=== PATIENT | female | born 1960 | race Caucasian/White ===

== ENCOUNTER 2016-12-07 07:59 | Emergency (ER) | payer BC ==
[~2016-12-07] VITALS: Ht 167.6 cm; Wt 57.1 kg
[~2016-12-07 07:59] MED LIST: ARMOUR THYROID90 MG PO; CINNAMON500 MG PO; CRANBERRY200 MG PO; GABAPENTIN300 MG PO; HAIR, SKIN & N1 EACH PO; IBUPROFEN800 MG PO; MAGNESIUM250 M1 PO; MIRALAX17 GM PO; OMEGA 3 1,0001 EACH PO; PERCOCET 5-3251 EACH PO; PRILOSEC20 MG PO; PROGESTERONE200 MG PO; VITAMIN E100 UNI1 PO; ZANTAC150 MG PO
[2016-12-07] MEDS ORDERED: GINGER500 MG PO (08:13)
[2016-12-07] MEDS ORDERED: BIOTIN10000 MCG PO (08:14)
[2016-12-07] MEDS ORDERED: MINIVELLE1 EACH TD (08:14)
[2016-12-07] MEDS ORDERED: VITAMIN D-32000 UNI1 PO (08:14)
[2016-12-07] MEDS ORDERED: TURMERIC 500 M1 EACH PO (08:14)
[2016-12-07] MEDS ORDERED: VITAMIN B COMP1 EAC1 PO (08:14)
[2016-12-07] MEDS ORDERED: MYRBETRIQ50 MG PO (08:15)
[2016-12-07] MEDS ORDERED: PROPRANOLOL HCL20 MG PO (08:15)
[2016-12-07] MEDS ORDERED: METHYLPREDNISOLO4 M1 PO (08:28)
[2016-12-07] MEDS ORDERED: ZITHROMAX250 MG PO (08:28)
== END 2016-12-07 08:38 | disposition home or self-care (01) ==
LOC: ED 07:59
DX: H05.223 Edema of bilateral orbit (principal); T78.49XA Other allergy, initial encounter; E03.9 Hypothyroidism, unspecified; Z87.891 Personal history of nicotine dependence; Z90.710 Acquired absence of both cervix and uterus; Z88.0 Allergy status to penicillin; Z88.5 Allergy status to narcotic agent; Z79.899 Other long term (current) drug therapy
CPT/HCPCS: 99283

== ENCOUNTER 2019-03-03 10:18 | Emergency (ER) | payer BC ==
[~2019-03-03] VITALS: Ht 167.6 cm; Wt 54.4 kg
--- OUTSIDE RECORDS SUMMARY | ~2019-03-03 | XMS | Encounter Summary ---
Demographics + + + | Address | [address] | | | [place] [address] | + + + | Home Phone | | + + + | Preferred Language | Unknown | + + + | Marital Status | | + + + | Scientology Affiliation | 1001 | + + + | Race | Unknown | + + + | Ethnic Group | Unknown | + + + Author + + + | Author | [facility] | | | and [place] | + + + | Organization | Loc[facility] | | | and [place] | + + + | Address | Unknown | + + + | Phone | Unavailable | + + + Support + + + + + | Name | Relationship | Address | Phone | + + + + + | Fidel Holm | ECON | [address] | | | | | [place] | | | | | [address] | | + + + + + | Angelika Holm | ECON | Unknown | | + + + + + Care Team Providers + +------+ + | Care Milk Bottling Machine Operator Name | Role | Phone | + +------+ + | Alec Tao MD | PCP | | + +------+ + Reason for Visit +--------+ + | Reason | Comments | +--------+ + | Other | | +--------+ + Encounter Details +--------+ + + + + | Date | Type | Department | Care Team | Description | +--------+ + + + + | 04/10/ | Telephone | [facility] | Donald Reich MD | Other | | 2015 | | NEUROSURGERY [address] | [address] | | | | | [facility] [address] | [place] [address] | | | | | [place] | [phone] | | | | | [address] | | | | | | [phone] | | | +--------+ + + + + Social History + + + +--------+ + | Tobacco Use | Types | Packs/Day | Years | Date | | | | | Used | | + + + +--------+ + | Former Smoker | Cigarettes | 2 | 20 | Quit: 04/05/1999 | + + + +--------+ + + +---+---+---+ | Smokeless Tobacco: | | | | | Never Used | | | | + +---+---+---+ + + +---------+ + | Alcohol Use | Drinks/Week | oz/Week | Comments | + + +---------+ + | Yes | 0 Standard drinks | 11.0 | | | | or equivalent 11 | | | | | Glasses of wine | | | + + +---------+ + + + + | Sex Assigned at | Date Recorded | | | | + + + | Not on file | | + + + + + + + | Job Start Date | Occupation | Industry | + + + + | Not on file | Not on file | Not on file | + + + + + + + + | Travel History | Travel Start | Travel End | + + + + + + | No recent travel history available. | + + documented as of this encounter Plan of Treatment Not on filedocumented as of this encounter Visit Diagnoses Not on filedocumented in this encounter"
--- OUTSIDE RECORDS SUMMARY | ~2019-03-03 | XMS | Encounter Summary ---
Demographics + + + | Address | [address] | | | [place] [address] | + + + | Home Phone | | + + + | Preferred Language | Unknown | + + + | Marital Status | | + + + | Spiritism Affiliation | NON | + + + | Race | White | + + + | Ethnic Group | Not or | + + + Author + + + | Author | [facility] | + + + | Organization | [facility] | + + + | Address | Unknown | + + + | Phone | Unavailable | + + + Support + + +---------+ + | Name | Relationship | Address | Phone | + + +---------+ + | Fidel Holm | ECON | Unknown | | + + +---------+ + Care Team Providers + +------+ + | Care Mill Set Up Name | Role | Phone | + +------+ + | Jacqueline Nuñez | PCP | | + +------+ + Reason for Visit +--------+ + | Reason | Comments | +--------+ + | Preop | | +--------+ + Encounter Details +--------+---------+ + + + | Date | Type | Department | Care Team | Description | +--------+---------+ + + + | 08/04/ | Office | Otolaryngology | Qasim Casanova MD | Congenital | | 2019 | Visit | Facial Plastics & | [address] | velopharyngeal | | | | Reconstructive | [place], | insufficiency | | | | Services at [facility] | [place] [address] | (Primary Dx) | | | | [address] | [phone] | | | | | Mailcode: CH5E | | | | | | [facility] | | | | | | and [place], | | | | | | [facility] | | | | | | Floor [place], [place] | | | | | | [address] | | | | | | [phone] | | | +--------+---------+ + + + Social History + + + +--------+ + | Tobacco Use | Types | Packs/Day | Years | Date | | | | | Used | | + + + +--------+ + | Former Smoker | Cigarettes | 2 | 20 | Quit: 04/05/1997 | + + + +--------+ + + +---+---+---+ | Smokeless Tobacco: | | | | | Never Used | | | | + +---+---+---+ + + +---------+ + | Alcohol Use | Drinks/Week | oz/Week | Comments | + + +---------+ + | Yes | 7 Standard drinks | 7.0 | | | | or equivalent | | | + + +---------+ + [...] + + documented as of this encounter Progress Notes Qasim Casanova MD - 08/04/2018 4:00 PM PDTClinic: Facial Plastic and Reconstructive Surgery [facility] Cathy Holm is a 58 y.o. female who comes in today for a preoperative visit. 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 We took care of the paperwork and answered all questions. Exam: heart - NSR; lungs - clear bilat Surgical consent was obtained. Routine prescriptions given. I have reviewed the patient's H&P and she is otherwise healthy for surgery. Patient is all set for upcoming surgery. Signed: Ken Torres (scribe for Dr. Casanova) I have reviewed and verified the above scribed note of my visit with this patient as record ed by Ken Torres. Qasim Casanova MD FACS Professor Facial Plastic and Reconstructive Surgery Dept. 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
--- OUTSIDE RECORDS SUMMARY | ~2019-03-03 | XMS | Encounter Summary ---
Demographics + + + | Address | [address] | | | [place] [address] | + + + | Home Phone | | + + + | Preferred Language | Unknown | + + + | Marital Status | | + + + | Quaker Affiliation | 1001 | + + + | Race | Unknown | + + + | Ethnic Group | Unknown | + + + Author + + + | Author | [facility] | | | and [place] | + + + | Organization | [facility] | | | and [place] | [...] [place] | | | | | [address] | | + + + + + | Angelika Holm | ECON | Unknown | | + + + + + Care Team Providers + +------+ + | Care Customer Acquisition Specialist Name | Role | Phone | + +------+ + | Alec Tao MD | PCP | | + +------+ + Reason for Visit +--------+ + | Reason | Comments | +--------+ + | Other | presurgical check | +--------+ + Encounter Details +--------+ + + + + | Date | Type | Department | Care Team | Description | +--------+ + + + + | 05/08/ | Telephone | [facility] | Donald Reich MD | Other (presurgical | | 2016 | | NEUROSURGERY [address] | [address] | check) | | | | [address] [facility] [address] | [place] [address] | | | | | [place] | [phone] | | | | | [address] | | | | | | [phone] | | | +--------+ + + + [...]
--- OUTSIDE RECORDS SUMMARY | ~2019-03-03 | XMS | Encounter Summary ---
Demographics + + + | Address | [address] | | | [place] [address] | + + + | Home Phone | | + + + | Preferred Language | Unknown | + + + | Marital Status | | + + + | Buddhist Affiliation | 1001 | + + + | Race | Unknown | + + + | Ethnic Group | Unknown | + + + Author + + + | Author | [facility] | | | and [place] | + + + | Organization | [facility] | | | and [place] [...] [place] | | | | | [address] | | + + + + + | Angelika Holm | ECON | Unknown | | + + + + + Care Team Providers + +------+ + | Care Inner Layer Scrubber Tender Name | Role | Phone | + +------+ + | Alec Tao MD | PCP | | + +------+ + Encounter Details +--------+ + + + + | Date | Type | Department | Care Team | Description | +--------+ + + + + | 08/25/ | Hospital | [facility] | EstephaniaKris unger, | Neck pain | | 2019 | Encounter | MED CTR XRAY [address] | PA[address]C [address] | | | | | [place] | [address] [place] | | | | | [place] [address] | [place] [address] | | | | | [phone] | [phone] | | | | | | | | +--------+ + + + [...] + + +---------+ + | Yes | 11 Glasses of wine | 11.0 | | | | 0 Standard drinks | | | | | or equivalent | [...] + + documented as of this encounter Medications at Time of Discharge + + + +---------+ + + | Medication | Sig | Dispensed | Refills | Start | End Date | | | | | | Date | | + + + +---------+ + + | ARMOUR THYROID 60 | TK 1 T PO QD | | 2 | 04/30/19 | | | MG tablet | | | | 17 | | + + + +---------+ + + | Biotin 5000 MCG | Take 5,000 mcg by | | 0 | | | | CAPS | mouth Daily. | | | | | + + + +---------+ + + | cholecalciferol | Take 2,000 Units by | | 0 | | | | (VITAMIN D-3) 2000 | mouth Daily. | | | | | | units TABS | | | | | | + + + +---------+ + + | CINNAMON PO | Take 2,000 mg by | | 0 | | | | | mouth Daily. | | | | | + + + +---------+ + + | clobetasol | APPLY TO SCALP TWICE | | 1 | 05/04/19 | | | (TEMOVATE) 0.05 % | DAILY NEEDED | | | 17 | | | external solution | | | | | | + + + +---------+ + + | Coenzyme Q10 (CO | Take by mouth | | 0 | | | | Q-10) 400 MG CAPS | Daily. | | | | | + + + +---------+ + + | Cranberry 300 MG | Take 300 mg by mouth | | 0 | | | | TABS | Daily. | | | | | + + + +---------+ + + | estradiol | APPLY 1 PATCH TO | | 0 | 07/01/19 | | | (VIVELLE-DOT) 0.075 | SKIN TWICE A WEEK | | | 19 | | | MG/24HR | | | | | | + + + +---------+ + + | Terri, Zingiber | Take 1,000 mg by | | 0 | | | | officinalis, (TERRI | mouth Daily. | | | | | | PO) | | | | | | + + + +---------+ + + | Ibuprofen (ADVIL | Take by mouth. | | 0 | | | | PO) | | | | | | + + + +---------+ + + | ketoconazole | | | 5 | 07/02/19 | | | (NIZORAL) 2% shampoo | | | | 17 | | + + + +---------+ + + | KRILL OIL OMEGA-3 | Take 350 mg by mouth | | 0 | | | | PO | Daily. | | | | | + + + +---------+ + + | MYRBETRIQ 50 MG ER | TK 1 T PO QD | | 2 | 06/19/19 | | | tablet | | | | 17 | | + + + +---------+ + + | [place] 3-6-9 Fatty | Take 2 tablets by | | 0 | | | | Acids (TRIPLE OMEGA | mouth Daily. | | | | | | COMPLEX PO) | | | | | | + + + +---------+ + + | omeprazole | Take 10 mg by mouth | | 0 | | | | (PRILOSEC) 10 mg | 2 times daily. | | | | | | capsule | | | | | | + + + +---------+ + + | progesterone | Take 200 mg by mouth | | 0 | | | | (PROMETRIUM) 200 mg | Daily. | | | | | | capsule | | | | | | + + + +---------+ + + | propranolol | Take 20 mg by mouth | | 0 | | | | (INDERAL) 20 MG | 2 times daily. | | | | | | tablet | Patient states " cut | | | | | | | med in half and | | | | | | | takes twice a day" | | | | | + + + +---------+ + + | TURMERIC PO | Take 700 capsules by | | 0 | | | | | mouth Daily. | | | | | + + + +---------+ + + | UNABLE TO FIND | Apply 1 Application | | 0 | | | | | topically 2 times | | | | | | | daily. Med Name: | | | | | | | Bi-Est | | | | | + + + +---------+ + + documented as of this encounter Plan of Treatment Not on filedocumented as of this encounter Procedures + +--------+ + + + | Procedure Name | Priori | Date/Time | Associated Diagnosis | Comments | | | ty | | | | + +--------+ + + + | XR CERVICAL SPINE 4 | Routin | 08/25/2018 | Neck pain | Results for this | | OR 5 VWS | e | 12:25 PM | | procedure are in the | | | | PDT | | results section. | + +--------+ + + + documented in this encounter Results XR Cervical Spine 4 or 5 Vws (08/25/2018 12:25 PM PDT) + + | Specimen | + + | | + + + + + | Narrative | Performed At | + + + | XR CERVICAL SPINE 4 OR 5 VWS 08/25/2018 12:24 PM HISTORY: Neck | [facility] | | pain. COMPARISON: Multiple priors. FINDINGS: Visualized skull | | | base and facial structures demonstrate no acute findings. | | | Prevertebral soft tissues are normal. Loss of the usual lordosis | | | is present. There is stable hardware for anterior fusion from C4 | | | through C7 with interbody graft material at these levels. The | | | hardware are intact. Osseous fusion is observed from C4 through C6. | | | Incomplete fusion is noted between C6 and C7. Mild anterolisthesis is | | | noted of C7 over T1. Bone mineralization is normal. The dens is | | | normal. Vertebral body height are preserved with no evidence for | | | compression fractures. Disc height are maintained. Facet joints are | | | intact. 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 | | | Minimal atherosclerosis is seen of the right neck. Visualized upper | | | chest demonstrates no acute findings. IMPRESSION - Stable | | | anterior fusion from C4 through C7. Osseous fusion is observed from C4 | | | through C6. Incomplete fusion is noted between C6 and C7. | | | Dictated and Signed by: Maurice Rizzo MD Electronically signed: | | | 08/25/2018 1:42 PM | | + + + + + | Procedure Note | + + | Farhan, Rad Results In - 08/25/2018 1:45 PM PDT XR CERVICAL SPINE 4 OR 5 VWS 08/25/2018 | | 12:24 PMHISTORY: Neck pain.COMPARISON: Multiple priors.FINDINGS:Visualized skull base | | and facial structures demonstrate no acute findings.Prevertebral soft tissues are | | normal.Loss of the usual lordosis is present. There is stable hardware for | | anteriorfusion from C4 through C7 with interbody graft material at these levels. | | Thehardware are intact. Osseous fusion is observed from C4 through C6. Incompletefusion | | is noted between C6 and C7. Mild anterolisthesis is noted of C7 over T1.Bone | | mineralization is normal. The dens is normal. Vertebral body height arepreserved with no | | evidence for compression fractures. Disc height aremaintained. Facet joints are intact. | | There is ossification of the ligamentumnuchae at level C5. Minimal atherosclerosis is | | seen of the right neck.Visualized upper chest demonstrates no acute findings. IMPRESSION | | -Stable anterior fusion from C4 through C7. Osseous fusion is observed from [id number] | | C6. Incomplete fusion is noted between C6 and C7.Dictated and Signed by: Maurice Rizzo MD | | Electronically signed: 08/25/2018 1:42 PM | |Bone mineralization is normal. The dens is normal. Vertebral body height are | |preserved with no evidence for compression fractures. Disc height are | |maintained. Facet joints are intact. There is ossification of the ligamentum | |nuchae at level C5. Minimal atherosclerosis is seen of the right neck. | |Visualized upper chest demonstrates no acute findings. | | | |IMPRESSION - | |Stable anterior fusion from C4 through C7. Osseous fusion is observed from C4 | |through C6. Incomplete fusion is noted between C6 and C7. | | | |Dictated and Signed by: Maurice Rizzo MD | | Electronically signed: 08/25/2018 1:42 PM | + + + +---------+ + + | Performing | Address | City/State/Zipcode | Phone Number | | Organization | | | | + +---------+ + + | [facility] | | | | + +---------+ + + documented in this encounter Visit Diagnoses + + | Diagnosis | + + | Neck pain Cervicalgia | + + documented in this encounter
--- OUTSIDE RECORDS SUMMARY | ~2019-03-03 | XMS | Encounter Summary ---
Demographics + + + | Address | [address] | | | [place] [address] | + + + | Home Phone | | + + + | Preferred Language | Unknown | + + + | Marital Status | | + + + | Cheondoism Affiliation | 1001 | + + + | Race | Unknown | + + + | Ethnic Group | Unknown | + + + Author + + + | Author | [facility] | | | and [place] | + + + | Organization | [facility] | | | and [place] [...] [place] | | | | | [address] | | + + + + + | Angelika Holm | ECON | Unknown | | + + + + + Care Team Providers + +------+ + | Care Printer Maintainer Name | Role | Phone | + +------+ + | Alec Tao MD | PCP | | + +------+ + Reason for Visit + + + | Reason | Comments | + + + | Medication Refill | | + + + Encounter Details +--------+--------+ + + + | Date | Type | Department | Care Team | Description | +--------+--------+ + + + | 03/31/ | Refill | [facility] | Andrea Arndt | Medication Refill | | 2014 | | PHYSIATRY [address] | | | | | [place], | [place], [place] | | | | | [place] [address] | [address] | | | | | [phone] | | | +--------+--------+ + + + Social History + + [...]
--- OUTSIDE RECORDS SUMMARY | ~2019-03-03 | XMS | Clinical Summary ---
Demographics + + + | Address | [address] | | | [place] [address] | + + + | Home Phone | | + + + | Preferred Language | Unknown | + + + | Marital Status | | + + + | Advent Affiliation | 1001 | + + + | Race | Unknown | + + + | Ethnic Group | Unknown | + + + Author + + + | Author | [facility] | | | and [place] | + + + | Organization | [facility] | | | and [place] | [...] [place] | | | | | [address] | | + + + + + | Angelika Holm | ECON | Unknown | | + + + + + Care Team Providers + +------+ + | Care Geologist Petroleum Name | Role | Phone | + +------+ + | Alec Tao MD | PCP | | + +------+ + Allergies + + + + + + | Active Allergy | Reactions | Severity | Noted | Comments | | | | | Date | | + + + + + + | Ampicillin | Rash | Low | | | + + + + + + | Morphine | Nausea And Vomiting | Medium | 04/17/19 | | | | | | 15 | | + + + + + + | Penicillins | Rash | Low | | | + + + + + + Medications + + + +---------+------+------+-------+ | Medication | Sig | Dispensed | Refills | Star | End | Statu | | | | | | t | Date | s | | | | | | Date | | | + + + +---------+------+------+-------+ | progesterone | Take 200 mg by mouth | | 0 | | | Activ | | (PROMETRIUM) 200 mg | Daily. | | | | | e | | capsule | | | | | | | + + + +---------+------+------+-------+ | [place] 3-6-9 Fatty | Take 2 tablets by | | 0 | | | Activ | | Acids (TRIPLE OMEGA | mouth Daily. | | | | | e | | COMPLEX PO) | | | | | | | + + + +---------+------+------+-------+ | CINNAMON PO | Take 2,000 mg by | | 0 | | | Activ | | | mouth Daily. | | | | | e | + + + +---------+------+------+-------+ | Cranberry 300 MG | Take 300 mg by mouth | | 0 | | | Activ | | TABS | Daily. | | | | | e | + + + +---------+------+------+-------+ | Biotin 5000 MCG | Take 5,000 mcg by | | 0 | | | Activ | | CAPS | mouth Daily. | | | | | e | + + + +---------+------+------+-------+ | UNABLE TO FIND | Apply 1 Application | | 0 | | | Activ | | | topically 2 times | | | | | e | | | daily. Med Name: | | | | | | | | Bi-Est | | | | | | + + + +---------+------+------+-------+ | omeprazole | Take 10 mg by mouth | | 0 | | | Activ | | (PRILOSEC) 10 mg | 2 times daily. | | | | | e | | capsule | | | | | | | + + + +---------+------+------+-------+ | propranolol | Take 20 mg by mouth | | 0 | | | Activ | | (INDERAL) 20 MG | 2 times daily. | | | | | e | | tablet | Patient states " cut | | | | | | | | med in half and | | | | | | | | takes twice a day" | | | | | | + + + +---------+------+------+-------+ | cholecalciferol | Take 2,000 Units by | | 0 | | | Activ | | (VITAMIN D-3) 2000 | mouth Daily. | | | | | e | | units TABS | | | | | | | + + + +---------+------+------+-------+ | ARMOUR THYROID 60 | TK 1 T PO QD | | 2 | 01/2 | | Activ | | MG tablet | | | | 6/20 | | e | | | | | | 17 | | | + + + +---------+------+------+-------+ | MYRBETRIQ 50 MG ER | TK 1 T PO QD | | 2 | 03/1 | | Activ | | tablet | | | | 6/20 | | e | | | | | | 17 | | | + + + +---------+------+------+-------+ | ketoconazole | | | 5 | 03/2 | | Activ | | (NIZORAL) 2% shampoo | | | | 9/20 | | e | | | | | | 17 | | | + + + +---------+------+------+-------+ | clobetasol | APPLY TO SCALP TWICE | | 1 | 01/3 | | Activ | | (TEMOVATE) 0.05 % | DAILY NEEDED | | | 0/20 | | e | | external solution | | | | 17 | | | + + + +---------+------+------+-------+ | TURMERIC PO | Take 700 capsules by | | 0 | | | Activ | | | mouth Daily. | | | | | e | + + + +---------+------+------+-------+ | KRILL OIL OMEGA-3 | Take 350 mg by mouth | | 0 | | | Activ | | PO | Daily. | | | | | e | + + + +---------+------+------+-------+ | Terri, Zingiber | Take 1,000 mg by | | 0 | | | Activ | | officinalis, (TERRI | mouth Daily. | | | | | e | | PO) | | | | | | | + + + +---------+------+------+-------+ | Coenzyme Q10 (CO | Take by mouth | | 0 | | | Activ | | Q-10) 400 MG CAPS | Daily. | | | | | e | + + + +---------+------+------+-------+ | Ibuprofen (ADVIL | Take by mouth. | | 0 | | | Activ | | PO) | | | | | | e | + + + +---------+------+------+-------+ | estradiol | APPLY 1 PATCH TO | | 0 | 03/2 | | Activ | | (VIVELLE-DOT) 0.075 | SKIN TWICE A WEEK | | | 8/20 | | e | | MG/24HR | | | | 19 | | | + + + +---------+------+------+-------+ Active Problems + + + | Problem | Noted Date | + + + | Chronic constipation | 08/25/2018 | + + + | Incontinence without sensory awareness | 08/25/2018 | + + + | Atrophic vaginitis | 08/25/2018 | + + + | Velopharyngeal insufficiency, acquired | 08/11/2018 | + + + | Female stress incontinence | 08/02/2018 | + + + | Congenital velopharyngeal insufficiency | 12/09/2017 | + + + | Injury of nose | 12/09/2017 | + + + | Nasal septal perforation | 12/09/2017 | + + + | Nasal obstruction | 12/09/2017 | + + + | Nasal septal deviation | 12/09/2017 | + + + | Nasal valve collapse | 12/09/2017 | + + + | Chronic bilateral thoracic back pain | 03/23/2017 | + + + | Alcohol consumption less than one to two days per week | 05/09/2015 | + + + | H/O Hysterectomy | 05/09/2015 | + + + | Ulnar nerve entrapment at elbow, unspecified laterality | 01/15/2015 | + + + | Bilateral low back pain with sciatica | 01/15/2015 | + + + | Cervical radiculopathy | 06/20/2014 | + + + | S/P decompression of ulnar nerve at elbow | 05/01/2014 | + + + + + | Overview: Right | + + + +---+ | Acid reflux | | + +---+ | Hypothyroidism | | + +---+ | Cubital tunnel syndrome | | + +---+ Resolved Problems + + + + | Problem | Noted | Resolved | | | Date | Date | + + + + | Cervical spondylosis with myelopathy | 03/12/20 | | | | 15 | 6 | + + + + | Cervical spinal cord compression | 03/12/20 | | | | 15 | 6 | + + + + | Neck and shoulder pain | | | | | | 6 | + + + + | Degeneration of cervical intervertebral disc | | | | | | 6 | + + + + | Spinal stenosis in cervical region | | | | | | 6 | + + + + | Cervical spondylosis without myelopathy | | | | | | 6 | + + + + Family History + + +------+ + | Medical History | Relation | Name | Comments | + + +------+ + | Gout | Father | | | + + +------+ + | Heart disease | Father | | | + + +------+ + | Other (see comment) | Father | | Blood clots | + + +------+ + | Stroke | Father | | | + + +------+ + | Dementia | Mother | | | + + +------+ + | Hypertension | Mother | | | + + +------+ + | Mental illness | Mother | | | + + +------+ + | Seizures | Mother | | | + + +------+ + | Diabetes | Paternal | | | | | Grandmoth | | | | | er | | | + + +------+ + + +------+ + + | Relation | Name | Status | Comments | + +------+ + + | Father | | | Stroke | | | | (Age | | | | | 82) | | + +------+ + + | Mother | | | Pneumonia | | | | (Age | | | | | 72) | | + +------+ + + | Paternal Grandmother | | | | + +------+ + + Social History + + + [...] recent travel history available. | + + Last Filed Vital Signs + + + + + | Vital Sign | Reading | Time Taken | Comments | + + + + + | Blood Pressure | 124/70 | 08/25/2018 1:32 PM | | | | | PDT | | + + + + + | Pulse | 88 | 08/25/2018 1:32 PM | | | | | PDT | | + + + + + | Temperature | 37.2 C (99 F) | 05/11/2015 8:00 AM | | | | | PST | | + + + + + | Respiratory Rate | 16 | 08/25/2018 1:32 PM | | | | | PDT | | + + + + + | Oxygen Saturation | 100% | 05/11/2015 8:00 AM | | | | | PST | | + + + + + | Inhaled Oxygen | - | - | | | Concentration | | | | + + + + + | Weight | 55.3 kg (121 lb 14.6 | 08/25/2018 1:32 PM | | | | oz) | PDT | | + + + + + | Height | 167.6 cm (5' 6") | 08/25/2018 1:32 PM | | | | | PDT | | + + + + + | Body Mass Index | 19.68 | 08/25/2018 1:32 PM | | | | | PDT | | + + + + + Plan of Treatment + + + + + | Health Maintenance | Due Date | Last Done | Comments | + + + + + | Hepatitis C | | | | | Screening | 8 | | | + + + + + | Vaccine: | | | | | Dtap/Tdap/Td (1 - | 7 | | | | Tdap) | | | | + + + + + | Colorectal Cancer | | | | | Screening | 8 | | | | (Colonoscopy) | | | | + + + + + | Vaccine: Zoster (1 | | | | | of 2) | 8 | | | + + + + + | Breast Cancer | | | | | Screening | 3 | | | + + + + + | Vaccine: Influenza | | | | | (#1) | 9 | | | + + + + + Implants + +------+--------+ +--------+--------+--------+ | Implanted | Type | Area | Manufacture | Device | Shelf | Model | | | | | r | | Expira | / | | | | | | Identi | tion | Serial | | | | | | fier | Date | / Lot | + +------+--------+ +--------+--------+--------+ | Allograft Lordotic [id number] - | | Anteri | [employer] | | 09/20/ | [id number] | | [id number]: Qty: 1 on | | or: | DANEK - DIV | | 2017 | | | 05/10/2015 by Donald Reich, | | Spine | [employer] | | | /[id number] | | MD at [facility] | | [place] | - [facility] | | | [address] | | [facility] | | al | | | | /[id number] | | | | | | | | 6134 | + +------+--------+ +--------+--------+--------+ | Allograft Lordotic [id number] - | | Anteri | [employer] | | 09/20/ | [id number] | | [id number]: Qty: 1 on | | or: | DANEK - DIV | | 2017 | | | 05/10/2015 by Donald Reich, | | Spine | [employer] | | | /[id number] | | at [facility] | | Cervic | - [facility] | | | [address] | | [facility] | | al | | | | /[id number] | | | | | | | | 6134 | + +------+--------+ +--------+--------+--------+ | Allograft Lordotic [id number] - | | Anteri | [employer] | | 08/21/ | [id number] | | [id number]: Qty: 1 on | | or: | DANEK - DIV | | 2018 | | | 05/10/2015 by Donald Reich, | | Spine | [employer] | | | /[id number] | | at [facility] | | Cervic | - [facility] | | | [address] | | [facility] | | al | | | | /[id number] | | | | | | | | 6314 | + +------+--------+ +--------+--------+--------+ | Nhan Whitingn Pls 1cc Aseptic | | Anteri | OSTEOTECH - | | 10/08/ | [id number] | | - [id number]: Qty: | | or: | OSTT | | 2017 | | | 1 on 05/10/2015 by Damir, | | Spine | | | | /[id number] | | Donald Sebastian MD at [facility] | | Cervic | | | | [phone] | | [facility] | | al | | | | / | + +------+--------+ +--------+--------+--------+ | Screw D-Thrd Slf-Drl 3.5x15mm | | Anteri | [employer] | | | [id number] | | - [id number]: Qty: 6 | | or: | DANEK - DIV | | | 5 / / | | on 05/10/2015 by Donald Reich | | Spine | [employer] | | | | | MD Romulo at [facility] | | [place] | - [facility] | | | | | [facility] | | al | | | | | + +------+--------+ +--------+--------+--------+ | Screw D-Thrd Slf-Drl 4.0x15mm | | Anteri | [employer] | | | [id number] | | - [id number]: Qty: 2 | | or: | DANEK - DIV | | | 5 / | | on 05/10/2015 by Donald Reich | | Spine | [employer] | | | | | MD Romulo at [facility] | | Cervic | - [facility] | | | | | [facility] | | al | | | | | + +------+--------+ +--------+--------+--------+ | Imp Spn Plt Samy Johnston 55mm 3lvl | | Anteri | [employer] | | | [id number] | | - [id number]: Qty: 1 | | or: | DANEK - DIV | | | 5 / / | | on 05/10/2015 by Donald Reich | | Spine | [employer] | | | | | MD Romulo at [facility] | | Cervic | - [facility] | | | | | [facility] | | al | | | | | + +------+--------+ +--------+--------+--------+ Results Not on filefrom Last 3 Months Insurance + +--------+ +--------+-------+---------+------+ | Payer | Benefi | Subscriber | Effect | Phone | Address | Type | | | t Plan | ID | dale | | | | | | / | | Dates | | | | | | Group | | | | | | + +--------+ +--------+-------+---------+------+ | BCBS | BCBS | [id number] | 04/05/19 | | | PPO | | | OOS | 8 | 17-Pre | | | | | | PPO | | sent | | | | + +--------+ +--------+-------+---------+------+ | [employer]LE[employer] | ALLEGI | [id number] | | | | PPO | | | ANCE | 2 | 018-Pr | | | | | | GWH | | esent | | | | | | CIGNA | | | | | | + +--------+ +--------+-------+---------+------+ + +--------+ +--------+ + + | Guarantor Name | Accoun | Relation to | Date | Phone | Billing Address | | | t Type | Patient | of | | | | | | | | | | + +--------+ +--------+ + + | Cathy Holm | Person | Self [birth year] | [address] | | | al/Fam | | 1959 | [phone] | [place] [address] | | | [address] | | | 2 (Home) | | | | | | | [phone] | | | | | | | 0 (Work) | | + +--------+ +--------+ + + Advance Directives + + + + + | Type | Date Recorded | Patient | Explanation | | | | Dietary Supervisor | | + + + + + | Power of | | | | | Director Of Education | | | | + + + + + | Advance | 05/01/2014 1:25 | | | | Directive | PM | | | + + + + + + + + + + | Code Status | Date | Date | Comments | | | Activated | Inactivated | | + + + + + | Full Code | 05/10/2015 | 05/11/2015 | | | | 4:02 PM | 2:05 PM | | + + + + +
--- OUTSIDE RECORDS SUMMARY | ~2019-03-03 | XMS | Encounter Summary ---
Demographics + + + | Address | [address] | | | [place] [address] | + + + | Home Phone | | + + + | Preferred Language | Unknown | + + + | Marital Status | | + + + | Spiritism Affiliation | 1001 | + + + | Race | Unknown | + + + | Ethnic Group | Unknown | + + + Author + + + | Author | [facility] | | | and [place] | + + + | Organization | [facility] | | | and [place] [...] [place] | | | | | [address] | | + + + + + | Angelika Holm | ECON | Unknown | | + + + + + Care Team Providers + +------+ + | Care Sail Finisher Machine Name | Role | Phone | + +------+ + | Alec Tao MD | PCP | | + +------+ + Reason for Referral Evaluate & Treat (Routine) +--------+ + + + + + | Status | Reason | Specialty | Diagnoses / | Referred By | Referred To | | | | | Procedures | Contact | Contact | +--------+ + + + + + | Closed | Specialty | Physical | Diagnoses | Bernard, | Yris, | | | Services | Medicine and | | Abdulaziz | Andrea Scott MD | | | Required | Rehabilitatio | Degeneration | [place] | [address] | | | | n | of cervical | [address] | | | | | [address] | [place] | | | | | intervertebr | [place] | [address] Phone: | | | | | al disc | [id number] | [phone] | | | | | Spinal | Phone: | Fax: | | | | | stenosis in | [phone] | [phone] | | | | | cervical | Fax: | | | | | | region | [phone] | | | | | | Cervical | | | | | | | spondylosis | | | | | | | without | | | | | | | myelopathy | | | | | | | Neck and | | | | | | | shoulder | | | | | | | pain S/P | | | | | | | decompressio | | | | | | | n of ulnar | | | | | | | nerve at | | | | | | | elbow | | | +--------+ + + + + + Evaluate & Treat (Routine) +--------+ + + + + + | Status | Reason | Specialty | Diagnoses / | Referred By | Referred To | | | | | Procedures | Contact | Contact | +--------+ + + + + + | Closed | Specialty | Physical | Diagnoses | West, | | | | Services | Therapy | | Abdulaziz | | | | Required | | Degeneration | [place] | | | | | | of cervical | [address] | | | | | | | [facility] | | | | | | intervertebr | [place] | | | | | | al disc | [address] | | | | | | Spinal | Phone: | | | | | | stenosis in | [phone] | | | | | | cervical | Fax: | | | | | | region | [phone] | | | | | | Cervical | | | | | | | spondylosis | | | | | | | without | | | | | | | myelopathy | | | | | | | Neck and | | | | | | | shoulder | | | | | | | pain S/P | | | | | | | decompressio | | | | | | | n of ulnar | | | | | | | nerve at | | | | | | | elbow | | | +--------+ + + + + + Reason for Visit + + + | Reason | Comments | + + + | New Patient | Neck, shoulder, back pain | + + + Evaluate & Treat (Routine) +--------+--------+ + + + + | Status | Reason | Specialty | Diagnoses / | Referred By | Referred To | | | | | Procedures | Contact | Contact | +--------+--------+ + + + + | Closed | | Neurosurgery | Diagnoses | [place], | [place], | | | | | | Holden Storey MD | Abdulaziz | | | | | Degeneration | [address] | [place] | | | | | of cervical | ([address] | [address] | | | | | | [address]) | AV [place], | | | | | intervertebr | [place], | [place] [address] | | | | | al disc | [place] [address] | Phone: | | | | | Cervical | Phone: | [phone] | | | | | spondylosis | [phone] | Fax: | | | | | without | Fax: | [phone] | | | | | myelopathy | [phone] | | | | | | Procedures | | | | | | | [place] OFFICE | | | | | | | CONSULTATION | | | | | | | NEW/ESTAB | | | | | | | PATIENT 60 | | | | | | | MIN | | | +--------+--------+ + + + + Encounter Details +--------+---------+ + + + | Date | Type | Department | Care Team | Description | +--------+---------+ + + + | 05/01/ | Office | [facility] | Abdulaziz Wagner | Degeneration of | | 2015 | Visit | NEUROSURGERY [address] | [address] | cervical | | | | [address] | intervertebral disc | | | | [place] | [place] [address] | (Primary Dx); Spinal | | | | [address] | [phone] | stenosis in | | | | [phone] | | cervical region; | | | | | | Cervical spondylosis | | | | | | without myelopathy; | | | | | | Neck and shoulder | | | | | | pain; S/P | | | | | | decompression of | | | | | | ulnar nerve at elbow | +--------+---------+ + + + Social History + +-------+ +--------+ + | Tobacco Use | Types | Packs/Day | Years | Date | | | | | Used | | + +-------+ +--------+ + | Former Smoker | | | | Quit: 04/05/1999 | + +-------+ +--------+ + + + +---------+ + | Alcohol Use | Drinks/Week | oz/Week | Comments | + + +---------+ + | Yes | | | Frequently (more | | | | | than twice a week) | + + +---------+ + + + [...] + + documented as of this encounter Last Filed Vital Signs + + + + + | Vital Sign | Reading | Time Taken | Comments | + + + + + | Blood Pressure | 134/84 | 05/01/2014 2:52 PM | | | | | PST | | + + + + + | Pulse | 86 | 05/01/2014 2:52 PM | | | | | PST | | + + + + + | Temperature | - | - | | + + + + + | Respiratory Rate | 12 | 05/01/2014 2:52 PM | | | | | PST | | + + + + + | Oxygen Saturation | - | - | | + + + + + | Inhaled Oxygen | - | - | | | Concentration | | | | + + + + + | Weight | 59.4 kg (131 lb) | 05/01/2014 2:52 PM | | | | | PST | | + + + + + | Height | 167.6 cm (5' 6") | 05/01/2014 2:52 PM | | | | | PST | | + + + + + | Body Mass Index | 21.14 | 05/01/2014 2:52 PM | | | | | PST | | + + + + + documented in this encounter Patient Instructions Patient Instructions Abdulaziz Wagner PA - 05/01/2014 3:41 PM PSTToday we decided to ask you to see physiatry for further evaluation of your neck and shoulder discomfort. We wi ll also start with physical therapy. We will see you back in approximately 6 months to [facility] on her progress. Please continue to follow up with your primary care provider. If her sy mptoms progress please let our office knowElectronically signed by JOSHUA Guevara 05/01/2014 3:41 PM PST documented in this encounter Progress Notes Maryuri Oates - 05/01/2014 2:45 PM PSTFormatting of this note might be different from christie beard. JOSHUA Castle [address], [address] [place], [place] [id number] FAX: NEUROSURGERY HISTORY AND PHYSICAL EXAMINATION CHIEF COMPLAINT: Chief Complaint Patient presents with New Patient Neck, shoulder, back pain HISTORY OF PRESENT ILLNESS: The patient is a 54 y.o. female with the complaint of neck and right shoulder pain. The patient had been having problems for several months. She had kris luation through an orthopedic surgeon and had rotator cuff repair on her right shoulder. Un fortunately her symptoms continued on. Nerve conduction studies showed ulnar nerve entrapme nt at the elbow moderate to severe on the right and mild on the left. She had decompression approximately 1 month ago on her left ulnar nerve. Unfortunately the patient continued to have shoulder discomfort. She then had an MRI of her cervical spine ordered. The patient c omplains of some neck discomfort as well as daily headaches. She continues to have pain rad iating down into her shoulder on the right side. She occasionally has an aching in her uppe r arm on the right side. She does not have any symptoms radiating into her hand or forearm at this time. She has not noted any weakness of her hands or arms. She does not have any b alance disturbance or loss of bowel or bladder control. She describes her pain has burning and dull, it is there daily. Her symptoms improve with nothing. Her symptoms worsen with driving She has tried chiropractic therapy. PAST MEDICAL HISTORY: Past Medical History Diagnosis Date Torn rotator cuff Migraine Thyroid disease Neck and shoulder pain Acid reflux Bladder problem Incontinence Hypothyroidism Numbness and tingling in right hand PAST SURGICAL HISTORY: Past Surgical History Procedure Date Shoulder surgery 08/17/2013 Holden Morrisphard Elbow surgery 03/15/2014 Holden Morrisphard Incontinence surgery 2004 Bladder sling release 08/26/2013 Jacqui Urbina Cystocele repair 1998 Partial hysterectomy 1999 Efren and bso 2004 Rectocele repair 1998 CURRENT MEDICATIONS: Current Outpatient Prescriptions Medication Sig Dispense Refill Biotin 5000 MCG CAPS Take 5,000 mcg by mouth Daily. Cholecalciferol (VITAMIN D-3) 5000 units CAPS Take 5,000 Units by mouth Daily. CINNAMON PO Take 2,000 mg by mouth Daily. Cranberry 300 MG TABS Take 300 mg by mouth Daily. estrogens, conjugated, (PREMARIN) vaginal cream Place vaginally Daily. Multiple Vitamins-Minerals (QC MULTI-HERMANN 50 & OVER PO) Take 1 tablet by mouth Daily. Nickerson 3-6-9 Fatty Acids (TRIPLE OMEGA COMPLEX PO) Take 2 tablets by mouth Daily. omeprazole (PRILOSEC) 10 mg capsule Take 10 mg by mouth 2 times daily. oxyCODONE-acetaminophen (PERCOCET) 5-325 mg per tablet Take 2 tablets by mouth every 6 hours as needed. progesterone (PROMETRIUM) 200 mg capsule Take 200 mg by mouth Daily. thyroid (ARMOUR THYROID) 90 MG tablet Take 90 mg by mouth Daily. traMADol (ULTRAM) 50 mg tablet Take 100 mg by mouth every 6 hours as needed. UNABLE TO FIND Med Name: Bi-Est ALLERGIES: Allergies Allergen Reactions Morphine Nausea And Vomiting Ampicillin Rash Penicillins Rash SOCIAL HISTORY: The patient reports that she quit smoking about 15 years ago. She does not have any smokel ess tobacco history on file. She reports that she drinks alcohol. She reports that she does not use illicit drugs. FAMILY HISTORY: Family History Problem Relation Age of Onset Other (See Comment) Father Blood clots Gout Father Heart disease Father Mental illness Mother Seizures Mother Stroke Father Hypertension Mother Dementia Mother Diabetes Paternal Grandmother REVIEW OF SYSTEMS GENERALLY: No fever, + night sweats, no anemia, no fatigue, + recent profound weight barraza ges. EYES: No eye problems, + use of corrective lenses, no eye injury, no double vision, no bli ndness. EARS, NOSE, AND THROAT: No changes in taste or smell, + hearing difficulty, no ringing in the ears, no ear drainage, no dizziness, no voice changes, no difficulty swallowing, no sign ificant snoring, no sleep apnea, + sinus problems, + major dental work. NEUROLOGICALLY: Please see the review of systems discussed above in the history of present illness. In addition, the patient has awake with numbness/pain, muscle aching, neck injury , back injury, pain in neck, pain in back, headaches, migraines. PSYCHIATRIC: No depression, + sleep disorders, no anxiety, no bipolar disorder, no psychot ic episodes. CARDIOVASCULAR: No heart attacks, + heart murmur, no heart fluttering, no chest pain, no a nkle swelling. LUNG DISEASE: No shortness of breath, no cough, no tuberculosis, no bloody cough, no asth ma, no emphysema/COPD. GASTROINTESTINAL: No bowel disease, no nausea or vomiting, no rectal bleeding, + constipat ion, no stool incontinence, no liver disease, no gallbladder disease, no abdominal pain, no ulcers. KIDNEY DISEASE: No urinary frequency, no painful or difficult urination, + incontinence. ENDOCRINE: No diabetes, no thyroid disease, no osteopenia or osteoporosis, no breast drain age. SKIN: + breast lumps, no skin changes, no rashes, no itches. HEMATOLOGIC/LYMPHATIC: No enlarged lymph nodes, no easy or unusual bleeding, no personal h istory of cancer. RHEUMATOLOGIC: No joint arthritis, no rheumatoid arthritis. PHYSICAL EXAMINATION: Blood pressure 134/84, pulse 86, resp. rate 12, height 1.676 m (5' 6"), weight 59.421 kg (1 31 lb). Body mass index is 21.15 kg/(m^2). GENERAL: Cathy Holm is in no acute distress with unlabored respirations. The patien t does not appear uncomfortable throughout the exam today. HEENT: HEAD/FACE: EYES: EARS: NASOPHARNYX: OROPHARNYX: Normocephalic and atraumatic. There are no areas of recent trauma. Normal sclerae without icterus. No drainage or tenderness. Clear without drainage. Clear without erythema. NECK (ANTERIOR): Supple and without palpable masses. CHEST: Clear to ausculation without crackles or wheeze. HEART: Regular rate and rhythm without murmurs. ABDOMEN: Soft, non-tender, non-distended, and without palpable masses. The patient is not obese. SPINE: The cervical spine exam shows there is no tenderness over the [id number]. Range of motion is mildly limited. Rotation and extension does not cause symptoms to radiate into t he extremities on both sides. Flexion and extension of the neck does not cause severe disc omfort. No tenderness in the midline of the thoracic or lumbar spine. There is no major palpable d eformity of the spine. EXTREMITIES: No cyanosis, clubbing, or edema. Distal pulses are palpable. NEUROLOGICAL EXAM: MENTAL STATUS: The patient is awake, alert, and oriented. She follows simple and complex commands. Her speech is fluent, she comprehends speech well, and she repeats well. She has no apparent deficits with short or tank terminal gauger memory. CRANIAL NERVES: Fundoscopic Exam: The optic disc is sharp. Normal vascular pattern is visualized II: Acuity is intact. Ojeda are full to confrontation. III, IV, : The pupils are reactive. Extraocular movements are intact. No ptosis is note d. V: Facial sensation is intact and symmetric. VII: Facial movements are symmetric. VIII: Hearing is intact bilaterally. IX, X: The uvula and palate move appropriately. XI: Shrug is equal bilaterally. XII: Tongue protrusion is midline. MOTOR EXAM: (5 IS NORMAL) * Indicates pain limited MUSCLE/ MOVEMENT: RIGHT LEFT Deltoids 5 5 Biceps 5 5 Triceps 5 5 Wrist Flexion 5 5 Wrist Extension 5 5 Median Intrinsics 5 5 Ulnar Intrinsics 5 5 Slitting Machine Feeder Strength 5 5 Hip Flexion 5 5 Hip Extension 5 5 Knee Flexion 5 5 Knee Extension 5 5 Dorsiflexion 5 5 Extensor Hallicus Longus 5 5 Plantarflexion 5 5 SENSORY EXAM: Sensory exam shows no diminished sensation to light touch or pain throughout the upper and lower extremities. REFLEXES: (2 OR 2+ IS NORMAL) REFLEX: RIGHT LEFT BICEPS 3+ 3+ BRACHIORADIALIS 3+ 3+ TRICEPS 3+ 3+ PATELLAR 3+ 3+ ACHILLES 3+ 3+ MAYS'S ABSENT ABSENT PLANTAR DOWNGOING DOWNGOING GAIT: Gait is steady. PERIPHERAL NERVE/MISC: Tinel is negative at the wrists and elbows bilaterally. Phalen is negative. RADIOGRAPHIC REVIEW: The patient's imaging was reviewed in detail with the patient today during the visit. The patient's MRI shows loss of normal cervical lordosis. The patient has neural foraminal narr owing worse on the right side at C5-6 and to a lesser degree at C6-7. This is generally tho ught to be moderate. The patient does have some mild cervical stenosis with no cord signal changes apparent. Patient had x-rays of her cervical spine which show no sign of instabilit y ASSESSMENT: NEUROSURGICAL DIAGNOSES: Encounter Diagnoses Name Primary? Degeneration of cervical intervertebral disc Yes Spinal stenosis in cervical region Cervical spondylosis without myelopathy Neck and shoulder pain S/P decompression of ulnar nerve at elbow GENERAL DIAGNOSES: Past Medical History Diagnosis Date Torn rotator cuff Migraine Thyroid disease Neck and shoulder pain Acid reflux Bladder problem Incontinence Hypothyroidism Numbness and tingling in right hand PLAN: Cathy Holm presented today, and it was a pleasure seeing this patient and assessing her problems. The patient hneck and shoulder discomfort. The patient may have some mild ra dicular pain from her cervical region however I suspect most of her discomfort is muscle ske letal in nature. I had a lengthy discussion with the patient about her options for care in cluding surgical and non-surgical options. at this time we decided to pursue more conserva tive options to include aggressive physical therapy as well as referral to physiatry for fur ther evaluation. We would like to see her back in the office in approximately 6 months to caridad cristobal on her progress. If she has worsening neurologic symptoms and we would be happy to see her back earlier and reevaluate her symptoms at that time ELECTRONICALLY SIGNED BY: JOSHUA Castle, 05/01/2014 15:44 documented in th is encounter Plan of Treatment + + +--------+ + + | Name | Type | Priori | Associated Diagnoses | Order Schedule | | | | ty | | | + + +--------+ + + | OUTPATIENT PT | Outpatient | Routin | Degeneration of | Ordered: 05/01/2014 | | EXTERNAL | Referral | e | cervical | | | | | | intervertebral disc | | | | | | Spinal stenosis in | | | | | | cervical region | | | | | | Cervical spondylosis | | | | | | without myelopathy | | | | | | Neck and shoulder | | | | | | pain S/P | | | | | | decompression of | | | | | | ulnar nerve at elbow | | + + +--------+ + + | [facility] | Outpatient | Routin | Degeneration of | Ordered: 05/01/2014 | | | Referral | e | cervical | | | | | | intervertebral disc | | | | | | Spinal stenosis in | | | | | | cervical region | | | | | | Cervical spondylosis | | | | | | without myelopathy | | | | | | Neck and shoulder | | | | | | pain S/P | | | | | | decompression of | | | | | | ulnar nerve at elbow | | + + +--------+ + + documented as of this encounter Visit Diagnoses + + | Diagnosis | + + | Degeneration of cervical intervertebral disc - Primary | + + | Spinal stenosis in cervical region | + + | Cervical spondylosis without myelopathy | + + | Neck and shoulder pain | + + | S/P decompression of ulnar nerve at elbow Other postprocedural status | + + documented in this encounter
--- OUTSIDE RECORDS SUMMARY | ~2019-03-03 | XMS | Encounter Summary ---
Demographics + + + | Address | [address] | | | [place] [address] | + + + | Home Phone | | + + + | Preferred Language | Unknown | + + + | Marital Status | | + + + | Gnosticism Affiliation | [id number] | + + + | Race | Unknown | + + + | Ethnic Group | Unknown | + + + Author + + + | Author | [facility] | | | and [place] | + + + | Organization | [facility] | | | and [...] [place] | | | | | [address] | | + + + + + | Angelika Holm | ECON | Unknown | | + + + + + Care Team Providers + +------+ + | Care Heel Stainer Name | Role | Phone | + +------+ + | Alec Tao MD | PCP | | + +------+ + Reason for Visit + + + | Reason | Comments | + + + | Neck Pain | right sided neck pain radiating to right shoulder/arm | + + + Evaluate & Treat [...] of cervical | [address] | | | | | | [address] | [place] | | | | | intervertebr | [place] | [id number] Phone: | | | | | al disc | [phone] | [phone] | | | | | Spinal | Phone: | Fax: | | | | | stenosis in | [phone] | [phone] | | | | | cervical | Fax: | | | | | | region | [phone] | | | | | | Cervical [...] | +--------+ + + + + + Encounter Details +--------+---------+ + + + | Date | Type | Department | Care Team | Description | +--------+---------+ + + + | 06/20/ | Office | [facility] | Andrea Arndt | Cervical | | 2014 | Visit | PHYSIATRY [address] | [address] | radiculopathy | | | | [place], | [address] [place] [address] | (Primary Dx); | | | | [place] [address] | [id number] | Cervical spondylosis | | | | [phone] | | without myelopathy; | | | | | [place], | Degeneration of | | | | | [address] | cervical | | | | | [address], | intervertebral disc; | | | | | [place] [address] | Cubital tunnel | | | | | [phone] | syndrome, right; S/P | | | | | | decompression of | | | | | | ulnar nerve at | | | | | | elbow; Spinal | | | | | | stenosis in cervical | | | | | | region | +--------+---------+ + + + Social History [...] + + + | Blood Pressure | 140/92 | 06/20/2014 8:41 AM | | | | | PDT | | + + + + + | Pulse | 88 | 06/20/2014 8:41 AM | | | | | PDT | | + + + + + | Temperature | - | - | | + + + + + | Respiratory Rate | - | - | | + + + + + | Oxygen Saturation | - | - | | + + + + + | Inhaled Oxygen | - | - | | | Concentration | | | | + + + + + | Weight | 57.6 kg (127 lb) | 06/20/2014 8:41 AM | | | | | PDT | | + + + + + | Height | 167.6 cm (5' 6") | 06/20/2014 8:41 AM | | | | | PDT | | + + + + + | Body Mass Index | 20.5 | 06/20/2014 8:41 AM | | | | | PDT | | + + + + + documented in this encounter Patient Instructions Patient Instructions Marybel Dick, Master of Arts - 06/20/2014 9:20 AM PDT Follow-up at the hospital thirty minutes before your scheduled procedure to allow for time to check in. You may eat and drink as usual on the day of the procedure. If you are scheduled for an epidural injection do not take any blood thinning medications f or at least 5-7 days prior to your procedure unless you have been instructed by another phys ician not to discontinue blood thinning medications. If you are having a procedure other than an epidural injection (i.e. facet injection, media l branch block, SI joint injection or other joint injection) it is not absolutely necessary to discontinue blood thinning medications but doing so will decrease the risk of bruising or bleeding. If you have had a prior stroke, DVT or PE or if you are taking blood thinning medication be cause you have atrial fibrillation, a prosthetic cardiac valve replacement or heart stenting do not stop taking your blood thinning medications unless you have permission from your car diologist or primary care provider. All other medications should be taken as usual on the day of the procedure. Common blood thinning medications include: Aspirin (a baby aspirin is o.k.) Ibuprofen (Advil or Motrin) Naproxen (Aleve) Nabumetone (Relafen) Clopidogrel (Plavix) Dipyridamole/ASA (Aggrenox) Warfarin (Coumadin) Dabigatran (Pradaxa) Rivaroxaban (Xarelto) There are many others. If you have questions about your medications and whether or not you should stop any medications please contact our office. If you are having an epidural injection or if you take any medication for relaxation/sedati on on the day of the procedure you must provide a tow motor driver to take you home. For all procedur es it is recommended that someone else drive you home. documented in this encounter Progress Notes Andrea Arndt MD - 06/20/2014 8:58 AM PDT CHIEF COMPLAINT: Chief Complaint Patient presents with Neck Pain right sided neck pain radiating to right shoulder/arm HISTORY OF PRESENT ILLNESS: The patient is a 54 y.o. female being seen today at the request of Kevyn Wagner PA-C for complaints of neck pain that radiates down the right side that began quite a few years ago. August of last year she had right shoulder rotator cuff surgery but thi s did not improve all her pain. She was having right elbow burning sensation during her phys ical therapy and then had a NCS/EMG performed which indicated ulnar nerve entrapment. Then 2013 she had a right ulnar nerve release. She still continues to have right arm p ain. Her doctor then performed a cervical MRI and found she has cervical DDD with spinal freddie nosis. Since the symptoms began, she has noticed that symptoms have been chronic and worsening. Sh leny describes the pain as a burning feeling to the shoulder area and aching, with sharp quick pain down the right arm. She rates the pain as 4 on scale of 1-10. Her symptoms worsen with raising the right arm to 90 degrees, flexion of the neck and drivi ng. Her symptoms improve with use of Aleve and using a heating pad. The patient also describes arm symptoms that occur on her right side. The arm symptoms acco unt for greater than or equal to 75% of her symptoms. The arm symptoms are intermittent and the symptoms travels from the right neck down to the last two fingers of the right hand. The patient does describe numbness of the right last two fingers of the right hand, more se harry than the last two fingers of the left hand. She does report weakness of the arms. She d oes not have bowel and bladder dysfunction. She does not have saddle anesthesia. Treatments for these complaints have included chiropractic therapy, physical therapy for th e neck, right shoulder and elbow. This did include traction which reportedly made her arms go completely numb. Patient's medications, allergies, past medical, surgical, social and family histories were reviewed and updated as appropriate. PAST MEDICAL HISTORY: Past Medical History Diagnosis Date Torn rotator cuff Migraine Thyroid disease Neck and shoulder pain Acid reflux Bladder problem Incontinence Hypothyroidism Numbness and tingling in right hand Cervical radiculopathy 06/20/2014 PAST SURGICAL HISTORY: Past Surgical History Procedure Laterality Date Shoulder surgery 08/17/2013 Holden Lin Gina Ashwin Michel Elbow surgery 03/15/2014 Holden Morrisphard Incontinence surgery 2004 Bladder sling release 08/26/2013 Jacqui Urbina Cystocele repair 1998 Partial hysterectomy 1998 Efren and bso 2004 Rectocele repair 1998 [...] conjugated, (PREMARIN) vaginal cream Place vaginally Daily. ibuprofen (ADVIL, MOTRIN) 200 mg tablet Take 200 mg by mouth every 6 hours as needed fo r Pain. Multiple Vitamins-Minerals (QC MULTI-HERMANN 50 & OVER PO) Take 1 tablet by mouth Daily. [place] 3-6-9 Fatty Acids (TRIPLE OMEGA COMPLEX PO) [...] needed. UNABLE TO FIND Med Name: Bi-Est No current facility-administered medications for this visit. ALLERGIES: Allergies Allergen Reactions Morphine Nausea And [...] Dementia Mother Diabetes Paternal Grandmother REVIEW OF SYSTEMS: GENERALLY: No fever, chills, + night sweats, no weight gain, + weight loss, no anemia, no fatigue. EYES: No eye problems, no impaired sight, + eye glasses/contacts, no eye injury, no double vision, no transient blindness. EARS, NOSE, THROAT and MOUTH: No change in sense taste/smell, + hearing difficulty, no rin ging in ears, no drainage from ears, no ear injury, no dizziness, no voice change, no diffic ulty swallowing, no snoring, no sleep apnea/CPAP, + sinus trouble, + dental work. NEUROMUSCULAR: No numbness/pain of arms, no numbness/pain of legs, + awake with numbness/p ain, no weakness, no muscle aching, no coordination difficulty, no change in walk, no head i njury, + neck injury, + back injury, + pain in neck, + pain in back, no stroke, no fainting spells, no loss of consciousness, no tremor/shaking, no seizures, + headaches, no migraines, no memory loss, no speech difficulty, no confusion, no numbness of face. PSYCHIATRIC: No depression, + difficulty sleeping, no anxiety, no bipolar disorder. CARDIOVASCULAR/PULMONARY: No heart attack, + heart murmur, no fluttering heart, no shortne ss of breath, no cough, no Tuberculosis, no chest pain, no swelling ankles, no bloody coughi ng, no asthma, no COPD/emphysema. GASTROINTESTINAL: No bowel disease, no nausea/vomiting, no rectal bleeding/hemorroids, + c onstipation, no fecal/stool incontinence, no liver/gallbladder disease, no abdominal pain. GENITOURINARY: No frequent urination, no painful/difficult urination, + urinary incontinenc e, no bladder problems. ENDOCRINE: No diabetes, no thyroid disease, no osteoporosis/osteopenia, no drainage from br easts. INTEGUMENTARY/SKIN: + lump in breasts, no skin disease or skin changes, no rash/itch. HEMATOLOGIC: No enlarged lymph nodes, no easy or unusual bleeding, no cancer. RHEUMATOLOGIC: No joint pain/arthritis, no rheumatoid arthritis PHYSICAL EXAMINATION: Blood pressure 140/92, pulse 88, height 1.676 m (5' 6"), weight 57.607 kg (127 lb). Body ma ss index is 20.51 kg/(m^2). GENERAL: The patient is well developed and well nourished. She does not appear uncomfortab le. HEENT: HEAD/FACE: EYES: Normocephalic and atraumatic. There are no areas of recent trauma. Normal sclerae without icterus. SKIN Limited skin exam shows no significant rashes or lesions. There are not scars in the cervical region. CHEST: The patient is in no acute respiratory distress with unlabored respirations. HEART: There is not lower extremity edema. ABDOMEN: The patient is not obese. NEUROLOGIC: The patient is awake, alert, and oriented to time, place, person. She follows simple and complex commands. Her speech is fluent. She comprehends speech well. She has no apparent deficits with short or cupola patcher memory. She has appropriate fund of knowledge Cranial nerves 2-12 appear grossly intact. Sensory exam does show diminished sensation to light touch in the right upper extremity, m ostly in the 4th and 5th digits. REFLEX: RIGHT LEFT BICEPS 2+ 2+ BRACHIORADIALIS 2+ 2+ TRICEPS 2+ 2+ PATELLAR 2+ 2+ ACHILLES 2+ 2+ MAYS'S Negative Negative PLANTAR Downgoing Downgoing MUSCULOSKELETAL There is no major palpable deformity of the spine. Range of motion testing of the cervical spine showed decreased range of motion with lateral bending and rotation, especially to the right. Spurling sign was positive. Shoulder examination shows well preserved range of motion with external rotation, internal rotation and abduction. Impingement testing was positive on the right. There was no tenderne ss over the bicipital groove or over the AC joint. Speed's test was negative. Empty can test was negative. Strength testing, including strength testing of the infraspinatus, supraspina tus and subscapularis, in bilateral upper extremities showed 5/5 strength with the exception of elbow extension and pronation weakness on the right. RADIOGRAPHIC REVIEW: The patient's imaging was reviewed in detail with the patient today during the visit. The images show multilevel DDD. ASSESSMENT: Encounter Diagnoses Name Primary? 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 The patient has had significant conservative care including medications, PT and chiropra ctic care. Unfortunately she continues to have significant discomfort. I did feel that she w ould be a good candidate for interventional procedures and I offered a C7-T1 ILESI right of midline as the next step. 2. I did not make any changes in her medications today. I would consider a trial of rg pentin or other medication for neuropathic pain. 3. The patient will follow up with me at the time of the injection and thereafter as abdiaziz bautista ELECTRONICALLY EDITED AND SIGNED BY: Andrea Anrdt MD, 06/20/2014 Scribed by: Marybel Dick MA for Dr. Andrea Arndt on 06/20/2014 documented in this encounter Plan of Treatment Not on filedocumented as of this encounter Results [place] TIFFANIE Cerv Thor Interlaminar (07/04/2014 1:29 PM PDT) + + | Specimen | + + | | + + + + + | Narrative | Performed At | + + + | 07/04/2014 CERVICAL INTERLAMINAR EPIDURAL STEROID INJECTION | [facility] | | CLINICAL HISTORY: ICD-9 CODE 723.4 CERVICAL RADICULOPATHY Cathy | [facility] | | Cristiane Holm presents to the fluoroscopy suite for a | [facility] | | fluoroscopically-guided C7-T1 interlaminar epidural steroid injection, | - IMAGING | | right of midline, as part of conservative management for chronic | | | pain with cervical radiculopathy and degenerative disk disease. | | | After informed consent was obtained, the patient lay in the prone | | | position on the fluoroscopy table. The area was identified under | | | fluoroscopic guidance. The area was prepped and draped in sterile | | | fashion. A 25-gauge, 1.5-inch needle was inserted into this region | | | and approximately 3 mL of buffered 1% lidocaine was infused. Then a | | | 22-gauge epidural needle was advanced into the epidural space at the | | | C7-T1 level. Confirmation into the epidural space was obtained | | | with loss of resistance, as well as infusion of approximately 1 mL | | | of Isovue contrast which showed epidural flow. Then, a combination | | | of 2.5 mL of normal saline and 1.5 mL of 6 mg/mL Celestone was | | | infused. The patient tolerated the procedure well without | | | complications. Pre- and post-procedure blood pressures were stable. | | | The patient was given verbal as well as written followup | | | instructions. Prior to the start of the procedure, the following | | | were performed and verified, including correct patient identity, | | | correct site/side marked and visible, agreement on the procedure to | | | be done, correct patient positioning and an accurate procedure | | | consent form. Any safety precautions based on clinical history | | | and/or medication use have been addressed. I personally performed | | | the procedure above. Estimated blood loss: Minimal | | | Complications: None Findings: As expected Anesthesia: Local 1% | | | Lidocaine | | + + + + + + + + | Performing | Address | City/State/Zipcode | Phone Number | | Organization | | | | + + + + + | [facility] | [address] | [place], [place] | [phone] | | [facility] | | [id number] | | | - IMAGING | | | | + + + + + documented in this encounter Visit Diagnoses + + | Diagnosis | + + | Cervical radiculopathy - Primary Brachial neuritis or radiculitis nos | + + | Cervical spondylosis without myelopathy | + + | Degeneration of cervical intervertebral disc | + + | Cubital tunnel syndrome, right | + + | S/P decompression of ulnar nerve at elbow Other postprocedural status | + + | Spinal stenosis in cervical region | + + documented in this encounter
--- OUTSIDE RECORDS SUMMARY | ~2019-03-03 | XMS | Encounter Summary ---
Demographics + + + | Address | [address] | | | [place] [address] | + + + | Home Phone | | + + + | Preferred Language | Unknown | + + + | Marital Status | | + + + | Mormonism Affiliation | 1001 | + + + | Race | Unknown | + + + | Ethnic Group | Unknown | + + + Author + + + | Author | [facility] | | | and [place] | + + + | Organization | [facility] | | | and [place] | [...] [place] | | | | | [address] | | + + + + + | Angelika Holm | ECON | Unknown | | + + + + + Care Team Providers + +------+ + | Care Automation Operator Name | Role | Phone | + +------+ + | Alec Tao MD | PCP | | + +------+ + Reason for Referral Diagnostic/Screening (Routine) +--------+--------+ + + + + | Status | Reason | Specialty | Diagnoses / | Referred By | Referred To | | | | | Procedures | Contact | Contact | +--------+--------+ + + + + | Closed | | MRI | Diagnoses | Donald Reich | | | | | | Bilateral | MD [address] | | | | | | low back | [address] | | | | | | pain with | [place], | | | | | | sciatica, | [place] [address] | | | | | | sciatica | Phone: | | | | | | laterality | [phone] | | | | | | unspecified | Fax: | | | | | | Procedures | [phone] | | | | | | MRI Lumbar | | | | | | | Spine wo | | | | | | | Contrast | | | +--------+--------+ + + + + Diagnostic/Screening (Routine) +--------+--------+ + + + + | Status | Reason | Specialty | Diagnoses / | Referred By | Referred To | | | | | Procedures | Contact | Contact | +--------+--------+ + + + + | Closed | | MRI | Diagnoses | Donald Reich | | | | | | Cervical | A, MD [address] | | | | | | radiculopath | [address] | | | | | | y Cervical | [place], | | | | | | spondylosis | [place] [address] | | | | | | without | Phone: | | | | | | myelopathy | [phone] | | | | | | Degeneration | Fax: | | | | | | of cervical | [phone] | | | | | | | | | | | | | intervertebr | | | | | | | al disc | | | | | | | Spinal | | | | | | | stenosis in | | | | | | | cervical | | | | | | | region | | | | | | | Procedures | | | | | | | MRI Cervical | | | | | | | Spine wo | | | | | | | Contrast | | | +--------+--------+ + + + + Reason for Visit + + + | Reason | Comments | + + + | Follow-up | EMG/NCS | + + + Encounter Details +--------+---------+ + + + | Date | Type | Department | Care Team | Description | +--------+---------+ + + + | 01/15/ | Office | [facility] | Donald Reich MD | Cervical | | 2015 | Visit | NEUROSURGERY [address] | [address] | radiculopathy | | | | [address] | [place] [address] | (Primary Dx); | | | | [place] | [phone] | Cervical spondylosis | | | | [address] | | without myelopathy; | | | | [phone] | | Degeneration of | | | | | | cervical | | | | | | intervertebral disc; | | | | | | Spinal stenosis in | | | | | | cervical region; | | | | | | Ulnar nerve | | | | | | entrapment at elbow, | | | | | | unspecified | | | | | | laterality; | | | | | | Bilateral low back | | | | | | pain with sciatica, | | | | | | sciatica laterality | | | | | | unspecified | +--------+---------+ + + + Social History + +-------+ +--------+ + | Tobacco Use | Types | Packs/Day | Years | Date | | | | | Used | | + +-------+ +--------+ + | Former Smoker | | | | Quit: 04/05/1999 | + +-------+ +--------+ + + +---+---+---+ | Smokeless Tobacco: | | | | | Never Used | | | | + +---+---+---+ + + +---------+ + | Alcohol Use | Drinks/Week | oz/Week | Comments | + + +---------+ + | Yes | 0 Standard drinks | 0.0 | Frequently (more | | | or equivalent | | than twice a week) | [...] + + + | Blood Pressure | 131/76 | 01/15/2015 11:37 AM | | | | | PDT | | + + + + + | Pulse | 105 | 01/15/2015 11:37 AM | | | | | PDT | | + + + + + | Temperature | - | - | | + + + + + | Respiratory Rate | 17 | 01/15/2015 11:37 AM | | | | | PDT | | + + + + + | Oxygen Saturation | - | - | | + + + + + | Inhaled Oxygen | - | - | | | Concentration | | | | + + + + + | Weight | 58.1 kg (128 lb) | 01/15/2015 11:37 AM | | | | | PDT | | + + + + + | Height | 167.6 cm (5' 6") | 01/15/2015 11:37 AM | | | | | PDT | | + + + + + | Body Mass Index | 20.66 | 01/15/2015 11:37 AM | | | | | PDT | | + + + + + documented in this encounter Patient Instructions Patient Instructions Donald Reich MD - 01/15/2015 12:20 PM Reymundo discussed the option for an Anterior Cervical Discectomy and Fusion (ACDF). You can research this procedure more by going to: [email or web address] Click the Treatment Options link on the left column. Then, look for Anterior Cervical Discectomy and Fusion (ACDF). documented in this encounter Progress Notes Donald Reich MD - 01/15/2015 12:21 PM PDTFormatting of this note might be different from t he original. Donald Reich MD [address] [facility] [place], [place] [id number] FAX: NEUROSURGERY FOLLOW-UP CHIEF COMPLAINT: Chief Complaint Patient presents with Follow-up EMG/NCS HISTORY OF PRESENT ILLNESS: The patient is a 54 y.o. female that has been seeing Kevyn Wagner PA-C for neck and arm symptoms. She has tried now extensive conservative care and returns with unfortunately continued symptoms. She had C7-T1 interlaminar epidural steroid injecti ons she had some improvement of her neck discomfort for a short period of time. She does no t recall how long she had improvement. The patient however states that her arm and hand sym ptoms of tingling and numbness did not improve. She has tingling of her hands involving the first and second finger but also third fourth and fifth fingers. The patient did have ulna r nerve surgery in March 2014 on her right arm. That has not improved her hand tingling. She does notice her symptoms are worse at night and when driving. She also notices increa sed symptoms of hand tingling and numbness with repetitive activities of her hands. PAST MEDICAL HISTORY: Past Medical History Diagnosis Date Torn rotator cuff Migraine Thyroid disease Neck and shoulder pain Acid reflux Bladder problem Incontinence Hypothyroidism Numbness and tingling in right hand Cervical radiculopathy 06/20/2014 PAST SURGICAL HISTORY: Past Surgical History Procedure Laterality Date Shoulder surgery 08/17/2013 Hold[facility] Pearson Elbow surgery 03/15/2014 Hold[facility] Pearson Incontinence surgery 2004 Bladder sling release 08/26/2013 [...] conjugated, (PREMARIN) vaginal cream Place vaginally Daily. gabapentin (NEURONTIN) 300 mg capsule Take 1 capsule by mouth 3 times daily. 90 capsule 2 ibuprofen (ADVIL, MOTRIN) 200 mg tablet Take 200 mg by mouth every 6 hours as needed fo r Pain. Multiple Vitamins-Minerals (QC MULTI-HERMANN 50 & OVER PO) Take 1 tablet by mouth Daily. [place] 3-6-9 Fatty Acids (TRIPLE OMEGA COMPLEX PO) Take 2 tablets by mouth Daily. omeprazole (PRILOSEC) 10 mg capsule Take 10 mg by mouth 2 times daily. progesterone (PROMETRIUM) 200 mg capsule Take 200 mg by mouth Daily. thyroid (ARMOUR THYROID) 90 MG tablet Take 90 mg by mouth Daily. UNABLE TO FIND Med Name: Bi-Est No current facility-administered medications for this visit. ALLERGIES: Allergies Allergen Reactions Morphine Nausea And Vomiting Ampicillin Rash Penicillins Rash SOCIAL HISTORY: The patient reports that she quit smoking about 15 years ago. She has never used smokeless tobacco. She reports that she drinks alcohol. She reports that she does not use illicit martin gs. FAMILY HISTORY: Family History Problem Relation Age of Onset Other (See Comment) Father Blood clots Gout Father Heart disease Father Mental illness Mother Seizures Mother Stroke Father Hypertension Mother Dementia Mother Diabetes Paternal Grandmother INTERIM PHYSICAL EXAMINATION: Blood pressure 131/76, pulse 105, resp. rate 17, height 1.676 m (5' 6"), weight 58.06 kg (1 28 lb). Body mass index is 20.67 kg/(m^2). GENERAL: Cathy Holm is in no acute distress with unlabored respirations. HEENT: HEAD/FACE: Normocephalic and atraumatic. There are no areas of recent trauma. CHEST: Clear . HEART: Regular rate and rhythm. SPINE: TTP over the C5-7 segments. EXTREMITIES: No lower extremity edema. NEUROLOGICAL EXAMINATION: MENTAL STATUS: The patient is awake, alert, and oriented. She follows simple and complex commands. She speech is fluent, her comprehends speech well, and her repeats well. She has no apparent deficits with short or termite renewal inspector memory. MOTOR EXAM: (5 IS NORMAL) * Indicates pain limited MUSCLE/ MOVEMENT: RIGHT LEFT Deltoids 5 5 Biceps 5 5 Triceps 5 5 Wrist Flexion 5 5 Wrist Extension 5 5 Median Intrinsics 5 5 Ulnar Intrinsics 5 5 Options Trader Strength 4 5 Hip Flexion 5 5 Hip Extension 5 5 Knee Flexion 5 5 Knee Extension 5 5 Dorsiflexion 5 5 Extensor Hallicus Longus 5 5 Plantarflexion 5 5 SENSORY EXAM: Sensory exam shows diminished sensation to light touch over the left and right 4-5 digits. REFLEXES: (2 OR 2+ IS NORMAL) REFLEX: RIGHT LEFT BICEPS 2 2 BRACHIORADIALIS 2 2 TRICEPS 2 2 PATELLAR 2+ 2+ ACHILLES 2 2 MAYS'S ABSENT ABSENT PLANTAR DOWNGOING DOWNGOING GAIT: Gait is steady. PERIPHERAL NERVE/MISC: Tinel is negative at the elbows bilaterally. RADIOGRAPHIC REVIEW: The patient's imaging was reviewed in detail with the patient today during the visit. The p izabel's MRI shows loss of normal cervical lordosis. The patient has neural foraminal narrow ing worse on the right side at C5-6 and to a lesser degree at C6-7. This is generally though t to be moderate. She has cord compression and stenosis at C4-5. ASSESSMENT: Encounter Diagnoses Name Primary? Cervical radiculopathy Yes Cervical spondylosis without myelopathy Degeneration of cervical intervertebral disc Spinal stenosis in cervical region Ulnar nerve entrapment at elbow, unspecified laterality Bilateral low back pain with sciatica, sciatica laterality unspecified Past Medical History Diagnosis Date Torn rotator cuff Migraine Thyroid disease Neck and shoulder pain Acid reflux Bladder problem Incontinence Hypothyroidism Numbness and tingling in right hand Cervical radiculopathy 06/20/2014 PLAN: It was a pleasure visiting with this patient again today. She has progressed and has new f indings. I am recommending new imaging and then a short term follow-up to discuss her optio ns. I also want to get her report on her ulnar nerve surgery. I did discuss the potential for ACDF and possibly a ulnar nerve transposition but will defe r that decision until later. ELECTRONICALLY SIGNED BY: Donald Reich MD, 01/15/2015 12:25 documented in this encou nter Plan of Treatment + +---------+--------+ + + | Name | Type | Priori | Associated Diagnoses | Order Schedule | | | | ty | | | + +---------+--------+ + + | MRI Cervical Spine | Imaging | Routin | Cervical | Expected: 01/25/2015 | | wo Contrast | | e | radiculopathy | (Approximate), | | | | | Cervical spondylosis | Expires: 01/14/2016 | | | | | without myelopathy | | | | | | Degeneration of | | | | | | cervical | | | | | | intervertebral disc | | | | | | Spinal stenosis in | | | | | | cervical region | | + +---------+--------+ + + | MRI Lumbar Spine wo | Imaging | Routin | Bilateral low back | Expected: 01/25/2015 | | Contrast | | e | pain with sciatica, | (Approximate), | | | | | sciatica laterality | Expires: 01/14/2016 | | | | | unspecified | | + +---------+--------+ + + documented as of this encounter Visit Diagnoses + + | Diagnosis | + + | Cervical radiculopathy - Primary Brachial neuritis or radiculitis nos | + + | Cervical spondylosis without myelopathy | + + | Degeneration of cervical intervertebral disc | + + | Spinal stenosis in cervical region | + + | Ulnar nerve entrapment at elbow, unspecified laterality | + + | Bilateral low back pain with sciatica, sciatica laterality unspecified | + + documented in this encounter
--- OUTSIDE RECORDS SUMMARY | ~2019-03-03 | XMS | Encounter Summary ---
Demographics + + + | Address | [address] | | | [place] [address] | + + + | Home Phone | | + + + | Preferred Language | Unknown | + + + | Marital Status | | + + + | Sikh Affiliation | NON | + + + | Race | White | + + + | Ethnic Group | Not or | + + + Author + + + | Author | [facility] | + + + | Organization | [facility] | + + + | Address | Unknown | + + + | Phone | Unavailable | + + + Support + + +---------+ + | Name | Relationship | Address | Phone | + + +---------+ + | Fidel Holm | ECON | Unknown | | + + +---------+ + Care Team Providers + +------+ + | Care Hammer Smith Name | Role | Phone | + +------+ + | Jacqueline Nuñez | PCP | | + +------+ + Encounter Details +--------+ + + + + | Date | Type | Department | Care Team | Description | +--------+ + + + + | 08/04/ | Anesthesia | Preoperative | Val De Paz, | | | 2019 | Event | [facility] at | DNP [address] | | | | | [facility] | [address] [place], [place] | | | | | [address] | [address] | | | | | Mail Code: [facility] | [phone] | | | | | [facility] | | | | | | and Healing, | | | | | | [address] | | | | | | [place], [place] | | | | | | [address] | | | | | | [phone] | | | +--------+ + + + + Anesthesia Record + + + + + | Procedure Name | Responsible | Anesthesia Start | Anesthesia Stop Time | | | Anesthesiologist | Time | | + + + + + | [facility] preop | | | | + + + + + + + | No events on file. | + + +------+ | Meds | +------+ + + + No medications | on file. | + + + + + | No agents on file. | + + + + | No blood administrations on file. | + + + + | No LDAs on file. | + + documented in this encounter Social History + + + +--------+ + [...]
--- OUTSIDE RECORDS SUMMARY | ~2019-03-03 | XMS | Encounter Summary ---
Demographics + + + | Address | [address] | | | [place] [address] | + + + | Home Phone | | + + + | Preferred Language | Unknown | + + + | Marital Status | | + + + | Caodaism Affiliation | NON | + + + | Race | White | + + + | Ethnic Group | Not or | + + + Author + + + | Author | [facility] | + + + | Organization | [facility] | + + + | Address | Unknown | + + + | Phone | Unavailable | + + + Support + + +---------+ + | Name | Relationship | Address | Phone | + + +---------+ + | Fidel Holm | ECON | Unknown | | + + +---------+ + Care Team Providers + +------+ + | Care Facialist Name | Role | Phone | + +------+ + | Jacqueline Nuñez | PCP | | + +------+ + Reason for Visit + + + | Reason | Comments | + + + | Follow-up visit | | + + + Consultation (Routine) + +--------+ + + + + | Status | Reason | Specialty | Diagnoses / | Referred By | Referred To | | | | | Procedures | Contact | Contact | + +--------+ + + + + | Pending | | Facial | | Non-[facility] | Ent Facial | | Review | | Plastic | | Epic Dept | [facility] | | | | Surgery | | | [address] | | | | | | | [address] | | | | | | | Mailcode: | | | | | | | [facility] | | | | | | [facility] | | | | | | | and Healing, | | | | | | | [address], | | | | | | | 5th Floor | | | | | | | [place], [place] | | | | | | | [address] | | | | | | | Phone: | | | | | | | [phone] | | | | | | | Fax: | | | | | | | [phone] | + +--------+ + + + + Encounter Details +--------+---------+ + + + | Date | Type | Department | Care Team | Description | +--------+---------+ + + + | 02/17/ | Office | Otolaryngology | Qasim Casanova MD | Nasal obstruction | | 2018 | Visit | Facial Plastics & | [address] | (Primary Dx); | | | | Reconstructive | [facility] [place], | Congenital | | | | Services at [facility] | [place] [address] | velopharyngeal | | | | [address] | [phone] | insufficiency; Nasal | | | | Mailcode: [facility] | | septal perforation | | | | [facility] | | | | | | and Healing, | | | | | | [address], | | | | | | Floor [place], [place] | | | | | | [address] | | | | | | [phone] | | | +--------+---------+ + + + Social History + +-------+ +--------+------+ | Tobacco Use | Types | Packs/Day | Years | Date | | | | | Used | | + +-------+ +--------+------+ | Never Smoker | | | | | + +-------+ +--------+------+ + +---+---+---+ | Smokeless Tobacco: | | | | | Never Used | | | | + +---+---+---+ + + +---------+ + | Alcohol Use | Drinks/Week | oz/Week | Comments | + + +---------+ + | Yes | 1 Standard drinks | 1.0 | | | | or equivalent | [...] encounter Progress Notes Qasim Casanova MD - 02/17/2018 11:30 AM PSTClinic: Facial Plastic and Reconstructive Surgery Cl daryl Holm is a 58 y.o. female who returns for followup from CT scan completed today . She was last seen for consultation for history of cleft palate with VPI and bilateral nasa l obstruction and septal perforation on 12/09/2017. She has been using saline rinses without benefit and is starting Flonase. Nasal Obstruction Symptom Evaluation (NOSE Scale) Time frame: Preoperative 1. Nasal congestion or stuffiness: 3 2. Nasal blockage or obstruction: 3 3. Trouble breathing through my nose: 2 4. Trouble sleepin 5. Unable to get enough air through my nose during exercise or exertion: 3 TOTAL = 13 x 5 = 65 Exam unchanged from last visit. Imaging, CT Sinus on 02/17/2018: "IMPRESSION: 1. 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 No evidence of sinusitis. 2. Mild leftward septal deviation. 3. Small defect in the anterior nasal septum. I have personally reviewed the images and, if necessary, edited the report. I agree with e report as now presented. Final signature: Geronimo Balbuena MD 02/17/2018 11:05 AM Preliminary: Geronimo Balbuena MD Dictation initiated: Geronimo Balbuena MD 02/17/2018 10:48 AM" We discussed instructions for using Flonase and advised she avoid spraying towards her perf oration, which can cause dryness and enlargement. All questions were answered today. She will notify us in 4-6 weeks of using the Flonase on effect of spray trial. Signed: Ken Torres (scribe for Dr. Casanova) I have reviewed and verified the above scribed note of my visit with this patient as record ed by Ken Torres. Qasim Casanova MD FACS Professor Facial Plastic and Reconstructive Surgery Dept. 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
--- OUTSIDE RECORDS SUMMARY | ~2019-03-03 | XMS | Encounter Summary ---
Demographics + + + | Address | [address] | | | [place] [address] | + + + | Home Phone | | + + + | Preferred Language | Unknown | + + + | Marital Status | | + + + | Zoroastrianism Affiliation | 1001 | + + + | Race | Unknown | + + + | Ethnic Group | Unknown | + + + Author + + + | Author | [facility] | | | and [place] | + + + | Organization | [facility] | | | and [place] [...] [place] | | | | | [address] | | + + + + + | Angelika Holm | ECON | Unknown | | + + + + + Care Team Providers + +------+ + | Care Chief Information Security Officer Name | Role | Phone | + +------+ + | Alec Tao MD | PCP | | + +------+ + Reason for Visit Service/Procedure (Routine) +--------+--------+ + + + + | Status | Reason | Specialty | Diagnoses / | Referred By | Referred To | | | | | Procedures | Contact | Contact | +--------+--------+ + + + + | Closed | | Radiology | Diagnoses | | [facility] | | | | | Cervical | Yris, | [address] | | | | | radiculopath | Andrea Scott MD | [place], | | | | | y | [address] | [place] | | | | | Procedures | [place] | [address] | | | | | [place] | [place], [place] | Phone: | | | | | DX/THER SBST | [address] | [phone] | | | | | | Phone: | Fax: | | | | | EPIDURAL/SUB | [phone] | [phone] | | | | | LOLITA | Fax: | | | | | | CERV/THORACI | [phone] | | | | | | C PA | | | | | | | TRIAMCINOLON | | | | | | | E ACET INJ | | | | | | | NOS, 10 MG | | | | | | | PA FLUORO | | | | | | | NEEDLE/CATH | | | | | | | SPINE/PARASP | | | | | | | INAL DX/THER | | | | | | | C7-T1 | | | | | | | ILESI-APPT | | | | | | | 4/1 | | | +--------+--------+ + + + + Encounter Details +--------+ + + + + | Date | Type | Department | Care Team | Description | +--------+ + + + + | 07/04/ | Hospital | [facility] | Andrea Arndt | Cervical | | 2015 | Encounter | MED CTR XRAY [address] | radiculopathy | | | | [address] [place] | [place], [place] | | | | | [place] [address] | [address] | | | | | [phone] | | | | | | | Strip Cleaner, [facility] | | +--------+ + + + + Social History + +-------+ [...] this encounter Last Filed Vital Signs + +---------+ + + | Vital Sign | Reading | Time Taken | Comments | + +---------+ + + | Blood Pressure | 157/80 | 07/04/2014 1:00 PM | | | | | PDT | | + +---------+ + + | Pulse | 96 | 07/04/2014 1:00 PM | | | | | PDT | | + +---------+ + + | Temperature | - | - | | + +---------+ + + | Respiratory Rate | - | - | | + +---------+ + + | Oxygen Saturation | - | - | | + +---------+ + + | Inhaled Oxygen | - | - | | | Concentration | | | | + +---------+ + + | Weight | - | - | | + +---------+ + + | Height | - | - | | + +---------+ + + | Body Mass Index | - | - | | + +---------+ + + documented in this encounter Medications at Time of Discharge + + + +---------+--------+ + | Medication | Sig | Dispensed | Refills | Start | End Date | | | | | | Date | | + + + +---------+--------+ + | Biotin 5000 MCG | Take 5,000 mcg by | | 0 | | | | CAPS | mouth Daily. | | | | | + + + +---------+--------+ + | CINNAMON PO | Take 2,000 mg by | | 0 | | | | | mouth Daily. | | | | | + + + +---------+--------+ + | Cranberry 300 MG | Take 300 mg by mouth | | 0 | | | | TABS | Daily. | | | | | + + + +---------+--------+ + | [place] 3-6-9 Fatty | Take 2 tablets by | | 0 | | | | Acids (TRIPLE OMEGA | mouth Daily. | | | | | | COMPLEX PO) | | | | | | + + + +---------+--------+ + | omeprazole | Take 10 mg by mouth | | 0 | | | | (PRILOSEC) 10 mg | 2 times daily. | | | | | | capsule | | | | | | + + + +---------+--------+ + | progesterone | Take 200 mg by mouth | | 0 | | | | (PROMETRIUM) 200 mg | Daily. | | | | | | capsule | | | | | | + + + +---------+--------+ + | UNABLE TO FIND | Apply 1 Application | | 0 | | | | | topically 2 times | | | | | | | daily. Med Name: | | | | | | | Bi-Est | | | | | + + + +---------+--------+ + | Cholecalciferol | Take 5,000 Units by | | 0 | | | | (VITAMIN D-3) 5000 | mouth Daily. | | | | 7 | | units CAPS | | | | | | + + + +---------+--------+ + | estrogens, | Place vaginally | | 0 | | | | conjugated, | Daily. | | | | 5 | | (PREMARIN) vaginal | | | | | | | cream | | | | | | + + + +---------+--------+ + | ibuprofen (ADVIL, | Take 200 mg by mouth | | 0 | | | | MOTRIN) 200 mg | every 6 hours as | | | | 6 | | tablet | needed for Pain. | | | | | + + + +---------+--------+ + | Multiple | Take 1 tablet by | | 0 | | | | Vitamins-Minerals | mouth Daily. | | | | 7 | | ( MULTI-HERMANN 50 & | | | | | | | OVER PO) | | | | | | + + + +---------+--------+ + | | Take 2 tablets by | | 0 | | | | oxyCODONE-acetaminop | mouth every 6 hours | | | | 5 | | hen (PERCOCET) 5-325 | as needed. | | | | | | mg per tablet | | | | | | + + + +---------+--------+ + | thyroid (ARMOUR | Take 90 mg by mouth | | 0 | | | | THYROID) 90 MG | Daily. Takes | | | | 7 | | tablet | 90mg/alteranting | | | | | | | with 60mg to average | | | | | | | out to 75mg daily | | | | | + + + +---------+--------+ + | traMADol (ULTRAM) | Take 100 mg by mouth | | 0 | | | | 50 mg tablet | every 6 hours as | | | | 5 | | | needed. | | | | | + + + +---------+--------+ + documented as of this encounter Plan of Treatment Not on filedocumented as of this encounter Procedures + +--------+ + + + | Procedure Name | Priori | Date/Time | Associated Diagnosis | Comments | | | ty | | | | + +--------+ + + + | FL EPIDURAL STEROID | Routin | 07/04/2014 | Cervical | Results for this | | INJ CERVICAL | e | 1:29 PM | radiculopathy | procedure are in the | | THORACIC | | PDT | | results section. | | INTERLAMINAR | | | | | + +--------+ + + + documented in this encounter Results FL TIFFANIE Cerv Thor Interlaminar (07/04/2014 1:29 PM PDT) + + | Specimen | + + | | + + + + + | Narrative | Performed At | + + + | 07/04/2014 CERVICAL INTERLAMINAR EPIDURAL STEROID INJECTION | [facility] | | CLINICAL HISTORY: ICD-9 CODE 723.4 CERVICAL RADICULOPATHY Cathy | [facility] | | Cristiane Holm presents to the fluoroscopy suite for a | [facility] | | fluoroscopically-guided C7-T1 interlaminar epidural steroid [...] + + | Performing | Address | City[facility] | Phone Number | | Organization | | | | + + + + + | [facility] | [address] | [place] | [phone] | | [facility] | | [address] | | | - IMAGING | | | | + + + + + documented in this encounter Visit Diagnoses + + | Diagnosis | + + | Cervical radiculopathy Brachial neuritis or radiculitis nos | + + documented in this encounter Administered Medications + +--------+ +------+------+------+ | Medication Order | MAR | Action | Dose | Rate | Site | | | Action | Date | | | | + +--------+ +------+------+------+ | betamethasone (CELESTONE | Given | 07/05/19 | 6 mg | | | | SOLUSPAN) injection 6 mg 6 mg, | | 15 1:30 | | | | | Other, ONCE, 07/04/14 at 1345, | | PM PDT | | | | | For 1 dose, Shake well. Not for | | | | | | | IV use., | | | | | | + +--------+ +------+------+------+ +---+---+ | | | +---+---+ + +-------+ +-------+---+---+ | iohexol (OMNIPAQUE 300) 300 | Given | 07/05/19 | 4 mLs | | | | mg/mL injection 4 mL 4 mL, | | 15 1:27 | | | | | INTRATHECAL, ONCE, 07/04/14 at | | PM PDT | | | | | 1345, For 1 dose | | | | | | + +-------+ +-------+---+---+ +---+---+ | | | +---+---+ + +-------+ +------+---+ + | lidocaine 1% injection 1 mL 1 | Given | 07/05/19 | 1 mL | | Other | | mL, Intradermal, ONCE, 07/04/14 | | 15 1:24 | | | (Comment | | at 1345, For 1 dose | | PM PDT | | | ) | + +-------+ +------+---+ + +---+---+ | | | +---+---+ + +-------+ +------+---+---+ | sodium bicarbonate (NEUT) 4% | Given | 07/05/19 | 1 mL | | | | injection 1 mL 1 mL, | | 15 1:24 | | | | | Intravenous, ONCE, 07/04/14 at | | PM PDT | | | | | 1345, For 1 dose, Use for | | | | | | | addition to other parenteral | | | | | | | solutions., | | | | | | + +-------+ +------+---+---+ +---+---+ | | | +---+---+ documented in this encounter"
--- OUTSIDE RECORDS SUMMARY | ~2019-03-03 | XMS | Encounter Summary ---
Demographics + + + | Address | [address] | | | [place] [address] | + + + | Home Phone | | + + + | Preferred Language | Unknown | + + + | Marital Status | | + + + | Buddhism Affiliation | 1001 | + + + | Race | Unknown | + + + | Ethnic Group | Unknown | + + + Author + + + | Author | [facility] | | | and [place] | + + + | Organization | [facility] | | | and [place] [...] [place] | | | | | [address] | | + + + + + | Angelika Holm | ECON | Unknown | | + + + + + Care Team Providers + +------+ + | Care Landscape And Yardwork Laborer Name | Role | Phone | + +------+ + | Alec Tao MD | PCP | | + +------+ + Reason for Visit Auth/Cert +--------+--------+ + + + + | Status | Reason | Specialty | Diagnoses / | Referred By | Referred To | | | | | Procedures | Contact | Contact | +--------+--------+ + + + + | | | | Diagnoses | | Donald Reich | | | | | Cervical | | MD [place] [address] | | | | | arthritis | [address] | | | | | with | | [facility] | | | | | myelopathy | | [address] | | | | | Cervical | | Phone: | | | | | arthritis | | [phone] | | | | | with | | Fax: | | | | | myelopathy | | [phone] | | | | | [M47.12] | | | | | | | Procedures | | | | | | | LA | | | | | | | ARTHRODESIS | | | | | | | ANT | | | | | | | INTERBODY | | | | | | | INC | | | | | | | DISCECTOMY, | | | | | | | CERVICAL | | | | | | | BELOW C2 | | | +--------+--------+ + + + + Encounter Details +--------+---------+ + + + | Date | Type | Department | Care Team | Description | +--------+---------+ + + + | 05/10/ | Surgery | [facility] | Donald Reich MD | C4-5, C5-6, C6-7 | | 2016 | | MED CTR OR INTRA OP | [address] | Anterior Cervical | | | | [address] | [place] [address] | Discectomy Fusion | | | | [place] | [phone] | | | | | [address] | | | | | | [phone] | | | +--------+---------+ + + + [...] + + + | Blood Pressure | 113/54 | 05/11/2015 8:00 AM | | | | | PST | | + + + + + | Pulse | 74 | 05/11/2015 8:00 AM | | | | | PST | | + + + + + | Temperature | 37.2 C (99 F) | 05/11/2015 8:00 AM | | | | | PST | | + + + + + | Respiratory Rate | 16 | 05/11/2015 8:00 AM | | | | | PST | | + + + + + | Oxygen Saturation | 100% | 05/11/2015 8:00 AM | | | | | PST | | + + + + + | Inhaled Oxygen | - | - | | | Concentration | | | | + + + + + | Weight | 56.7 kg (125 lb) | 05/10/2015 9:00 AM | | | | | PST | | + + + + + | Height | 167.6 cm (5' 6") | 05/10/2015 9:00 AM | | | | | PST | | + + + + + | Body Mass Index | 20.18 | 05/10/2015 9:00 AM | | | | | PST | | + + + + + documented in this encounter Discharge Summaries Donald Reich MD - 05/11/2015 9:43 AM PSTFormatting of this note might be different from t gavin original. [facility] DISCHARGE SUMMARY Patient Name: Cathy Holm Patient : 1960 PCP: Alec Tao Date of Admission: 05/10/2015 Date of Discharge: 05/11/2015 Primary Discharge Dx: Cervical arthritis with myelopathy [M47.12] Cervical spinal stenosis Cervical foraminal stenosis Cervical radiculopathy Cervical degenerative disc disease Secondary Discharge Dx(s): Patient Active Problem List Diagnosis Neck and shoulder pain Acid reflux Hypothyroidism Degeneration of cervical intervertebral disc Spinal stenosis in cervical region Cervical spondylosis without myelopathy Cubital tunnel syndrome S/P decompression of ulnar nerve at elbow Cervical radiculopathy Ulnar nerve 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 Anterior cervical discectomy and fusion C4-5, C5-6, C6-7 2. Anterior cervical plating C4-7 using Zevo 3. Anterior structural allograft bone C4-5, C5-6, C6-7 4. Microsurgical technique with use of operating microscope Hospital Course: The patient had planned surgery on 05/10. She had no postoperative events except some dyspha bethanie which was expected. She mobilized well and was discharged home. Condition on Discharge: Stable Discharge Medications: Discharge Medications New Medications Details HYDROcodone-acetaminophen 10-325 mg per tablet Take 1-2 tablets by mouth every 4 hours as needed for Pain. aka: NORCO methylprednisoLONE 4 mg tablet FOLLOW INSTRUCTIONS, TAKE ORALLY TAT aka: MEDROL DOSEPAK tiZANidine 4 mg tablet Take 1 tablet by mouth every 6 hours as needed for up to 10 days. aka: ZANAFLEX Unchanged Medications Details ARMOUR THYROID 90 MG tablet Generic drug: thyroid Take 90 mg by mouth Daily. Takes 90mg/alteranting with 60mg to average out to 75mg daily Biotin 5000 MCG Caps Take 5,000 mcg by mouth Daily. Cholecalciferol 5000 units Caps Take 5,000 Units by mouth Daily. aka: VITAMIN D-3 CINNAMON PO Take 2,000 mg by mouth Daily. Cranberry 300 MG Tabs Take 300 mg by mouth Daily. gabapentin 300 mg capsule TAKE ONE CAPSULE BY MOUTH THREE TIMES DAILY aka: NEURONTIN omeprazole 10 mg capsule Take 10 mg by mouth 2 times daily. aka: priLOSEC progesterone 200 mg capsule Take 200 mg by mouth Daily. aka: PROMETRIUM QC MULTI-HERMANN 50 & OVER PO Take 1 tablet by mouth Daily. TRIPLE OMEGA COMPLEX PO Take 2 tablets by mouth Daily. UNABLE TO FIND Apply 1 Application topically 2 times daily. Med Name: Bi-Est Discontinued Medications ibuprofen 200 mg tablet aka: ADVIL, MOTRIN ; Current Discharge Medication List START taking these medications Medication Dose Last Dose Taken; HYDROcodone-acetaminophen (NORCO) 10-325 mg per tablet 1-2 tablets Take 1-2 tablets by mouth every 4 hours as needed for Pain. Quantity: 120 tablet Refills: 0 Start date: 05/11/2015 methylprednisoLONE (MEDROL DOSEPAK) 4 mg tablet FOLLOW INSTRUCTIONS, TAKE ORALLY TAT Quantity: 21 tablet Refills: 0 Start date: 05/11/2015 tiZANidine (ZANAFLEX) 4 mg tablet 4 mg Take 1 tablet by mouth every 6 hours as needed for up to 10 days. Quantity: 90 tablet Refills: 3 Start date: 05/11/2015 End date: 05/21/2015 CONTINUE these medications which have NOT CHANGED Medication Dose Last Dose Taken; Biotin 5000 MCG CAPS 5,000 mcg Take 5,000 mcg by mouth Daily. Cholecalciferol (VITAMIN D-3) 5000 units CAPS 5,000 Units Take 5,000 Units by mouth Daily. CINNAMON PO 2,000 mg Take 2,000 mg by mouth Daily. Cranberry 300 MG TABS 300 mg Take 300 mg by mouth Daily. gabapentin (NEURONTIN) 300 mg capsule TAKE ONE CAPSULE BY MOUTH THREE TIMES DAILY Quantity: 270 capsule Refills: 11 Comments: Patient requests 90 days supply Multiple Vitamins-Minerals (QC MULTI-HERMANN 50 & OVER PO) 1 tablet Take 1 tablet by mouth Daily. [place] 3-6-9 Fatty Acids (TRIPLE OMEGA COMPLEX PO) 2 tablets Take 2 tablets by mouth Daily. omeprazole (PRILOSEC) 10 mg capsule 10 mg Take 10 mg by mouth 2 times daily. progesterone (PROMETRIUM) 200 mg capsule 200 mg Take 200 mg by mouth Daily. thyroid (ARMOUR THYROID) 90 MG tablet 90 mg Take 90 mg by mouth Daily. Takes 90mg/alteranting with 60mg to average out to 75mg daily UNABLE TO FIND 1 Application Apply 1 Application topically 2 times daily. Med Name: Bi-Est Follow-Up: 3-4 weeks. documented in this encou nter Discharge Instructions AttachmentsThe following attachments cannot be sent through Care Everywhere.CERVICAL FUSION , DISCHARGE INSTRUCTIONS FOR (LUXEMBOURGISH)documented in this encounter Medications at Time of [...] + + + +---------+ + + | [place] 3-6-9 Fatty | Take 2 tablets by [...] + + + +---------+ + + | Cholecalciferol | Take 5,000 Units by | | 0 | | | | (VITAMIN D-3) 5000 | mouth Daily. | | | | 7 | | units CAPS | | | | | | + + + +---------+ + + | gabapentin | TAKE ONE CAPSULE BY | 270 | 11 | 04/01/20 | | | (NEURONTIN) 300 mg | MOUTH THREE TIMES | capsule | | 15 | 7 | | capsule | DAILY | | | | | + + + +---------+ + + | | Take 1-2 tablets by | 120 | 0 | 05/11/19 | | | HYDROcodone-acetamin | mouth every 4 hours | tablet | | 16 | 7 | | ophen (NORCO) 10-325 | as needed for Pain. | | | | | | mg per tablet | | | | | | + + + +---------+ + + | methylprednisoLONE | FOLLOW INSTRUCTIONS, | 21 | 0 | 05/11/19 | | | (MEDROL DOSEPAK) 4 | TAKE ORALLY TAT | tablet | | 16 | 6 | | mg tablet | | | | | | + + + +---------+ + + | Multiple | Take 1 tablet by | | 0 | | | | Vitamins-Minerals | mouth Daily. | | | | 7 | | (QC MULTI-HERMANN 50 & | | | | | | | OVER PO) | | | | | | + + + +---------+ + + | thyroid (ARMOUR | Take 90 [...] + + + +---------+ + + | tiZANidine | Take 1 tablet by | 90 | 3 | 05/11/19 | 02/16/201 | | (ZANAFLEX) 4 mg | mouth every 6 hours | tablet | | 16 | 6 | | tablet | as needed for up to | | | | | | | 10 days. | | | | | + + + +---------+ + + documented as of this encounter Progress Notes Ciara Bunch RN - 05/11/2015 11:48 AM PSTDischarge instruction explained to pt. P t verbalizes understanding. No question Or concerns raised. Pt wheeled out of the room in a stable condition. documented in this encounter Plan of Treatment Not on filedocumented as of this encounter Procedures + +--------+ + + + | Procedure Name | Priori | Date/Time | Associated Diagnosis | Comments | | | ty | | | | + +--------+ + + + | XR CERVICAL SPINE 2 | STAT | 05/10/2015 | | Results for this | | OR 3 VIEWS | | 3:45 PM | | procedure are in the | | | | PST | | results section. | + +--------+ + + + | FUSION CERVICAL | | 05/10/2015 | Cervical arthritis | | | ANTERIOR W/ PLATING | | 12:08 PM | with myelopathy | | | | | PST | | | + +--------+ + + + +---+--------+ | | Case | | | Notes | | | | | | C-ARM, | | | | | | DRILL, | | | | | | MICROS | | | COPE, | | | ZEVO, | | | GRAFTO | | | N, | | | CORNER | | | STONE, | | | OSI | | | FLAT | | | TOPEST | | | IMATED | | | TIME: | | | 2 | | | HOURS | +---+--------+ | | | | | Specia | | | l | | | Needs | | | Dionisio | | | | | | (Medtr | | | onic) | | | - ZEVO | +---+--------+ documented in this encounter Results XR Cervical Spine 2 or 3 Views (05/10/2015 3:45 PM PST) + + | Specimen | + + | | + + + + + | Narrative | Performed At | + + + | XR CERVICAL SPINE 2 OR 3 VIEWS 05/10/2015 3:45 PM HISTORY: post op | [facility] | | cervical surgery. COMPARISON: None. FINDINGS: Visualized | | | skull base and facial structures demonstrate no acute findings. | | | Prevertebral soft tissues are normal. There is loss of the usual | | | lordosis. There has been interval placement of hardware for anterior | | | fusion from C4 through C7 with interbody graft material at these | | | levels. The hardware are intact. Bone mineralization is normal. The | | | dens is normal. Vertebral body height are preserved with no evidence | | | for compression fractures. Disc height are maintained. Facet joints | | | are intact. There is ossification of the ligamentum nuchae at level | | | C5. An anterior right drainage catheter is seen. Visualized upper | | | chest demonstrates no acute findings. IMPRESSION - Interval | | | anterior fusion from C4 through C7. Dictated and Signed by: Maurice | | | MD Matthias Electronically signed: 05/10/2015 4:23 PM | | + + + + + | Procedure Note | + + | Farhan, Rad Results In - 05/10/2015 4:26 PM PST XR CERVICAL SPINE 2 OR 3 VIEWS 05/10/2015 | | 3:45 PMHISTORY: post op cervical surgery.COMPARISON: None.FINDINGS:Visualized skull | | base and facial structures demonstrate no acute findings.Prevertebral soft tissues are | | normal.There is loss of the usual lordosis. There has been interval placement ofhardware | | for anterior fusion from C4 through C7 with interbody graft material atthese levels. | | The hardware are intact. Bone mineralization is normal. The densis normal. Vertebral | | body height are preserved with no evidence for compressionfractures. Disc height are | | maintained. Facet joints are intact. There isossification of the ligamentum nuchae at | | level C5. An anterior right drainagecatheter is seen. Visualized upper chest | | demonstrates no acute findings. IMPRESSION -Interval anterior fusion from C4 through | | C7.Dictated and Signed by: Maurice Rizzo MD Electronically signed: 05/10/2015 4:23 PM | |hardware for anterior fusion from C4 through C7 with interbody graft material at | |these levels. The hardware are intact. Bone mineralization is normal. The dens | |is normal. Vertebral body height are preserved with no evidence for compression | |fractures. Disc height are maintained. Facet joints are intact. There is | |ossification of the ligamentum nuchae at level C5. An anterior right drainage | |catheter is seen. Visualized upper chest demonstrates no acute findings. | | | |IMPRESSION - | |Interval anterior fusion from C4 through C7. | | | |Dictated and Signed by: Maurice Rizzo MD | | Electronically signed: 05/10/2015 4:23 PM | + + + +---------+ + + | Performing | Address | City/State/Zipcode | Phone Number | | Organization | | | | + +---------+ + + | [facility] | | | | + +---------+ + + documented in this encounter Visit Diagnoses + + | Diagnosis | + + | Cervical arthritis with myelopathy | + + documented in this encounter Administered Medications + +--------+ +---------+------+ + | Medication Order | MAR | Action | Dose | Rate | Site | | | Action | Date | | | | + +--------+ +---------+------+ + | bacitracin in NS solution PRN, | Given | 05/10/19 | 50,000 | | Surgical | | Starting 05/10/15 at 1425, | | 16 2:25 | Units | | Site | | Intra-op | | PM PST | | | | + +--------+ +---------+------+ + +---+---+ | | | +---+---+ documented in this encounter
--- OUTSIDE RECORDS SUMMARY | ~2019-03-03 | XMS | Encounter Summary ---
Demographics + + + | Address | [address] | | | [place] [address] | + + + | Home Phone | | + + + | Preferred Language | Unknown | + + + | Marital Status | | + + + | Denominational Affiliation | 1001 | + + + | Race | Unknown | + + + | Ethnic Group | Unknown | + + + Author + + + | Author | [facility] | | | and [place] | + + + | Organization | [facility] | | | and [place] [...] [place] | | | | | [address] | | + + + + + | Angelika Holm | ECON | Unknown | | + + + + + Care Team Providers + +------+ + | Care Health Consultant Name | Role | Phone | + [...] Description | +--------+--------+ + + + | 10/08/ | Refill | [facility] [place] | Andrea Arndt | Medication Refill | | 2014 | | PHYSIATRY [address] | | | | | [place], | [place], [place] | | | | | [place] [address] | [address] | | | | | [phone] | | | +--------+--------+ + + + Social History + +-------+ [...]
--- OUTSIDE RECORDS SUMMARY | ~2019-03-03 | XMS | Encounter Summary ---
Demographics + + + | Address | [address] | | | [place] [address] | + + + | Home Phone | | + + + | Preferred Language | Unknown | + + + | Marital Status | | + + + | Restoration Affiliation | NON | + + + | Race | White | + + + | Ethnic Group | Not or | + + + Author + + + | Author | [facility] | + + + | Organization | [facility] | + + + | Address | Unknown | + + + | Phone | Unavailable | + + + Support + + +---------+ + | Name | Relationship | Address | Phone | + + +---------+ + | Fidel Hlom | ECON | Unknown | | + + +---------+ + Care Team Providers + +------+ + | Care Railroad Watchman Name | Role | Phone | + +------+ + | Jacqueline Nuñez | PCP | | + +------+ + Reason for Visit AUTH/CERT +--------+--------+ + + + + | Status | Reason | Specialty | Diagnoses / | Referred By | Referred To | | | | | Procedures | Contact | Contact | +--------+--------+ + + + + | | | | | | | +--------+--------+ + + + + Encounter Details +--------+ + + + + | Date | Type | Department | Care Team | Description | +--------+ + + + + | 08/05/ | Hospital [facility] | Qasim Casanova MD | | | 2019 | Encounter | ST[address] | [address] | | | | | [address] Mailcode: [facility] | [facility] [place], | | | | | [facility] | [place] [address] | | | | | Health and Healing, | [phone] | | | | | [facility] [address] | | | | | | [place], [place] | | | | | | [address] | | | | | | [phone] | | | +--------+ + + + [...] + + + | Blood Pressure | 174/85 | 08/05/2018 11:15 AM | | | | | PDT | | + + + + + | Pulse | 96 | 08/05/2018 11:00 AM | | | | | PDT | | + + + + + | Temperature | 36.9 C (98.4 F) | 08/05/2018 10:45 AM | | | | | PDT | | + + + + + | Respiratory Rate | 16 | 08/05/2018 11:00 AM | | | | | PDT | | + + + + + | Oxygen Saturation | 96% | 08/05/2018 11:15 AM | | | | | PDT | | + + + + + | Inhaled Oxygen | - | - | | | Concentration | | | | + + + + + | Weight | 56.7 kg (125 lb) | 08/05/2018 7:00 AM | | | | | PDT | | + + + + + | Height | 167.6 cm (5' 6") | 08/05/2018 7:00 AM | | | | | PDT | | + + + + + | Body Mass Index | 20.18 | 08/05/2018 7:00 AM | | | | | PDT | | + + + + + documented in this encounter Discharge Instructions Discharge - Day Procedure Instructions Ken Astorga MD - 08/05/2018 1:07 AM PDTP rincipal Diagnosis: VPI Principal Procedure: palatoplasty Reason for Admission, Significant Findings, Treatment and Complication: Presented for the above procedure, tolerated it well. After procedure did well and was discharged without comp lications. Condition on Discharge: Stable Disposition: Home Follow up care: Future Appointments Provider Department Directions 08/11/2018 4:00 PM Qasim Casanova Otolaryngology Facial Plastics & Reconstructive Services at [facility] Activity Restrictions: No heavy lifting (above 15 lbs) or strenuous activity for 2 weeks a fter procedure Diet:soft diet for 2 weeks or as directed Wound care: rinse mouth out with salt water after eating for 2 weeks During business hours please call the Facial Plastics Clinic, at [phone] with any ques tions or concerns. Otherwise, you may call the Otolaryngology resident at [phone] for c oncerns, such as difficulty breathing or unusual shortness of breath, excessive bleeding, dr ramon at the operative site, fevers, chills, increased pain that is not relieved by pain me dications, persistent nausea or vomiting. Signed by: Ken Astorga MD ([id number]) Otolaryngology - Head and Neck Surgery [facility] Pager: [phone] Additional Instructions Fredy Escobar RN - 08/05/2018 Nu rsing Discharge Instructions General discharge instructions for same-day procedure patients: Remember that you are under the influence of medication. Do not stay alone. A responsible person should be with you. Do not drive, drink alcohol or make important personal or business decision for 24 hours . Resume normal activity and return to work when advised by your Doctor. Pain Management: Your last oral pain medication was given at: 5mg Arden at 11:00am. Please follow your Doctor's instructions on the medication bottle. Do not take pain medication on an empty stomach, as this may cause nausea and vomiting. Do not drive or drink alcohol while on narcotic pain medication. Diet: If you do not experience nausea or vomiting resume your regular diet. Eat lightly and av oid large, high fat or highly spiced meals for 24-48 hours. Constipation can be a side effect of narcotic pain medication. Take stool softeners, in crease dietary fiber and drink plenty of water to prevent this. Wound/Dressing/Drain Care: Change your dressing according to your Doctor's instructions. You may place a bandaid o n incisional site if needed. Change bandaid daily. Call your Doctor if there is excessive bleeding, redness, swelling or drainage at the o perative site. IV Site Care Instructions: Monitor IV site for pain, redness, swelling and/or drainage. If present, call your Doct or immediately. Minor redness and/;or tenderness may be treated with warm, moist compresses for 24-48 ho urs, If the area is still red and/or tender after this, notify your Doctor. Call 911 if you experience difficulty breathing or unusual shortness of breath. Additional Home Care Instructions: After arriving home you may receive a patient satisfaction survey from "[employer]ae[employer]". We w genevald appreciate your feedback on the survey to help us provide excellent service to you and your families. Prevention of DVT (deep vein thrombosis) 1. Get up and move 2. Do ankle exercises Signs and symptoms of DVT 1. Redness, Swelling, warmth and tenderness in calf. 2. Sharp pain in calf when you point your toes towards you body. documented in this encounter Medications at Time of Discharge + + + +---------+--------+ + | Medication | Sig | Dispensed | Refills | Start | End Date | | | | | | Date | | + + + +---------+--------+ + | estradiol 0.0375 | Apply 1 patch to | | 0 | | | | mg/24 hr transdermal | skin. | | | | | | patch semiweekly | | | | | | + + + +---------+--------+ + | methocarbamol 500 | Take 250 mg by mouth | | 0 | | | | mg oral tablet | once daily in | | | | | | | evening as needed. | | | | | + + + +---------+--------+ + | polyethylene | Mix 1 packet and | | 0 | | | | glycol 17 gram oral | take orally once | | | | | | powder in packet | daily at bedtime. | | | | | + + + +---------+--------+ + | progesterone 200 | Take 200 mg by mouth | | 0 | | | | mg oral capsule | once daily in the | | | | | | | evening. | | | | | + + + +---------+--------+ + | Ranitidine HCl 150 | Take 150 mg by mouth | | 0 | | | | mg oral capsule | two times daily. | | | | | + + + +---------+--------+ + | thyroid (ARMOUR | Take 60 mg by mouth | | 0 | | | | THYROID) 60 mg oral | once daily. | | | | | | tablet tablet | | | | | | + + + +---------+--------+ + documented as of this encounter Plan of Treatment Not on filedocumented as of this encounter Procedures + +--------+ + + + | Procedure Name | Priori | Date/Time | Associated Diagnosis | Comments | | | ty | | | | + +--------+ + + + | PROCEDURE NOTE | Routin | 08/05/2018 | | Results for this | | | e | 11:37 AM | | procedure are in the | | | | PDT | | results section. | + +--------+ + + + | INTRAPROCEDURE | Routin | 08/05/2018 | | Results for this | | IMAGING | e | 10:34 AM | | procedure are in the | | | | PDT | | results section. | + +--------+ + + + | OPERATION RECORD | | 08/05/2018 | | Results for this | | | | 10:14 AM | | procedure are in the | | | | PDT | | results section. | + +--------+ + + + | PHARYNGEAL FLAP | Electi | 08/05/2018 | J39.2 (ICD-10-CM) | | | | ve | 8:30 AM | - Other diseases of | | | | Surgic | PDT | pharynx | | | | al | | | | + +--------+ + + + | INTRAPROCEDURE | Routin | 08/05/2018 | | Results for this | | IMAGING | e | 6:49 AM | | procedure are in the | | | | PDT | | results section. | + +--------+ + + + | CARDIOLOGY | | 08/05/2018 | | Results for this | | | | 12:00 AM | | procedure are in the | | | | PDT | | results section. | + +--------+ + + + documented in this encounter Results PROCEDURE NOTE (08/05/2018 11:37 AM PDT)INTRAPROCEDURE IMAGING (08/05/2018 10:34 AM PDT) + + | Specimen | + + | | + + + + + | Narrative | Performed At | + + + | See admission or procedure notes for details of any intraprocedure | [facility] | | images obtained. | RADIOLOGY | + + + + +---------+ + + | Performing | Address | City/State/Zipcode | Phone Number | | Organization | | | | + +---------+ + + | [facility] | | | | + +---------+ + + OPERATION RECORD (08/05/2018 10:14 AM PDT) + + | Procedure Note | + + | Qasim Casanova MD - 08/05/2018 10:14 AM PDT Date of Service: 08/05/2018 Attending | | Surgeon: Qasim Casanova MD Dimensional Integration Engineer(s): None. 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 After satisfactory induction of general anesthesia with | | oroendotracheal intubation, the patient was positioned and the Soto mouth gag was | | placed with a medium blade. The blade was released every 30 minutes on the hour and on | | the 0.5 hour to minimize tongue compression. The midline of the posterior soft palate | | and the posterior pharyngeal wall was infiltrated with 11 mL total of a solution of 0.5% | | lidocaine, 0.25% Marcaine with 1:100,000 epinephrine. The soft palate was divided in | | the midline with electrocautery and bleeding controlled with electrocautery. The soft | | palatal flaps were reflected laterally and posterior mucosal flap elevated pedicle | | posteriorly bilaterally. These were elevated with electrocautery as well. The | | pharyngeal flap was elevated off the posterior pharyngeal wall in a superiorly based | | fashion, measuring approximately 1.5 cm in width and 3 cm in length. The elevation was | | carried out in the submucosal plane with electrocautery, and bleeding controlled by | | electrocautery. The elevated flap was secured to the posterior soft palate with 4-0 | | simple interrupted sutures circumferentially. The posterior pharyngeal mucosa was | | reapposed and sutured into the base of the pharyngeal flap superiorly, and the entire | | posterior mucosal flaps and the anterior mucosal flaps of the soft palate were repaired | | with 4-0 Vicryl simple interrupted sutures. The pharyngeal flap donor site was next | | repaired with 4-0 Vicryl simple interrupted sutures with closer approximation, but not | | [id number]-pyzb closure due to tension. At the completion of all maneuvers, the procedure | | was terminated. The patient was awakened, and extubated, and taken to recovery room in | | satisfactory condition, having tolerated procedure well without complications.Qasim Casanova | | RENETTA/ALONSOD: 08/05/2018 09:58:07DT: 08/05/2018 10:14:38Job #: [id number] | |and the entire posterior mucosal flaps and the anterior mucosal flaps of the soft palate we re repaired with 4-0 Vicryl simple interrupted sutures. | | | |The pharyngeal flap donor site was next repaired with 4-0 Vicryl simple interrupted sutures with closer approximation, but not [id number] closure due to tension. | | | |At the completion of all maneuvers, the procedure was terminated. The patient was awakened , and extubated, and taken to recovery room in satisfactory condition, having tolerated proc edure well without complications. | | | | | | | |Qasim Casanova MD | |NIXON/SOFI | | | | | | /[id number] | + + INTRAPROCEDURE IMAGING (08/05/2018 6:49 AM PDT) + + | Specimen | + + | | + + + + + | Narrative | Performed At | + + + | See admission or procedure notes for details of any intraprocedure | [facility] | | images obtained. 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 | + + documented in this encounter Administered Medications + +--------+ +--------+------+------+ | Medication Order | MAR | Action | Dose | Rate | Site | | | Action | Date | | | | + +--------+ +--------+------+------+ | fentaNYL (SUBLIMAZE) injection | Given | 08/06/19 | 25 mcg | | | | 25-50 mcg 25-50 mcg, | | 19 10:44 | | | | | intravenous, POSTPROCEDURE PRN, 8 | | AM PDT | | | | | doses, Starting Wed08/05/18 at | | | | | | | 0902, Until Wed08/05/18 at 1744, | | | | | | | severe pain while in Phase I | | | | | | | Recovery | | | | | | + +--------+ +--------+------+------+ +-------+ +--------+---+---+ | Given | 08/06/19 | 25 mcg | | | | | 19 10:30 | | | | | | AM PDT | | | | +-------+ +--------+---+---+ +---+---+ | | | +---+---+ + +-------+ + +---+---+ | HYDROcodone-acetaminophen | Given | 08/06/19 | 1 tablet | | | | (NORCO) 5-325 mg tablet 1 tablet | | 19 10:45 | | | | | 1 tablet, oral, ONCE, 1 dose, | | AM PDT | | | | | Wed08/05/18 at 1045 | | | | | | + +-------+ + +---+---+ +---+---+ | | | +---+---+ + + + +---+---+---+ | lactated ringers IV 10 mL/hr, | given by | 08/06/19 | | | | | intravenous, PROCEDURE | | 19 9:53 | | | | | CONTINUOUS, Starting Wed08/05/18 | anesthes | AM PDT | | | | | at 0700, Until Wed08/05/18 at 1744 | iology | | | | | + + + +---+---+---+ +---------+ +---+---+---+ | New Bag | 08/06/19 | | | | | | 19 8:00 | | | | | | AM PDT | | | | +---------+ +---+---+---+ + +---+ | | | + +---+ | lactated ringers IV 10 mL/hr, | | | intravenous, PROCEDURE | | | CONTINUOUS, Starting Wed08/05/18 | | | at 1045, Until Wed08/05/18 at 1744 | | + +---+ | | | + +---+ | lactated ringers IV 500 mL, | | | intravenous, POSTPROCEDURE PRN, 1 | | | dose, Starting Wed08/05/18 at | | | 0902, Until Wed08/05/18 at 1744, | | | nausea/vomiting due to | | | dehydration | | + +---+ | | | + +---+ | lidocaine (XYLOCAINE) 10 mg/mL | | | (1 %) injection subcutaneous, | | | PREPROCEDURE PRN, Starting Fri | | | 08/05/18 at 0649, Until Wed08/05/18 | | | at 1744, IV start | | + +---+ | | | + +---+ | lidocaine (XYLOCAINE) 10 mg/mL | | | (1 %) injection subcutaneous, | | | PREPROCEDURE PRN, Starting Fri | | | 08/05/18 at 1034, Until Wed08/05/18 | | | at 1744, IV start | | + +---+ | | | + +---+ | meperidine (DEMEROL) injection | | | 25 mg 25 mg, intravenous, | | | POSTPROCEDURE PRN, 1 dose, | | | Starting Wed08/05/18 at 0902, | | | Until Wed08/05/18 at 1744, | | | shivering | | + +---+ | | | + +---+ | naloxone (NARCAN) injection | | | intravenous, POSTPROCEDURE PRN, | | | Starting Wed08/05/18 at 0902, | | | Until Wed08/05/18 at 1744, | | | hypopnea | | + +---+ | | | + +---+ | ondansetron (ZOFRAN) injection | | | 4 mg 4 mg, intravenous, | | | POSTPROCEDURE PRN, 1 dose, | | | Starting Wed08/05/18 at 0902, | | | Until Wed08/05/18 at 1744, | | | nausea/vomiting, 1st line | | + +---+ | | | + +---+ | promethazine (PHENERGAN) | | | injection 6.25-12.5 mg 6.25-12.5 | | | mg, intravenous, POSTPROCEDURE | | | PRN, 1 dose, Starting Wed08/05/18 | | | at 0902, Until Wed08/05/18 at | | | 1744, nausea/vomiting, 2nd line | | + +---+ | | | + +---+ + + + +---------+---+ + | scopolamine (TRANSDERM-SCOP) 1 | Applied | 08/06/19 | 1 patch | | Left | | mg over 3 days 1 patch 1 patch, | Patch | 19 7:44 | | | Post | | transdermal, EVERY 72 HOURS, 1 | | AM PDT | | | Auricula | | dose, First dose on Wed08/05/18 at | | | | | r | | 0745 | | | | | | + + + +---------+---+ + +---+---+ | | | +---+---+ documented in this encounter
--- OUTSIDE RECORDS SUMMARY | ~2019-03-03 | XMS | Encounter Summary ---
Demographics + + + | Address | [address] | | | [place] [address] | + + + | Home Phone | | + + + | Preferred Language | Unknown | + + + | Marital Status | | + + + | Temple Affiliation | 1001 | + + + | Race | Unknown | + + + | Ethnic Group | Unknown | + + + Author + + + | Author | [facility] | | | and [place] | + + + | Organization | [facility] | | | and [place] [...] [place] | | | | | [address] | | + + + + + | Angelika Holm | ECON | Unknown | | + + + + + Care Team Providers + +------+ + | Care Director Of Student Aid Name | Role | Phone | + [...] + + | Closed | Specialty | Neurosurgery | Diagnoses | [facility], | [facility] | | | Services | | Cervical | Kris E, | NEUROSURGERY | | | Required | | radiculopath | PA-C [address] | [facility] [address] | | | | | y Neck pain | [address] | [address] | | | | | History of | [address] | | | | | fusion of | [place], | [place], [place] | | | | | cervical | [place] [address] | [address] | | | | | spine | Phone: | Phone: | | | | | Procedures | [phone] | [phone] | | | | | 11/30>APPT | Fax: | Fax: | | | | | INFO | [phone] | [phone] | | | | | REQUESTED | | | | | | | FROM | | | | | | | SPECIALIST | | | +--------+ + + + + + Evaluate & Treat (Routine) + + + + + + + | Status | Reason | Specialty | Diagnoses / | Referred By | Referred To | | | | | Procedures | Contact | Contact | + + + + + + + | Authorized | Specialty | Physical | Diagnoses | [facility], | [facility] | | | Services | Therapy | Cervical | Kris Perry, | HOSPITAL | | | Required | | radiculopath | PA-C [address] | PHYSICAL | | | | | y Neck pain | [address] | [facility] [address] | | | | | History of | [address] | [place] | | | | | fusion of | [place], | [place], [place] | | | | | cervical | [place] [address] | [address] | | | | | spine | Phone: | Phone: | | | | | | [phone] | [phone] | | | | | | Fax: | Fax: | | | | | | [phone] | [phone] | + + + + + + + Encounter Details +--------+ + + + + | Date | Type | Department | Care Team | Description | +--------+ + + + + | 09/15/ | Orders Only | [facility] [place] | Kris Mahan, | Cervical | | 2019 | | NEUROSURGERY [address] | PA-C [address] | radiculopathy | | | | [address] | [address] [place] | (Primary Dx); Neck | | | | [place], [place] | [place] [address] | pain; History of | | | | [address] | [phone] | fusion of cervical | | | | [phone] | | spine | +--------+ + + + + Social [...] as of this encounter Plan of Treatment + + +--------+ + + | Name | Type | Priori | Associated Diagnoses | Order Schedule | | | | ty | | | + + +--------+ + + | OUTPATIENT PT | Outpatient | Routin | Cervical | Ordered: 09/15/2018 | | EXTERNAL | Referral | e | radiculopathy Neck | | | | | | pain History of | | | | | | fusion of cervical | | | | | | spine | | + + +--------+ + + | Neurosurgery, | Outpatient | Routin | Cervical | Ordered: 09/15/2018 | | External - AMB | Referral | e | radiculopathy Neck | | | Referral | | | pain History of | | | | | | fusion of cervical | | | | | | spine | | + + +--------+ + + documented as of this encounter Visit Diagnoses + + | Diagnosis | + + | Cervical radiculopathy - Primary Brachial neuritis or radiculitis nos | + + | Neck pain Cervicalgia | + + | History of fusion of cervical spine Arthrodesis status | + + documented in this encounter"
--- OUTSIDE RECORDS SUMMARY | ~2019-03-03 | XMS | Encounter Summary ---
Demographics + + + | Address | [address] | | | [place] [address] | + + + | Home Phone | | + + + | Preferred Language | Unknown | + + + | Marital Status | | + + + | Islam Affiliation | 1001 | + + + | Race | Unknown | + + + | Ethnic Group | Unknown | + + + Author + + + | Author | [facility] | | | and [place] | + + + | Organization | [facility] | | | and [...] [place] | | | | | [address] | | + + + + + | Angelika Holm | ECON | Unknown | | + + + + + Care Team Providers + +------+ + | Care Timber Management Assistant Name | Role | Phone | + +------+ + | Alec Tao MD | PCP | | + +------+ + Reason for Visit +---------+ + | Reason | Comments | +---------+ + | Post Op | | +---------+ + Encounter Details +--------+ + + + + | Date | Type | Department | Care Team | Description | +--------+ + + + + | 05/21/ | Telephone | [facility] [place] | Donald Reich MD | Post Op | | 2016 | | NEUROSURGERY [address] | [address] | | | | | [address] | [place] [address] | | | | | [place] | [phone] | | | | | [address] | | | | | | [phone] | | | +--------+ + + + [...]
--- OUTSIDE RECORDS SUMMARY | ~2019-03-03 | XMS | Encounter Summary ---
Demographics + + + | Address | [address] | | | [place] [address] | + + + | Home Phone | | + + + | Preferred Language | Unknown | + + + | Marital Status | | + + + | Mandaen Affiliation | 1001 | + + + | Race | Unknown | + + + | Ethnic Group | Unknown | + + + Author + + + | Author | [facility] | | | and [place] | + + + | Organization | [facility] | | | and [place] [...] [place] | | | | | [address] | | + + + + + | Angelika Holm | ECON | Unknown | | + + + + + Care Team Providers + +------+ + | Care Electrical Appliance Mechanic Name | Role | Phone | + +------+ + | Alec Tao MD | PCP | | + +------+ + Reason for Visit + + + | Reason | Comments | + + + | Appointment Question | | + + + Encounter Details +--------+ + + + + | Date | Type | Department | Care Team | Description | +--------+ + + + + | 11/18/ | Telephone | [facility] | Donald Reich MD | Appointment Question | | 2017 | | NEUROSUR[address]ERY [address] | [address] | | | | | [address] | [place] [address] | | | | | [place] | [phone] | | | | | [address] | | | | | | [phone] | | | +--------+ + + + [...]
--- OUTSIDE RECORDS SUMMARY | ~2019-03-03 | XMS | Encounter Summary ---
Demographics + + + | Address | [address] | | | [place] [address] | + + + | Home Phone | | + + + | Preferred Language | Unknown | + + + | Marital Status | | + + + | Taoist Affiliation | NON | + + + | Race | White | + + + | Ethnic Group | Not or | + + + Author + + + | Author | [facility] | + + + | Organization | [facility] | + + + | Address | Unknown | + + + | Phone | Unavailable | + + + Support + + +---------+ + | Name | Relationship | Address | Phone | + + +---------+ + | Fidel Holm | ECON | Unknown | | + + +---------+ + Care Team Providers + +------+ + | Care Wildlife Ecologist Name | Role | Phone | + +------+ + | Jacqueline Nuñez | PCP | | + +------+ + Encounter Details +--------+---------+ + + + | Date | Type | Department | Care Team | Description | +--------+---------+ + + + | 08/04/ | Office | Preoperative | aVl De Paz, | Preop examination | | 2019 | Visit | Medicine Clinic at | DNP [address] | (Primary Dx) | | | | [facility] | Ave [place], [place] | | | | | [address] | [address] | | | | | Mail Code: [facility] | [phone] | | | | | [facility] | | | | | | and Healing, | | | | | | Building [address] | | | | | | [facility] [place] | | | | | | [address] | | | | | | [phone] | | | +--------+---------+ + + + Anesthesia Record + + [...] + + + | Blood Pressure | 146/77 | 08/04/2018 2:45 PM | | | | | PDT | | + + + + + | Pulse | 85 | 08/04/2018 2:45 PM | | | | | PDT | | + + + + + | Temperature | 36.8 C (98.2 F) | 08/04/2018 2:45 PM | | | | | PDT | | + + + + + | Respiratory Rate | 18 | 08/04/2018 2:45 PM | | | | | PDT | | + + + + + | Oxygen Saturation | 100% | 08/04/2018 2:45 PM | | | | | PDT | | + + + + + | Inhaled Oxygen | - | - | | | Concentration | | | | + + + + + | Weight | 56.7 kg (125 lb) | 08/04/2018 2:45 PM | | | | | PDT | | + + + + + | Height | 167.6 cm (5' 6") | 08/04/2018 2:45 PM | neck 38cm | | | | PDT | | + + + + + | Body Mass Index | 20.18 | 08/04/2018 2:45 PM | | | | | PDT | | + + + + + documented in this encounter Patient Instructions Patient Instructions Val De Paz DNP - 08/04/2018 2:50 PM PDT PREOPERATIVE INSTRUCTIONS Empty stomach before surgery On the day BEFORE your surgery, drink plenty of fluids and stay well hydrated NOTHING to eat or drink after midnight the night before surgery. This includes water, coffee, candy, mints, gum. Medications Instructions On the evening before your surgery, take ALL your usual evening medications On the morning of surgery TAKE the following medications with a sip of water: Ranitidine [place] thyroid On the morning of surgery DO NOT TAKE the following medications: Vitamins, minerals, and herbal supplements Other medications not specifically mentioned are at your discretion as to taking or not taking on the morning of surgery. Unless otherwise directed by your surgeon, do not take any Aspirin , fish oil supplement s, vitamin E or non-steroidal anti-inflammatory (NSAIDs i.e. Advil, Aleve, Ibuprofen) or her bal supplements 7 days prior to your surgery. These drugs may interfere with normal blood cl otting and may cause excessive bleeding and bruising during or after the surgery. If you need a pain medication for general purposes, use Tylenol as directed. OK to take it even on the morning of surgery, if needed. If you are in doubt about any medications that you are taking, please contact our office . Skin preparation to help avoid surgical site infections HIBICLENS GUIDE TO GENERAL SKIN CLEANSING AT HOME BEFORE SURGERY Before you bathe or shower: ? Read the instructions given to you by your healthcare practitioner, and begin your genera l skin cleansing protocol as directed. ? Carefully read all directions on the product label. ? Hibiclens is not to be used on the head or face, keep out of the eyes, ears and mouth. ? Hibiclens is not to be used in the genital area. ? Hibiclens should not be used if you are allergic to chlorhexidine gluconate or any other ingredients in this preparation. *See Hibiclens label for full product information and precautions. When you bathe or shower the night before your surgery: ? If you plan to wash your hair, do so with your regular shampoo. Then rinse hair and body thoroughly to remove any shampoo residue. ? Wash your face with your regular soap or water only. ? Thoroughly rinse your body with warm water from neck down. ? Use Hibiclens as you would any other liquid soap. Please do not put the Hibiclens on a wa sh cloth, apply directly to the skin and wash gently. Apply the minimum amount of Hibiclens necessary to cover the skin. Leave the Hibiclens on your skin for 1 minute, then rinse off. ? Rinse thoroughly with warm water. ? Do not use your regular soap after applying and rinsing Hibiclens. When using Hibiclens for a second day in a row (morning of surgery, as soon as you wake up) : ? Shower/bathe again using Hibiclens in the same method as described above. ? Do not apply any lotions, deodorants, powders or perfumes to the body areas that have been cleaned with Hibiclens. Other Important Guidelines ? Do not shave the surgical area Do not smoke, drink alcohol or use recreational drugs for 24 hours before your surgery Watch for any change in your health condition. Let your surgeon know right away if you do not feel well. ? Do not wear makeup, perfume, lotions, deodorant, powder or hairspray. Do not wear any jewelry to the hospital. Wear loose, comfortable clothing. Leave all your valuables at home. Allow enough travel time so you re not late for your check in for surgery. Please remember to brush your teeth the night before and the morning of your procedure. Preventing post op complications while you are in the hospital Use an incentive spirometer or peep breathe to keep your lungs working properly an d to help prevent respiratory complications. It helps you take long, deep breaths. Use it at least once every hour while you are awake. Leg and feet exercises will maintain good circulation and help prevent blood clots in yo ur legs. Sometimes your doctor will order sequential air compression stockings. Compressed air helps the circulation in your legs. Walking and moving will help stimulate normal circulation and deep breathing. After you r surgery, your nurse may ask you to sit, stand or walk. Surgery check-in location: [address] [facility], 1st Floor [facility] Surgery Check in Time: The Preoperative Medicine Clinic is not in the position to give you accurate information regarding surgical check in time. We refer you back to your surgical office regarding this important information. Going Home Your surgical team will decide when you are medically ready to go home. If you are released to go home on the same day as your procedure/surgery please note the following: You will not be able to drive. You will be required to have a competent person drive you or accompany you by taxi or pu blic transportation on the day of discharge. If you have questions or concerns after you go home, call your doctor s office. If it is after office hours, call the [facility] cylinder machine operator at [phone] and ask them to page him or h er. documented in this encounter Progress Notes Eva Estrada MA - 08/04/2018 2:50 PM PDTVenipuncture performed in clinic, blood sample obtained from Right antecubital site Electronically signed by Eva Estrada MA at 019 7:26 AM Val Chilel DNP - 08/04/2018 2:50 PM PDT PREOPERATIVE CONSULT NOTE Author: Val De Paz DNP Referring Physician: Qasim Casanova MD Primary Care Provider: JOSHUA Kimball Reason for Consult: Preoperative evaluation and risk assessment Proposed Procedure/Date: BILATERAL CORRECTION OF VELOPHAYRNGEAL INSUFFICIENCY WITH PHARYNGE AL FLAP, POSSIBLE ALLODERM on 08/05/18 Proposed Procedure Location: [facility] HISTORY OF PRESENT ILLNESS: Cathy Holm is a 58 y.o. female here for preoperative kris luation of medical problems in anticipation of the above procedure. 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 Symptoms rela rafat to the diagnosis: pt reports nasal congestion, stuffiness, trouble breathing through her nose, trouble sleeping, trouble getting enough air through her nose with activity, and dif ficulty with speech s/p tonsillectomy on 04/30/17. She was treated Kenalog injections with m inimal improvement in symptoms. Pertinent medical problems discussed during this visit: GERD -- moderately controlled with ranitidine. Pt reports cough at night while laying fl at 1-2 times per week. Pt plans to follow-up with PCP. Cervical radiculopathy -- s/p cervical fusion. 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 HRT -- estradiol patch and progesterone. Hypothyroid -- treated with armour thyroid. Difficulty with speech -- trouble with speech s/p tonsillectomy. Perioperative cardiac risks: CAD no CHF no CVA no CKD with creatinine >2 no DM treated with insulin no Functional Capacity: Moderate (4-10 mets) Prior complications of anesthesia: none ROS: Prior Anesthetic Problems: No Pulmonary: no shortness of breath no cough no stridor no wheezing no Recent Respiratory Infectio n Pt. Has no asthma no COPD No dx of sleep apnea Cardiovascular: Activity: Rebuilding house. Pt is able to walk 2 city blocks or up two flights of stairs. D enies CHAVIRA, CP, or pressure with activity. 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 has: no active bleeding no bleeding disorder No clotting disorders No hemoglobin d isorders no malignancy Infectious Disease: no MRSA no VRE no clostridium difficile no HIV/AIDS no tuberculosis Skin: no open wounds No active skin infections no skin conditions AutoImmune Disorders: No autoimmune disorders Current medications reviewed / updated Current Outpatient Prescriptions Medication Sig cephALEXin (KEFLEX) 250 mg oral capsule Take 1 capsule by mouth every six hours. Start taking after procedure estradiol 0.0375 mg/24 hr transdermal patch semiweekly Apply 1 patch to skin. HYDROcodone-acetaminophen (NORCO) 5-325 mg oral tablet Take 1 tablet by mouth every six hours as needed. Start after your procedure for breakthrough pain. methocarbamol 500 mg oral tablet Take 250 mg by mouth once daily in evening as needed. ondansetron ODT 8 mg oral tablet,disintegrating Dissolve 1 tablet on tongue and swallow every twelve hours as needed. Start after your procedure for nausea. polyethylene glycol 17 gram oral powder in packet Mix 1 packet and take orally once quintin ly at bedtime. progesterone 200 mg oral capsule Take 200 mg by mouth once daily in the evening. Ranitidine HCl 150 mg oral capsule Take 150 mg by mouth two times daily. thyroid (ARMOUR THYROID) 60 mg oral tablet tablet Take 60 mg by mouth once daily. Level of confidence in medication reconciliation accuracy: High Allergies reviewed / updated Allergies Allergen Reactions Morphine Nausea and Vomiting Opioids - Morphine Analogues Nausea Penicillins Rash Past medical history reviewed / updated Past Medical History: Diagnosis Date Disorder of thyroid GERD (gastroesophageal reflux disease) Past surgery reviewed / updated Past Surgical History Procedure Laterality Date Cleft palate repair Tonsillectomy Cervical fusion Rotator cuff repair Right Bladder sling surgery several Family history reviewed / updated Social history reviewed / updated Social History Substance Use Topics Smoking status: Former Smoker Packs/day: 2.00 Years: 20.00 Types: Cigarettes Quit date: 04/05/1997 Smokeless tobacco: Never Used Alcohol use 4.2 oz/week 7 Standard drinks or equivalent per week PHYSICAL EXAM: Last Vitals: BP 146/77 (BP Location: Left upper arm, Patient Position: Sitting) | Pulse 85 | Temp 36.8 C (98.2 F) (Oral) | Resp 18 | Ht 1.676 m (5' 6") Comment: neck 38cm | Wt 56.7 kg (125 lb) | SpO2 100% | BMI 20.18 kg/m | BSA 1.62 m Body mass index is 20.18 kg/m. General: Appearance: Healthy, Age appropriate and No distress LOC: Alert HEENT: Normocephalic/Atraumatic and Normal sclerae/conjunctivae Airway: Dentition: dentition is normal dental implants, bridges or caps present Date of last Dental Exam: < 6 months Mallampati: 1 Mouth Opening: > 3 cm TM Distance:> 6 cm Rodriguez: No C-Spine ROM: Limited flexion & extension Neck Anatomy: Prior neck surgery Neck Circumference: 38 cm. Jaw Protrusion: Normal (lower incisors go above upper incisors) Pulmonary: Respiratory: pulmonary exam normal Breath Sounds: breath sounds normal Cardiovascular: Rhythm: Regular Rate: Normal Cardiovascular comments: No M/G/R; no pedal edema Abdomen: General: Normal Body Habitus: normal Musculoskeletal: Range of Motion: Normal range of motion Musculoskeletal Comments: No obvious deformities n oted. Neuro/Psych: Affect: Normal Cognitive Status: Normal Speech: Abnormal speech Strength: Normal Muscle Tone: Normal Movement: Normal Gait Station: Normal Comments: No ob vious neurologic deficits noted Skin: Color: skin color normal Texture: Normal Temperature: Warm Other Implanted Devices: Implanted devices: None LABS & DATA REVIEWED/ORDERED Lab Results Component Value Date WBC 7.13 08/04/2018 HB 14.4 08/04/2018 HCT 42.6 08/04/2018 PLT 228 08/04/2018 MCV 85.4 08/04/2018 RDW 36.6 08/04/2018 Lab Results Component Value Date NA 144 08/04/2018 K 4.2 08/04/2018 CL 105 08/04/2018 BICARB 27 08/04/2018 BUN 12 08/04/2018 CR 0.66 08/04/2018 GLU 93 08/04/2018 CA 8.8 08/04/2018 No results found for: ABO, RH No results found for: A1C EKG: Not needed Outside records reviewed from CareEverywhere and "media" tab. Findings pertinent to this pr eoperative visit are as follows: none Perioperative risk calculators 2014 ACC/AHA Perioperative Cardiac Risk Stratification (assumes non-emergent, non-cardiac p rocedure) Are active cardiac conditions present? No Calculate the combined surgical and patient-specific risk: using the Wheeler perioperative ca rdiac risk calculator, the risk of major adverse cardiac event (MACE) is: less than 1%. No further risk stratification for coronary disease is indicated. Estimated ASA class 2 Other perioperative risk calculators: Not Applicable ASSESSMENT and RECOMMENDATIONS: Perioperative risk assessment: Cathy Holm is a 58 y.o. 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 Based on the clinical information obtained and reviewed during this visit, the overall assessment is that the patient is having elective major surgery with identified risk factors. The patient is stable / optimized for surgery. Additional testing/optimization is not needed. The patient is also currently scheduled at [facility] [place] and is meeting inclusion cr iteria for that venue. Medication management recommendations: The patient was advised to continue all usual med ications except as noted in Patient Instructions (After Visit Summary given to pt) Pre-procedure antibiotic recommendation: Per standard protocol. GERD -- moderately controlled with ranitidine. Pt reports cough at night while laying fl at 1-2 times per week. Pt plans to follow-up with PCP. Take ranitidine on DOS Cervical radiculopathy -- s/p cervical fusion. 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 HRT -- estradiol patch and progesterone. Okay to continue Hypothyroid -- treated with armour thyroid. Difficulty with speech -- trouble with speech s/p tonsillectomy. Thank you for the opportunity to contribute to this patient's care. Val De Paz DNP [facility]ICINE CLINIC AT [facility] [address] [facility] [address] I spent time counseling the pt regarding perioperative risk (cardiac/bleeding/ DVT/ respir atory failure/ infection, etc) and methods to mitigate risk. I advised the patient regardin g NPO requirements, hydration before surgery, showering, general body hygiene. All pre-proc edure instructions given to the patient (after-visit summary). All of patient's questions w ere addressed. The patient verbalized understanding of the instructions given. Electronica lly signed by Val De Paz DNP at 08/08/2018 7:26 AM PDTdocumented in this encounter Plan of Treatment + + +--------+ + + | Name | Type | Priori | Associated Diagnoses | Order Schedule | | | | ty | | | + + +--------+ + + | COMMUNICATION TO [facility] | Procedures | Routin | Preop examination | Ordered: 08/04/2018 | | LAB DRAW | | e | | | + + +--------+ + + documented as of this encounter Procedures + +--------+ + + + | Procedure Name | Priori | Date/Time | Associated Diagnosis | Comments | | | ty | | | | + +--------+ + + + | NH COLLECTION VENOUS | Routin | 08/04/2018 | Preop examination | | | BLOOD,VENIPUNCTURE | e | 3:00 PM | | | | | | PDT | | | + +--------+ + + + | [facility] - CBC ONLY | Routin | 08/04/2018 | Preop examination | Results for this | | | e | 2:55 PM | | procedure are in the | | | | PDT | | results section. | + +--------+ + + + | [facility] - BASIC | Routin | 08/04/2018 | Preop examination | Results for this | | METABOLIC SET | e | 2:55 PM | | procedure are in the | | | | PDT | | results section. | + +--------+ + + + documented in this encounter Results [facility] - CBC ONLY (08/04/2018 2:55 PM PDT) + +-------+ + + + | Component | Value | Ref Range | Performed | Pathologist | | | | | At | Signature | + +-------+ + + + | WHITE CELL | 7.13 | 3.50 - 10.80 | [facility] | | | COUNT | | K/cu mm | LABORATORY | | | | | | SERVICES, | | | | | | [facility] | | | | | | [facility] | | + +-------+ + + + | RED CELL | 4.99 | 4.00 - 5.20 | [facility] | | | COUNT | | M/cu mm | LABORATORY | | | | | | SERVICES, | | | | | | [facility] + | | | | | | [facility] | | + +-------+ + + + | HEMOGLOBIN | 14.4 | 12.0 - 16.0 | [facility] | | | | | g/dL | LABORATORY | | | | | | SERVICES, | | | | | | [facility] + | | | | | | [facility]ALING | | + +-------+ + + + | HEMATOCRIT | 42.6 | 36.0 - 46.0 % | [facility] | | | | | | LABORATORY | | | | | | SERVICES, | | | | | | [facility] + | | | | | | [facility]ALING | | + +-------+ + + + | MCV | 85.4 | 80.0 - 100.0 fL | [facility] | | | | | | LABORATORY | | | | | | SERVICES, | | | | | | [facility] + | | | | | | [facility]ALING | | + +-------+ + + + | MCHC | 33.8 | 32.0 - 36.0 | [facility] | | | | | g/dL | LABORATORY | | | | | | SERVICES, | | | | | | [facility] | [facility] + | | | | | | [facility]ING | | + +-------+ + + + | RDW SD | 36.6 | 35.1 - 46.3 fL | [facility] | | | | | | LABORATORY | | | | | | SERVICES, | | | | | | [facility] + | | | | | | [facility] | | + +-------+ + + + | PLATELET | 228 | 150 - 400 K/cu | [facility] | | | COUNT | | mm | LABORATORY | | | | | | SERVICES, | | | | | | [facility] + | | | | | | [facility] | | + +-------+ + + + | MPV | 10.1 | 9.7 - 12.3 fL | [facility] | | | | | | LABORATORY | | | | | | SERVICES, | | | | | | [facility] | [facility] + | | | | | | [facility]AL[facility] | | + +-------+ + + + | NRBC% | 0.0 | 0.0 - 0.3 % | [facility] | | | | | | LABORATORY | | | | | | SERVICES, | | | | | | [facility] | [facility] + | | | | | | [facility]ALING | | + +-------+ + + + | NRBC# | 0.00 | 0.00 - 0.02 | [facility] | | | | | K/cu mm | LABORATORY | | | | | | SERVICES, | | | | | | [facility] + | | | | | | [facility]AL[facility] | | + +-------+ + + + + + | Specimen | + + | Blood - Blood | | (substance) | + + + + + + + | Performing | Address | City/State/Zipcode | Phone Number | | Organization | | | | + + + + + | [facility] | [address] | [place] [address] | | | SERVICES, [facility] | | | [facility] | [facility] + [facility] | | | | + + + + + [facility] - BASIC METABOLIC SET (08/04/2018 2:55 PM PDT) + +---------+ + + + | Component | Value | Ref Range | Performed | Pathologist | | | | | At | Signature | + +---------+ + + + | GLUCOSE, | 93 | 70 - 99 mg/dL | [facility] | | | PLASMA | | | LABORATORY | | | (LAB) | | | SERVICES, | | | | | | [facility] | [facility] + | | | | | | [facility]ALING | | + +---------+ + + + | BUN, PLASMA | 12 | 6 - 20 mg/dL | [facility] | | | (LAB) | | | LABORATORY | | | | | | SERVICES, | | | | | | [facility] | [facility] + | | | | | | HEALING | | + +---------+ + + + | CREATININE | 0.66 | 0.60 - 1.10 | [facility] | | | PLASMA | | mg/dL | LABORATORY | | | (LAB) | | | SERVICES, | | | | | | [facility] | [facility] + | | | | | | [facility]ALING | | + +---------+ + + + | EGFR | >60 | >60 mL/min | [facility] | | | - | | | LABORATORY | | | FIJIAN | | | SERVICES, | | | | | | [facility] | [facility] + | | | | | | [facility]ALING | | + +---------+ + + + | EGFR NON | >60 | >60 mL/min | [facility] | | | -KETAN | | | LABORATORY | | | RICAN | | | SERVICES, | | | | | | [facility] | [facility] + | | | | | | [facility]ALING | | + +---------+ + + + | SODIUM, | 144 | 136 - 145 | [facility] | | | PLASMA | | mmol/L | LABORATORY | | | (LAB) | | | SERVICES, | | | | | | [facility] | | [facility] + | | | | | | [facility]ALING | | + +---------+ + + + | POTASSIUM, | 4.2 | 3.4 - 5.0 | [facility] | | | PLASMA | | mmol/L | LABORATORY | | | (LAB) | | | SERVICES, | | | | | | [facility] | [facility] + | | | | | | [facility]ALING | | + +---------+ + + + | CHLORIDE, | 105 | 97 - 108 mmol/L | [facility] | | | PLASMA | | | LABORATORY | | | (LAB) | | | SERVICES, | | | | | | [facility] | [facility] | [facility] + | | | | | | [facility]ALING | | + +---------+ + + + | TOTAL CO2, | 27 | 21 - 32 mmol/L | [facility] | | | PLASMA | | | LABORATORY | | | (LAB) | | | SERVICES, | | | | | | [facility] | | | [facility] + | | | | | | [facility]ALING | | + +---------+ + + + | CALCIUM, | 8.8 | 8.6 - 10.2 | [facility] | | | PLASMA | | mg/dL | LABORATORY | | | (LAB) | | | SERVICES, | | | | | | [facility] | | [facility] | [facility] + | | | | | | [facility]ALING | | + +---------+ + + + | ANION GAP | 12 (H) | 4 - 11 mmol/L | [facility] | | | | | | LABORATORY | | | | | | SERVICES, | | | | | | [facility] | [facility] + | | | | | | [facility]ALING | | + +---------+ + + + | POTASSIUM | No Hemo | | [facility] | | | CMNT | | | LABORATORY | | | | | | SERVICES, | | | | | | [facility] | | | | [facility] + | | | | | | [facility]ALING | | + +---------+ + + + + + | Specimen | + + | Blood - Blood | | (substance) | + + + + + | Narrative | Performed At | + + + | GFR is estimated using the MDRD equation recommended by the | [facility] | | National Kidney Disease Education Program. Estimated GFR | LABORATORY | | Interpretive Information: <60 mL/min/1.73 sq m | SERVICES, | | Chronic Kidney Disease <15 mL/min/1.73 sq m | CENTER FOR | | Kidney Failure Estimated GFR greater than 60 mL/min/1.73 sq m is of | HEALTH + | | limited clinical value. The MDRD equation is not valid in the | HEALING | | following situations: - Patients under 18 years of age - Severe | | | malnutrition or obesity - Vegetarian diet - Rapidly changing kidney | | | function - Amputees, paraplegics, or other muscle-wasting diseses | | + + + + + + + + | Performing | Address | City/State/Zipcode | Phone Number | | Organization | | | | + + + + + | [facility] | [address] | [place] [address] | | | [facility] | | | | | HEALTH + HEALING | | | | + + + + + documented in this encounter Visit Diagnoses + + | Diagnosis | + + | Preop examination - Primary Preoperative examination, unspecified | + + documented in this encounter
--- OUTSIDE RECORDS SUMMARY | ~2019-03-03 | XMS | Encounter Summary ---
Demographics + + + | Address | [address] | | | [place] [address] | + + + | Home Phone | | + + + | Preferred Language | Unknown | + + + | Marital Status | | + + + | Nondenominational Affiliation | 1001 | + + + | Race | Unknown | + + + | Ethnic Group | Unknown | + + + Author + + + | Author | [facility] | | | and [place] | + + + | Organization | [facility] | | | and [...] [place] | | | | | [address] | | + + + + + | Angelika Holm | ECON | Unknown | | + + + + + Care Team Providers + +------+ + | Care Drying Room Supervisor Name | Role | Phone | + +------+ + | Alec Tao MD | PCP | | + +------+ + Encounter Details +--------+ + + + + | Date | Type | Department | Care Team | Description | +--------+ + + + + | 03/27/ | Hospital | [facility] | Donald Reich MD | Cervical | | 2015 | Encounter | MED CTR XRAY [address] | radiculopathy; | | | | [place] | [place] [address] | Cervical spondylosis | | | | [place] [address] | [phone] | with myelopathy; | | | | [phone] | | Cervical spinal cord | | | | | Sheldon Galeano MD | compression (HCC); | | | | | [address] | Neck and shoulder | | | | | [place], [place] | pain; Degeneration | | | | | [address] | of cervical | | | | | | intervertebral disc; | | | | | | Spinal stenosis in | | | | | | cervical region; | | | | | | Cervical spondylosis | | | | | | without myelopathy | +--------+ + + + + Social [...] + + + +---------+ + + | [place] 3-6-9 Fatty | Take 2 tablets by [...] + +---------+ + + | gabapentin | Take 1 capsule by | 90 | 2 | 10/10/19 | | | (NEURONTIN) 300 mg | mouth 3 times daily. | capsule | | 15 | 5 | | capsule | | | | | | + + + +---------+ + + | ibuprofen (ADVIL, | Take 200 [...] + +--------+ + + + | XR CHEST PA AND | Routin | 03/27/2015 | Cervical | Results for this | | LATERAL | e | 3:24 PM | radiculopathy | procedure are in the | | | | PST | Cervical spondylosis | results section. | | | | | with myelopathy | | | | | | Cervical spinal cord | | | | | | compression (HCC) | | | | | | Neck and shoulder | | | | | | pain Degeneration | | | | | | of cervical | | | | | | intervertebral disc | | | | | | Spinal stenosis in | | | | | | cervical region | | | | | | Cervical spondylosis | | | | | | without myelopathy | | + +--------+ + + + documented in this encounter Results XR Chest PA and Lateral (03/27/2015 3:24 PM PST) + + | Specimen | + + | | + + + + + | Narrative | Performed At | + + + | XR CHEST PA AND LATERAL. 03/27/2015 3:24 PM HISTORY: | [facility] | | preoperative clearance . COMPARISON: None available. | [facility] | | FINDINGS: Heart size and mediastinal contours are within normal | [facility] | | limits. The lungs are clear, without pleural effusion or | - IMAGING | | pneumothorax. No acute osseous or soft tissue abnormalities. | | | IMPRESSION - No acute radiographic abnormality of the chest. | | | Dictated and Signed by: Cosmo Hernandez MD Electronically signed: | | | 03/27/2015 5:13 PM | | + + + + + | Procedure Note | + + | Farhan, Rad Results In - 03/27/2015 5:17 PM PST XR CHEST PA AND LATERAL. 03/27/2015 | | 3:24 PMHISTORY: preoperative clearance . COMPARISON: None available.FINDINGS:Heart size | | and mediastinal contours are within normal limits. The lungs areclear, without pleural | | effusion or pneumothorax. No acute osseous or softtissue abnormalities.IMPRESSION -No | | acute radiographic abnormality of the chest.Dictated and Signed by: Cosmo Hernandez MD | | Electronically signed: 03/27/2015 5:13 PM | |FINDINGS: | |Heart size and mediastinal contours are within normal limits. The lungs are | |clear, without pleural effusion or pneumothorax. No acute osseous or soft | |tissue abnormalities. | | | | | |IMPRESSION - | |No acute radiographic abnormality of the chest. | | | |Dictated and Signed by: Cosmo Hernandez MD | | Electronically signed: 03/27/2015 5:13 PM | + + + + + + + | Performing | Address | City/State/Zipcode | Phone Number | | Organization | | | | + + + + + | [facility] | [address] | [place] | [phone] | | [facility] | | [address] | | | - IMAGING | | | | + + + + + documented in this encounter Visit Diagnoses + + | Diagnosis | + + | Cervical radiculopathy Brachial neuritis or radiculitis nos | + + | Cervical spondylosis with myelopathy | + + | Cervical spinal cord compression (HCC) Unspecified disease of spinal cord | + + | Neck and shoulder pain | + + | Degeneration of cervical intervertebral disc | + + | Spinal stenosis in cervical region | + + | Cervical spondylosis without myelopathy | + + documented in this encounter"
--- OUTSIDE RECORDS SUMMARY | ~2019-03-03 | XMS | Encounter Summary ---
Demographics + + + | Address | [address] | | | [place] [address] | + + + | Home Phone | | + + + | Preferred Language | Unknown | + + + | Marital Status | | + + + | Nondenominational Affiliation | NON | + + + | Race | White | + + + | Ethnic Group | Not or | + + + Author + + + | Author | [facility] | + + + | Organization | [facility] | + + + | Address | Unknown | + + + | Phone | Unavailable | + + + Support + + +---------+ + | Name | Relationship | Address | Phone | + + +---------+ + | Fidel Holm | ECON | Unknown | | + + +---------+ + Care Team Providers + +------+ + | Care Physician'S Assistant Name | Role | Phone | [...] + + + + | 08/05/ | Anesthesia | [facility] | Patrick Malik | | | 2019 | Event | [facility] | MD [place] [address] [facility] | | | | | and Healing Surgery | [address] | | | | | [facility] | [place], [place] | | | | | Desk Located on the | [address] | | | | | 4th floor [address] | [phone] | | | | | [address] [place], | | | | | | [place] [address] | | | +--------+ + + + + Anesthesia Record + + + + + | Procedure Name | Responsible | Anesthesia Start | Anesthesia Stop Time | | | Anesthesiologist | Time | | + + + + + | BILATERAL CORRECTION | Patrick Berman [place], | 08/05/18 0832 | 08/05/18 1009 | | OF VELOPHAYRNGEAL | MD | | | | INSUFFICIENCY WITH | | | | | PHARYNGEAL FLAP, | | | | | POSSIBLE ALLODERM | | | | | (Bilateral Face) | | | | + + + + + +----+---+ + + | Da | T | Event | Comment | | te | i | | | | | m | | | | | e | | | +----+---+ + + | 05 | 0 | Eq Check | Anesthesia machine checked Equipment verified | | /0 | 7 | | | | 3/ | 0 | | | | 20 | 4 | | | | 19 | | | | +----+---+ + + | | 0 | | | | | 7 | | | | | 3 | | | | | 3 | | | +----+---+ + + | | 0 | Pt. Check | Prior to anesthesia start, pt. Identified, examined, chart | | | 8 | | reviewed, PARQ held, anesthetic plan made or approved by | | | 3 | | attending anesthesiologist. NPO status confirmed as appropriate | | | 0 | | for procedure Preoperative evaluation: unchanged | +----+---+ + + | | 0 | An Start | | | | 8 | | | | | 3 | | | | | 2 | | | +----+---+ + + | | 0 | An Start | | | | 8 | Data | | | | 3 | | | | | 4 | | | +----+---+ + + | | 0 | Vitals | Monitors applied Vital signs checked Patient ready for anesthesia | | | 8 | Checked | | | | 3 | | | | | 6 | | | +----+---+ + + | | 0 | ETT | | | | 8 | | | | | 4 | | | | | 0 | | | +----+---+ + + | | 0 | Ready | | | | 8 | | | | | 4 | | | | | 2 | | | +----+---+ + + | | 0 | Abx | | | | 8 | Administere | | | | 5 | d | | | | 0 | | | +----+---+ + + | | 0 | Timeout | | | | 8 | | | | | 5 | | | | | 4 | | | +----+---+ + + | | 0 | Incision | | | | 8 | | | | | 5 | | | | | 6 | | | +----+---+ + + | | 0 | Surgery end | | | | 9 | | | | | 5 | | | | | 5 | | | +----+---+ + + | | 1 | An Extubate | Neuromuscular function Intact. Pharynx suctioned. Patient obeys | | | 0 | | commands. Adequate pulmonary mechanics. | | | 0 | | | | | 0 | | | +----+---+ + + | | 1 | O2 by FM | | | | 0 | | | | | 0 | | | | | 1 | | | +----+---+ + + | | 1 | an stop | | | | 0 | data | | | | 0 | | | | | 2 | | | +----+---+ + + | | 1 | PACU Rpt | | | | 0 | Given | | | | 0 | | | | | 9 | | | +----+---+ + + | | 1 | Anesthesia | | | | 0 | End | | | | 0 | | | | | 9 | | | +----+---+ + + | | 1 | Post-Op | | | | 1 | Page | | | | 0 | | | | | 0 | | | +----+---+ + + +------+ | Meds | +------+ + + + | Name | Total | + + + | midazolam | 2 mg | + + + | fentaNYL | 200 mcg | + + + | lidocaine 2% | 60 mg | + + + | propofol | 160 mg | + + + | succinylcholine | 80 mg | + + + | dexamethasone | 10 mg | + + + | ondansetron | 4 mg | + + + | ceFAZolin | 2,000 mg | + + + | propofol (DIPRIVAN) 200 mg | 93,555 mcg | + + + | lactated ringers IV | 1,000 mL | + + + + + | Name | + + | O2 FR Avance (Total Liters) | + + | Air FR Avance (l/min) | + + | Insp Sevo | + + | Et Sevo | + + | Insp N2O % | + + + + | No blood administrations on file. | + + +--------+ + + + | Type | Details | Placement | Removal | +--------+ + + + | Periph | 08/05/18; 0755; Hammad Lorenzana RN ; | 08/05/18 0755 by | 08/05/18 1130 by | | eral | Left; Hand; 22 g; Lidocaine; | Maria R Lorenzana RN | Fredy Escobar RN | | IV | Positive; 08/05/18; 1130 | | | +--------+ + + + | ETT | 08/05/18; 0840 (created via | 08/05/18 0840 by | 08/05/18 1000 by | | | procedure documentation); 6.5; | Zoe Duncan, AIRSET MOLDER | Zoe Duncan CRNA | | | Oral; Cuffed; 08/05/18; 1000 | | | +--------+ + + + documented in this encounter Social [...] | + +--------+ + + + | JONATAN HECTORT | Routin | 08/05/2018 | | Results for this | | | e | 9:01 AM | | procedure are in the | | | | PDT | | results section. | + +--------+ + + + documented in this encounter Results JONTAAN PANCHAL (08/05/2018 9:01 AM PDT) + + + | Narrative | Performed At | + + + | Zoe Duncan CRNA 08/05/2018 9:05 AM AIRWAY MANAGEMENT - ETT | | | Time of Placement: 08/05/2018 8:40 AM Intubation Reason: For surgical | | | procedure Positioning: Supine Location Performed:OR OXYGENATION | | | Patient was preoxygenated Grade: Grade 1 - Ventilated by mask | | | Induction:Routine INTUBATION ATTEMPT 1 Videolaryngoscopy: | | | Glidescope Intubation Adjuncts: w/ Stylet Laryngoscopic View: Grade | | | I ETT DETAILS ETT Type:Other - Reinforced ETT Intubation Type: | | | Oral Cuff Status: Cuffed Size: 6.5 ETT secured with adhesive | | | tape Depth at Teeth: 22 cm CONFIRMATION Number of Attempts: 1 | | | Atraumatic placement Positive for EtCO2:Waveform capnography Breath | | | Sounds: Bilateral and equal NARRATIVE Attending physically | | | present Authorized by PATRICK MALIK Performed by ZOE DUNCAN | | | Procedure Comments: Atraumatic intubation / head and neck | | | neutrality maintained throughout / LTA used prior to gentle | | | advancement of ETT | | + + + documented in this encounter Visit Diagnoses Not on filedocumented in this encounter Administered Medications + +--------+ + +------+------+ | Medication Order | MAR | Action | Dose | Rate | Site | | | Action | Date | | | | + +--------+ + +------+------+ | ceFAZolin (ANCEF) injection | Given | 08/06/19 | 2,000 mg | | | | INTRAPROCEDURE PRN, Starting Wed | | 19 8:50 | | | | | 08/05/18 at 0850, Until Wed08/05/18 | | AM PDT | | | | | at 1002 | | | | | | + +--------+ + +------+------+ +---+---+ | | | +---+---+ + +-------+ +-------+---+---+ | dexamethasone (DECADRON) | Given | 08/06/19 | 10 mg | | | | injection INTRAPROCEDURE PRN, | | 19 8:50 | | | | | Starting 08/05/18 at 0850, | | AM PDT | | | | | Until 08/05/18 at 1002 | | | | | | + +-------+ +-------+---+---+ +---+---+ | | | +---+---+ + +-------+ +--------+---+---+ | fentaNYL (SUBLIMAZE) injection | Given | 08/06/19 | 50 mcg | | | | INTRAPROCEDURE PRN, Starting Fri | | 19 9:50 | | | | | 08/05/18 at 0838, Until 08/05/18 | | AM PDT | | | | | at 1002 | | | | | | + +-------+ +--------+---+---+ +-------+ +--------+---+---+ | Given | 08/06/19 | 25 mcg | | | | | 19 9:18 | | | | | | AM PDT | | | | +-------+ +--------+---+---+ | Given | 08/06/19 | 25 mcg | | | | | 19 9:14 | | | | | | AM PDT | | | | +-------+ +--------+---+---+ +---+---+ | | | +---+---+ + + [...] PDT | | | | +---------+ +---+---+---+ +---+---+ | | | +---+---+ + +-------+ +-------+---+---+ | lidocaine (XYLOCAINE MPF) 2 % | Given | 08/06/19 | 60 mg | | | | (20 mg/mL) injection | | 19 8:38 | | | | | INTRAPROCEDURE PRN, Starting Fri | | AM PDT | | | | | 08/05/18 at 0838, Until 08/05/18 | | | | | | | at 1002 | | | | | | + +-------+ +-------+---+---+ +---+---+ | | | +---+---+ + +-------+ +------+---+---+ | midazolam (PF) (VERSED) | Given | 08/06/19 | 2 mg | | | | injection INTRAPROCEDURE PRN, | | 19 8:32 | | | | | Starting 08/05/18 at 0832, | | AM PDT | | | | | Until 08/05/18 at 1002 | | | | | | + +-------+ +------+---+---+ +---+---+ | | | +---+---+ + +-------+ +------+---+---+ | ondansetron (ZOFRAN) injection | Given | 08/06/19 | 4 mg | | | | INTRAPROCEDURE PRN, Starting Fri | | 19 9:52 | | | | | 08/05/18 at 0952, Until Wed08/05/18 | | AM PDT | | | | | at 1002 | | | | | | + +-------+ +------+---+---+ +---+---+ | | | +---+---+ + +---------+ + +---+---+ | propofol (DIPRIVAN) 200 mg | New Bag | 08/06/19 | 25 | | | | INTRAPROCEDURE CONTINUOUS PRN, | | 19 8:42 | mcg/kg/m | | | | Starting Wed08/05/18 at 0842, | | AM PDT | in | | | | Until Wed08/05/18 at 1002 | | | | | | + +---------+ + +---+---+ +---+---+ | | | +---+---+ + +-------+ +--------+---+---+ | propofol (DIPRIVAN) injection | Given | 08/06/19 | 160 mg | | | | INTRAPROCEDURE PRN, Starting Wed | 19 8:38 | | | | | 08/05/18 at 0838, Until Wed08/05/18 | | AM PDT | | | | | at 1002 | | | | | | + +-------+ +--------+---+---+ +---+---+ | | | +---+---+ + +-------+ +-------+---+---+ | succinylcholine (ANECTINE) | Given | 08/06/19 | 80 mg | | | | injection INTRAPROCEDURE PRN, | | 19 8:39 | | | | | Starting 08/05/18 at 0839, | | AM PDT | | | | | Until Wed08/05/18 at 1002 | | | | | | + +-------+ +-------+---+---+ +---+---+ | | | +---+---+ documented in this encounter"
--- OUTSIDE RECORDS SUMMARY | ~2019-03-03 | XMS | Encounter Summary ---
Demographics + + + | Address | [address] | | | [place] [address] | + + + | Home Phone | | + + + | Preferred Language | Unknown | + + + | Marital Status | | + + + | Rastafarian Affiliation | NON | + + + | Race | White | + + + | Ethnic Group | Not or | + + + Author + + + | Author | [facility] | + + + | Organization | [facility] | + + + | Address | Unknown | + + + | Phone | Unavailable | + + + Support + + +---------+ + | Name | Relationship | Address | Phone | + + +---------+ + | Fidel Holm | ECON | Unknown | | + + +---------+ + Care Team Providers + +------+ + | Care Chicken Dresser Name | Role | Phone | + +------+ + | Jacqueline Nuñez | PCP | | + +------+ + Encounter Details +--------+ + + + + | Date | Type | Department | Care Team | Description | +--------+ + + + + | 06/18/ | MyChart | Otolaryngology | Qasim Casanova MD | Pharyngeal flap | | 2019 | Encounter | Facial Plastics & | [address] | surgery | | | | Reconstructive | [place], | | | | | Services at [facility] | [place] [address] | | | | | [address] | [phone] | | | | | Mailcode: CH5E | | | | | | [place] [facility] | | | | | | and Healing, | | | | | | [address], [facility] | | | | | | Floor [place], [place] | | | | | | [address] | | | | | | [phone] | | | +--------+ + + + [...]
--- OUTSIDE RECORDS SUMMARY | ~2019-03-03 | XMS | Encounter Summary ---
Demographics + + + | Address | [address] | | | [place] [address] | + + + | Home Phone | | + + + | Preferred Language | Unknown | + + + | Marital Status | | + + + | Yazidism Affiliation | NON | + + + | Race | White | + + + | Ethnic Group | Not or | + + + Author + + + | Author | [facility] | + + + | Organization | [facility] | + + + | Address | Unknown | + + + | Phone | Unavailable | + + + Support + + +---------+ + | Name | Relationship | Address | Phone | + + +---------+ + | Fidel Holm | ECON | Unknown | | + + +---------+ + Care Team Providers + +------+ + | Care Mysql Developer Name | Role | Phone | + +------+ + | Jacqueline Nuñez | PCP | | + +------+ + Reason for Referral Diagnostic Testing (Routine) +--------+--------+ + + + + | Status | Reason | Specialty | Diagnoses / | Referred By | Referred To | | | | | Procedures | Contact | Contact | +--------+--------+ + + + + | Closed | | Radiology | Diagnoses | Qasim Casanova, | Rad Ct Scan | | | | | Congenital | MD [address] | [address] | | | | | velopharynge | [address] | [address] | | | | | juan [place] | [place] | Mailcode: | | | | | insufficienc | [place], [place] | [facility] | | | | | y Nasal | [address] | for Health | | | | | septal | Phone: | and Healing, | | | | | perforation | [phone] | Building [address], | | | | | Nasal | Fax: | 3rd Floor | | | | | obstruction | [phone] | [place], [place] | | | | | Procedures | | [address] | | | | | CT SINUS WO | | Phone: | | | | | CONTRAST | | [phone] | | | | | ROUTINE [place] | | Fax: | | | | | [place] | | [phone] | | | | | SCAN,MAXILLO | | | | | | | FACIAL | | | | | | | AREA,W/O | | | | | | | CONTRAST | | | +--------+--------+ + + + + Encounter Details +--------+ + + + + | Date | Type | Department | Care Team | Description | +--------+ + + + + | 02/04/ | Telephone | Otolaryngology | Qasim Casanova MD | | | 2018 | | Facial Plastics & | [address] | | | | | Reconstructive | [place], | | | | | Services at [facility] | [place] [address] | | | | | [address] | [phone] | | | | | Mailcode: CH5E | | | | | | [facility] | | | | | | and Healing, | | | | | | Building [address], 5th | | | | | | Floor [place], [place] | | | | | | [address] | | | | | | [phone] | | | +--------+ + + + [...] on filedocumented as of this encounter Results CT SINUS WO CONTRAST ROUTINE (02/17/2018 10:37 AM [facility]) + + | Specimen | + + | | + + + + + | Narrative | Performed At | + + + | EXAM: CT SINUS WITHOUT CONTRAST HISTORY: nasal obstruction, | [facility] | | cleft palate COMPARISON: None. TECHNIQUE: Axial noncontrast | RADIOLOGY VOICE | | CT of the paranasal sinuses, including sagittal and coronal | RECOGNITION 2 | | reformations. FINDINGS: PARANASAL SINUSES: Clear. The left | | | maxillary sinus is hypoplastic compared to the right. There is | | | mild septal deviation of the mid septum to the left of approximately | | | 19 degrees. There is a 4 mm small soft tissue defect of the septum | | | anteriorly. SOFT TISSUES: Unremarkable. VISUALIZED BRAIN AND | | | SKULL: There is some defect of the posterior midline hard and soft | | | palate at the midline, consistent with history of cleft palate. | | | ORBITS: Globes unremarkable. No fractures or masses. IMPRESSION: | | | 1. 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 No evidence of | | | sinusitis. 2. Mild leftward septal deviation. 3. Small defect in | | | the anterior nasal septum. I have personally reviewed the images | | | and, if necessary, edited the report. I agree with the report as now | | | presented. Final signature: Geronimo Balbuena MD 02/17/2018 11:05 | | | AM Preliminary: Geronimo Balbuena MD Dictation initiated: Geronimo Balbuena MD 02/17/2018 10:48 AM | | + + + + + | Procedure Note | + + | Service Account, Radiant Res In Interface - 02/17/2018 11:06 AM PST EXAM: CT SINUS | | WITHOUT CONTRAST HISTORY: nasal obstruction, cleft palate COMPARISON: None. TECHNIQUE: | | Axial noncontrast CT of the paranasal sinuses, including sagittal and coronal | | reformations. FINDINGS: PARANASAL SINUSES: Clear. The left maxillary sinus is | | hypoplastic compared to the right. There is mild septal deviation of the mid septum to | | the left of approximately 19 degrees. There is a 4 mm small soft tissue defect of the | | septum anteriorly. SOFT TISSUES: Unremarkable.VISUALIZED BRAIN AND SKULL: There is some | | defect of the posterior midline hard and soft palate at the midline, consistent with | | history of cleft palate. ORBITS: Globes unremarkable. No fractures or masses. | | IMPRESSION: 1. 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 No evidence of sinusitis.2. | | Mild leftward septal deviation.3. Small defect in the anterior nasal septum. I have | | personally reviewed the images and, if necessary, edited the report. I agree with the | | report as now presented. Final signature: Geronimo Balbuena MD 02/17/2018 11:05 AM | | Preliminary: Geronimo Balbuena MD Dictation initiated: eGronimo Balbuena MD 02/17/2018 10:48 | | AM | |VISUALIZED BRAIN AND SKULL: There is some defect of the posterior midline hard and soft pal ate at the midline, consistent with history of cleft palate. | | | |ORBITS: Globes unremarkable. No fractures or masses. | | | |IMPRESSION: | | | |1. 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 No evidence of sinusitis. | |2. Mild leftward septal deviation. | |3. Small defect in the anterior nasal septum. | | | |I have personally reviewed the images and, if necessary, edited the report. I agree with th e report as now presented. 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
--- OUTSIDE RECORDS SUMMARY | ~2019-03-03 | XMS | Encounter Summary ---
Demographics + + + | Address | [address] | | | [place] [address] | + + + | Home Phone | | + + + | Preferred Language | Unknown | + + + | Marital Status | | + + + | Scientology Affiliation | 1001 | + + + | Race | Unknown | + + + | Ethnic Group | Unknown | + + + Author + + + | Author | [facility] | | | and [place] | + + + | Organization | [facility] | | | and [...] [place] | | | | | [address] | | + + + + + | Angelika Holm | ECON | Unknown | | + + + + + Care Team Providers + +------+ + | Care Wage Hand Name | Role | Phone | + +------+ + | Alec Tao MD | PCP | | + +------+ + Encounter Details +--------+ + + + + | Date | Type | Department | Care Team | Description | +--------+ + + + + | 04/29/ | Imaging | [facility] | Provider, | | | 2018 | Exam | [facility] | [address] | | | | | IMAGING | [address] | | | | | [phone] | [place] [address] | | +--------+ + + + + [...] | + +--------+ + + + | MRI CERVICAL SPINE | Routin | 04/22/2017 | | Results for this | | WO CONTRAST | e | 4:50 PM | | procedure are in the | | | | PST | | results section. | + +--------+ + + + documented in this encounter Results MRI Cervical Spine wo Contrast (04/22/2017 4:50 PM PST) + + | Specimen | + + | | + + + + + | Narrative | Performed At | + + + | External films for comparison only - no result from | [facility] | + + + + +---------+ + + | Performing | Address | City/State/Zipcode | Phone Number | | Organization | | | | + +---------+ + + | [facility] | | | | + +---------+ + + documented in this encounter Visit Diagnoses Not on filedocumented in this encounter"
--- OUTSIDE RECORDS SUMMARY | ~2019-03-03 | XMS | Encounter Summary ---
Demographics + + + | Address | [address] | | | [place] [address] | + + + | Home Phone | | + + + | Preferred Language | Unknown | + + + | Marital Status | | + + + | Yazidi Affiliation | 1001 | + + + | Race | Unknown | + + + | Ethnic Group | Unknown | + + + Author + + + | Author | [facility] | | | and [place] | + + + | Organization | [facility] | | | and [place] [...] [place] | | | | | [address] | | + + + + + | Angelika Holm | ECON | Unknown | | + + + + + Care Team Providers + +------+ + | Care Insulation Board Back Tender Name | Role | Phone | + +------+ + | Alec Tao MD | PCP | | + +------+ + Reason for Visit + + + | Reason | Comments | + + + | Imaging Only | | + + + Encounter Details +--------+ + + + + | Date | Type | Department | Care Team | Description | +--------+ + + + + | 04/28/ | Telephone | [facility] | Donald Reich MD | Imaging Only | | 2017 | | NEUROSURGERY [address] | [address] | | | | | [address] | [place] [address] | | | | | [place] | [phone] | | | | | [address] | | | | | | [phone] | | | +--------+ + + + [...]
--- OUTSIDE RECORDS SUMMARY | ~2019-03-03 | XMS | Encounter Summary ---
Demographics + + + | Address | [address] | | | [place] [address] | + + + | Home Phone | | + + + | Preferred Language | Unknown | + + + | Marital Status | | + + + | Congregation Affiliation | 1001 | + + + | Race | Unknown | + + + | Ethnic Group | Unknown | + + + Author + + + | Author | [facility] | | | and [place] | + + + | Organization | [facility] | | | and [place] [...] [place] | | | | | [address] | | + + + + + | Angelika Holm | ECON | Unknown | | + + + + + Care Team Providers + +------+ + | Care Science Professor Name | Role | Phone | + +------+ + | Alec Tao MD | PCP | | + +------+ + Reason for Visit + + + | Reason | Comments | + + + | Follow-up | 12w PO | + + + Encounter Details +--------+---------+ + + + | Date | Type | Department | Care Team | Description | +--------+---------+ + + + | 08/06/ | Office | [facility] | Donald Reich MD | S/P cervical spinal | | 2016 | Visit | NEUROSURGERY [address] | [address] | fusion (Primary Dx); | | | | [address] | [place] [address] | Ulnar nerve | | | | [place] | [phone] | entrapment at elbow, | | | | [address] | | unspecified | | | | [phone] | | laterality | +--------+---------+ + + + Social History [...] + + + | Blood Pressure | 105/67 | 08/07/2015 9:06 AM | | | | | PDT | | + + + + + | Pulse | 82 | 08/07/2015 9:06 AM | | | | | PDT | | + + + + + | Temperature | - | - | | + + + + + | Respiratory Rate | 18 | 08/07/2015 9:06 AM | | | | | PDT | | + + + + + | Oxygen Saturation | - | - | | + + + + + | Inhaled Oxygen | - | - | | | Concentration | | | | + + + + + | Weight | 58.1 kg (128 lb) | 08/07/2015 9:06 AM | | | | | PDT | | + + + + + | Height | 167.6 cm (5' 6") | 08/07/2015 9:06 AM | | | | | PDT | | + + + + + | Body Mass Index | 20.66 | 08/07/2015 9:06 AM | | | | | PDT | | + + + + + documented in this encounter Progress Notes Donald Reich MD - 08/07/2015 9:29 AM PDTFormatting of this note might be different from raf beard. Donald Reich MD [address] [place] [address], [address] [place] [address] FAX: NEUROSURGERY FOLLOW-UP CHIEF COMPLAINT: Chief Complaint Patient presents with Follow-up 12w PO HISTORY OF PRESENT ILLNESS: The patient is a 55 y.o. female that had a cervical fusion ralf und 12 weeks ago. She returns and overall is doing good. The patient complains of tenderne ss at her right elbow but her other symptoms have mostly resolved. The patient has been wa lking as much as directed. She is not still taking pain medications at this point. The pat ji has had no issues with her surgical site. CURRENT MEDICATIONS: Current Outpatient Prescriptions Medication Sig Dispense Refill Biotin 5000 MCG CAPS Take 5,000 mcg by mouth Daily. Cholecalciferol (VITAMIN D-3) 5000 units CAPS Take 5,000 Units by mouth Daily. CINNAMON PO Take 2,000 mg by mouth Daily. Cranberry 300 MG TABS Take 300 mg by mouth Daily. gabapentin (NEURONTIN) 300 mg capsule TAKE ONE CAPSULE BY MOUTH THREE TIMES DAILY 270 c apsule 11 HYDROcodone-acetaminophen (NORCO) 10-325 mg per tablet Take 1-2 tablets by mouth every 4 hours as needed for Pain. 120 tablet 0 methocarbamol (ROBAXIN) 500 mg tablet Take 1-3 tablets by mouth every 6 hours as needed for Muscle spasms. 90 tablet 2 Multiple Vitamins-Minerals (QC MULTI-HERMANN 50 & OVER PO) Take 1 tablet by mouth Daily. [place] 3-6-9 Fatty Acids (TRIPLE OMEGA COMPLEX PO) Take 2 tablets by mouth Daily. omeprazole (PRILOSEC) 10 mg capsule Take 10 mg by mouth 2 times daily. progesterone (PROMETRIUM) 200 mg capsule Take 200 mg by mouth Daily. propranolol (INDERAL) 20 MG tablet Take 20 mg by mouth 2 times daily. Patient states " cut med in half and takes twice a day" thyroid (ARMOUR THYROID) 90 MG tablet Take 90 mg by mouth Daily. Takes 90mg/alteranting with 60mg to average out to 75mg daily UNABLE TO FIND Apply 1 Application topically 2 times daily. Med Name: Bi-Est No current facility-administered medications for this visit. ALLERGIES: Allergies Allergen Reactions Morphine Nausea And Vomiting Ampicillin Rash Penicillins Rash SOCIAL HISTORY: The patient reports that she quit smoking about 16 years ago. Her smoking use included Cig arettes. She has a 40 pack-year smoking history. She has never used smokeless tobacco. She r eports that she drinks about 6.6 oz of alcohol per week. She reports that she does not use i llicit drugs. INTERIM PHYSICAL EXAMINATION: Blood pressure 105/67, pulse 82, resp. rate 18, height 1.676 m (5' 6"), weight 58.06 kg (12 8 lb), not currently . Body mass index is 20.67 kg/(m^2). GENERAL: Cathy Holm is in no acute distress with unlabored respirations. SPINE: The patient s incision is well healed. EXTREMITIES: No lower extremity edema. NEUROLOGICAL EXAMINATION: MENTAL STATUS: The patient is awake, alert, and oriented. She follows simple and complex commands MOTOR EXAM: Motor strength is full. This is improved when compared to the preoperative exa m. SENSORY EXAM: The sensory examination is improved when compared to the preoperative exam. RADIOGRAPHIC REVIEW: The patient s x-rays show stable instrumentation and alignment and were reviewed with the patient today. Increased bony fusion is noted but it is not complete. There is mild fract ure of the C6-7 allograft spacer but the height is well maintained. ASSESSMENT: Encounter Diagnoses Name Primary? S/P cervical spinal fusion Yes Ulnar nerve entrapment at elbow, unspecified laterality Past Medical History Diagnosis Date Torn rotator cuff Migraine Thyroid disease Neck and shoulder pain Acid reflux Bladder problem Incontinence Hypothyroidism Numbness and tingling in right hand Cervical radiculopathy 06/20/2014 PLAN: Overall, the patient is doing fairly well. Most of the preoperative symptoms are resolving as expected. I increased the patient s activities now allowing a 30 pound lifting restriction that can be gradually increased to an as tolerated limit. The patient should increase range of ashley on activities as tolerated. The patient has completed formal rehabilitation now. They shou ld continue regular exercise and strengthening with the hope that they can avoid additional surgery. penitentiary pain medication does not appear to be needed. The patient needs follow-up x-rays to assess the fusion in 6-9 months. We will review the images and let the patient know how the fusion has healed ELECTRONICALLY SIGNED BY: Donald Reich MD, 08/07/2015 9:29 documented in this encou nter Plan of Treatment + +---------+--------+ + + | Name | Type | Priori | Associated Diagnoses | Order Schedule | | | | ty | | | + +---------+--------+ + + | XR Cervical Spine 2 | Imaging | Routin | S/P cervical | Expected: 02/03/2016 | | or 3 Views | | e | spinal fusion | (Approximate), | | | | | | Expires: 08/05/2016 | + +---------+--------+ + + documented as of this encounter Procedures + +--------+ + + + | Procedure Name | Priori | Date/Time | Associated Diagnosis | Comments | | | ty | | | | + +--------+ + + + | IMAGING REPORT - | | 02/21/2016 | | Results for this | | EXTERNAL SCAN | | 12:00 AM | | procedure are in the | | | | PST | | results section. | + +--------+ + + + documented in this encounter Results IMAGING REPORT - EXTERNAL SCAN (02/21/2016 12:00 AM PST) + + + | Narrative | Performed At | + + + | Ordered by an | | | unspecified provider. | | + + + documented in this encounter Visit Diagnoses + + | Diagnosis | + + | S/P cervical spinal fusion - Primary Arthrodesis status | + + | Ulnar nerve entrapment at elbow, unspecified laterality | + + documented in this encounter
--- OUTSIDE RECORDS SUMMARY | ~2019-03-03 | XMS | Encounter Summary ---
Demographics + + + | Address | [address] | | | [place] [address] | + + + | Home Phone | | + + + | Preferred Language | Unknown | + + + | Marital Status | | + + + | Quaker Affiliation | 1001 | + + + | Race | Unknown | + + + | Ethnic Group | Unknown | + + + Author + + + | Author | [facility] | | | and [place] | + + + | Organization | [facility] | | | and [...] [place] | | | | | [address] | | + + + + + | Angelika Holm | ECON | Unknown | | + + + + + Care Team Providers + +------+ + | Care Sessions Clerk Name | Role | Phone | + +------+ + | Alec Tao MD | PCP | | + +------+ + Encounter Details +--------+ + + + + | Date | Type | Department | Care Team | Description | +--------+ + + + + | 06/08/ | Imaging | [facility] | Provider, | | | 2018 | Exam | MED CTR EXTERNAL | MD [address] | | | | | IMAGING | [place] | | | | | [phone] | [place] [address] | | +--------+ + + + + [...] + +--------+ + + + | MRI THORACIC SPINE | Routin | 06/04/2017 | | Results for this | | WO CONTRAST | e | 3:35 PM | | procedure are in the | | | | PST | | results section. | + +--------+ + + + documented in this encounter Results MRI Thoracic Spine wo Contrast (06/04/2017 3:35 PM PST) + + | Specimen | [...]
--- OUTSIDE RECORDS SUMMARY | ~2019-03-03 | XMS | Encounter Summary ---
Demographics + + + | Address | [address] | | | [place] [address] | + + + | Home Phone | | + + + | Preferred Language | Unknown | + + + | Marital Status | | + + + | Mu-Ism Affiliation | 1001 | + + + | Race | Unknown | + + + | Ethnic Group | Unknown | + + + Author + + + | Author | [facility] | | | and [place] | + + + | Organization | [facility] | [...] [place] | | | | | [address] | | + + + + + | Angelika Holm | ECON | Unknown | | + + + + + Care Team Providers + +------+ + | Care Operator Control Room Name | Role | Phone | + +------+ + | Alec Tao MD | PCP | | + +------+ + Encounter Details +--------+ + + + + | Date | Type | Department | Care Team | Description | +--------+ + + + + | 08/06/ | Hospital | [facility] | [place] | Cervical | | 2016 | Encounter | MED CTR XRAY [address] | radiculopathy; S/P | | | | [address] [place] | [address] | cervical spinal | | | | [place] [address] | [place] [address] | fusion | | | | [phone] | [phone] | | | | | | | [...] + + + +---------+ + + | [place] 3-6-9 Fatty | Take 2 tablets by [...] + + + +---------+ + + | methocarbamol | Take 1-3 tablets by | 90 | 2 | 06/19/19 | | | (ROBAXIN) 500 mg | mouth every 6 hours | tablet | | 16 | 7 | | tablet | as needed for Muscle | | | | | | | spasms. | | | | | + + [...] + | XR CERVICAL SPINE 2 | Routin | 08/07/2015 | Cervical | Results for this | | OR 3 VIEWS | e | 7:38 AM | radiculopathy S/P | procedure are in the | | | | PDT | cervical spinal | results section. | | | | | fusion | | + +--------+ + + + documented in this encounter Results XR Cervical Spine 2 or 3 Views (08/07/2015 7:38 AM PDT) + + | Specimen | + + | | + + + + + | Narrative | Performed At | + + + | XR CERVICAL SPINE 2 OR 3 VIEWS. 08/07/2015 7:28 AM HISTORY: | [facility] | | Postop . COMPARISON: 06/07/2015 FINDINGS: Anterior spinal | [facility] | | fusion hardware seen at the levels of C4-C7, with graft material at [facility] | | the intervening disc spaces there is fragmentation of the graft | - IMAGING | | material at the level of C6-7, to a slightly greater extent than was | | | seen on 06/07/2015. There is anterolisthesis of C7 on T1, stable as | | | compared with the prior study. Vertebral body heights are | | | maintained. There is facet degenerative change. Ossification of | | | the ligamentum nuchae again seen at the levels of C4-5 and C6. | | | Prevertebral and paraspinal soft tissues are otherwise unremarkable. | | | IMPRESSION - Anterior cervical fusion spanning the levels of | | | C4-C7. Progressive fragmentation of the graft material at the level | | | of C6-7. Dictated and Signed by: Cosmo Hernandez MD | | | Electronically signed: 08/07/2015 9:29 AM | | + + + + + | Procedure Note | + + | Farhan, Rad Results In - 08/07/2015 9:32 AM PDT XR CERVICAL SPINE 2 OR 3 VIEWS. | | 08/07/2015 7:28 AMHISTORY: Postop . COMPARISON: 06/07/2015FINDINGS:Anterior spinal fusion | | hardware seen at the levels of C4-C7, with graft materialat the intervening disc spaces | | there is fragmentation of the graft material atthe level of C6-7, to a slightly greater | | extent than was seen on 06/07/2015. There is anterolisthesis of C7 on T1, stable as | | compared with the prior study. Vertebral body heights are maintained. There is facet | | degenerative change. Ossification of the ligamentum nuchae again seen at the levels of | | C4-5 and C6. Prevertebral and paraspinal soft tissues are otherwise | | unremarkable.IMPRESSION -Anterior cervical fusion spanning the levels of C4-C7. | | Progressivefragmentation of the graft material at the level of C6-7.Dictated and Signed | | by: Cosmo Hernandez MD Electronically signed: 08/07/2015 9:29 AM | |Vertebral body heights are maintained. There is facet degenerative change. | |Ossification of the ligamentum nuchae again seen at the levels of C4-5 and C6. | |Prevertebral and paraspinal soft tissues are otherwise unremarkable. | | | | | |IMPRESSION - | |Anterior cervical fusion spanning the levels of C4-C7. Progressive | |fragmentation of the graft material at the level of C6-7. | | | |Dictated and Signed by: Cosmo Hernandez MD | | Electronically signed: 08/07/2015 9:29 AM | + + + + + + + | Performing | Address | [facility] | Phone Number | | Organization | | | | + + + + + | [facility] | [address] | [place] | [phone] | | [facility] | | [address] | | | - IMAGING | | | | + + + + + documented in this encounter Visit Diagnoses + + | Diagnosis | + + | Cervical radiculopathy Brachial neuritis or radiculitis nos | + + | S/P cervical spinal fusion Arthrodesis status | + + documented in this encounter
--- OUTSIDE RECORDS SUMMARY | ~2019-03-03 | XMS | Encounter Summary ---
Demographics + + + | Address | [address] | | | [place] [address] | + + + | Home Phone | | + + + | Preferred Language | Unknown | + + + | Marital Status | | + + + | Sabianist Affiliation | 1001 | + + + | Race | Unknown | + + + | Ethnic Group | Unknown | + + + Author + + + | Author | [facility] | | | and [place] | + + + | Organization | [facility] | | | and [place] | + + + | Address | Unknown | + + + | Phone | Unavailable | + + + Support + + + + + | Name | Relationship | Address | Phone | + + + + + | Fidel Holm | ECON | [address] | | | | | [place] | | | | | [address] | | + + + + + | Angelika Holm | ECON | Unknown | | + + + + + Care Team Providers + +------+ + | Care Wildlife Conservationist Name | Role | Phone | + +------+ + | Alec Tao MD | PCP | | + +------+ + Encounter Details +--------+ + + + + | Date | Type | Department | Care Team | Description | +--------+ + + + + | 03/27/ | Hospital | [facility] | Donald Reich MD | | | 2015 | Encounter | MED CTR LABORATORY | [address] | | | | | [address] | [place] [address] | | | | | [place] | [phone] | | | | | [address] | | | | | | [phone] | | | +--------+ + + + [...] + + + +---------+ + + | [place] 3-6-9 Fatty | Take 2 tablets by [...]
--- OUTSIDE RECORDS SUMMARY | ~2019-03-03 | XMS | Encounter Summary ---
Demographics + + + | Address | [address] | | | [place] [address] | + + + | Home Phone | | + + + | Preferred Language | Unknown | + + + | Marital Status | | + + + | Protestant Affiliation | NON | + + + | Race | White | + + + | Ethnic Group | Not or | + + + Author + + + | Author | [facility] | + + + | Organization | [facility] | + + + | Address | Unknown | + + + | Phone | Unavailable | + + + Support + + +---------+ + | Name | Relationship | Address | Phone | + + +---------+ + | Fidel Holm | ECON | Unknown | | + + +---------+ + Care Team Providers + +------+ + | Care Mounter Flutes And Piccolos Name | Role | Phone | + +------+ + | Jacqueline Nuñez | PCP | | + +------+ + Encounter Details +--------+ + + + + | Date | Type | Department | Care Team | Description | +--------+ + + + + | 08/04/ | Anesthesia | Preoperative | Val [place]az, | | | 2019 | Event | [facility] at | DNP [address] | | | | | [facility] | Ave [place], [place] | | | | | [address] | [address] | | | | | Mail Code: [facility] | [phone] | | | | | [facility] | | | | | | and Healing, | | | | | | [address] | | | | | | [place], [place] | | | | | | [address] | | | | | | [phone] | | | +--------+ + + + [...]
--- OUTSIDE RECORDS SUMMARY | ~2019-03-03 | XMS | Encounter Summary ---
Demographics + + + | Address | [address] | | | [place] [address] | + + + | Home Phone | | + + + | Preferred Language | Unknown | + + + | Marital Status | | + + + | Mu-Ism Affiliation | 1001 | + + + | Race | Unknown | + + + | Ethnic Group | Unknown | + + + Author + + + | Author | [facility] | | | and [place] | + + + | Organization | [facility] | [...] [place] | | | | | [address] | | + + + + + | Angelika Holm | ECON | Unknown | | + + + + + Care Team Providers + +------+ + | Care Senior Fire Protection Engineer Name | Role | Phone | + +------+ + | Alec Tao MD | PCP | | + +------+ + Encounter Details +--------+ + + + + | Date | Type | Department | Care Team | Description | +--------+ + + + + | 08/17/ | Orders Only | [facility] | Donald Reich MD | Neck pain (Primary | | 2019 | | NEUROSURGERY [address] | [address] | Dx) | | | | [address] | [place] [address] | | | | | [place] | [phone] | | | | | [address] | | | | | | [phone] | | | +--------+ + + + [...] on filedocumented as of this encounter Results XR Cervical Spine 4 [...] through C7. Osseous fusion is observed from [id number] | | C6. Incomplete fusion is noted [...] Diagnosis | + + | Neck pain - Primary Cervicalgia | + + documented in this encounter"
--- OUTSIDE RECORDS SUMMARY | ~2019-03-03 | XMS | Encounter Summary ---
Demographics + + + | Address | [address] | | | [place] [address] | + + + | Home Phone [...] Author | [facility] | | | and [place] | + + + | Organization | [facility] | | | and [...] [place] | | | | | [address] | | + + + + + | Angelika Holm | ECON | Unknown | | + + + + + Care Team Providers + +------+ + | Care Technology Strategist Name | Role | Phone | + +------+ + | Alec Tao MD | PCP | | + +------+ + Encounter Details +--------+ + + + + | Date | Type | Department | Care Team | Description | +--------+ + + + + | 05/01/ | Hospital | [facility] | Abdulaziz Wagner | Neck pain | | 2015 | Encounter | MED CTR XRAY [address] | | | | | [place] | [address] | | | | | [place] [address] | [place] [address] | | | | | [phone] | [phone] | | | | | | | [...] | + + + +---------+--------+ + | [place] 3-6-9 Fatty | Take 2 tablets by [...] XR CERVICAL SPINE 4 | Routin | 05/01/2014 | Neck pain | Results for this | | OR 5 VWS | e | 1:37 PM | | procedure are in the | | | | PST | | results section. | + +--------+ + + + documented in this encounter Results XR Cervical Spine 4 or 5 Vws (05/01/2014 1:37 PM PST) + + | Specimen | + + | | + + + + + | Narrative | Performed At | + + + | XR CERVICAL SPINE 4 OR 5 VWS 05/01/2014 1:37 PM HISTORY: neck | MISCELANIOUS | | pain. COMPARISON: MRI cervical spine dated 01/26/2014. | LAB | | FINDINGS: Visualized skull base and facial structures demonstrate no | | | acute findings. Prevertebral soft tissues are normal. Loss of the | | | usual lordosis is seen. There is mild to moderate spondylosis of the | | | cervical spine. Mild retrolisthesis are present of C5 over C6 and C6 | | | over C7. There is mild anterolisthesis of C7 over T1. No instability | | | is seen with flexion and extension. The dens is normal. Vertebral | | | body heights are preserved with no evidence for compression | | | fractures. Mild disc narrowing are at C4-5 and C6-7. There is | | | moderate disc narrowing at C5-6. Facet joints are intact. There is | | | ossification of the ligamentum nuchae. Visualized upper chest is | | | unremarkable. IMPRESSION - Multilevel degenerative changes, no | | | evidence for instability. Dictated and Signed by: Maurice Rizzo MD | | | Electronically signed: 05/01/2014 5:40 PM | | + + + + + | Procedure Note | + + | Farhan, Rad Results In - 05/01/2014 5:43 PM PST XR CERVICAL SPINE 4 OR 5 VWS 05/01/2014 | | 1:37 PMHISTORY: neck pain.COMPARISON: MRI cervical spine dated | | 01/26/2014.FINDINGS:Visualized skull base and facial structures demonstrate no acute | | findings.Prevertebral soft tissues are normal.Loss of the usual lordosis is seen. There | | is mild to moderate spondylosis of thecervical spine. Mild retrolisthesis are present of | | C5 over C6 and C6 over C7.There is mild anterolisthesis of C7 over T1. No instability | | is seen with flexionand extension. The dens is normal. Vertebral body heights are | | preserved with noevidence for compression fractures. Mild disc narrowing are at C4-5 and | | C6-7.There is moderate disc narrowing at C5-6. Facet joints are intact. There | | isossification of the ligamentum nuchae. Visualized upper chest is | | unremarkable.IMPRESSION -Multilevel degenerative changes, no evidence for | | instability.Dictated and Signed by: Maurice Rizzo MD Electronically signed: 05/01/2014 | | 5:40 PM | |and extension. The dens is normal. Vertebral body heights are preserved with no | |evidence for compression fractures. Mild disc narrowing are at C4-5 and C6-7. | |There is moderate disc narrowing at C5-6. Facet joints are intact. There is | |ossification of the ligamentum nuchae. Visualized upper chest is unremarkable. | | | |IMPRESSION - | |Multilevel degenerative changes, no evidence for instability. | | | |Dictated and Signed by: Maurice Rizzo MD | | Electronically signed: 05/01/2014 5:40 PM | + + + +---------+ + + | Performing | Address | City/State/[facility] | Phone Number | | Organization | | | | + +---------+ + + | MISCELLANEOUS LAB | | | [phone] | + +---------+ + + | MISCELANIOUS LAB | | | [phone] | + +---------+ + + documented in this encounter Visit Diagnoses + + | Diagnosis | + + | Neck pain Cervicalgia | + + documented in this encounter"
--- OUTSIDE RECORDS SUMMARY | ~2019-03-03 | XMS | Encounter Summary ---
Demographics + + + | Address | [address] | | | [place] [address] | + + + | Home Phone | | + + + | Preferred Language | Unknown | + + + | Marital Status | | + + + | Yazdanism Affiliation | 1001 | + + + | Race | Unknown | + + + | Ethnic Group | Unknown | + + + Author + + + | Author | [facility] | | | and [place] | + + + | Organization | [facility] | | | and [...] [place] | | | | | [address] | | + + + + + | Angelika Holm | ECON | Unknown | | + + + + + Care Team Providers + +------+ + | Care Motorcoach Operator Name | Role | Phone | [...] | | | | | Cervical | [place], | [address] | | | | | radiculopath | Andrea Scott MD | [place], | | | | | y | [address] | [place] | | | | | Procedures | [place] | [address] | | | | | [place] | [place], [place] | Phone: | | | | | DX/THER SBST | [address] | [phone] | | | | | INTRLMNR | Phone: | Fax: | | | | | CRV/THRC | [phone] | [phone] | | | | | W/IMG GDN | Fax: | | | | | | [place] | [phone] | | | | | | TRIAMCINOLON | | | | | | | E ACET INJ | | | | | | | NOS, 10 MG | | | | | | | Appt 08/18- | | | | | | | C7-T1 ILESI | | | | | | | - Referral | | | | | | | from Dr Reich | | | +--------+--------+ + + + + Encounter Details +--------+ + + + + | Date | Type | Department | Care Team | Description | +--------+ + + + + | 08/18/ | Hospital | [facility] | Richie, | Cervical | | 2017 | Encounter | MED CTR XRAY [address] | [address] | radiculopathy | | | | [address] [place] | [facility], | | | | | [place] [address] | [place] [address] | | | | | [phone] | [phone] | | | | | | | | | | | | Benefit AuthorizerCharla | | +--------+ + + + + [...] +---------+ + + | Blood Pressure | 169/70 | 08/18/2016 4:56 PM | | | | | PDT | | + +---------+ + + | Pulse | 72 | 08/18/2016 4:56 PM | | | | | PDT [...] TO SCALP TWICE | | 1 | // | | | (TEMOVATE) 0.05 % | [...] + + + +---------+ + + | [place] 3-6-9 Fatty | Take 2 tablets by [...] + + + +---------+ + + | MINIVELLE 0.05 | APPLY 1 PATCH TO THE | | 3 | 07/08/19 | | | MG/24HR | SKIN TWICE A WEEK | | | 17 | 9 | + + + +---------+ + + documented as of this encounter Plan of Treatment Not on filedocumented as of this encounter Procedures + +--------+ + + + | Procedure Name | Priori | Date/Time | Associated Diagnosis | Comments | | | ty | | | | + +--------+ + + + | FL EPIDURAL STEROID | Routin | 08/18/2016 | Cervical | Results for this | | INJ CERVICAL | e | 4:38 PM | radiculopathy | procedure are in the | | THORACIC | | PDT | | results section. | | INTERLAMINAR | | | | | + +--------+ + + + documented in this encounter Results FL TIFFANIE Cervical Thoracic Interlaminar (08/18/2016 4:38 PM PDT) + + | Specimen | + + | | + + + + + | Narrative | Performed At | + + + | | [facility] | | 08/18/2016CERVICAL INTERLAMINAR EPIDURAL STEROID INJECTION CLINICAL | [facility] | | HISTORY: ICD-10 CODE M54.12 CERVICAL RADICULOPATHY [facility] | | presents to the fluoroscopy suite for a fluoroscopically-guided C7-T1 | - IMAGING | | interlaminar epidural steroid injection, left of midline, as part of | | | conservative management for chronic pain with cervical radiculopathy | | | and degenerative disk disease. After informed consent was obtained, | | | the patient lay in the prone position on the fluoroscopy table. The | | | area was identified under fluoroscopic guidance. The area was prepped | | | and draped in sterile fashion. A 25-gauge, 1.5-inch needle was | | | inserted into this region and approximately 3 mL of buffered 1% | | | lidocaine was infused. Then a 22-gauge epidural needle was advanced | | | into the epidural space at the C7-T1 level. Confirmation into the | | | epidural space was obtained with loss of resistance, as well as | | | infusion of approximately 1 mL of Isovue contrast which showed | | | epidural flow. Then, a combination of 2.5 mL of normal saline and 1.5 | | | mL of 6 mg/mL Celestone was infused. The patient tolerated the | | | procedure well without complications. Pre- and post-procedure blood | | | pressures were stable. The patient was given verbal as well as written | | | followup instructions. Prior to the start of the procedure, the | | | following were performed and verified, including correct patient | | | identity, correct site/side marked and visible, agreement on the | | | procedure to be done, correct patient positioning and an accurate | | | procedure consent form. Any safety precautions based on clinical | | | history and/or medication use have been addressed. I personally | | | performed the procedure above. Estimated blood loss: | | | MinimalComplications: NoneFindings: As expectedAnesthesia: Local | | | 1% Lidocaine | | |I personally performed the procedure above. | | | | | |Estimated blood loss: Minimal | | |Complications: None | | |Findings: As expected | | |Anesthesia: Local 1% Lidocaine | | | | | | | | + + + + + + + + | Performing | Address | City/State/Zipcode | Phone Number | | Organization | | | | + + + + + | [facility] | [address] | [place] | [phone] | | [facility] | | [address] | | | - IMAGING | | [...] +------+------+------+ | betamethasone (CELESTONE | Given | 08/19/19 | 9 mg | | | | SOLUSPAN) injection 9 mg 9 mg, | | 17 4:55 | | | | | Other, ONCE, Gonzalo 08/18/16 at 1645, | | PM PDT | | | | | For 1 dose | | | | | | + +--------+ +------+------+------+ +---+---+ | | | +---+---+ + +-------+ +-------+---+---+ | iohexol (OMNIPAQUE 300) 300 | Given | 08/19/19 | 4 mLs | | | | mg/mL injection 4 mL 4 mL, | | 17 4:50 | | | | | Other, ONCE, 08/18/16 at 1645, | | PM PDT | | | | | For 1 dose | | | | | | + +-------+ +-------+---+---+ +---+---+ | | | +---+---+ + +-------+ +-------+---+---+ | lidocaine buffered 1% injection | Given | 08/19/19 | 5 mLs | | | | 5 mL 5 mL, Other, ONCE, Tue | | 17 4:45 | | | | | 08/18/16 at 1645, For 1 dose | | PM PDT | | | | + +-------+ +-------+---+---+ +---+---+ | | | +---+---+ documented in this encounter
--- OUTSIDE RECORDS SUMMARY | ~2019-03-03 | XMS | Encounter Summary ---
Demographics + + + | Address | [address] | | | [place] [address] | + + + | Home Phone [...] + + + | Author | [facility] | + + + | Organization | [facility] | + + + | Address | Unknown | + + + | Phone | Unavailable | + + + Support + + +---------+ + | Name | Relationship | Address | Phone | + + +---------+ + | Fidel Holm | ECON | Unknown | | + + +---------+ + Care Team Providers + +------+ + | Care Ase Certified Technician Name | Role | Phone | + +------+ + | Jacqueline Nuñez | PCP | | + +------+ + Encounter Details +--------+ + + + + | Date | Type | Department | Care Team | Description | +--------+ + + + + | 08/04/ | Pharmacy | [facility] | | | | 2019 | Visit | & [facility] | | | | | | [address] | | | | | | Mailcode: [place] | | | | | | [facility] | | | | | | Healing, [address] | | | | | | [place], [place] | | | | | | [address] | | | | | | [phone] | | | +--------+ + + + [...]
--- OUTSIDE RECORDS SUMMARY | ~2019-03-03 | XMS | Encounter Summary ---
Demographics + + + | Address | [address] | | | [place] [address] | + + + | Home Phone | | + + + | Preferred Language | Unknown | + + + | Marital Status | | + + + | Yarsanism Affiliation | 1001 | + + + | Race | Unknown | + + + | Ethnic Group | Unknown | + + + Author + + + | Author | [facility] | | | and [place] | + + + | Organization | [facility] | | | and [...] [place] | | | | | [address] | | + + + + + | Angelika Holm | ECON | Unknown | | + + + + + Care Team Providers + +------+ + | Care Test Lead Application Testing Name | Role | Phone | + +------+ + | Alec Tao MD | PCP | | + +------+ + Encounter Details +--------+ + + + + | Date | Type | Department | Care Team | Description | +--------+ + + + + | 08/05/ | Orders Only | [facility] [place] | [place] | Cervical | | 2017 | | PHYSIATRY [address] | radiculopathy | | | | [place], | [place], [place] | (Primary Dx) | | | | [place] [address] | [address] | | | | | [phone] | | | +--------+ + + + [...] as of this encounter Results FL TIFFANIE Cervical Thoracic Interlaminar (08/18/2016 4:38 PM PDT) + + | Specimen | + + | | + + + + + | Narrative | Performed At | + + + | | [facility] | | 08/18/2016CERVICAL INTERLAMINAR EPIDURAL STEROID INJECTION CLINICAL | [facility] | | HISTORY: ICD-10 CODE M54.12 CERVICAL RADICULOPATHY [facility] | | presents to the fluoroscopy [...] | + + + + + | [address] | [address] | [place] | [phone] | | [facility] | | [address] | | | - IMAGING | | | | + + + + + documented in this encounter Visit Diagnoses + + | Diagnosis | + + | Cervical radiculopathy - Primary Brachial neuritis or radiculitis nos | + + documented in this encounter"
--- OUTSIDE RECORDS SUMMARY | ~2019-03-03 | XMS | Encounter Summary ---
Demographics + + + | Address | [address] | | | [place] [address] | + + + | Home Phone | | + + + | Preferred Language | Unknown | + + + | Marital Status | | + + + | Latter-Day Affiliation | NON | + + + | Race | White | + + + | Ethnic Group | Not or | + + + Author + + + | Organization | Unknown | + + + | Address | Unknown | + + + | Phone | Unavailable | + + + Support + + +---------+ + | Name | Relationship | Address | Phone | + + +---------+ + | Fidel Holm | JESUS | Unknown | | + + +---------+ + Care Team Providers + +------+ + | Care Automatic Drilling Machine Operator Name | Role | Phone | + +------+ + | Jacqueline Nuñez | PCP | | + +------+ + Encounter Details +--------+--------+ + + + | Date | Type | Department | Care Team | Description | +--------+--------+ + + + | 01/30/ | Travel | | | | | 2019 | | | | | +--------+--------+ + [...]
--- OUTSIDE RECORDS SUMMARY | ~2019-03-03 | XMS | Encounter Summary ---
Demographics + + + | Address | [address] | | | [place] [address] | + + + | Home Phone | | + + + | Preferred Language | Unknown | + + + | Marital Status | | + + + | Baptist Affiliation | 1001 | + + + | Race | Unknown | + + + | Ethnic Group | Unknown | + + + Author + + + | Author | [facility] | | | and [place] | + + + | Organization | [facility] | | | and [place] [...] [place] | | | | | [address] | | + + + + + | Angelika Holm | ECON | Unknown | | + + + + + Care Team Providers + +------+ + | Care Supervisor Press Room Name | Role | Phone | + +------+ + | Alec Tao MD | PCP | | + +------+ + Reason for Visit + + + | Reason | Comments | + + + | Paperwork | | + + + | Other | Med refill | + + + Encounter Details +--------+ + + + + | Date | Type | Department | Care Team | Description | +--------+ + + + + | 05/13/ | Telephone | [facility] | Donald Reich MD | Paperwork; Other | | 2016 | | NEUROSURGERY [address] | [address] | (Med refill) | | | | [address] [facility] | [place] [address] | | | | | [place] | [phone] | | | | | [address] | | | | | | [phone] | | | +--------+ + + + [...]
--- OUTSIDE RECORDS SUMMARY | ~2019-03-03 | XMS | Encounter Summary ---
Demographics + + + | Address | [address] | | | [place] [address] | + + + | Home Phone | | + + + | Preferred Language | Unknown | + + + | Marital Status | | + + + | Hinduism Affiliation | NON | + + + | Race | White | + + + | Ethnic Group | Not or | + + + Author + + + | Author | [facility] | + + + | Organization | [facility] | + + + | Address | Unknown | + + + | Phone | Unavailable | + + + Support + + +---------+ + | Name | Relationship | Address | Phone | + + +---------+ + | Fidel Holm | ECON | Unknown | | + + +---------+ + Care Team Providers + +------+ + | Care Wire Bender Hand Name | Role | Phone | [...] Description | +--------+---------+ + + + | 05/03/ | Surgery | [facility] | Qasim Casanova MD | BILATERAL CORRECTION | | 2019 | | [facility] | [address] | OF VELOPHAYRNGEAL | | | | and Healing Surgery | [place], | INSUFFICIENCY WITH | | | | Center Admitting | [place] [address] | PHARYNGEAL FLAP, | | | | Desk Located on the | [phone] | POSSIBLE ALLODERM | | | | 4th floor [address] | | | | | | [place], | | | | | | [place] [address] | | | +--------+---------+ + + + [...] documented in this encounter Discharge Instructions Discharge Instr - Day Procedure Instructions Ken Astorga MD [...] Otolaryngology Facial Pl[facility]ive Services at [facility] Activity Restrictions: No heavy lifting (above 15 lbs) or strenuous activity for 2 weeks a fter procedure Diet:soft diet for 2 weeks or as directed Wound care: rinse mouth out with salt water after eating for 2 weeks During business hours please call the Facial Plastics Clinic, at [phone] with any ques tions or concerns. Otherwise, you may call the Otolaryngology resident at [phone] for c oncerns, such as difficulty breathing or unusual shortness of breath, excessive bleeding, dr ramon at the operative site, fevers, chills, increased pain that is not relieved by pain me dications, persistent nausea or vomiting. Signed by: Ken Astorga MD ([id number]) Otolaryngology - Head and Neck Surgery [facility] Pager: [phone] Additional Instructions Fredy Escobar RN - 08/05/2018 [...] oral pain medication was given at: 5mg [place] at 11:00am. Please follow your Doctor's instructions [...] patient satisfaction survey from "[employer]ini Baez". We justin alvarez appreciate your feedback on the survey to [...] Attending | | Surgeon: Qasim Casanova MD Product Introduction Manager(s): None. | | Preoperative Diagnosis: Velopharyngeal insufficiency, [...] with closer approximation, but not | | tynv-pa-dvop closure due to tension. At the completion of all maneuvers, the procedure | | was terminated. The patient was awakened, and extubated, and taken to recovery room in | | satisfactory condition, having tolerated procedure well without complications.Qasim Casanova, | | RENETTA/ALONSOD: 08/05/2018 09:58:07DT: 08/05/2018 10:14:38Job #: [id number] | |and the entire posterior mucosal flaps and the anterior mucosal flaps of the soft palate we re repaired with 4-0 Vicryl simple interrupted sutures. | | | |The pharyngeal flap donor site was next repaired with 4-0 Vicryl simple interrupted sutures with closer approximation, but not sqtm-yc-snhx closure due to tension. | | | |At the completion of all maneuvers, the procedure was terminated. The patient was awakened , and extubated, and taken to recovery room in satisfactory condition, having tolerated proc edure well without complications. | | | | | | | |Qasim Casanova MD | |NIXON/SOFI | | | | | | /[id number] | + + INTRAPROCEDURE IMAGING (08/05/2018 6:49 [...] in this encounter Administered Medications + +--------+ +--------+------+ + | Medication Order | MAR | Action | Dose | Rate | Site | | | Action | Date | | | | + +--------+ +--------+------+ + | bupivacaine-EPINEPHrine | Given | 08/06/19 | 5.5 mL | | Surgical | | (MARCAINE-EPINEPHRINE) 0.25 | | 19 9:23 | | | Site | | %-1:200,000 injection | | AM PDT | | | | | INTRAPROCEDURE PRN, Starting Fri | | | | | | | 08/05/18 at 0923, Until Wed08/05/18 | | | | | | | at 1000 | | | | | | + +--------+ +--------+------+ + +---+---+ | | | +---+---+ + [...] | | | 08/05/18 at 1034, Until 08/05/18 | | | at 1744, IV start | | + +---+ | | | + +---+ + +-------+ +--------+---+ + | lidocaine-EPINEPHrine | Given | 08/06/19 | 5.5 mL | | Surgical | | (XYLOCAINE WITH EPINEPHRINE) 1 | | 19 9:23 | | | Site | | %-1:100,000 injection | | AM PDT | | | | | INTRAPROCEDURE PRN, Starting Fri | | | | | | | 08/05/18 at 0923, Until 08/05/18 | | | | | | | at 1000 | | | | | | + +-------+ +--------+---+ + + +---+ | | | + +---+ [...]
--- OUTSIDE RECORDS SUMMARY | ~2019-03-03 | XMS | Encounter Summary ---
Demographics + + + | Address | [address] | | | [place] [address] | + + + | Home Phone | | + + + | Preferred Language | Unknown | + + + | Marital Status | | + + + | Zoroastrianism Affiliation | 1001 | + + + | Race | Unknown | + + + | Ethnic Group | Unknown | + + + Author + + + | Author | [facility] | | | and [place] | + + + | Organization | [facility] | | | and [place] | [...] [place] | | | | | [address] | | + + + + + | Angelika Holm | ECON | Unknown | | + + + + + Care Team Providers + +------+ + | Care Elementary Ell Teacher Name | Role | Phone | + [...] | | | | sciatica, | [place] [address] | | | | | | sciatica | Phone: | | | | | | laterality | [phone] | | | | | | unspecified | Fax: | | | | | | Procedures | [phone] | | | | | | MRI [...] | | | | y Cervical | [place], | | | | | | spondylosis | [place] [address] | | | | | | without | Phone: | | | | | | myelopathy | [phone] | | | | | | Degeneration | Fax: | | | | | | of cervical | [phone] | | | | | | | [...] | | [address] | [place] [address] | (Primary Dx); | | | | [place] | [phone] | Cervical spondylosis | | | | [address] | | without myelopathy; | | | | [phone] | | Degeneration of | | | [...] research this procedure more by going to: [email or web address] Click the Treatment Options link on the left column. Then, look for Anterior Cervical Discectomy and Fusion (ACDF). documented in this encounter Progress Notes Donald Reich MD - 01/15/2015 12:21 PM PDTFormatting of this note might be different from t he original. Donald Reich MD [address] [facility] [place], [address] [place], [place] [address] FAX: NEUROSURGERY FOLLOW-UP CHIEF COMPLAINT: Chief Complaint [...] PO) Take 1 tablet by mouth Daily. [place] 3-6-9 Fatty Acids (TRIPLE OMEGA COMPLEX PO) [...] has no apparent deficits with short or exterminator termite memory. MOTOR EXAM: (5 IS NORMAL) * Indicates pain limited MUSCLE/ MOVEMENT: RIGHT LEFT Deltoids 5 5 Biceps 5 5 Triceps 5 5 Wrist Flexion 5 5 Wrist Extension 5 5 Median Intrinsics 5 5 Ulnar Intrinsics 5 5 Forest Science Professor Strength 4 5 Hip Flexion 5 5 [...]
--- OUTSIDE RECORDS SUMMARY | ~2019-03-03 | XMS | Encounter Summary ---
Demographics + + + | Address | [address] | | | [place] [address] | + + + | Home Phone | | + + + | Preferred Language | Unknown | + + + | Marital Status | | + + + | Christian Affiliation | NON | + + + | Race | White | + + + | Ethnic Group | Not or | + + + Author + + + | Author | [facility] | + + + | Organization | [facility] | + + + | Address | Unknown | + + + | Phone | Unavailable | + + + Support + + +---------+ + | Name | Relationship | Address | Phone | + + +---------+ + | Fidel Holm | ECON | Unknown | | + + +---------+ + Care Team Providers + +------+ + | Care Lead Rider Name | Role | Phone | + +------+ + | Jacqueline Nuñez | PCP | | + +------+ + Reason for Visit + + + | Reason | Comments | + + + | New Patient Visit | Cervical | + + + Consultation (Routine) +--------+--------+ + + + + | Status | Reason | Specialty | Diagnoses / | Referred By | Referred To | | | | | Procedures | Contact | Contact | +--------+--------+ + + + + | Closed | | Neurological | Diagnoses | Sucharda, | Tua | | | | Surgery | | JOSHUA Ring | Neurosurgery | | | | | Radiculopath | [facility] | [address] | | | | | y, cervical | [facility] [address] | | | | | region | ORTHOPEDICS | [address] | | | | | Cervicalgia | [address] | [place], [place] | | | | | Arthrodesis | [place] | [address] | | | | | status | [place], [place] | Phone: | | | | | | [address] | [phone] | | | | | | Phone: | Fax: | | | | | | [phone] | [phone] | | | | | | Fax: | | | | | | | [phone] | | +--------+--------+ + + + + Encounter Details +--------+---------+ + + + | Date | Type | Department | Care Team | Description | +--------+---------+ + + + | 01/19/ | Office | [facility] | Donald Reich MD | Cervical dystonia | | 2019 | Visit | Neurosurgery at [address] | [address] | (Primary Dx); S/P | | | | [address] | [address] | cervical spinal | | | | [address] | [place] [address] | fusion; Bilateral | | | | [place], [place] | [phone] | occipital neuralgia, | | | | [address] | | possible | | | | [phone] | | | +--------+---------+ + + + [...] + + + | Blood Pressure | 145/82 | 01/19/2019 10:36 AM | | | | | PDT | | + + + + + | Pulse | 81 | 01/19/2019 10:36 AM | | | | | PDT | | + + + + + | Temperature | 36.7 C (98.1 F) | 01/19/2019 10:36 AM | | | | | PDT | | + + + + + | Respiratory Rate | - | - | | + + + + + | Oxygen Saturation | 98% | 01/19/2019 10:36 AM | | | | | PDT | | + + + + + | Inhaled Oxygen | - | - | | | Concentration | | | | + + + + + | Weight | 55.7 kg (122 lb 12.7 | 01/19/2019 10:36 AM | | | | oz) | PDT | | + + + + + | Height | 168.7 cm (5' 6.42") | 01/19/2019 10:36 AM | | | | | PDT | | + + + + + | Body Mass Index | 19.57 | 01/19/2019 10:36 AM | | | | | PDT | | + + + + + documented in this encounter Progress Notes Donald Reich MD - 01/19/2019 10:45 AM PDTFormatting of this note might be different from t he original. Donald Reich MD [facility] [address] [address] NEUROSURGERY HISTORY AND PHYSICAL EXAMINATION CHIEF COMPLAINT: Chief Complaint Patient presents with New Patient Visit Cervical HISTORY OF PRESENT ILLNESS: The patient is a 59 y.o. female that had a cervical fusion for cervical spondylosis in 2016. She returns and overall is doing okay. The patient complain s of headaches at the base of her neck and neck pain. The patients arm symptoms are improve d in her arms. She rarely notices symptoms in her hands at this point. The pain is worsened by flexion of the neck and improves with muscle relaxers. She is doin g PT and this helps but for limited amounts of time. She has swallowing issues but this relates more to her recent cleft palate operation. PAST MEDICAL HISTORY: Past Medical History: Diagnosis Date Disorder of thyroid GERD (gastroesophageal reflux disease) PAST SURGICAL HISTORY: Past Surgical History Procedure Laterality Date Cleft palate repair Tonsillectomy Cervical fusion Rotator cuff repair Right Bladder sling surgery several Creation of pharyngeal flap 08/2018 CURRENT MEDICATIONS: Current Outpatient Medications Medication Sig estradiol 0.0375 mg/24 hr transdermal patch semiweekly Apply 1 patch to skin. methocarbamol 500 mg oral tablet Take 250 mg by mouth once daily in evening as needed. polyethylene glycol 17 gram oral powder in packet Mix 1 packet and take orally once quintin ly at bedtime. progesterone 200 mg oral capsule Take 200 mg by mouth once daily in the evening. Ranitidine HCl 150 mg oral capsule Take 150 mg by mouth two times daily. thyroid (ARMOUR THYROID) 60 mg oral tablet tablet Take 60 mg by mouth once daily. No current facility-administered medications for this visit. ALLERGIES: Allergies Allergen Reactions Morphine Nausea and Vomiting Opioids - Morphine Analogues Nausea Penicillins Rash SOCIAL HISTORY: Social History Tobacco Use Smoking status: Former Smoker Packs/day: 2.00 Years: 20.00 Pack years: 40.00 Types: Cigarettes Last attempt to quit: 04/05/1997 Years since quittin.8 Smokeless tobacco: Never Used Substance Use Topics Alcohol use: Yes Alcohol/week: 7.0 standard drinks Types: 7 Standard drinks or equivalent per week FAMILY HISTORY: Family History Problem Relation Seizures Mother Heart Disease Father Stroke Father Other Father Bleeding Tendency REVIEW OF SYSTEMS: Constitutional: Negative. HENT: Positive for hearing loss. Eyes: Wear glasses Respiratory: Negative. Cardiovascular: Negative. Gastrointestinal: Negative. Genitourinary: Negative. Musculoskeletal: Negative. Skin: Negative. Neurological: Positive for tingling and headaches. Muscle twitching, muscle cramps, migraines Endo/Heme/Allergies: Intolerance to heat, intolerance to cold Psychiatric/Behavioral: Negative. PHYSICAL EXAMINATION: Blood pressure 145/82, pulse 81, temperature 36.7 C (98.1 F), temperature source Oral, height 1.687 m (5' 6.42"), weight 55.7 kg (122 lb 12.7 oz), SpO2 98 %. Body mass index is 19 .57 kg/m. GENERAL: Cathy Holm is in no acute distress with unlabored respirations. SPINE: The patient's incision is well healed. She has posterior upper neck myofascial tend erness. EXTREMITIES: No lower extremity edema. NEUROLOGICAL EXAMINATION: MENTAL STATUS: The patient is awake, alert, and oriented. She follows simple and complex commands MOTOR EXAM: Motor strength is full with 5/5 strength in her upper extremities SENSORY EXAM: The sensory examination is improved when compared to the preoperative exam wi th no focal deficits. RADIOGRAPHIC REVIEW: The patient's x-rays show were reviewed with the patient today and show stable instrumentat ion. Her C4-6 fusion appears full. Her C6-7 fusion remains somewhat borderline but her scr ews and plate remain intact with no question of fracture or loosening. ASSESSMENT: NEUROSURGICAL DIAGNOSES: 1. Cervical dystonia 2. S/P cervical spinal fusion 3. Bilateral occipital neuralgia, possible GENERAL DIAGNOSES: Past Medical History: Diagnosis Date Disorder of thyroid GERD (gastroesophageal reflux disease) PLAN: Overall, the patient is doing okay. Most of the preoperative symptoms are resolved as expe cted. Her new symptoms are due possibly to cervical dystonia or occipital neuralgia or both . I recommended she be evaluated by Dr. Conti in [place] for her neck symptoms and headac hes. If after careful evaluation and management she does not improve, I would advise a return vi sit with an updated cervical MRI and CT scan. Hopefully, conservative care will be effective and the patient was in agreement with this p carmen. Donald Reich MD 01/19/2019 11:15 AM Marybel Gracia MA - 1 10:45 AM PDTReview of Systems Constitutional: Negative. HENT: Positive for hearing loss. Eyes: Wear glasses Respiratory: Negative. Cardiovascular: Negative. Gastrointestinal: Negative. Genitourinary: Negative. Musculoskeletal: Negative. Skin: Negative. Neurological: Positive for tingling and headaches. Muscle twitching, muscle cramps, migraines Endo/Heme/Allergies: Intolerance to heat, intolerance to cold Psychiatric/Behavioral: Negative. documented in this e ncounter Plan of Treatment Not on filedocumented as of this encounter Visit Diagnoses + + | Diagnosis | + + | Cervical dystonia - Primary Spasmodic torticollis | + + | S/P cervical spinal fusion Arthrodesis status | + + | Bilateral occipital neuralgia, possible Other syndromes affecting cervical region | + + documented in this encounter
--- OUTSIDE RECORDS SUMMARY | ~2019-03-03 | XMS | Encounter Summary ---
Demographics + + + | Address | [address] | | | [place] [address] | + + + | Home Phone | | + + + | Preferred Language | Unknown | + + + | Marital Status | | + + + | Mandaeism Affiliation | 1001 | + + + | Race | Unknown | + + + | Ethnic Group | Unknown | + + + Author + + + | Author | [facility] | | | and [place] | + + + | Organization | [facility] | | | and [place] [...] [place] | | | | | [address] | | + + + + + | Angelika Holm | ECON | Unknown | | + + + + + Care Team Providers + +------+ + | Care Manager Coding Name | Role | Phone | + [...] + + | 08/06/ | Office | [facility] | Donald Reich MD | S/P cervical spinal | | 2016 | Visit | NEUROSURGERY [address] | [address] | fusion (Primary Dx); | | | | [address] | [place] [address] | Ulnar nerve | | | | [place] | [phone] | entrapment at elbow, | | | | [address] | | unspecified | | | | [phone] | | laterality | +--------+---------+ + + [...] different from raf beard. Donald Reich MD [address] [place] [address], [address] [place] [address] FAX: NEUROSURGERY FOLLOW-UP CHIEF COMPLAINT: Chief Complaint [...] PO) Take 1 tablet by mouth Daily. [place] 3-6-9 Fatty Acids (TRIPLE OMEGA COMPLEX PO) [...] hope that they can avoid additional surgery. custodial pain medication does not appear to be [...]
--- OUTSIDE RECORDS SUMMARY | ~2019-03-03 | XMS | Encounter Summary ---
Demographics + + + | Address | [address] | | | [place] [address] | + + + | Home Phone | | + + + | Preferred Language | Unknown | + + + | Marital Status | | + + + | Mandaeism Affiliation | 1001 | + + + | Race | Unknown | + + + | Ethnic Group | Unknown | + + + Author + + + | Author | [facility] | | | and [place] | + + + | Organization | [facility] | | | and [place] [...] [place] | | | | | [address] | | + + + + + | Angelika Holm | ECON | Unknown | | + + + + + Care Team Providers + +------+ + | Care Admission Specialist Name | Role | Phone | [...] + + + + | 03/27/ | Telephone | [facility] | Donald Reich MD | Other | | 2014 | | NEUROSURGERY [address] | [address] | | | | | [facility] [address] | [place] [address] | | | | | [place] | [phone] | | | | | [address] | | | | | | [phone] | | | +--------+ + + + [...]
--- OUTSIDE RECORDS SUMMARY | ~2019-03-03 | XMS | Encounter Summary ---
Demographics + + + | Address | [address] | | | [place] [address] | + + + | Home Phone | | + + + | Preferred Language | Unknown | + + + | Marital Status | | + + + | Hinduism Affiliation | NON | + + + | Race | White | + + + | Ethnic Group | Not or | + + + Author + + + | Author | [facility] | + + + | Organization | [facility] | + + + | Address | Unknown | + + + | Phone | Unavailable | + + + Support + + +---------+ + | Name | Relationship | Address | Phone | + + +---------+ + | Fidel Holm | ECON | Unknown | | + + +---------+ + Care Team Providers + +------+ + | Care Camp Advisor Name | Role | Phone | + [...] | | | 2019 | Event | [facility] | MD Cullen [address] | | | | | and Healing Surgery | [address] | | | | | [facility] | [place], [place] | | | | | Desk Located on the | [address] | | | | | 4th floor [address] | [phone] | | | | | [address] [place] [place], | | | | | | [place] [address] | | | +--------+ + + + [...] | procedure documentation); 6.5; | Zoe Duncan, INTERNAL AUDIT MANAGER | Zoe Duncan CRNA | | | [...] + + documented in this encounter Results JONATAN PANCHAL (08/05/2018 9:01 AM PDT) + + [...]
--- OUTSIDE RECORDS SUMMARY | ~2019-03-03 | XMS | Encounter Summary ---
Demographics + + + | Address | [address] | | | [place] [address] | + + + | Home Phone | | + + + | Preferred Language | Unknown | + + + | Marital Status | | + + + | Holiness Affiliation | NON | + + + | Race | White | + + + | Ethnic Group | Not or | + + + Author + + + | Author | [facility] | + + + | Organization | [facility] | + + + | Address | Unknown | + + + | Phone | Unavailable | + + + Support + + +---------+ + | Name | Relationship | Address | Phone | + + +---------+ + | Fidel Holm | ECON | Unknown | | + + +---------+ + Care Team Providers + +------+ + | Care Torch Cutter Name | Role | Phone | + +------+ + | Jacqueline Nuñez | PCP | | + +------+ + Encounter Details +--------+ + + + + | Date | Type | Department | Care Team | Description | +--------+ + + + + | 08/05/ | Procedure | [facility] | | | | 2019 | Pass | [facility] | | | | | | and Healing Surgery | | | | | | Center Admitting | | | | | | Desk Located on the | | | | | | 4th floor [address] | | | | | | [place], | | | | | | [place] [address] | | | +--------+ + + + [...]
--- OUTSIDE RECORDS SUMMARY | ~2019-03-03 | XMS | Encounter Summary ---
Demographics + + + | Address | [address] | | | [place] [address] | + + + | Home Phone | | + + + | Preferred Language | Unknown | + + + | Marital Status | | + + + | Roman Catholic Affiliation | 1001 | + + + | Race | Unknown | + + + | Ethnic Group | Unknown | + + + Author + + + | Author | [facility] | | | and [place] | + + + | Organization | [facility] | | | and [...] [place] | | | | | [address] | | + + + + + | Angelika Holm | ECON | Unknown | | + + + + + Care Team Providers + +------+ + | Care Copying Machine Mechanic Name | Role | Phone | [...] | Specialty | Physical | Diagnoses | Андрей, | Yris, | | | Services | Medicine and | Cervicalgia | Luis Storey, | Andrea Scott MD | | | Required | Rehabilitatio | S/P | PA-C [address] | | | n | cervical | [address] | [place] | | | | | spinal | [address] | [place], [place] | | | | | fusion | [place], | [address] Phone: | | | | | | [place] [address] | [phone] | | | | | | Phone: | Fax: | | | | | | [phone] | [phone] | | | | | | Fax: | | | | | | | [phone] | | +--------+ + + + + + Reason for Visit + + + | Reason | Comments | + + + | Follow-up, Office | | | Visit | | + + + | Follow-up | Injections | + + + Encounter Details +--------+ + + + + | Date | Type | Department | Care Team | Description | +--------+ + + + + | 07/28/ | Telephone | [facility] | Donald Reich MD | Follow-up, Office | | 2017 | | NEUROSURGERY [address] | [address] | Visit; Follow-up | | | | [address] | [place] [address] | (Injections) | | | | [place] | [phone] | | | | | [address] | | | | | | [phone] | | | +--------+ + + + [...] as of this encounter Plan of Treatment +-------+ +--------+ + + | Name | Type | Priori | Associated Diagnoses | Order Schedule | | | | ty | | | +-------+ +--------+ + + | RAMON | Outpatient | Routin | Cervicalgia S/P | Ordered: 11/12/2016 | | | Referral | e | cervical spinal | | | | | | fusion | | +-------+ +--------+ + + documented as of this encounter Visit Diagnoses + + | Diagnosis | + + | Cervicalgia - Primary | + + | S/P cervical spinal fusion Arthrodesis status | + + documented in this encounter"
--- OUTSIDE RECORDS SUMMARY | ~2019-03-03 | XMS | Encounter Summary ---
Demographics + + + | Address | [address] | | | [place] [address] | + + + | Home Phone | | + + + | Preferred Language | Unknown | + + + | Marital Status | | + + + | Caodaism Affiliation | 1001 | + + + | Race | Unknown | + + + | Ethnic Group | Unknown | + + + Author + + + | Author | [facility] | | | and [place] | + + + | Organization | [facility] | | | and [place] [...] [place] | | | | | [address] | | + + + + + | Angelika Holm | ECON | Unknown | | + + + + + Care Team Providers + +------+ + | Care Deportation Examiner Name | Role | Phone | + [...] | +--------+ + + + + | 07/06/ | Telephone | [facility] [place] | Donald Reich MD | Imaging Only | | 2017 | | NEUROSURGERY [address] | [address] | | | | | [address] | [place] [address] | | | | | [place] | [phone] | | | | | [address] | | | | | | [phone] | | | +--------+ + + + [...]
--- OUTSIDE RECORDS SUMMARY | ~2019-03-03 | XMS | Encounter Summary ---
Demographics + + + | Address | [address] | | | [place] [address] | + + + | Home Phone | | + + + | Preferred Language | Unknown | + + + | Marital Status | | + + + | Advent Affiliation | 1001 | + + + | Race | Unknown | + + + | Ethnic Group | Unknown | + + + Author + + + | Author | [facility] | | | and [place] | + + + | Organization | [facility] | [...] [place] | | | | | [address] | | + + + + + | Angelika Holm | ECON | Unknown | | + + + + + Care Team Providers + +------+ + | Care Sheet Metal Work Furnace Installer Name | Role | Phone | + +------+ + | Alec Tao MD | PCP | | + +------+ + Encounter Details +--------+ + + + + | Date | Type | Department | Care Team | Description | +--------+ + + + + | // | Hospital | [facility] | [place] | Cervical | | 2016 | Encounter | MED CTR XRAY [address] | radiculopathy; S/P | | | | [place] | [address] | cervical spinal | | | | [place] [address] | [place] [address] | fusion | | | | [phone] | [phone] | | | | | | | [...] + + + +---------+ + + | [place] 3-6-9 Fatty | Take 2 tablets by [...] XR CERVICAL SPINE 2 | Routin | 06/07/2015 | Cervical | Results for this | | [place] 3 VIEWS | e | 8:44 AM | radiculopathy S/P | procedure are in the | | | | PST | cervical spinal | results section. | | | | | fusion | | + +--------+ + + + documented in this encounter Results XR Cervical Spine 2 or 3 Views (06/07/2015 8:44 AM PST) + + | Specimen | + + | | + + + + + | Narrative | Performed At | + + + | XR CERVICAL SPINE 2 OR 3 VIEWS 06/07/2015 8:44 AM HISTORY: Postop. | [facility] | | COMPARISON: Multiple priors. FINDINGS: Visualized skull base | [facility] | | and facial structures demonstrate no acute findings. Prevertebral | [facility] | | soft tissues are normal. There is stable hardware for anterior | - IMAGING | | fusion from C4 through C7 [...] nuchae at level | | | C5. Visualized upper chest demonstrates no acute findings. | | | IMPRESSION - Stable anterior fusion from C4 through C7. Dictated | | | and Signed by: Maurice Rizzo MD Electronically signed: 06/07/2015 | | | 9:34 AM | | + + + + + | Procedure Note | + + | Farhan, Rad Results In - 06/07/2015 9:38 AM PST XR CERVICAL SPINE 2 OR 3 VIEWS 06/07/2015 | | 8:44 AMHISTORY: Postop.COMPARISON: Multiple priors.FINDINGS:Visualized skull base and | | facial structures demonstrate no acute findings.Prevertebral soft tissues are | | normal.There is stable hardware for anterior fusion from C4 through C7 with | | interbodygraft material at these levels. The hardware are intact. Bone mineralization | | isnormal. The dens is normal. Vertebral body height are preserved with no evidencefor | | compression fractures. Disc height are maintained. Facet joints are intact.There is | | ossification of the ligamentum nuchae at level C5. Visualized upperchest demonstrates no | | acute findings. IMPRESSION -Stable anterior fusion from C4 through C7.Dictated and | | Signed by: Maurice Rizzo MD Electronically signed: 06/07/2015 9:34 AM | |There is stable hardware for anterior fusion from C4 through C7 with interbody | |graft material at these levels. The hardware are intact. Bone mineralization is | |normal. The dens is normal. Vertebral body height are preserved with no evidence | |for compression fractures. Disc height are maintained. Facet joints are intact. | |There is ossification of the ligamentum nuchae at level C5. Visualized upper | |chest demonstrates no acute findings. | | | |IMPRESSION - | |Stable anterior fusion from C4 through C7. | | | |Dictated and Signed by: Maurice Rizzo MD | | Electronically signed: 06/07/2015 9:34 AM | + + + + + + + | Performing | Address | City[facility] | Phone Number | | Organization | | | | + + + + + | [facility] | [address] | [place] | [phone] | | [facility] | | [address] | | | - IMAGING | | | | + + + + + documented in this encounter Visit Diagnoses + + | Diagnosis | + + | Cervical radiculopathy Brachial neuritis or radiculitis nos | + + | S/P cervical spinal fusion Arthrodesis status | + + documented in this encounter"
--- OUTSIDE RECORDS SUMMARY | ~2019-03-03 | XMS | Encounter Summary ---
Demographics + + + | Address | [address] | | | [place] [address] | + + + | Home Phone [...] Team Providers + +------+ + | Care Commercial Escrow Officer Name | Role | Phone | + +------+ + | Jacqueline Nuñez | PCP | | + +------+ + Encounter Details +--------+ + + + + | Date | Type | Department | Care Team | Description | +--------+ + + + + | 08/15/ | MyChart | Otolaryngology | Qasim Casanova MD | RE: Stitches from | | 2019 | Encounter | Facial Plastics & | [address] | surgery | | | | Reconstructive | [place] [address], | | | | | Services at [facility] | [place] [address] | | | | | [address] | [phone] | | | | | Mailcode: CH5E | | | | | | [facility] | | | | | | and Healing, | | | | | | Building [address], [address]th | | | | | | Floor [place], [place] | | | | | | [address] | | | | | | [phone] | | | +--------+ + + + [...]
--- OUTSIDE RECORDS SUMMARY | ~2019-03-03 | XMS | Encounter Summary ---
Demographics + + + | Address | [address] | | | [place] [address] | + + + | Home Phone | | + + + | Preferred Language | Unknown | + + + | Marital Status | | + + + | Mosque Affiliation | 1001 | + + + | Race | Unknown | + + + | Ethnic Group | Unknown | + + + Author + + + | Author | [facility] | | | and [place] | + + + | Organization | [facility] | | | and [...] [place] | | | | | [address] | | + + + + + | Angelika Holm | ECON | Unknown | | + + + + + Care Team Providers + +------+ + | Care Suction Dredge Dumping Supervisor Name | Role | Phone | [...] | | [address] | [place] [address] | | | | | [place] | [phone] | | | | | [address] | | | | | | [phone] | | | +--------+ + + + [...]
--- OUTSIDE RECORDS SUMMARY | ~2019-03-03 | XMS | Encounter Summary ---
Demographics + + + | Address | [address] | | | [place] [address] | + + + | Home Phone [...] Team Providers + +------+ + | Care Rn First Assistant Name | Role | Phone | + +------+ + | Jacqueline Nuñez | PCP | | + +------+ + Reason for Visit + + + | Reason | Comments | + + + | Postoperative visit | | + + + Encounter Details +--------+---------+ + + + | Date | Type | Department | Care Team | Description | +--------+---------+ + + + | 08/11/ | Office | Otolaryngology | Qasim Casanova MD | Velopharyngeal | | 2019 | Visit | Facial Plastics & | [address] | insufficiency, | | | | Reconstructive | [address] [place], | acquired (Primary | | | | Services at [facility] | [place] [address] | Dx) | | | | [address] | [phone] | | | | | Mailcode: CH5E | | | | | | [facility] | | | | | | and Healing, | | | | | | Building 1, 5th | | | | | | Floor [place], [place] | | | | | | [address] | | | | | | [phone] | | | +--------+---------+ + + + [...] encounter Progress Notes Qasim Casanova MD - 08/11/2018 4:00 PM PDTClinic: Facial Plastic and Reconstructive Surgery daryl Holm is a 58 y.o. female who returns for 6-day followup from superiorly based pharyngeal flap, done on 08/05/2018. She had some soreness of her neck, lip and tongue, no pain. She also endorses residual nasa l congestion but otherwise has recovered well. She noticed immediate improvement to her speech and is tolerating soft diet well. My examination confirms satisfactory healing process. Incisions healing well on posterior pharyngeal wall and flap is intact. Discussed routine saline rinses and observation of septal perforation with Dr. Nicko Mccoy. All questions were answered today. Advised she is candidate for surgical repair of her sep martin perforation if her insurance will authorize. Followup arranged for PRN. Signed: Ken Torres (scribe for Dr. Casanova) I have reviewed and verified the above scribed note of my visit with this patient as record ed by Ken Torres. Qasim Casanova MD FACS Professor Facial Plastic and Reconstructive Surgery Dept. of Otolaryngology/Head and Neck Surgery [facility] tel fax email [email or web address] Jimy douglass in this encounter Plan of Treatment Not on filedocumented as of this encounter Visit Diagnoses + + | Diagnosis | + + | Velopharyngeal insufficiency, acquired - Primary Other and unspecified diseases of | | the oral soft tissues | + + documented in this encounter"
--- OUTSIDE RECORDS SUMMARY | ~2019-03-03 | XMS | Encounter Summary ---
Demographics + + + | Address | [address] | | | [place] [address] | + + + | Home Phone | | + + + | Preferred Language | Unknown | + + + | Marital Status | | + + + | Latter-Day Affiliation | NON | + + + | Race | White | + + + | Ethnic Group | Not or | + + + Author + + + | Author | [facility] | + + + | Organization | [facility] | + + + | Address | Unknown | + + + | Phone | Unavailable | + + + Support + + +---------+ + | Name | Relationship | Address | Phone | + + +---------+ + | Fidel Holm | ECON | Unknown | | + + +---------+ + Care Team Providers + +------+ + | Care Head Start Coordinator Name | Role | Phone | + +------+ + | Jacqueline Nuñez | PCP | | + +------+ + Reason for Visit + + + | Reason | Comments | + + + | New patient | | | consultation | | + + + Consultation (Routine) [...] | | | | | | | [facility] | | | | | | | for Health | | | | | | | and Healing, | | | | | | | Building 1, | | | | | | | 5th Floor | | | | | | | [place], [place] | | | | | | | [address] | | | | | | | Phone: | | | | | | | [phone] | | | | | | | Fax: | | | | | | | [phone] | + +--------+ + + + + Encounter Details +--------+---------+ + + + | Date | Type | Department | Care Team | Description | +--------+---------+ + + + | 12/09/ | Office | Otolaryngology | Qasim Casanova MD | Congenital | | 2018 | Visit | Facial Plastics & | [address] | velopharyngeal | | | | Reconstructive | [address] [place], | insufficiency | | | | Services at [facility] | [place] [address] | (Primary Dx); Nasal | | | | [address] | [phone] | obstruction; Injury | | | | Mailcode: 5E | | of nose, sequela; | | | | [facility] | | Nasal septal | | | | and Healing, | | deviation; Nasal | | | | Building | | deformity, acquired; | | | | Floor [place], [place] | | Nasal valve | | | | [address] | | collapse; Nasal | | | | [phone] | | septal perforation | +--------+---------+ + + + Social History [...] encounter Progress Notes Qasim Casanova MD - 12/09/2017 11:00 AM PDT Clinic: Facial Plastic and Reconstructive Surgery Clinic Cathy Holm is a 57 y.o. female presents with history of cleft palate. This patient is referred by Nicko Mccoy MD [address] [place] [address] Mccoy were carefully reviewed and greatly appreciated. Patient indicates she underwent tonsillectomy (for tonsilloliths) on 04/30/17 and developed difficulties with speech and nasal regurgitation. She did have Kenalog injections to soften scarring after tonsillectomy but there was no improvement to symptoms. History of cleft palate repair and revision as infant/child. She completed speech therapy a nd has no issues until recent tonsil surgery. She was noted to have a septal perforation by history, and has a history of nasal crusting that she picks routinely out. She has some nasal obstruction, worse on the left side. Prior nasal injury from playing volleyball in school in adolescence. She notes epistaxis fo llowing trauma with diminished right sided breathing capacity. No prior nasal surgery. No history of seasonal nasal allergies. She does not use nasal sprays or rinses, but uses V icks ointment inside the nose. She has no history of MRSA infection and is otherwise healthy. She came in with her daughter from [place]. Nasal Obstruction Symptom Evaluation (NOSE Scale) Time frame: Preoperative 1. Nasal congestion or stuffiness: 2 2. Nasal blockage or obstruction: 1 3. Trouble breathing through my nose: 1 4. Trouble sleepin 5. Unable to get enough air through my nose during exercise or exertion: 1 TOTAL = 6 x 5 = 30 Review of Systems negative for following: Asthma / Lung disease; Arthritis; Anemia; Bleeding disorder; Diabetes; Dizziness; Cancer; Cough; Chronic pain; Depression Heart disease; High blood pressure; Heartburn / Reflux; Headaches; High cholesterol; Kidney disease; Liver disease (hepatitis); Menopause; Nose bleeds; Seizures; Stroke; Tuberculosis (TB); Positive for: none No past medical history on file. No past surgical history on file. No current outpatient prescriptions on file. Social History Substance Use Topics Smoking status: Not on file Smokeless tobacco: Not on file Alcohol use Not on file Social History Narrative None on file Exam: Intraoral exam shows repaired posterior palate with shortened palate. No visible tonsils. Class 1 occlusion. Intraoral mucosa normal. FOM normal. NOSE: Upper third (nasal bones): straight. Length of the nasal bones is short. Middle third: straight. Upper lateral cartilages are intact. Foreceful inspiration reveals mild collapse of the left and right nasal sidewall(s). Modified Roberts maneuver is (-) left side and (+) right side. Dorsum on profile demonstrates mild dorsal convexity. Nasal tip skin is medium thickness. Nasal tip is midline. Tip: Tip support is decreased, rotation is decreased, projection is increased. Base view shows fairly symmetric nostrils. Septum: Caudal septum is midline on inspection and palpation. Anterior rhinoscopy reveals left posterior septal deflection and midseptal perforation 5 mm diameter with clean edges measuring approximately 5mm. Turbinates: bilateral normal. Procedure: Flexible fiberoptic nasoendoscopy for speech evaluation. After application of ph enylephrine and lidocaine to the nose, flexible fiberoptic laryngoscope was passed on the le ft side. With the scope positioned in the nasopharynx to visualize the palate and pharynx mo vement, speech was analyzed using phrases emphasizing plosives, fricatives, and sibilants. There was lateral movement bilaterally of the pharyngeal wall but a gap in central aspect, with movement at .6 bilaterally and .5 anterior posterior. Also noted were anterior septal perforation and posterior septal deviation to the left. Impression: History of cleft palate with VPI. Bilateral nasal obstruction due to septal dev iation, septal perforation and nasal valve collapse. Plan: We discussed surgical correction of VPI with pharyngeal flap. We also discussed closu re of septal perforation with septal button or with surgery to improve nasal obstruction wit h septorhinoplasty to straighten the septum, repair of septal perforation with AlloDerm zhao t, and butterfly graft to reinforce the nasal valves and increase nasal tip support and rota tion (rhinoplasty) in order to improve nasal airway. Discussed risk of nasal collapse should the perforation be untreated and continue to enlarge. Patient prefers surgical repair of p erforation. I do not plan to change the appearance of the patient's nose in any significant way. We dis cussed a functional, non-cosmetic nasal reconstruction. Advised routine saline irrigations to keep internal nasal membranes moist and perforation c lean. Risks discussed include but are not limited to: infection, bleeding, scar, continued septal perforation, persistent or worsened nasal obstruction, cosmetic deformity, asymmetry, scar being more noticeable, no guarantee of functional/cosmetic outcome, need for future surgical procedures, persistent or worsened nasal air leak (VPI), and other unforseen complications. All questions answered. Photos obtained today. She will let us know if and when she is re steve to proceed. Time spent with patient/family, reviewing studies/records >50 minutes, with >50 % of time s pent in consultation and coordination of care. Signed: Ken Torres (scribe for Dr. Casanova) I have reviewed and verified the above scribed note of my visit with this patient as record ed by Ken Torres. Qasim Casanova MD FACS Professor Facial Plastic and Reconstructive Surgery Dept. of Otolaryngology/Head and Neck Surgery [facility] [place] tel fax email [email or web address] in this encounter Plan of Treatment Not on filedocumented as of this encounter Procedures + +--------+ + + + | Procedure Name | Priori | Date/Time | Associated Diagnosis | Comments | | | ty | | | | + +--------+ + + + | PROCEDURE NOTE | Routin | 12/13/2017 | | Results for this | | | e | 2:44 PM | | procedure are in the | | | | PDT | | results section. | + +--------+ + + + documented in this encounter Results PROCEDURE NOTE (12/13/2017 2:44 PM PDT)documented in this encounter Visit Diagnoses + + | Diagnosis | + + | Congenital velopharyngeal insufficiency - Primary Other specified congenital anomaly | | of pharynx | + + | Nasal obstruction Other diseases of nasal cavity and sinuses | + + | Injury of nose, sequela | + + | Nasal septal deviation Deviated nasal septum | + + | Nasal deformity, acquired Acquired deformity of nose | + + | Nasal valve collapse Other diseases of nasal cavity and sinuses | + + | Nasal septal perforation Other diseases of nasal cavity and sinuses | + + documented in this encounter"
--- OUTSIDE RECORDS SUMMARY | ~2019-03-03 | XMS | Clinical Summary ---
Demographics + + + | Address | [address] | | | [place] [address] | + + + | Home Phone | | + + + | Preferred Language | Unknown | + + + | Marital Status | | + + + | Scientologist Affiliation | 1001 | + + + | Race | Unknown | + + + | Ethnic Group | Unknown | + + + Author + + + | Author | [facility] | | | and [place] | + + + | Organization | [facility] | | | and [place] | [...] [place] | | | | | [address] | | + + + + + | Angelika Holm | ECON | Unknown | | + + + + + Care Team Providers + +------+ + | Care Flavoring Machine Operator Name | Role | Phone [...] | | + + + +---------+------+------+-------+ | [place] 3-6-9 Fatty | Take 2 tablets by [...] | + +------+--------+ +--------+--------+--------+ | Allograft Lordotic [id number] - | | Anteri | [facility]OR | | 09/20/ | [id number] | | [id number]: Qty: 1 on | | or: | DANEK - DIV | | 2017 | | | 05/10/2015 by Donald Reich, | | Spine | [employer] | | | /[id number] | | MD at [facility] | | Lianne | - SFDK | | | 835 | | [facility] | | al | | | | /[id number] | | | | | | | | 6134 | + +------+--------+ +--------+--------+--------+ | Allograft Lordotic [id number] - | | Anteri | [facility] | | 09/20/ | [id number] | | [id number]: Qty: 1 on | | or: | DANEK - DIV | | 2017 | | | 05/10/2015 by Donald Reich, | | Spine | [employer] | | | /[id number] | | at [facility] | | Cervic | - SFDK | | | 834 | | [facility] | | al | | | | /[id number] | | | | | | | | 6134 | + +------+--------+ +--------+--------+--------+ | Allograft Lordotic [id number] - | | Anteri | [facility] | | 08/21/ | [id number] | | [id number]: Qty: 1 on | | or: | DANEK - DIV | | 2018 | | | 05/10/2015 by Donald Reich, | | Spine | [employer] | | | /[id number] | | at [facility] | | Cervic | - SFDK | | | 384 | | [facility] | | al | | | | /[id number] | | | | | | | | 6314 | + +------+--------+ +--------+--------+--------+ | Nhan Whitingn Pls 1cc Aseptic | | Anteri | OSTEOTECH - | | 10/08/ | [id number] | | - [id number]: Qty: | | or: | OSTT | | 2017 | | | 1 on 05/10/2015 by Damir, | | Spine | | | | /[id number] | | Donald Sebastian MD at [facility] | | Cervic | | | | 3-095 | | [facility] | | al | | | | / | + +------+--------+ +--------+--------+--------+ | Screw D-Thrd Slf-Drl 3.5x15mm | | Anteri | [facility] | | | [id number] | | - [id number]: Qty: 6 | | or: | DANEK - DIV | | | 5 / / | | on 05/10/2015 by Donald Reich | | Spine | [employer] | | | | | MD Romulo at [facility] | | Lianne | - SFDK | | | | | [facility] | | al | | | | | + +------+--------+ +--------+--------+--------+ | Screw D-Thrd Slf-Drl 4.0x15mm | | Anteri | [facility]OR | | | [id number] | | - [id number]: Qty: 2 | | or: | DANEK - DIV | | | 5 / | | on 05/10/2015 by Donald Reich | | Spine | [employer] | | | | | MD Romulo at [facility] | | Cervic | - SFDK | | | | | [facility] | | al | | | | | + +------+--------+ +--------+--------+--------+ | Imp Spn Plt Samy Johnston 55mm 3lvl | | Anteri | [facility] | | | [id number] | | - [id number]: Qty: 1 | | or: | DANEK - DIV | | | 5 / / | | on 05/10/2015 by Donald Reich | | Spine | [employer] | | | | | MD Romulo at [facility] | | Cervic | - SFDK | | | | | [facility] | | al | | | | [...] +--------+ +--------+-------+---------+------+ | BCBS | BCBS | [id number] | 04/05/19 | | | PPO | | | OOS | 8 | 17-Pre | | | | | | PPO | | sent | | | | + +--------+ +--------+-------+---------+------+ | [employer] | ALLEGI | [id number] | | | | PPO | | [...] | | al/Fam | | 1959 | [phone] | [place] [address] | | | [address] | | | 2 (Home) | | | | | | | [phone] | | | | | | | 0 (Work) | | + +--------+ +--------+ + + Advance Directives + + + + + | Type | Date Recorded | Patient | Explanation | | | | Medical Affairs Manager | | + + + + + | Power of | | | | | Core Blower Operator | | | | + + + [...]
--- OUTSIDE RECORDS SUMMARY | ~2019-03-03 | XMS | Encounter Summary ---
Demographics + + + | Address | [address] | | | [place] [address] | + + + | Home Phone | | + + + | Preferred Language | Unknown | + + + | Marital Status | | + + + | Confucianism Affiliation | 1001 | + + + | Race | Unknown | + + + | Ethnic Group | Unknown | + + + Author + + + | Author | [facility] | | | and [place] | + + + | Organization | [facility] | | | and [place] [...] [place] | | | | | [address] | | + + + + + | Angelika Holm | ECON | Unknown | | + + + + + Care Team Providers + +------+ + | Care Aerodynamics Engineer Name | Role | Phone | [...] + | 11/18/ | Telephone | [facility] | Donald Reich MD | Appointment Question | | 2017 | | NEUROSURGERY [address] | [address] | | | | | [facility] [address] | [place] [address] | | | | | [place] | [phone] | | | | | [address] | | | | | | [phone] | | | +--------+ + + + [...]
--- OUTSIDE RECORDS SUMMARY | ~2019-03-03 | XMS | Encounter Summary ---
Demographics + + + | Address | [address] | | | [place] [address] | + + + | Home Phone | | + + + | Preferred Language | Unknown | + + + | Marital Status | | + + + | Shinto Affiliation | 1001 | + + + | Race | Unknown | + + + | Ethnic Group | Unknown | + + + Author + + + | Author | [facility] | | | and [place] | + + + | Organization | [facility] | | | and [place] [...] [place] | | | | | [address] | | + + + + + | Angelika Holm | ECON | Unknown | | + + + + + Care Team Providers + +------+ + | Care Stonecutter Apprentice Hand Name | Role | Phone | [...] | | | | with | [facility] | | | | myelopathy | | [phone] | | | | | Cervical | | Phone: | | | | | arthritis | | [phone] | | | | | with | | Fax: | | | | | myelopathy | | [phone] | | | | | [M47.12] | | | | | | | Procedures | | | | | | | OR | | | | | | | [...] | +--------+ + + + + | 05/10/ | Hospital | [facility] | Donald Reich MD | | | 2016 - | Encounter | MED CTR SURGICAL | [address] | | | | | [address] | [place] [address] | | | 05/11/ | | [place] [address] | [phone] | | | 2015 | | [phone] | | | +--------+ + + + [...] note might be different from raf beard. [facility] DISCHARGE SUMMARY Patient Name: Cathy Holm Patient [...] tablet Take 1 tablet by mouth Daily. [place] 3-6-9 Fatty Acids (TRIPLE OMEGA COMPLEX PO) [...] Care Everywhere.CERVICAL FUSION , DISCHARGE INSTRUCTIONS FOR (UPPER SORBIAN)documented in this encounter Medications at Time of [...] + + + +---------+ + + | [place] 3-6-9 Fatty | Take 2 tablets by [...] | 90 | 3 | 05/11/19 | | | (ZANAFLEX) 4 mg | mouth [...] | | | + +--------+ +--------+------+------+ | docusate sodium (COLACE) | Given | 05/11/19 | 100 mg | | | | capsule 100 mg 100 mg, Oral, | | 16 9:40 | | | | | TIMES DAILY, First dose on Fri | | AM PST | | | | | 05/10/15 at 2100, First line agent | | | | | | | for constipation, Post-op/Phase | | | | | | | II | | | | | | + +--------+ +--------+------+------+ +-------+ +--------+---+---+ | Given | 05/10/19 | 100 mg | | | | | 16 10:20 | | | | | | PM PST | | | | +-------+ +--------+---+---+ +---+---+ | | | +---+---+ + +-------+ +--------+---+---+ | fentaNYL injection 25-50 mcg | Given | 05/10/19 | 25 mcg | | | | 25-50 mcg, Intravenous, EVERY 5 | | 16 2:36 | | | | | MIN PRN, Pain, Starting Fri | | PM PST | | | | | 05/10/15 at 1417, Maximum total | | | | | | | dose 250 mcg. PACU IV Narcotic | | | | | | | Priority: Only use fentanyl for | | | | | | | immediate post-op pain (one dose) | | | | | | | or breakthrough pain when any | | | | | | | other IV narcotics ordered have | | | | | | | been ineffective (if ordered). | | | | | | | If both morphine and | | | | | | | hydromorphone are ordered, use | | | | | | | morphine first, and use | | | | | | | hydromporphone if morphine | | | | | | | ineffective., Recovery/Phase I | | | | | | + +-------+ +--------+---+---+ + + +--------+---+---+ | Given by Other | 05/10/19 | 25 mcg | | | | | 16 2:32 | | | | | | PM PST | | | | + + +--------+---+---+ +---+---+ | | | +---+---+ + +-------+ +--------+---+---+ | gabapentin (NEURONTIN) capsule | Given | 05/11/19 | 300 mg | | | | 300 mg 300 mg, Oral, 3 TIMES | | 16 9:40 | | | | | DAILY, First dose on Wed05/10/15 | | AM PST | | | | | at 1630, Post-op/Phase II | | | | | | + +-------+ +--------+---+---+ +-------+ +--------+---+---+ | Given | 05/10/19 | 300 mg | | | | | 16 10:20 | | | | | | PM PST | | | | +-------+ +--------+---+---+ | Given | 05/10/19 | 300 mg | | | | | 16 4:46 | | | | | | PM PST | | | | +-------+ +--------+---+---+ +---+---+ | | | +---+---+ + +-------+ + +---+---+ | HYDROcodone-acetaminophen | Given | 05/11/19 | 1 tablet | | | | (NORCO) 10-325 mg per tablet 1-2 | | 16 7:11 | | | | | tablet 1-2 tablet, Oral, EVERY 4 | | AM PST | | | | | HOURS PRN, Pain, Starting Fri | | | | | | | 05/10/15 at 1602, If ineffective or | | | | | | | not tolerated use Oxycodone if | | | | | | | ordered., Post-op/Phase II | | | | | | + +-------+ + +---+---+ +-------+ + +---+---+ | Given | 05/10/19 | 1 tablet | | | | | 16 10:20 | | | | | | PM PST | | | | +-------+ + +---+---+ +---+---+ | | | +---+---+ + +-------+ +---------+---+---+ | HYDROmorphone (DILAUDID) | Given | 05/10/19 | 0.25 mg | | | | injection 0.2-0.5 mg 0.2-0.5 mg, | | 16 3:06 | | | | | Intravenous, EVERY 5 MIN PRN, | | PM PST | | | | | Pain, Starting Wed05/10/15 at | | | | | | | 1417, Maximum total dose 4 mg. | | | | | | | PACU IV Narcotic Priority: Only | | | | | | | use fentanyl for immediate | | | | | | | post-op pain (one dose) or | | | | | | | breakthrough pain when any other | | | | | | | IV narcotics ordered have been | | | | | | | ineffective (if ordered). If | | | | | | | both morphine and hydromorphone | | | | | | | are ordered, use morphine first, | | | | | | | and use hydromporphone if | | | | | | | morphine ineffective., | | | | | | | Recovery/Phase I | | | | | | + +-------+ +---------+---+---+ + + +---------+---+---+ | Given | 05/10/19 | 0.25 mg | | | | | 16 2:51 | | | | | | PM PST | | | | + + +---------+---+---+ | Given by Other | 05/10/19 | 0.25 mg | | | | | 16 2:45 | | | | | | PM PST | | | | + + +---------+---+---+ +---+---+ | | | +---+---+ + +---------+ +--------+-------+---+ | lactated ringers (LR) infusion | New Bag | 05/10/19 | 1,000 | 100 | | | at 100 mL/hr, Intravenous, | | 16 2:35 | mLs | mL/hr | | | CONTINUOUS, Starting 05/10/15 | | PM PST | | | | | at 1015, Pre-op | | | | | | + +---------+ +--------+-------+---+ +---------+ +--------+-------+---+ | New Bag | 05/10/19 | 1,000 | 100 | | | | 16 10:31 | mLs | mL/hr | | | | AM PST | | | | +---------+ +--------+-------+---+ +---+---+ | | | +---+---+ + +---------+ +--------+--------+---+ | methocarbamol (ROBAXIN) 750 mg | New Bag | 05/10/19 | 750 mg | 143.3 | | | in sodium chloride 0.9% 100 mL | | 16 4:48 | | mL/hr | | | IVPB 750 mg, Intravenous, | | PM PST | | | | | Administer over 45 Minutes, EVERY | | | | | | | 8 HOURS (3 times per day), First | | | | | | | dose on Wed05/10/15 at 1630, For | | | | | | | 4 doses, Post-op/Phase II | | | | | | + +---------+ +--------+--------+---+ +---+---+ | | | +---+---+ + +---------+ +--------+--------+---+ | methocarbamol (ROBAXIN) 750 mg | New Bag | 05/11/19 | 750 mg | 143.3 | | | in sodium chloride 0.9% 100 mL | | 16 10:38 | | mL/hr | | | IVPB 750 mg, Intravenous, | | AM PST | | | | | Administer over 45 Minutes, EVERY | | | | | | | 8 HOURS (3 times per day), First | | | | | | | dose (after last modification) | | | | | | | on 05/11/15 at 0100, For 3 | | | | | | | doses, Post-op/Phase II | | | | | | + +---------+ +--------+--------+---+ +---------+ +--------+--------+---+ | New Bag | 05/11/19 | 750 mg | 143.3 | | | | 16 12:33 | | mL/hr | | | | AM PST | | | | +---------+ +--------+--------+---+ +---+---+ | | | +---+---+ + +-------+ +---------+---+---+ | phenol-menthol (CEPASTAT) | Given | 05/11/19 | 1 | | | | lozenge 1 lozenge 1 lozenge, | | 16 7:11 | lozenge | | | | Buccal, EVERY 2 HOURS PRN, Pain, | | AM PST | | | | | Starting 05/10/15 at 1602, | | | | | | | Post-op/Phase II | | | | | | + +-------+ +---------+---+---+ +-------+ +---------+---+---+ | Given | 05/10/19 | 1 | | | | | 16 10:37 | lozenge | | | | | PM PST | | | | +-------+ +---------+---+---+ | Given | 05/10/19 | 1 | | | | | 16 6:37 | lozenge | | | | | PM PST | | | | +-------+ +---------+---+---+ +---+---+ | | | +---+---+ + +---------+ +---------+---+ + | scopolamine (TRANSDERM-SCOP) 1 | Patch | 05/10/19 | 1 patch | | Ear-Behi | | mg/3 days 1 patch 1 patch, | Applied | 16 10:50 | | | nd Left | | Transdermal, EVERY 72 HOURS, | | AM PST | | | | | First dose on Wed05/10/15 at 1100, | | | | | | | Each patch contains 1.5 mg and | | | | | | | is designed to deliver 1 mg over | | | | | | | 3 days. DO NOT CUT patch. (If | | | | | | | patch needed, use occlusive | | | | | | | dressing to expose only of | | | | | | | patch to skin.), Pre-op | | | | | | + +---------+ +---------+---+ + +---+---+ | | | +---+---+ + +-------+ +--------+---+---+ | senna (SENOKOT) tablet 8.6 mg | Given | 05/11/19 | 8.6 mg | | | | 8.6 mg, Oral, 2 TIMES DAILY PRN, | | 16 9:40 | | | | | Constipation, Starting Wed05/10/15 | | AM PST | | | | | at 1602, If docusate ineffective | | | | | | | or not ordered, Post-op/Phase II | | | | | | + +-------+ +--------+---+---+ +---+---+ | | | +---+---+ + +---------+ +---+-------+---+ | sodium chloride 0.9% (NS) | New Bag | 05/10/19 | | 100 | | | infusion at 100 mL/hr, | | 16 5:02 | | mL/hr | | | Intravenous, CONTINUOUS, Starting | | PM PST | | | | | 05/10/15 at 1630, | | | | | | | Post-op/Phase II | | | | | | + +---------+ +---+-------+---+ +---+---+ | | | +---+---+ + +-------+ +-------+---+---+ | thyroid (ARMOUR) tablet 60 mg | Given | 05/11/19 | 60 mg | | | | 60 mg, Oral, EVERY OTHER DAY, | | 16 9:40 | | | | | First dose on 05/11/15 at 0900, | | AM PST | | | | | Alternating doses each day, 90 | | | | | | | mg starting 05/10/15, 60 mg | | | | | | | starting 05/11/15 and alternate, | | | | | | + +-------+ +-------+---+---+ +---+---+ | | | +---+---+ + +-------+ +-----+---+---+ | vancomycin 1 g in sodium | Given | 05/10/19 | 1 g | | | | chloride 0.9% 250 mL IVPB 1 g, | | 16 11:57 | | | | | Intravenous, Administer over 60 | | AM PST | | | | | Minutes, Prior to Incision, | | | | | | | Starting 05/10/15 at 0958, For | | | | | | | 1 dose, Administer within 1 hour | | | | | | | of surgical incision. Keep in | | | | | | | refrigerator., Pre-op | | | | | | + +-------+ +-----+---+---+ +---------+ +-----+-------+---+ | New Bag | 05/10/19 | 1 g | 260 | | | | 16 10:59 | | mL/hr | | | | AM PST | | | | +---------+ +-----+-------+---+ +---+---+ | | | +---+---+ + +---------+ +-----+-------+---+ | vancomycin 1 g in sodium | New Bag | 05/10/19 | 1 g | 260 | | | chloride 0.9% 250 mL IVPB 1 g, | | 16 11:13 | | mL/hr | | | Intravenous, Administer over 60 | | PM PST | | | | | Minutes, EVERY 12 HOURS INTERVAL, | | | | | | | First dose on 05/11/15 at | | | | | | | 0000, For 1 dose, Start 12 hours | | | | | | | after previous dose. Last dose | | | | | | | to be given within 24 hours of | | | | | | | surgery end time. Keep in | | | | | | | refrigerator., Post-op/Phase II | | | | | | + +---------+ +-----+-------+---+ +---+---+ | | | +---+---+ documented in this encounter
--- OUTSIDE RECORDS SUMMARY | ~2019-03-03 | XMS | Encounter Summary ---
Demographics + + + | Address | [address] | | | [place] [address] | + + + | Home Phone | | + + + | Preferred Language | Unknown | + + + | Marital Status | | + + + | Protestant Affiliation | 1001 | + + + | Race | Unknown | + + + | Ethnic Group | Unknown | + + + Author + + + | Author | [facility] | | | and [place] | + + + | Organization | [facility] | | | and [...] [place] | | | | | [address] | | + + + + + | Angelika Holm | ECON | Unknown | | + + + + + Care Team Providers + +------+ + | Care Absence Management Consultant Name | Role | Phone | + +------+ + | Alec Tao MD | PCP | | + +------+ + Encounter Details +--------+ + + + + | Date | Type | Department | Care Team | Description | +--------+ + + + + | 03/27/ | Hospital | [facility] | Donald Reich MD | Cervical | | 2015 | Encounter | MED CTR XRAY [address] | radiculopathy; | | | | [place] | [place] [address] | Cervical spondylosis | | | | [place] [address] | [phone] | with myelopathy; | | | | [phone] | | Cervical spinal cord | | | | | Sheldon Galeano MD | compression (HCC); | | | | | [address] | Neck and shoulder | | | | | [place], [place] | pain; 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 COMPARISON: None available. | [facility] | | FINDINGS: Heart size and mediastinal contours are within normal | [facility] | | limits. The lungs are clear, [...] ST. | [address] | [place] | [phone] | | [facility] | | [address] | | | - IMAGING | | [...]
--- OUTSIDE RECORDS SUMMARY | ~2019-03-03 | XMS | Encounter Summary ---
Demographics + + + | Address | [address] | | | [place] [address] | + + + | Home Phone | | + + + | Preferred Language | Unknown | + + + | Marital Status | | + + + | Jewish Affiliation | 1001 | + + + | Race | Unknown | + + + | Ethnic Group | Unknown | + + + Author + + + | Author | [facility] | | | and [place] | + + + | Organization | [facility] | | | and [place] | [...] [place] | | | | | [address] | | + + + + + | Angelika Holm | ECON | Unknown | | + + + + + Care Team Providers + +------+ + | Care Telephony Engineer Name | Role | Phone | [...] [address] | | | | | [address], | [address] [place], [place] | | | | | [place] [address] | [address] | | | | | [phone] | | | +--------+--------+ + + + [...]
--- OUTSIDE RECORDS SUMMARY | ~2019-03-03 | XMS | Encounter Summary ---
Demographics + + + | Address | [address] | | | [place] [address] | + + + | Home Phone | | + + + | Preferred Language | Unknown | + + + | Marital Status | | + + + | Taoist Affiliation | NON | + + + | Race | White | + + + | Ethnic Group | Not or | + + + Author + + + | Author | [facility] | + + + | Organization | [facility] | + + + | Address | Unknown | + + + | Phone | Unavailable | + + + Support + + +---------+ + | Name | Relationship | Address | Phone | + + +---------+ + | Fidel Holm | ECON | Unknown | | + + +---------+ + Care Team Providers + +------+ + | Care Photo Machine Operator Name | Role | Phone [...] | | | | | insufficienc | [place], [place] | [facility] | | | | | y Nasal | [address] | for Health | | | | | septal | Phone: | and Healing, | | | | | perforation | [phone] | Building [address], | | | | | Nasal | Fax: | 3rd Floor | | | | | obstruction | [phone] | [facility] [place] | | | | | Procedures | | [address] | | | | | CT SINUS WO | | Phone: | | | | | CONTRAST | | [phone] | | | | | ROUTINE [place] | | Fax: | | | | | [place] | | [phone] | | | | | SCAN,MAXILLO | | | | | | | FACIAL | | | | | | | AREA,W/O | | | | | | | CONTRAST | | | +--------+--------+ + + + + Reason for Visit Diagnostic Testing (Routine) +--------+--------+ + + + [...] | | | juan [address] | [address] | Mailcode: | | | | | insufficienc | [facility] [place] | [facility] | | | | | y Nasal | [address] | for Health | | | | | septal | Phone: | and Healing, | | | | | perforation | [phone] | Building 1, | | | | | Nasal | Fax: | 3rd Floor | | | | | obstruction | [phone] | [place], [place] | | | | | Procedures | | [address] | | | | | CT SINUS WO | | Phone: | | | | | CONTRAST | | [phone] | | | | | ROUTINE [place] | | Fax: | | | | | [place] | | [phone] | | | | | SCAN,MAXILLO | | | | | | | FACIAL | | | | | | | AREA,W/O | | | | | | | CONTRAST | | | +--------+--------+ + + + + Encounter Details +--------+ + + + + | Date | Type | Department | Care Team | Description | +--------+ + + + + | 02/17/ | Hospital | Radiology/Imaging | Qasim Casanova MD | | | 2018 | Encounter | Lab at [facility] [address] | [address] | | | | | [place]io [place] Mailcode: | [address] [place], | | | | | [facility] | [place] [address] | | | | | Health and Healing, | [phone] | | | | | Building [address], 3rd | | | | | | Floor [place], [place] | | | | | | [address] | | | | | | [phone] | | | +--------+ + + + [...] | + +--------+ + + + | CT SINUS WO CONTRAST | Routin | 02/17/2018 | 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 | | | | | septal perforation | | | | | | Nasal obstruction | | + +--------+ + + + documented in this encounter Results CT SINUS WO CONTRAST ROUTINE (02/17/2018 10:37 AM PST) + + | Specimen | [...] Preliminary: Geronimo Balbuena MD Dictation initiated: Geronimo Balbuena, MD 02/17/2018 10:48 AM | | + [...] | Preliminary: Geronimo Balbuena MD Dictation initiated: Geronimo Balbuena MD 02/17/2018 10:48 | | AM [...]
--- OUTSIDE RECORDS SUMMARY | ~2019-03-03 | XMS | Encounter Summary ---
Demographics + + + | Address | [address] | | | [place] [address] | + + + | Home Phone | | + + + | Preferred Language | Unknown | + + + | Marital Status | | + + + | Advent Affiliation | 1001 | + + + | Race | Unknown | + + + | Ethnic Group | Unknown | + + + Author + + + | Author | [facility] | | | and [place] | + + + | Organization | [facility] | | | and [...] [place] | | | | | [address] | | + + + + + | Angelika Holm | ECON | Unknown | | + + + + + Care Team Providers + +------+ + | Care Bilingual Nanny Name | Role | Phone | + [...] | | [address] | [place] [address] | | | | | [place] | [phone] | | | | | [address] | | | | | | [phone] | | | +--------+ + + + [...] through C7. Osseous fusion is observed from [id number] | | C6. Incomplete fusion is noted [...]
--- OUTSIDE RECORDS SUMMARY | ~2019-03-03 | XMS | Encounter Summary ---
Demographics + + + | Address | [address] | | | [place] [address] | + + + | Home Phone | | + + + | Preferred Language | Unknown | + + + | Marital Status | | + + + | Hindu Affiliation | 1001 | + + + | Race | Unknown | + + + | Ethnic Group | Unknown | + + + Author + + + | Author | [facility] | | | and [place] | + + + | Organization | [facility] | | | and [place] [...] [place] | | | | | [address] | | + + + + + | Angelika Holm | ECON | Unknown | | + + + + + Care Team Providers + +------+ + | Care Engine Repairer Service Name | Role | Phone | + [...] | | [address] | [place] [address] | | | | | [place] | [phone] | | | | | [address] | | | | | | [phone] | | | +--------+ + + + [...]
--- OUTSIDE RECORDS SUMMARY | ~2019-03-03 | XMS | Encounter Summary ---
Demographics + + + | Address | [address] | | | [place] [address] | + + + | Home Phone [...] + + + | Author | [facility] | + + + | Organization | [facility] | + + + | Address | Unknown | + + + | Phone | Unavailable | + + + Support + + +---------+ + | Name | Relationship | Address | Phone | + + +---------+ + | Fidel Holm | ECON | Unknown | | + + +---------+ + Care Team Providers + +------+ + | Care Director Of Women'S Services Name | Role | Phone | + [...] | | | | | | | [place], [place] | | | | | | | [address] | | | | | | | Phone: | | | | | | | [phone] | | | | | | | Fax: | | | | | | | [phone] | + +--------+ + + + + [...] | | | 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 of Otolaryngology/Head and Neck Surgery [facility] tel fax email [email or web address] rafat in this encounter Plan of [...]
--- OUTSIDE RECORDS SUMMARY | ~2019-03-03 | XMS | Encounter Summary ---
Demographics + + + | Address | [address] | | | [place] [address] | + + + | Home Phone | | + + + | Preferred Language | Unknown | + + + | Marital Status | | + + + | Druze Affiliation | 1001 | + + + | Race | Unknown | + + + | Ethnic Group | Unknown | + + + Author + + + | Author | [facility] | | | and [place] | + + + | Organization | [facility] | | | and [...] [place] | | | | | [address] | | + + + + + | Angelika Holm | ECON | Unknown | | + + + + + Care Team Providers + +------+ + | Care Prison Librarian Name | Role | Phone | + [...] Closed | | MRI | Diagnoses | DamirDonald | [facility] | | | | | Acute | [address] | RADIOLOGY | | | | | bilateral | [address] | [address] | | | | | low back | [place], | [address] | | | | | pain with | [place] [address] | [address] | | | | | bilateral | Phone: | [place] | | | | | sciatica | [phone] | [address] | | | | | Procedures | Fax: | Phone: | | | | | MRI Lumbar | [phone] | [phone] | | | | | Spine wo | | Fax: | | | | | Contrast | | [phone] | | | | | Imaging | | | | | | | Requested | | | | | | | 06/07/17 | | | +--------+--------+ + + + + Diagnostic/Screening (Routine) +--------+--------+ + + + + | Status | Reason | Specialty | Diagnoses / | Referred By | Referred To | | | | | Procedures | Contact | Contact | +--------+--------+ + + + + | Closed | | MRI | Diagnoses | Donald Reich | [facility] | | | | | Chronic | [address] | RADIOLOGY | | | | | bilateral | [address] | [address] | | | | | thoracic | [facility], | [address] | | | | | back pain | [place] [address] | [place] | | | | | Procedures | Phone: | [place] | | | | | MRI Thoracic | [phone] | [address] | | | | | Spine wo | Fax: | Phone: | | | | | Contrast | [phone] | [phone] | | | | | Imaging | | Fax: | | | | | Requested | | [phone] | | | | | 06/07/17 | | | +--------+--------+ + + + + Diagnostic/Screening (Routine) +--------+--------+ + + + + | Status | Reason | Specialty | Diagnoses / | Referred By | Referred To | | | | | Procedures | Contact | Contact | +--------+--------+ + + + + | Closed | | MRI | Diagnoses | Donald Reich | [facility] | | | | | Cervical | [address] | RADIOLOGY | | | | | radiculopath | [address] | [address] | | | | | y S/P | [place], | [address] | | | | | cervical | [place] [address] | [place] | | | | | spinal | Phone: | [place] | | | | | fusion | [phone] | [address] | | | | | Procedures | Fax: | Phone: | | | | | MRI Cervical | [phone] | [phone] | | | | | Spine wo | | Fax: | | | | | Contrast | | [phone] | +--------+--------+ + + + + Reason for Visit +--------+ + | Reason | Comments | +--------+ + | Other | Discuss surgery | +--------+ + Encounter Details +--------+---------+ + + + | Date | Type | Department | Care Team | Description | +--------+---------+ + + + | 03/23/ | Office | [facility] [place] | Donald Reich MD | Acute bilateral low | | 2017 | Visit | NEUROSURGERY [address] | [address] | back pain with | | | | [address] | [place] [address] | bilateral sciatica | | | | [place], [place] | [phone] | (Primary Dx); | | | | [address] | | Chronic bilateral | | | | [phone] | | thoracic back pain; | | | | | | Cervical | | | | | | radiculopathy; S/P | | | | | | cervical spinal | | | | | | fusion | +--------+---------+ + + + Social History [...] + + + | Blood Pressure | 144/86 | 03/23/2017 8:31 AM | | | | | PST | | + + + + + | Pulse | 106 | 03/23/2017 8:31 AM | | | | | PST [...] + + + + | Weight | 60 kg (132 lb 4.4 | 03/23/2017 8:31 AM | | | | oz) | PST | | + + + + + | Height | 167.6 cm (5' 6") | 03/23/2017 8:31 AM | | | | | PST | | + + + + + | Body Mass Index | 21.35 | 03/23/2017 8:31 AM | | | | | PST | | + + + + + documented in this encounter Progress Notes Donald Reich MD - 03/23/2017 8:45 AM PSTFormatting of this note might be different from t gavin beard. Donald Reich MD [address] [place] [address], [address] [place], [place] [id number] FAX: NEUROSURGERY FOLLOW-UP CHIEF COMPLAINT: Chief Complaint Patient presents with Other Discuss surgery HISTORY OF PRESENT ILLNESS: The patient is a 57 y.o. female that had a cervical fusion 19 months ago. She returns in office today to discuss her symptoms. She states that her neck a nd shoulder pain has worsened since her prior visits. Her neck pain on the right side and i nto her right shoulder. It is constant and worsens with activity. It radiates down her rig ht shoulder and under her shoulder blade. She has tingling and numbness in her right arm an d hand. She tried a cervical epidural steroid injection, but had no relief. She is here to discuss other options. She also reports low back pain that is increasing and mid thoracic back pain. PAST MEDICAL HISTORY: Past Medical History: Diagnosis Date Acid reflux Bladder problem Cervical radiculopathy 06/20/2014 Hypothyroidism Incontinence Migraine Neck and shoulder pain Numbness and tingling in right hand Thyroid disease Torn rotator cuff PAST SURGICAL HISTORY: Past Surgical History: Procedure Laterality Date Bladder Sling Release 08/26/2013 [facility]. [facility] CERVICAL SPINE SURGERY N/A 05/10/2015 Procedure: C4-5, C5-6, C6-7 Anterior Cervical Discectomy Fusion; Surgeon: Donald Reich MD ; Location: [facility] OR CYSTOCELE REPAIR 1998 ELBOW SURGERY 03/15/2014 Holdne Pearson INCONTINENCE SURGERY 2003 PARTIAL HYSTERECTOMY 1998 RECTOCELE REPAIR 1998 SHOULDER SURGERY 08/17/2013 Holden Pearson JESSE AND BSO 2004 CURRENT MEDICATIONS: Current Outpatient Prescriptions Medication Sig Dispense Refill ARMOUR THYROID 60 MG tablet TK 1 T PO QD 2 Biotin 5000 MCG CAPS Take 5,000 mcg by mouth Daily. cholecalciferol (VITAMIN D-3) 2000 units TABS Take 2,000 Units by mouth Daily. CINNAMON PO Take 2,000 mg by mouth Daily. clobetasol (TEMOVATE) 0.05 % external solution APPLY TO SCALP TWICE DAILY NEEDED 1 Coenzyme Q10 (CO Q-10) 400 MG CAPS Take by mouth Daily. Cranberry 300 MG TABS Take 300 mg by mouth Daily. Terri, Zingiber officinalis, (TERRI PO) Take 1,000 mg by mouth Daily. Ibuprofen (ADVIL PO) Take by mouth. ketoconazole (NIZORAL) 2% shampoo 5 KRILL OIL OMEGA-3 PO Take 350 mg by mouth Daily. MINIVELLE 0.05 MG/24HR APPLY 1 PATCH TO THE SKIN TWICE A WEEK 3 MYRBETRIQ 50 MG ER tablet TK 1 T PO QD 2 Harlem 3-6-9 Fatty Acids (TRIPLE OMEGA COMPLEX PO) Take 2 tablets by mouth Daily. omeprazole (PRILOSEC) 10 mg capsule Take 10 mg by mouth 2 times daily. progesterone (PROMETRIUM) 200 mg capsule Take 200 mg by mouth Daily. propranolol (INDERAL) 20 MG tablet Take 20 mg by mouth 2 times daily. Patient states " cut med in half and takes twice a day" TURMERIC PO Take 700 capsules by mouth Daily. UNABLE TO FIND Apply 1 Application topically 2 times daily. Med Name: Bi-Est No current facility-administered medications for this visit. ALLERGIES: Allergies Allergen Reactions Morphine Nausea And Vomiting Ampicillin Rash Penicillins Rash SOCIAL HISTORY: The patient reports that she quit smoking about 17 years ago. Her smoking use included Cig arettes. She has a 40.00 pack-year smoking history. She has never used smokeless tobacco. Sh leny reports that she drinks about 6.6 oz of alcohol per week . She reports that she does not u se drugs. FAMILY HISTORY: Family History Problem Relation Age of Onset Other (see comment) Father Blood clots Gout Father Heart disease Father Stroke Father Mental illness Mother Seizures Mother Hypertension Mother Dementia Mother Diabetes Paternal Grandmother REVIEW OF SYSTEMS GENERALLY: No fever, + night sweats, no anemia, no fatigue, no recent profound weight rafael nges. EYES: No eye problems, no use of corrective lenses, no eye injury, no double vision, no bl indness. EARS, NOSE, AND THROAT: No changes in taste or smell, no hearing difficulty, no ringing in the ears, no ear drainage, no dizziness, no voice changes, no difficulty swallowing, no sig nificant snoring, no sleep apnea, no sinus problems, no major dental work. NEUROLOGICALLY: Please see the review of systems discussed above in the history of present illness. In addition, the patient has numbness and pain of arms and legs, pain in neck, he adaches. PSYCHIATRIC: No depression, no sleep disorders, no anxiety, no bipolar disorder, no psycho tic episodes. CARDIOVASCULAR: No heart attacks, no heart murmur, no heart fluttering, no chest pain, no ankle swelling. LUNG DISEASE: No shortness of breath, no cough, no tuberculosis, no bloody cough, no asth ma, no emphysema/COPD. GASTROINTESTINAL: No bowel disease, no nausea or vomiting, no rectal bleeding, no constipa tion, no stool incontinence, no liver disease, no gallbladder disease, no abdominal pain, no ulcers. KIDNEY DISEASE: No urinary frequency, no painful or difficult urination, no incontinence. ENDOCRINE: No diabetes, no thyroid disease, no osteopenia or osteoporosis, no breast drain age. SKIN: No breast lumps, no skin changes, no rashes, no itches. HEMATOLOGIC/LYMPHATIC: No enlarged lymph nodes, no easy or unusual bleeding, no personal h istory of cancer. RHEUMATOLOGIC: No joint arthritis, no rheumatoid arthritis. INTERIM PHYSICAL EXAMINATION: Blood pressure 144/86, pulse 106, height 1.676 m (5' 6"), weight 60 kg (132 lb 4.4 oz), not currently . Body mass index is 21.35 kg/m. GENERAL: Cathy Holm is in no acute distress with unlabored respirations. The pat ient does appear uncomfortable throughout the exam today. HEENT: Head: Normocephalic/atraumatic with no areas of recent trauma. Eyes: Normal sclerae without icterus. Ears: No drainage or tenderness. Nasopharnyx: Clear without drainage. Oropharnyx: Clear without erythema. NECK (ANTERIOR): Supple and without palpable masses. CHEST: Clear to ausculation without crackles or wheeze. HEART: Regular rate and rhythm without murmurs. ABDOMEN: Soft, non-tender, non-distended, and without palpable masses. The patient is not obese. SPINE: There is no tenderness in the midline of the cervical spine at the Range of motion of the neck is limited. There is tenderness of the mid-thoracic and lower lumbar spine. There is no major deformity noted. EXTREMITIES: No cyanosis, clubbing, or edema. Distal pulses are palpable. NEUROLOGICAL EXAM: MENTAL STATUS: The patient is awake, alert, and oriented. She follows simple and complex commands. Her speech is fluent, she comprehends speech well, and she repeats well. She has no apparent deficits with short or ferry terminal supervisor memory. MOTOR EXAM: (5 IS NORMAL) * Indicates pain limited MUSCLE/ MOVEMENT: RIGHT LEFT Deltoids 5 5 Biceps 4+ 5 Triceps 4+ 5 Wrist Flexion 5 5 Wrist Extension 5 5 Median Intrinsics 5 5 Ulnar Intrinsics 5 5 Skid Strapper Strength 5 5 Hip Flexion 5 5 Hip Extension 5 5 Knee Flexion 5 5 Knee Extension 5 5 Dorsiflexion 5 5 Extensor Hallicus Longus 5 5 Plantarflexion 5 5 SENSORY EXAM: Sensory exam shows no diminished sensation to light touch or pain throughout the upper and lower extremities. REFLEXES: (2 OR 2+ IS NORMAL) REFLEX: RIGHT LEFT BICEPS 3 3 BRACHIORADIALIS 2 2 TRICEPS 2 2 PATELLAR 3 3 ACHILLES 1 1 MAYS'S ABSENT ABSENT PLANTAR DOWNGOING DOWNGOING GAIT: Gait is steady. RADIOGRAPHIC REVIEW: The patient s x-rays show stable instrumentation and alignment and were reviewed with the patient today. The MRI from 07/2016 show improvement in the canal and foramina compared to her preoperative MRI. There is no severe canal narrowing and no significant foraminal narrowing. The CT from 07/2016 solid osseous fusion at C3-5. There is less fusion at C5-6 but the scre ws appear strong and solid. ASSESSMENT: Encounter Diagnoses Name Primary? Acute bilateral low back pain with bilateral sciatica Yes Chronic bilateral thoracic back pain Cervical radiculopathy Past Medical History: Diagnosis Date Acid reflux Bladder problem Cervical radiculopathy 06/20/2014 Hypothyroidism Incontinence Migraine Neck and shoulder pain Numbness and tingling in right hand Thyroid disease Torn rotator cuff PLAN: Overall, the patient is doing fair but continues to complain that her pain is getting worse as time goes on. We discussed that her imaging shows degenerative changes without obvious signs of spinal ca nal stenosis. There does not seems to be a significant amount of bone forming at the C6-7 le peng. There is also some bone forming behind the C6 body which may be causing some cord comp ression. This may or may not be contributing to her symptoms but I discussed that reoperati on would not change her nerve symtpoms. I recommended she have new imaging of her spine given her increasing complaints. If again no stenosis is found, I would recommend she be evaluated for a cervical SCS. She agreed with the MRI review and plans for future care. I will await the studies and rev iew them once completed. ELECTRONICALLY SIGNED BY: Donald Reich MD, 03/23/2017 9:37 documented in this encou nter Plan of Treatment + +---------+--------+ + + | Name | Type | Priori | Associated Diagnoses | Order Schedule | | | | ty | | | + +---------+--------+ + + | MRI Cervical Spine | Imaging | Routin | Cervical | Expected: | | wo Contrast | | e | radiculopathy S/P | 03/23/2017, Expires: | | | | | cervical spinal | 03/23/2018 | | | | | fusion | | + +---------+--------+ + + | MRI Thoracic Spine | Imaging | Routin | Chronic Bilateral | Expected: 04/02/2017 | | wo Contrast | | e | Thoracic Back Pain | (Approximate), | | | | | | Expires: 03/22/2018 | + +---------+--------+ + + | MRI Lumbar Spine wo | Imaging | Routin | Acute bilateral | Expected: 04/02/2017 | | Contrast | | e | low back pain with | (Approximate), | | | | | bilateral sciatica | Expires: 03/22/2018 | + +---------+--------+ + + | XR Cervical Spine 4 | Imaging | Routin | Cervical | Expected: 04/02/2017 | | or 5 Vws | | e | radiculopathy S/P | (Approximate), | | | | | cervical spinal | Expires: 03/22/2018 | | | | | fusion | | + +---------+--------+ + + documented as of this encounter Visit Diagnoses + + | Diagnosis | + + | Acute bilateral low back pain with bilateral sciatica - Primary | + + | Chronic bilateral thoracic back pain | + + | Cervical radiculopathy Brachial neuritis or radiculitis nos | + + | S/P cervical spinal fusion Arthrodesis status | + + documented in this encounter
--- OUTSIDE RECORDS SUMMARY | ~2019-03-03 | XMS | Encounter Summary ---
Demographics + + + | Address | [address] | | | [place] [address] | + + + | Home Phone | | + + + | Preferred Language | Unknown | + + + | Marital Status | | + + + | Sikh Affiliation | 1001 | + + + | Race | Unknown | + + + | Ethnic Group | Unknown | + + + Author + + + | Author | [facility] | | | and [place] | + + + | Organization | [facility] | | | [...] [place] | | | | | [address] | | + + + + + | Angelika Holm | ECON | Unknown | | + + + + + Care Team Providers + +------+ + | Care Quarry Plant Crusher Operator Name | Role | Phone | + +------+ + | Alec Tao MD | PCP | | + +------+ + Encounter Details +--------+ + + + + | Date | Type | Department | Care Team | Description | +--------+ + + + + | 07/06/ | Orders Only | [facility] [place] | Donald Reich MD | Neck pain (Primary | | 2017 | | NEUROSURGERY [address] | [address] | Dx) | | | | [address] | [place] [address] | | | | | [place] | [phone] | | | | | [address] | | | | | | [phone] | | | +--------+ + + + [...] of this encounter Plan of Treatment + +---------+--------+ + + | Name | Type | Priori | Associated Diagnoses | Order Schedule | | | | ty | | | + +---------+--------+ + + | XR Cervical Spine 4 | Imaging | Routin | Neck pain | Expected: 07/16/2016 | | or 5 Vws | | e | | (Approximate), | | | | | | Expires: 07/05/2017 | + +---------+--------+ + + documented as of this encounter Visit Diagnoses + + | Diagnosis | + + | Neck pain - Primary Cervicalgia | + + documented in this encounter"
--- OUTSIDE RECORDS SUMMARY | ~2019-03-03 | XMS | Encounter Summary ---
Demographics + + + | Address | [address] | | | [place] [address] | + + + | Home Phone | | + + + | Preferred Language | Unknown | + + + | Marital Status | | + + + | Worship Affiliation | 1001 | + + + | Race | Unknown | + + + | Ethnic Group | Unknown | + + + Author + + + | Author | [facility] | | | and [place] | + + + | Organization | [facility] | | | and [place] [...] [place] | | | | | [address] | | + + + + + | Angelika Holm | ECON | Unknown | | + + + + + Care Team Providers + +------+ + | Care National Opelint Analyst Name | Role | Phone | + [...] [address] | | | | | [place], | [place], [place] | | | | | [place] [address] | [address] | | | | | [phone] | | | +--------+--------+ + + + [...]
--- OUTSIDE RECORDS SUMMARY | ~2019-03-03 | XMS | Encounter Summary ---
Demographics + + + | Address | [address] | | | [place] [address] | + + + | Home Phone | | + + + | Preferred Language | Unknown | + + + | Marital Status | | + + + | Denominational Affiliation | 1001 | + + + | Race | Unknown | + + + | Ethnic Group | Unknown | + + + Author + + + | Author | [facility] | | | and [place] | + + + | Organization | [facility] [...] [place] | | | | | [address] | | + + + + + | Angelika Holm | ECON | Unknown | | + + + + + Care Team Providers + +------+ + | Care Bit Shaver Name | Role | Phone | + +------+ + | Alec Tao MD | PCP | | + +------+ + Reason for Visit +--------+ + | Reason | Comments | +--------+ + | Other | Medication change | +--------+ + Encounter Details +--------+ + + + + | Date | Type | Department | Care Team | Description | +--------+ + + + + | 06/17/ | Telephone | [facility] [place] | Donald Reich MD | Other (Medication | | 2016 | | NEUROSURGERY [address] | [address] | change) | | | | [address] [facility] [address] | [place] [address] | | | | | [place] | [phone] | | | | | [address] | | | | | | [phone] | | | +--------+ + + + [...]
--- OUTSIDE RECORDS SUMMARY | ~2019-03-03 | XMS | Encounter Summary ---
Demographics + + + | Address | [address] | | | [place] [address] | + + + | Home Phone | | + + + | Preferred Language | Unknown | + + + | Marital Status | | + + + | Jainism Affiliation | 1001 | + + + | Race | Unknown | + + + | Ethnic Group | Unknown | + + + Author + + + | Author | [facility] | | | and [place] | + + + | Organization | [facility] | | | and [...] [place] | | | | | [address] | | + + + + + | Angelika Holm | ECON | Unknown | | + + + + + Care Team Providers + +------+ + | Care Rubber Tire And Tubes Supervisor Name | Role | Phone | [...] | | [address] [facility] [address] | [place] [address] | | | | | [place] | [phone] | | | | | [address] | | | | | | [phone] | | | +--------+ + + + [...]
--- OUTSIDE RECORDS SUMMARY | ~2019-03-03 | XMS | Encounter Summary ---
Demographics + + + | Address | [address] | | | [place] [address] | + + + | Home Phone | | + + + | Preferred Language | Unknown | + + + | Marital Status | | + + + | Mormon Affiliation | NON | + + + | Race | White | + + + | Ethnic Group | Not or | + + + Author + + + | Author | [facility] | + + + | Organization | [facility] | + + + | Address | Unknown | + + + | Phone | Unavailable | + + + Support + + +---------+ + | Name | Relationship | Address | Phone | + + +---------+ + | Fidel oHlm | ECON | Unknown | | + + +---------+ + Care Team Providers + +------+ + | Care Menu Planner Name | Role | Phone | + [...] | | | Reconstructive | [place], | | | | | Services at [facility] | [place] [address] | | | | | [address] | [phone] | | | | | Mailcode: CH5E | | | | | | [place] [facility] | | | | | | and Healing, | | | | | | [address], [facility] | | | | | | Floor [place], [place] | | | | | | [address] | | | | | | [phone] | | | +--------+ + + + [...]
--- OUTSIDE RECORDS SUMMARY | ~2019-03-03 | XMS | Encounter Summary ---
Demographics + + + | Address | [address] | | | [place] [address] | + + + | Home Phone [...] + | Author | [facility] | | | and [place] | + + + | Organization | [facility] | | [...] [place] | | | | | [address] | | + + + + + | Angelika Holm | ECON | Unknown | | + + + + + Care Team Providers + +------+ + | Care Nurse Instructor Name | Role | Phone | + [...] [address] | | | | | [address] | [place] [address] | | | | | [place] | [phone] | | | | | [address] | | | | | | [phone] | | | +--------+ + + + [...]
--- OUTSIDE RECORDS SUMMARY | ~2019-03-03 | XMS | Encounter Summary ---
Demographics + + + | Address | [address] | | | [place] [address] | + + + | Home Phone | | + + + | Preferred Language | Unknown | + + + | Marital Status | | + + + | Restorationism Affiliation | 1001 | + + + | Race | Unknown | + + + | Ethnic Group | Unknown | + + + Author + + + | Author | [facility] | | | and [place] | + + + | Organization | [facility] | | | and [...] [place] | | | | | [address] | | + + + + + | Angelika Holm | ECON | Unknown | | + + + + + Care Team Providers + +------+ + | Care Ceo And Founder Name | Role | Phone | + +------+ + | Alec Tao MD | PCP | | + +------+ + Encounter Details +--------+ + + + + | Date | Type | Department | Care Team | Description | +--------+ + + + + | 03/25/ | Orders Only | [facility] | Donald Reich MD | Cervical | | 2015 | | NEUROSURGERY [address] | [address] | radiculopathy | | | | [address] | [place] [address] | (Primary Dx); | | | | [place] | [phone] | Cervical spondylosis | | | | [address] | | with myelopathy; | | | | [phone] | | Cervical spinal cord | | | | | | compression (HCC); | | | | | | Neck and shoulder | | | | | | pain; Degeneration | | | | | | [...] on filedocumented as of this encounter Results ECG 12 lead (03/27/2015 4:01 PM PST) + + + + + + | Component | Value | Ref Range | Performed | Pathologist | | | | | At | Signature | + + + + + + | VENTRICULAR | 77 | BPM | [facility] | | | RATE EKG | | | | | + + + + + + | ATRIAL RATE | 77 | BPM | [facility] | | + + + + + + | P-R | 164 | ms | [facility] | | | INTERVAL | | | | | + + + + + + | QRS | 64 | ms | [facility] | | | DURATION | | | | | + + + + + + | Q-T | 370 | ms | [facility] | | | INTERVAL | | | | | + + + + + + | Q-T | 418 | ms | [facility] | | | INTERVAL | | | | | | (CORRECTED) | | | | | + + + + + + | P WAVE AXIS | 83 | degrees | [facility] | | + + + + + + | QRS AXIS | 61 | degrees | [facility] | | + + + + + + | T AXIS | 62 | degrees | [facility] | | + + + + + + | INTERPRETAT | Normal sinus | | [facility] | | | ION TEXT | rhythmPossible Left | | | | | | atrial enlargementSeptal | | | | | | infarct , age | | | | | | undeterminedAbnormal | | | | | | ECGNo previous ECGs | | | | | | availableConfirmed by | | | | | | ERIN PRAJAPATI MD ([id number]) | | | | | | on 03/28/2015 6:22:10 AM | | | | | | | | | | + + + + + + + + | Specimen | + + | | + + + + + | Narrative | Performed At | + + + | | | + + + + +---------+ + + | Performing | Address | City/State/Zipcode | Phone Number | | Organization | | | | + +---------+ + + | [facility] | | | | + +---------+ + + XR Chest PA and Lateral (03/27/2015 3:24 PM PST) + + | Specimen | + + | | + + + + + | Narrative | Performed At | + + + | XR CHEST PA AND LATERAL. 03/27/2015 3:24 PM HISTORY: | [facility] | | preoperative clearance . COMPARISON: None available. | [facility] | | FINDINGS: Heart size and mediastinal contours are within normal | [facility] | | limits. The lungs are clear, [...] + + | [facility] | [address] | [place] | [phone] | | [facility] | | [address] | | | - IMAGING | | | | + + + + + CBC with Differential (03/27/2015 3:06 PM PST) + + + + + + | Component | Value | Ref Range | Performed | Pathologist | | | | | At | Signature | + + + + + + | WBC | 6.1 | 4.0 - 11.0 K/uL | [facility] | | | | | | [facility] | | | | | | [facility] | | | | | [facility] - | | | | | | LABORATORY | | + + + + + + | RBC | 4.87 | 3.70 - 5.20 | [facility] | | | | | M/uL | [facility] | | | | | | MEDICAL | | | | | | CENTER - | | | | | | LABORATORY | | + + + + + + | Hemoglobin | 13.4 | 11.5 - 16.0 | [facility] | | | | | g/dL | [facility] | | | | | | MEDICAL | | | | | | CENTER - | | | | | | LABORATORY | | + + + + + + | Hematocrit | 41.1 | 34.0 - 47.0 % | [facility] | | | | | | [facility] | | | | | | [facility] | | | | | | CENTER - | | | | | | LABORATORY | | + + + + + + | MCV | 84.4 | 83.0 - 101.0 fL | [facility] | | | | | | [facility] | | | | | | [facility]ICAL | | | | | | CENTER - | | | | | | LABORATORY | | + + + + + + | MCH | 27.5 (L) | 28.0 - 35.0 pg | [facility] | | | | | | [facility] | | | | | | [facility]ICAL | | | | | | CENTER - | | | | | | LABORATORY | | + + + + + + | MCHC | 32.6 | 32.0 - 36.0 | [facility] | | | | | g/dL | [facility] | | | | | | MEDICAL | | | | | | CENTER - | | | | | | LABORATORY | | + + + + + + | RDW-CV | 12.4 | <15.0 % | [facility] | | | | | | [facility] | | | | | | MEDICAL | | | | | | CENTER - | | | | | | LABORATORY | | + + + + + + | Platelet | 236 | 140 - 440 K/uL | [facility] | | | Count | | | [facility] | | | | | | MEDICAL | | | | | | CENTER - | | | | | | LABORATORY | | + + + + + + | MPV | 7.8 | fL | [facility] | | | | | | [facility] | | | | | | MEDICAL | | | | | | CENTER - | | | | | | LABORATORY | | + + + + + + | % | 50.7 | 45.0 - 82.0 % | [facility] | | | Neutrophils | | | [facility] | | | | | | MEDICAL | | | | | | CENTER - | | | | | | LABORATORY | | + + + + + + | % | 34.9 | 20.0 - 45.0 % | [facility] | | | Lymphocytes | | | [facility] | | | | | | MEDICAL | | | | | | CENTER - | | | | | | LABORATORY | | + + + + + + | % Monocytes | 10.0 | 4.0 - 12.0 % | [facility] | | | | | | [facility] | | | | | | MEDICAL | | | | | | CENTER - | | | | | | LABORATORY | | + + + + + + | % | 3.5 | 0.0 - 5.0 % | [facility] | | | Eosinophils | | | [facility] | | | | | | MEDICAL | | | | | | CENTER - | | | | | | LABORATORY | | + + + + + + | % Basophils | 0.9 | 0.0 - 1.0 % | [facility] | | | | | | [facility] | | | | | | MEDICAL | | | | | | CENTER - | | | | | | LABORATORY | | + + + + + + | Absolute | 3.10 | 1.80 - 8.50 | [facility] | | | Neutrophils | | K/uL | [facility] | | | | | | MEDICAL | | | | | | CENTER - | | | | | | LABORATORY | | + + + + + + | Absolute | 2.10 | 0.60 - 3.20 | [facility] | | | Lymphocytes | | K/uL | [facility] | | | | | | MEDICAL | | | | | | CENTER - | | | | | | LABORATORY | | + + + + + + | Absolute | 0.60 | 0.00 - 1.00 | [facility] | | | Monocytes | | K/uL | [facility] | | | | | | MEDICAL | | | | | | CENTER - | | | | | | LABORATORY | | + + + + + + | Absolute | 0.20 | 0.00 - 0.40 | [facility] | | | Eosinophils | | K/uL | [facility] | | | | | | MEDICAL | | | | | | CENTER - | | | | | | LABORATORY | | + + + + + + | Absolute | 0.10 | 0.00 - 0.10 | [facility] | | | Basophils | | K/uL | [facility] | | | | | | MEDICAL | | | | | | CENTER - | | | | | | LABORATORY | | + + + + + + + + | Specimen | + + | Blood | + + + + + + + | Performing | Address | City/State/Zipcode | Phone Number | | Organization | | | | + + + + + | [facility] | [address] | [place] | [phone] | | [facility] | | [address] | | | - LABORATORY | | | | + + + + + Basic Metabolic Panel (03/27/2015 3:06 PM PST) + + + + + + | Component | Value | Ref Range | Performed | Pathologist | | | | | At | Signature | + + + + + + | Na | 140 | 136 - 149 | [facility] | | | | | mmol/L | [facility] | | | | | | MEDICAL | | | | | | CENTER - | | | | | | LABORATORY | | + + + + + + | K | 4.1 | 3.5 - 5.1 | [facility] | | | | | mmol/L | [facility] | | | | | | MEDICAL | | | | | | CENTER - | | | | | | LABORATORY | | + + + + + + | Cl | 104 | 98 - 109 mmol/L | [facility] | | | | | | [facility] | | | | | | MEDICAL | | | | | | CENTER - | | | | | | LABORATORY | | + + + + + + | CO2 | 28 | 24 - 31 mmol/L | [facility] | | | | | | [facility] | | | | | | MEDICAL | | | | | | CENTER - | | | | | | LABORATORY | | + + + + + + | Anion Gap | 8 | 3 - 16 mmol/L | [facility] | | | | | | [facility] | | | | | | MEDICAL | | | | | | CENTER - | | | | | | LABORATORY | | + + + + + + | Glucose | 92 | 70 - 109 mg/dL | [facility] | | | | | | [facility] | | | | | | MEDICAL | | | | | | CENTER - | | | | | | LABORATORY | | + + + + + + | BUN | 12 | 7 - 18 mg/dL | [facility] | | | | | | [facility] | | | | | | MEDICAL | | | | | | CENTER - | | | | | | LABORATORY | | + + + + + + | Creatinine | 0.57 (L) | 0.60 - 1.30 | [facility] | | | | | mg/dL | [facility] | | | | | | MEDICAL | | | | | | CENTER - | | | | | | LABORATORY | | + + + + + + | eGFR if not | >60 | >=60 | [facility] | | | | | mL/min/1.73m2 | [facility] | | | [facility] | | | MEDICAL | | | | | | CENTER - | | | | | | LABORATORY | | + + + + + + | Calcium | 9.3 | 8.3 - 10.5 | [facility] | | | | | mg/dL | [facility] | | | | | | MEDICAL | | | | | | CENTER - | | | | | | LABORATORY | | + + + + + + | BUN/Creatin | 21.1 | | [facility] | | | ine Ratio | | | [facility] | | | | | | MEDICAL | | | | | | CENTER - | | | | | | LABORATORY | | + + + + + + + + | Specimen | + + | Blood | + + + + + + + | Performing | Address | City/State/Zipcode | Phone Number | | Organization | | | | + + + + + | [facility] | [address] | [place] | [phone] | | [facility] | | [address] | | | - LABORATORY | | | | + + + [...]
--- OUTSIDE RECORDS SUMMARY | ~2019-03-03 | XMS | Encounter Summary ---
Demographics + + + | Address | [address] | | | [place] [address] | + + + | Home Phone | | + + + | Preferred Language | Unknown | + + + | Marital Status | | + + + | Confucianism Affiliation | 1001 | + + + | Race | Unknown | + + + | Ethnic Group | Unknown | + + + Author + + + | Author | [facility] | | | and [place] | + + + | Organization | [facility] | | | and [place] | + + + | Address | Unknown | + + + | Phone | Unavailable | + + + Support + + + + + | Name | Relationship | Address | Phone | + + + + + | Fidel Holm | ECON | [address] | | | | | [place] | | | | | [address] | | + + + + + | Angelika Holm | ECON | Unknown | | + + + + + Care Team Providers + +------+ + | Care Fiberglass Roller Name | Role | Phone | + +------+ + | Provider Not, In System | PCP | Unavailable | + +------+ + Encounter Details +--------+ + + + + | Date | Type | Department | Care Team | Description | +--------+ + + + + | 03/27/ | Orders Only | [facility] | Abdulaziz Wagner | Neck pain (Primary | | 2013 | | NEUROSURGERY [address] | [address] | Dx) | | | | [address] | [address] | | | | | [place], [place] | [place] [address] | | | | | [address] | [phone] | | | | | [phone] | | | +--------+ + + + + Social History + +-------+ +--------+------+ | Tobacco Use | Types | Packs/Day | Years | Date | | | | | Used | | + +-------+ +--------+------+ | Never Assessed | | | | | + +-------+ +--------+------+ + + + | Sex Assigned at [...] + + | Performing | Address | City/State[facility] | Phone Number | | Organization | | | | + +---------+ + + | [facility] | | | [phone] | + +---------+ + + | MISCELANIOUS [facility] | | | [phone] | + +---------+ + + documented in this encounter Visit Diagnoses + + | Diagnosis | + + | Neck pain - Primary Cervicalgia | + + documented in this encounter"
--- OUTSIDE RECORDS SUMMARY | ~2019-03-03 | XMS | Encounter Summary ---
Demographics + + + | Address | [address] | | | [place] [address] | + + + | Home Phone | | + + + | Preferred Language | Unknown | + + + | Marital Status | | + + + | Hinduism Affiliation | 1001 | + + + | Race | Unknown | + + + | Ethnic Group | Unknown | + + + Author + + + | Author | [facility] | | | and [place] | + + + | Organization | [facility] | | | and [place] | [...] [place] | | | | | [address] | | + + + + + | Angelika Holm | ECON | Unknown | | + + + + + Care Team Providers + +------+ + | Care Solar Designer Name | Role | Phone | + [...] | | intervertebr | [place] | [address] Phone: | | | | | al disc | [address] | [phone] | | | | | Spinal | Phone: | Fax: | | | | | stenosis in | [phone] | [phone] | | | | | cervical | Fax: | | | | | | region | [phone] | | | | | | Cervical [...] + + | 06/20/ | Office | [facility] | Andrea Arndt | Cervical | | 2014 | Visit | PHYSIATRY [address] | [address] | radiculopathy | | | | [place], | [address] [place] | (Primary Dx); | | | | [place] [address] | [address] | Cervical spondylosis | | | | [phone] | | without myelopathy; | | | | | [place], | 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 For all [...] PO) Take 1 tablet by mouth Daily. [place] 3-6-9 Fatty Acids (TRIPLE OMEGA COMPLEX PO) [...] has no apparent deficits with short or electrician telephone memory. She has appropriate fund of knowledge [...] bautista ELECTRONICALLY EDITED AND SIGNED BY: Andrea Arndt MD, 06/20/2014 Scribed by: Marybel Dick MA [...] CODE 723.4 CERVICAL RADICULOPATHY Cathy | [facility] | | Cristiane Holm presents to the fluoroscopy suite for a | [facility] | | fluoroscopically-guided C7-T1 interlaminar epidural [...] + | [facility] | [address] | [place], [place] | [phone] | | [facility] | | [address] | | | - IMAGING | | [...]
--- OUTSIDE RECORDS SUMMARY | ~2019-03-03 | XMS | Encounter Summary ---
Demographics + + + | Address | [address] | | | [place] [address] | + + + | Home Phone [...] | Author | [facility] | | | and [place] | + + + | Organization | [facility] | | | and [...] [place] | | | | | [address] | | + + + + + | Angelika Holm | ECON | Unknown | | + + + + + Care Team Providers + +------+ + | Care Cherry Grower Name | Role | Phone | + +------+ + | Alec Tao MD | PCP | | + +------+ + Reason for Visit + + + | Reason | Comments | + + + | Follow-up | | + + + | Appointment | | + + + Encounter Details +--------+ + + + + | Date | Type | Department | Care Team | Description | +--------+ + + + + | 12/15/ | Telephone | [facility] | Donald Reich MD | Follow-up; | | 2015 | | NEUROSURGERY [address] | [address] | Appointment | | | | [facility] [address] | [place] [address] | | | | | [place] | [phone] | | | | | [address] | | | | | | [phone] | | | +--------+ + + + [...]
--- OUTSIDE RECORDS SUMMARY | ~2019-03-03 | XMS | Encounter Summary ---
Demographics + + + | Address | [address] | | | [place] [address] | + + + | Home Phone | | + + + | Preferred Language | Unknown | + + + | Marital Status | | + + + | Scientology Affiliation | NON | + + + | Race | White | + + + | Ethnic Group | Not or | + + + Author + + + | Author | [facility] | + + + | Organization | [facility] | + + + | Address | Unknown | + + + | Phone | Unavailable | + + + Support + + +---------+ + | Name | Relationship | Address | Phone | + + +---------+ + | Fidel Holm | ECON | Unknown | | + + +---------+ + Care Team Providers + +------+ + | Care President [employer] Name | Role | Phone | + [...] | | | Reconstructive | [address] [place], | | | | | Services at [facility] | [place] [address] | | | | | [address] | [phone] | | | | | Mailcode: CH5E | | | | | | [facility] | | | | | | and Healing, | | | | | | [address] | | | | | | Floor [place], [place] | | | | | | [address] | | | | | | [phone] | | | +--------+ + + + [...]
--- OUTSIDE RECORDS SUMMARY | ~2019-03-03 | XMS | Encounter Summary ---
Demographics + + + | Address | [address] | | | [place] [address] | + + + | Home Phone | | + + + | Preferred Language | Unknown | + + + | Marital Status | | + + + | Samaritan Affiliation | 1001 | + + + | Race | Unknown | + + + | Ethnic Group | Unknown | + + + Author + + + | Author | [facility] | | | and [place] | + + + | Organization | [facility] | | | and [place] [...] [place] | | | | | [address] | | + + + + + | Angelika Holm | ECON | Unknown | | + + + + + Care Team Providers + +------+ + | Care Emergency Man Name | Role | Phone | + [...] | | | | with | | [facility] | | | | myelopathy | | [address] | | | | | Cervical | | Phone: | | | | | arthritis | | [phone] | | | | | with | | Fax: | | | | | myelopathy | | [phone] | | | | | [M47.12] | | | | | | | Procedures | | | | | | | [place] | | | | | | | [...] + + | 05/10/ | Hospital | [facility] | Donald Reich MD | | | 2016 - | Encounter | MED CTR SUR[facility] | [address] | | | | | [address] | [place] [address] | | | 05/11/ | | [place] [address] | [phone] | | | 2015 | | [phone] | | | +--------+ + + + [...] note might be different from raf beard. [facility] DISCHARGE SUMMARY Patient Name: Cathy Holm Patient [...] tablet Take 1 tablet by mouth Daily. [place] 3-6-9 Fatty Acids (TRIPLE OMEGA COMPLEX PO) [...] Care Everywhere.CERVICAL FUSION , DISCHARGE INSTRUCTIONS FOR (DIVEHI)documented in this encounter Medications at Time of [...] + + + +---------+ + + | [place] 3-6-9 Fatty | Take 2 tablets by [...]
--- OUTSIDE RECORDS SUMMARY | ~2019-03-03 | XMS | Encounter Summary ---
Demographics + + + | Address | [address] | | | [place] [address] | + + + | Home Phone [...] | [facility] | | | and [place] | + + + | Organization | [facility] | | | and [...] [place] | | | | | [address] | | + + + + + | Angelika Holm | ECON | Unknown | | + + + + + Care Team Providers + +------+ + | Care Bonderizer Name | Role | Phone | + +------+ + | Alec Tao MD | PCP | | + +------+ + Reason for Visit + + + | Reason | Comments | + + + | Follow-up | 4w PO | + + + Encounter Details +--------+---------+ + + + | Date | Type | Department | Care Team | Description | +--------+---------+ + + + | 06/06/ | Office | [facility] | Abdulaziz Wagner | Spinal stenosis in | | 2016 | Visit | NEUROSURGERY [address] | [address] | cervical region | | | | [address] | [address] | (Primary Dx); | | | | [place], [place] | [place] [address] | Cervical spondylosis | | | | [address] | [phone] | with myelopathy; | | | | [phone] | | Cervical | | | | | | radiculopathy | +--------+---------+ + + + Social History [...] + + + | Blood Pressure | 150/86 | 06/07/2015 10:25 AM | | | | | PST | | + + + + + | Pulse | 93 | 06/07/2015 10:25 AM | | | | | PST | | + + + + + | Temperature | - | - | | + + + + + | Respiratory Rate | 16 | 06/07/2015 10:25 AM | | | | | PST | | + + + + + | Oxygen Saturation | - | - | | + + + + + | Inhaled Oxygen | - | - | | | Concentration | | | | + + + + + | Weight | 57.2 kg (126 lb) | 06/07/2015 10:25 AM | | | | | PST | | + + + + + | Height | 167.6 cm (5' 6") | 06/07/2015 10:25 AM | | | | | PST | | + + + + + | Body Mass Index | 20.34 | 06/07/2015 10:25 AM | | | | | PST | | + + + + + documented in this encounter Patient Instructions Patient Instructions Abdulaziz Wagner PA - 06/07/2015 10:55 AM PSTAt this time you may begin increasing your activity allowing lifting up to 15 pounds. Also I have released U to return to work on the with some restrictions. If you have increasing problems please let us know. We will see you back in 2 months with x-rays of your neck. If he would like t o participate with physical therapy please let us know documented in this encounter Progress Notes Abdulaziz Wagner PA - 06/07/2015 10:56 AM PSTFormatting of this note might be differen t from the original. JOSHUA Castle [address], [address] [place] [address] FAX: NEUROSURGERY SURGICAL FOLLOW-UP CHIEF COMPLAINT: Chief Complaint Patient presents with Follow-up 4w PO HISTORY OF PRESENT ILLNESS: The patient is a 55 y.o. female that had a cervical fusion ralf und 4 weeks ago. She returns and overall is doing fairly well. The patient complains of rios ving some swallowing difficulties however this is improving. Her arm symptoms have improved . She does have some muscular pain in her neck shoulders and parascapular region. The cara ent has been walking as much as possible and has been following their restrictions overall. The patient has had no issues with her surgical site. So far issues with swallowing have b een a significant problem. She has not had major issues with hoarseness. She would like to return to work with restrictions on the of this month CURRENT MEDICATIONS: Current Outpatient Prescriptions Medication Sig [...] as needed for Pain. 120 tablet 0 methylprednisoLONE (MEDROL DOSEPAK) 4 mg tablet FOLLOW INSTRUCTIONS, TAKE ORALLY TAT 21 tablet 0 Multiple Vitamins-Minerals (QC MULTI-HERMANN 50 & OVER PO) Take 1 tablet by mouth Daily. [place] 3-6-9 Fatty Acids (TRIPLE OMEGA COMPLEX PO) [...] llicit drugs. INTERIM PHYSICAL EXAMINATION: Blood pressure 150/86, pulse 93, resp. rate 16, height 1.676 m (5' 6"), weight 57.153 kg (1 26 lb), not currently . Body mass index is 20.35 kg/(m^2). GENERAL: Cathy Holm is in no acute distress with unlabored respirations. HEENT: HEAD/FACE: Normocephalic and atraumatic. There are no areas of recent trauma. SPINE: The patient s incision is healing well. There is not significant erythema or disc harge. EXTREMITIES: No lower extremity edema. NEUROLOGICAL EXAMINATION: MENTAL STATUS: The patient is awake, alert, and oriented. She follows simple and complex commands MOTOR EXAM: Motor strength is 5/5. SENSORY EXAM: The sensory examination improved from the preoperative exam. REFLEXES: Reflexes are unchanged from her preoperative history and physical. RADIOGRAPHIC REVIEW: The patient s postoperative x-rays show stable instrumentation and alignment and were rev iewed with the patient today. There have been no interval changes since the immediate posto perative films. Complete fusion has not yet occurred, but this is normal and would not be e xpected at this time. ASSESSMENT: S/P cervical fusion for: Encounter Diagnoses Name Primary? Spinal stenosis in cervical region Yes Cervical spondylosis with myelopathy Cervical radiculopathy Past Medical History Diagnosis Date Torn rotator cuff Migraine Thyroid disease Neck and shoulder pain Acid reflux Bladder problem Incontinence Hypothyroidism Numbness and tingling in right hand Cervical radiculopathy 06/20/2014 PLAN: Overall, the patient is doing fairly well. The supervisor billposting to recovery will take many months and perhaps years. Hopefully, we will see further improvement over time. I increased the patient s activities today allowing 15 pound lifting. I would like the patient to advance slowly with this process and discussed this at length. I would also like the patient to continue with postoperative rehabilitation and to advance with independent or directed therapy as tolerated. So far, things are progressing as planned. The patient will follow-up with me in around 8 weeks for re-evaluation. ELECTRONICALLY SIGNED BY: JOSHUA Castle, 06/07/2015 10:56 documented in th is encounter Plan of Treatment Not on filedocumented as of this encounter Visit Diagnoses + + | Diagnosis | + + | Spinal stenosis in cervical region - Primary | + + | Cervical spondylosis with myelopathy | + + | Cervical radiculopathy Brachial neuritis or radiculitis nos | + + documented in this encounter
--- OUTSIDE RECORDS SUMMARY | ~2019-03-03 | XMS | Encounter Summary ---
Demographics + + + | Address | [address] | | | [place] [address] | + + + | Home Phone | | + + + | Preferred Language | Unknown | + + + | Marital Status | | + + + | Holiness Affiliation | 1001 | + + + | Race | Unknown | + + + | Ethnic Group | Unknown | + + + Author + + + | Author | [facility] | | | and [place] | + + + | Organization | [facility] | | | and [...] [place] | | | | | [address] | | + + + + + | Angelika Holm | ECON | Unknown | | + + + + + Care Team Providers + +------+ + | Care Commutator Assembler Name | Role | Phone | + [...] | Cervical | [place], | [address] | | | | | radiculopath | Andrea Scott MD | [place], | | | | | y | [address] | [place] | | | | | Procedures | [place] | [address] | | | | | [place] | [place], [place] | Phone: | | | | | DX/THER SBST | [address] | [phone] | | | | | INTRLMNR | Phone: | Fax: | | | | | CRV/THRC | [phone] | [phone] | | | | | W/IMG GDN | Fax: | | | | | | [place] | [phone] | | | | | | TRIAMCINOLON [...] + + | 08/18/ | Hospital | [facility] | Richie, | Cervical | | 2017 | Encounter | MED CTR XRAY [address] | [address] | radiculopathy | | | | [address] [place] | [facility], | | | | | [place] [address] | [place] [address] | | | | | [phone] | [phone] | | | | | | | | | | | | Meter Readers SupervisorCharla | | +--------+ + + + + [...] + + + +---------+ + + | [place] 3-6-9 Fatty | Take 2 tablets by [...] HISTORY: ICD-10 CODE M54.12 CERVICAL RADICULOPATHY [facility] | | presents to the [...] + | [address] | [address] | [place] | [phone] | | [facility] | | [address] | | | - IMAGING | | [...]
--- OUTSIDE RECORDS SUMMARY | ~2019-03-03 | XMS | Encounter Summary ---
Demographics + + + | Address | [address] | | | [place] [address] | + + + | Home Phone [...] Author | [facility] | | | and [place] | + + + | Organization | [facility] | | | and [place] [...] [place] | | | | | [address] | | + + + + + | Angelika Holm | ECON | Unknown | | + + + + + Care Team Providers + +------+ + | Care Promotions Specialist Name | Role | Phone | + +------+ + | Alec Tao MD | PCP | | + +------+ + Encounter Details +--------+ + + + + | Date | Type | Department | Care Team | Description | +--------+ + + + + | 06/10/ | Imaging | [facility] | Provider, | | | 2018 | Exam | MED CTR EXTERNAL | MD Devaughn [address] | | | | | IMAGING | [place] | | | | | [phone] | [place] [address] | | +--------+ + + + + [...] + +--------+ + + + | MRI LUMBAR SPINE WO | Routin | 06/04/2017 | | Results for this | | CONTRAST | e | 3:35 PM | | procedure are in the | | | | PST | | results section. | + +--------+ + + + documented in this encounter Results MRI Lumbar Spine wo Contrast (06/04/2017 3:35 PM PST) [...]
--- OUTSIDE RECORDS SUMMARY | ~2019-03-03 | XMS | Encounter Summary ---
Demographics + + + | Address | [address] | | | [place] [address] | + + + | Home Phone | | + + + | Preferred Language | Unknown | + + + | Marital Status | | + + + | Advent Affiliation | NON | + + + | Race | White | + + + | Ethnic Group | Not or | + + + Author + + + | Author | [facility] | + + + | Organization | [facility] | + + + | Address | Unknown | + + + | Phone | Unavailable | + + + Support + + +---------+ + | Name | Relationship | Address | Phone | + + +---------+ + | Fidel Holm | ECON | Unknown | | + + +---------+ + Care Team Providers + +------+ + | Care Spring Tacker Name | Role | Phone | + [...] + + | 08/05/ | Hospital | [facility] | Qasim Casanova MD | | | 2019 | Encounter | [address] | [address] | | | | | Ave Mailcode: [facility] | Taylor Cummings [place], | | | | | [facility] | [place] [address] | | | | | Health and Healing, | [phone] | | | | | [facility] | | | | | | [place], [place] | | | | | | [address] | | | | | | [phone] | | | +--------+ + + + [...] Otolaryngology Facial Plastics & Reconstructive Services at [facility] Activity Restrictions: No heavy lifting (above 15 lbs) or strenuous activity for 2 weeks a fter procedure Diet:soft diet for 2 weeks or as directed Wound care: rinse mouth out with salt water after eating for 2 weeks During business hours please call the Facial Plastics Clinic, at [phone] with any ques tions or concerns. Otherwise, you may call the Otolaryngology resident at [phone] for c oncerns, such as difficulty breathing or unusual shortness of breath, excessive bleeding, dr ramon at the operative site, fevers, chills, increased pain that is not relieved by pain me dications, persistent nausea or vomiting. Signed by: Ken Astorga MD ([id number]) Otolaryngology - Head and Neck Surgery [facility] Pager: [phone] Additional Instructions Fredy Escobar RN - 08/05/2018 [...] oral pain medication was given at: 5mg [place] at 11:00am. Please follow your Doctor's instructions [...] Attending | | Surgeon: Qasim Casanova MD Skein Spooler(s): None. | | Preoperative Diagnosis: Velopharyngeal insufficiency, [...] with closer approximation, but not | | guyy-et-uaog closure due to tension. At the completion of all maneuvers, the procedure | | was terminated. The patient was awakened, and extubated, and taken to recovery room in | | satisfactory condition, having tolerated procedure well without complications.Qasim Casanova | | RENETTA/ALONSOD: 08/05/2018 09:58:07DT: 08/05/2018 10:14:38Job #: [id number] | |and the entire posterior mucosal flaps and the anterior mucosal flaps of the soft palate we re repaired with 4-0 Vicryl simple interrupted sutures. | | | |The pharyngeal flap donor site was next repaired with 4-0 Vicryl simple interrupted sutures with closer approximation, but not zxud-cl-aftm closure due to tension. | | | |At the completion of all maneuvers, the procedure was terminated. The patient was awakened , and extubated, and taken to recovery room in satisfactory condition, having tolerated proc edure well without complications. | | | | | | | |Qasim Casanova MD | |NIXON/SOFI | | | | | | /[id number] | + + INTRAPROCEDURE IMAGING (08/05/2018 6:49 [...]
--- OUTSIDE RECORDS SUMMARY | ~2019-03-03 | XMS | Encounter Summary ---
Demographics + + + | Address | [address] | | | [place] [address] | + + + | Home Phone | | + + + | Preferred Language | Unknown | + + + | Marital Status | | + + + | Moravian Affiliation | 1001 | + + + | Race | Unknown | + + + | Ethnic Group | Unknown | + + + Author + + + | Author | [facility] | | | and [place] | + + + | Organization | [facility] | | | and [place] | [...] [place] | | | | | [address] | | + + + + + | Angelika Holm | ECON | Unknown | | + + + + + Care Team Providers + +------+ + | Care Sonoscope Operator Name | Role | Phone | [...] | | [address] | [place] [address] | (Primary Dx); | | | | [place] | [phone] | Cervical spondylosis | | | | [address] | | with myelopathy; | | | | [phone] | | Cervical spinal cord | | [...] | | | | ERIN PRAJAPATI MD ([id number]) | | | | | | on [...] preoperative clearance . COMPARISON: None available. | [facility] | | FINDINGS: Heart size [...] ST. | [address] | [place] | [phone] | | [facility] | | [address] | | | - IMAGING | | [...] [address] | [place] | [phone] | | [facility] | | [address] | | | - LABORATORY | | [...] | | | | | mmol/L | [facility] | | | | | | MEDICAL | | | | | | CENTER - | | | | | | LABORATORY | | + + + + + + | K | 4.1 | 3.5 - 5.1 | [facility] | | | | | mmol/L | [facility] | | | | | | MEDICAL [...] mL/min/1.73m2 | . PATRICK | | | [place] | | | MEDICAL | | | [...] [address] | [place] | [phone] | | [facility] | | [address] | | | - LABORATORY | | [...]
--- OUTSIDE RECORDS SUMMARY | ~2019-03-03 | XMS | Encounter Summary ---
Demographics + + + | Address | [address] | | | [place] [address] | + + + | Home Phone [...] Team Providers + +------+ + | Care Spa Associate Name | Role | Phone | + +------+ + | Jacqueline Nuñez | PCP | | + +------+ + Encounter Details +--------+ + + + + | Date | Type | Department | Care Team | Description | +--------+ + + + + | 04/16/ | MyChart | Otolaryngology | Qasim Casanova MD | RE: Insurance | | 2019 | Encounter | Facial Plastics & | [address] | requirements using | | | | Reconstructive | [place] | Cassie | | | | Services at [facility] | [place] [address] | | | | | [address] | [phone] | | | | | Mailcode: CH5E | | | | | | [facility] | | | | | | and Healing, | | | | | | Building , | | | | | | Floor [place], [place] | | | | | | [address] | | | | | | [phone] | | | +--------+ + + + [...]
--- OUTSIDE RECORDS SUMMARY | ~2019-03-03 | XMS | Encounter Summary ---
Demographics + + + | Address | [address] | | | [place] [address] | + + + | Home Phone | | + + + | Preferred Language | Unknown | + + + | Marital Status | | + + + | Congregational Affiliation | NON | + + + [...] Team Providers + +------+ + | Care Registered Vascular Technologist (Rvt) Name | Role | Phone | + [...]
--- OUTSIDE RECORDS SUMMARY | ~2019-03-03 | XMS | Encounter Summary ---
Demographics + + + | Address | [address] | | | [place] [address] | + + + | Home Phone | | + + + | Preferred Language | Unknown | + + + | Marital Status | | + + + | Faith Affiliation | 1001 | + + + | Race | Unknown | + + + | Ethnic Group | Unknown | + + + Author + + + | Author | [facility] | | | and [place] | + + + | Organization | [facility] | | | and [place] | [...] [place] | | | | | [address] | | + + + + + | Angeliak Holm | ECON | Unknown | | + + + + + Care Team Providers + +------+ + | Care Apparel Manufacture Instructor Name | Role | Phone | + +------+ + | Alec Tao MD | PCP | | + +------+ + Reason for Visit + + + | Reason | Comments | + + + | Records Request | | + + + Encounter Details +--------+ + + + + | Date | Type | Department | Care Team | Description | +--------+ + + + + | 01/15/ | Telephone | [facility] | Donald Reich MD | Records Request | | 2014 | | NEUROSURGERY [address] | [address] | | | | | [address] [address] | [place] [address] | | | | | [place] | [phone] | | | | | [address] | | | | | | [phone] | | | +--------+ + + + [...]
--- OUTSIDE RECORDS SUMMARY | ~2019-03-03 | XMS | Encounter Summary ---
Demographics + + + | Address | [address] | | | [place] [address] | + + + | Home Phone | | + + + | Preferred Language | Unknown | + + + | Marital Status | | + + + | Church Affiliation | 1001 | + + + | Race | Unknown | + + + | Ethnic Group | Unknown | + + + Author + + + | Author | [facility] | | | and [place] | + + + | Organization | [facility] | | | and [place] [...] [place] | | | | | [address] | | + + + + + | Angelika Holm | ECON | Unknown | | + + + + + Care Team Providers + +------+ + | Care Security Threat Analyst Name | Role | Phone | [...] [address] | radiculopathy | | | | [address], | [place] | (Primary Dx) | | | | [place] [address] | [address] | | | | | [phone] | | | +--------+ + + + [...] 08/18/2016CERVICAL INTERLAMINAR EPIDURAL STEROID INJECTION CLINICAL | [facility] | | HISTORY: ICD-10 CODE M54.12 CERVICAL RADICULOPATHY [facility] | | presents to the fluoroscopy suite [...] [address] | [place] | [phone] | | [facility] | | [address] | | | - IMAGING | | | | + + + + + documented in this encounter Visit Diagnoses + + | Diagnosis | + + | Cervical radiculopathy - Primary Brachial neuritis or radiculitis nos | + + documented in this encounter"
--- OUTSIDE RECORDS SUMMARY | ~2019-03-03 | XMS | Encounter Summary ---
Demographics + + + | Address | [address] | | | [place] [address] | + + + | Home Phone | | + + + | Preferred Language | Unknown | + + + | Marital Status | | + + + | Yarsani Affiliation | NON | + + + [...] Team Providers + +------+ + | Care Criminal Judge Name | Role | Phone | + [...] | | | | | insufficienc | [place], [place] | [facility] | | | | | y Nasal | [address] | for Health | | | | | septal | Phone: | and Healing, | | | | | perforation | [phone] | Building 1, | | | | | Nasal | Fax: | 3rd Floor | | | | | obstruction | [phone] | [facility] [place] | | | | | Procedures | | [address] | | | | | CT SINUS WO | | Phone: | | | | | CONTRAST | | [phone] | | | | | [place] | | Fax: | | | | | [place] | | [phone] | | | | | SCAN,MAXILLO | [...] | | | | | insufficienc | [facility] [place] | [facility] | | | | | y Nasal | [address] | for Health | | | | | septal | Phone: | and Healing, | | | | | perforation | [phone] | Building 1, | | | | | Nasal | Fax: | 3rd Floor | | | | | obstruction | [phone] | [place], [place] | | | | | Procedures | | [address] | | | | | CT SINUS WO | | Phone: | | | | | CONTRAST | | [phone] | | | | | [place] | | Fax: | | | | | [place] | | [phone] | | | | | SCAN,MAXILLO | [...] | 2018 | Encounter | Lab at [facility] [address] | [address] | | | | | [address] Mailcode: | [address] [place], | | | | | [facility] | [place] [address] | | | | | Health and Healing, | [phone] | | | | | Building 1, 3rd | | | | | | Floor [place], [place] | | | | | | [address] | | | | | | [phone] | | | +--------+ + + + [...]
--- OUTSIDE RECORDS SUMMARY | ~2019-03-03 | XMS | Encounter Summary ---
Demographics + + + | Address | [address] | | | [place] [address] | + + + | Home Phone | | + + + | Preferred Language | Unknown | + + + | Marital Status | | + + + | Hoahaoism Affiliation | 1001 | + + + | Race | Unknown | + + + | Ethnic Group | Unknown | + + + Author + + + | Author | [facility] | | | and [place] | + + + | Organization | [facility] | | | and [place] [...] [place] | | | | | [address] | | + + + + + | Angelika Holm | ECON | Unknown | | + + + + + Care Team Providers + +------+ + | Care Sand Miller Name | Role | Phone | + +------+ + | Alec Tao MD | PCP | | + +------+ + Reason for Visit + + + | Reason | Comments | + + + | Appointment | | + + + Encounter Details +--------+ + + + + | Date | Type | Department | Care Team | Description | +--------+ + + + + | 08/16/ | Telephone | [facility] [place] | Donald Reich MD | Appointment | | 2019 | | NEUROSURGERY [address] | [address] | | | | | [address] | [place] [address] | | | | | [place] | [phone] | | | | | [address] | | | | | | [phone] | | | +--------+ + + + [...] + | Diagnosis | + + | Osteoarthritis of cervical spine, unspecified spinal osteoarthritis complication | | status - Primary | + + documented in this encounter"
--- OUTSIDE RECORDS SUMMARY | ~2019-03-03 | XMS | Encounter Summary ---
Demographics + + + | Address | [address] | | | [place] [address] | + + + | Home Phone [...] + | Author | [facility] | | | and [place] | + + + | Organization | [facility] | | | and [...] [place] | | | | | [address] | | + + + + + | Angelika Holm | ECON | Unknown | | + + + + + Care Team Providers + +------+ + | Care Driftman Name | Role | Phone | + [...] + + | 05/13/ | Telephone | [facility] | Donald Reich MD | Paperwork; Other | | 2016 | | NEUROSURGERY [address] | [address] | (Med refill) | | | | [address] [facility] [address] | [place] [address] | | | | | [place] | [phone] | | | | | [address] | | | | | | [phone] | | | +--------+ + + + [...]
--- OUTSIDE RECORDS SUMMARY | ~2019-03-03 | XMS | Encounter Summary ---
Demographics + + + | Address | [address] | | | [place] [address] | + + + | Home Phone | | + + + | Preferred Language | Unknown | + + + | Marital Status | | + + + | Voodoo Affiliation | 1001 | + + + | Race | Unknown | + + + | Ethnic Group | Unknown | + + + Author + + + | Author | [facility] | | | and [place] | + + + | Organization | [facility] | | | and [place] [...] [place] | | | | | [address] | | + + + + + | Angelika Holm | ECON | Unknown | | + + + + + Care Team Providers + +------+ + | Care Ophthalmic Assistant Name | Role | Phone | + +------+ + | Alec Tao MD | PCP | | + +------+ + Encounter Details +--------+ + + + + | Date | Type | Department | Care Team | Description | +--------+ + + + + | 04/30/ | Orders Only | [facility] [place] | [place], Abdulaziz | Cervical | | 2016 | | NEUROSURGERY [address] | [address] | radiculopathy | | | | [address] | [address] | (Primary Dx); S/P | | | | [place], [place] | [place] [address] | cervical spinal | | | | [address] | [phone] | fusion | | | | [phone] | | | +--------+ + + + [...] of this encounter Results XR Cervical Spine 2 [...] structures demonstrate no acute findings. Prevertebral | [facility] | | soft tissues are normal. [...] | + + + + + | [address] | [address] | [place] | [phone] | | [facility] | | [address] | | | - IMAGING | | | | + + + + + documented in this encounter Visit Diagnoses + + | Diagnosis | + + | Cervical radiculopathy - Primary Brachial neuritis or radiculitis nos | + + | S/P cervical spinal fusion Arthrodesis status | + + documented in this encounter"
--- OUTSIDE RECORDS SUMMARY | ~2019-03-03 | XMS | Encounter Summary ---
Demographics + + + | Address | [address] | | | [place] [address] | + + + | Home Phone | | + + + | Preferred Language | Unknown | + + + | Marital Status | | + + + | Oriental Orthodox Affiliation | 1001 | + + + | Race | Unknown | + + + | Ethnic Group | Unknown | + + + Author + + + | Author | [facility] | | | and [place] | + + + | Organization | [facility] | | | and [place] [...] [place] | | | | | [address] | | + + + + + | Angelika Holm | ECON | Unknown | | + + + + + Care Team Providers + +------+ + | Care Student Services Counselor Name | Role | Phone | + +------+ + | Provider Not, In System | PCP | Unavailable | + +------+ + Encounter Details +--------+ + + + + | Date | Type | Department | Care Team | Description | +--------+ + + + + | 04/17/ | Abstract | [facility] [place] | Abdulaziz Wagner | Neck and shoulder | | 2015 | | NEUROSURGERY [address] | [address] | pain (Primary Dx); | | | | [address] | [address] | Hypothyroidism; | | | | [place], [place] | [place] [address] | Degeneration of | | | | [address] | [phone] | cervical | | | | [phone] | | intervertebral disc; | | | [...] Used | | + +-------+ +--------+------+ | Former Smoker | | | | | + +-------+ +--------+------+ + + +---------+ + | Alcohol Use [...] | Diagnosis | + + | Neck and shoulder pain - Primary | + + | Hypothyroidism Unspecified hypothyroidism | + + | Degeneration of cervical intervertebral disc | + + | Spinal stenosis in cervical region | + + | Cervical spondylosis without myelopathy | + + documented in this encounter"
--- OUTSIDE RECORDS SUMMARY | ~2019-03-03 | XMS | Encounter Summary ---
Demographics + + + | Address | [address] | | | [place] [address] | + + + | Home Phone | | + + + | Preferred Language | Unknown | + + + | Marital Status | | + + + | Zoroastrianism Affiliation | 1001 | + + + | Race | Unknown | + + + | Ethnic Group | Unknown | + + + Author + + + | Author | [facility] | | | and [place] | + + + | Organization | [facility] | | | and [place] [...] [place] | | | | | [address] | | + + + + + | Angelika Holm | ECON | Unknown | | + + + + + Care Team Providers + +------+ + | Care Table Keeper Name | Role | Phone | + [...] + + | 06/06/ | Office | [facility] | Abdulaziz Wagner | Spinal stenosis in | | 2016 | Visit | NEUROSURGERY [address] | [address] | cervical region | | | | [address] | [address] | (Primary Dx); | | | | [place], [place] | [place] [address] | Cervical spondylosis | | | | [address] | [phone] | with myelopathy; | | | | [phone] | | Cervical | | | | [...] t from the original. JOSHUA [address], [address] [place] [address] FAX: NEUROSURGERY SURGICAL FOLLOW-UP CHIEF COMPLAINT: Chief [...] PO) Take 1 tablet by mouth Daily. [place] 3-6-9 Fatty Acids (TRIPLE OMEGA COMPLEX PO) [...] the patient is doing fairly well. The human resources benefits administrator to recovery will take many months and [...]
--- OUTSIDE RECORDS SUMMARY | ~2019-03-03 | XMS | Encounter Summary ---
Demographics + + + | Address | [address] | | | [place] [address] | + + + | Home Phone | | + + + | Preferred Language | Unknown | + + + | Marital Status | | + + + | Mandaen Affiliation | NON | + + + | Race | White | + + + | Ethnic Group | Not or | + + + Author + + + | Author | [facility] | + + + | Organization | [facility] | + + + | Address | Unknown | + + + | Phone | Unavailable | + + + Support + + +---------+ + | Name | Relationship | Address | Phone | + + +---------+ + | Fidel Holm | ECON | Unknown | | + + +---------+ + Care Team Providers + +------+ + | Care Long Filler Cigar Roller Machine Name | Role | Phone | + +------+ + | Jacqueline Nuñez | PCP | | + +------+ + Encounter Details +--------+ + + + + | Date | Type | Department | Care Team | Description | +--------+ + + + + | 08/04/ | Pharmacy | [facility] | | | | 2019 | Visit | & [facility] | | | | | | [address] | | | | | | Mailcode: [place] | | | | | | [facility] and | | | | | | Healing, [address] | | | | | | [place], [place] | | | | | | [address] | | | | | | [phone] | | | +--------+ + + + [...]
--- OUTSIDE RECORDS SUMMARY | ~2019-03-03 | XMS | Encounter Summary ---
Demographics + + + | Address | [address] | | | [place] [address] | + + + | Home Phone | | + + + | Preferred Language | Unknown | + + + | Marital Status | | + + + | Scientology Affiliation | 1001 | + + + | Race | Unknown | + + + | Ethnic Group | Unknown | + + + Author + + + | Author | [facility] | | | and [place] | + + + | Organization | [facility] | | | and [...] [place] | | | | | [address] | | + + + + + | Angelika Holm | ECON | Unknown | | + + + + + Care Team Providers + +------+ + | Care Tub Operator Name | Role | Phone | + +------+ + | Alec Tao MD | PCP | | + +------+ + Reason for Visit + + + | Reason | Comments | + + + | Follow-up | Discuss neck pain | + + + Encounter Details +--------+---------+ + + + | Date | Type | Department | Care Team | Description | +--------+---------+ + + + | 08/25/ | Office | [facility] | Donald Reich MD | S/P cervical spinal | | 2019 | Visit | NEUROSURGERY [address] | [address] | fusion (Primary Dx); | | | | [address] | [place] [address] | Cervicalgia; | | | | [place] | [phone] | Osteoarthritis of | | | | [address] | | spine with | | | | [phone] | | radiculopathy, | | | | | | cervical region | +--------+---------+ + + + Social [...] encounter Progress Notes Donald Reich MD - 08/25/2018 1:00 PM PDTFormatting of this note might be different from t he original. Donald Reich MD [address] [place] [address] PHONE: FAX: NEUROSURGERY FOLLOW-UP CHIEF COMPLAINT: Chief Complaint Patient presents with Follow-up Discuss neck pain HISTORY OF PRESENT ILLNESS: The patient is a 58 y.o. female that presents to discuss her n regino symptoms. Patient has a history of cervical fusion for neck and arm symptoms on 05/10/19. Patient returns and overall is doing okay. She had a recent pharnygeal surgery about 4 weeks ago and we she woke up she noted an increase in her neck pain. She describes pain that radiates into her neck laterally bilaterally. It improves mildly with ibuprofen. PAST MEDICAL HISTORY: Past Medical History: Diagnosis Date Acid reflux Bladder problem Cervical radiculopathy 06/20/2014 Hypothyroidism Incontinence Migraine Neck and shoulder pain Numbness and tingling in right hand Thyroid disease Torn rotator cuff PAST SURGICAL HISTORY: Past Surgical History: Procedure Laterality Date Bladder Sling Release 08/26/2013 [facility] CERVICAL SPINE SURGERY N/A 05/10/2015 Procedure: C4-5, C5-6, C6-7 Anterior Cervical Discectomy Fusion; Surgeon: Donald Reich MD ; Location: [facility] MAIN OR CYSTOCELE REPAIR 1998 ELBOW SURGERY 03/15/2014 [facility] INCONTINENCE SURGERY 2004 PARTIAL HYSTERECTOMY 1999 RECTOCELE REPAIR 1999 SHOULDER SURGERY 08/17/2013 [facility] JESSE AND BSO 2004 CURRENT MEDICATIONS: Current Outpatient Medications Medication Sig Dispense Refill ARMOUR THYROID 60 [...] TABS Take 300 mg by mouth Daily. estradiol (VIVELLE-DOT) 0.075 MG/24HR APPLY 1 PATCH TO SKIN TWICE A WEEK 0 Terri, Zingiber officinalis, (TERRI PO) Take 1,000 mg by mouth Daily. Ibuprofen (ADVIL PO) Take by mouth. ketoconazole (NIZORAL) 2% shampoo 5 KRILL OIL OMEGA-3 PO Take 350 mg by mouth Daily. MYRBETRIQ 50 MG ER tablet TK 1 T PO QD 2 Coinjock 3-6-9 Fatty Acids (TRIPLE OMEGA COMPLEX PO) [...] patient reports that she quit smoking about 19 years ago. Her smoking use included cig arettes. She has a 40.00 pack-year smoking history. She has never used smokeless tobacco. e reports that she drinks about 6.6 oz of alcohol per week. She reports that she does not us e drugs. REVIEW OF SYSTEMS: GENERALLY: No fever, no night sweats, no anemia, no fatigue, no recent profound weight ch anges. EYES: No eye problems, no impaired sight, no use of corrective lenses, no eye injury, no d ouble vision, no transient blindness. EARS, NOSE, AND THROAT: No changes in taste or smell, no hearing difficulty, no ringing in the ears, no ear drainage, no ear injury, no dizziness, no voice changes, + difficulty swal lowing, no significant snoring, no sleep apnea/CPAP, no sinus problems, no major dental work . NEUROLOGICALLY: Please see the review of systems discussed above in the history of present illness. In addition, the patient has awake with numbness/pain. PSYCHIATRIC: No depression, no difficulty sleeping, no anxiety, no bipolar disorder. CARDIOVASCULAR: No heart attacks, no heart murmur, no heart fluttering, no chest pain, no ankle swelling. LUNG DISEASE: No shortness of breath, no cough, no tuberculosis, no bloody cough, no asthm a, no emphysema/COPD. GASTROINTESTINAL: No bowel disease, no nausea or vomiting, no rectal bleeding, no constipa tion, no fecal stool incontinence, no liver/gallbladder disease, no abdominal pain, no ulcer s. KIDNEY DISEASE: No urinary frequency, no painful or difficult urination, no urinary incont inence, no bladder problems, no impotence. ENDOCRINE: No diabetes, no thyroid disease, no osteopenia or osteoporosis, no breast drain age. SKIN: No breast lumps, no skin disease or skin changes, no rashes/itches. HEMATOLOGIC/LYMPHATIC: No enlarged lymph nodes, no easy or unusual bleeding, no personal h istory of cancer. RHEUMATOLOGIC: No joint pain/arthritis, no rheumatoid arthritis. INTERIM PHYSICAL EXAMINATION: Blood pressure 124/70, pulse 88, resp. rate 16, height 1.676 m (5' 6"), weight 55.3 kg (121 lb 14.6 oz), not currently . Body mass index is 19.68 kg/m. GENERAL: Cathy Holm is in no acute distress with unlabored respirations. The patien raf does appear uncomfortable throughout the exam today. HEENT: Head: Normocephalic/atraumatic with no areas of recent trauma. Eyes: Normal sclerae without icterus. Ears: No drainage or tenderness. Nasopharnyx: Clear without drainage. Oropharnyx: Clear without erythema. NECK (ANTERIOR): Supple and without palpable masses. Her anterior scar is well healed. CHEST: Clear to ausculation without crackles or wheeze. HEART: Regular rate and rhythm without murmurs. ABDOMEN: Soft, non-tender, non-distended, and without palpable masses. The patient is not o bese. SPINE: There is no tenderness in the midline of the cervical spine at the C-3 and C-4. Range of motion of the neck is limited. There is tenderness of the midline of the thoracic spine. There is no major deformity noted. EXTREMITIES: No cyanosis, clubbing, or edema. Distal pulses are palpable. NEUROLOGICAL EXAM: MENTAL STATUS: The patient is awake, alert, and oriented. She follows simple and complex commands. Her speech is fluent, she comprehends speech well, and she repeats well. She has no apparent deficits with short or interpretative dancer memory. CRANIAL NERVES: II: Acuity is intact. Ojeda are full [...] Intrinsics 5 5 Ulnar Intrinsics 5 5 Provider Service Representative Strength 5 5 Hip Flexion 5 5 Hip Extension 5 5 Knee Flexion 5 5 Knee Extension 5 5 Dorsiflexion 5 5 Extensor Hallicus Longus 5 5 Plantarflexion 5 5 SENSORY EXAM: Sensory exam shows no diminished sensation to light touch or pain throughout the upper and lower extremities. REFLEXES: (2 OR 2+ IS NORMAL) REFLEX: RIGHT LEFT BICEPS 2+ 2+ BRACHIORADIALIS 2+ 2+ TRICEPS 2+ 2+ PATELLAR 2+ 2+ ACHILLES 2+ 2+ MAYS'S ABSENT ABSENT PLANTAR DOWNGOING DOWNGOING GAIT: Gait is steady. PERIPHERAL NERVE/MISC: Tinel is negative at the wrists and elbows bilaterally. Phalen is negative. Straight leg raise is negative bilaterally. Milton's test of the hips is negative bilaterally. TEST AND RADIOGRAPHIC REVIEW: The patient's imaging was reviewed in detail with the patient today during the visit. The MRI's from 2018 show mild progression at C3-4. X-rays from today show increased fusion at C4-6 and also anteriorly at C7. This is increas ed from her prior imaging. ASSESSMENT: Encounter Diagnoses Name Primary? S/P cervical spinal fusion Yes Cervicalgia Osteoarthritis of spine with radiculopathy, cervical region Past Medical History: Diagnosis Date Acid reflux Bladder problem Cervical radiculopathy 06/20/2014 Hypothyroidism Incontinence Migraine Neck and shoulder pain Numbness and tingling in right hand Thyroid disease Torn rotator cuff PLAN: Overall, the patient is doing worse with new radicular sounding pain in the C4 distribution . . The patient has tried NSAIDS, time, and while this helped the symptoms are still daily and can be severe. Her last MRI showed C3-4 mild progression. We had a lengthy discussion with the patient about his options for care. I recommended a cervical MRI to assess for further progression and then follow-up in 2-4 we eks. The patient is aware of my transition to [facility]. She will hopefully be able to get back in w ith me here prior to my departure to review her options. ELECTRONICALLY SIGNED BY: Donald Reich MD, 08/25/2018 14:13 documented in this encou nter Plan of Treatment Not on filedocumented as of this encounter Visit Diagnoses + + | Diagnosis | + + | S/P cervical spinal fusion - Primary Arthrodesis status | + + | Cervicalgia | + + | Osteoarthritis of spine with radiculopathy, cervical region | + + documented in this encounter
--- OUTSIDE RECORDS SUMMARY | ~2019-03-03 | XMS | Encounter Summary ---
Demographics + + + | Address | [address] | | | [place] [address] | + + + | Home Phone | | + + + | Preferred Language | Unknown | + + + | Marital Status | | + + + | Congregation Affiliation | 1001 | + + + | Race | Unknown | + + + | Ethnic Group | Unknown | + + + Author + + + | Author | [facility] | | | and [place] | + + + | Organization | [facility] | | | and [place] [...] [place] | | | | | [address] | | + + + + + | Angelika Holm | ECON | Unknown | | + + + + + Care Team Providers + +------+ + | Care Network Security Analyst Name | Role | Phone | [...] (Primary Dx); S/P | | | | [place], [place] | [place] [address] | cervical spinal | | | | [address] | [phone] | fusion | | | | [phone] | | | +--------+ + + + [...] structures demonstrate no acute findings. Prevertebral | [facility] | | soft tissues are [...] ST. | [address] | [place] | [phone] | | [facility] | | [address] | | | - IMAGING | | | | + + + + + documented in this encounter Visit Diagnoses + + | Diagnosis | + + | Cervical radiculopathy - Primary Brachial neuritis or radiculitis nos | + + | S/P cervical spinal fusion Arthrodesis status | + + documented in this encounter"
--- OUTSIDE RECORDS SUMMARY | ~2019-03-03 | XMS | Encounter Summary ---
Demographics + + + | Address | [address] | | | [place] [address] | + + + | Home Phone [...] + | Author | [facility] | | | and [place] | + + + | Organization | [facility] | | | and [...] [place] | | | | | [address] | | + + + + + | Angelika Holm | ECON | Unknown | | + + + + + Care Team Providers + +------+ + | Care Senior Technical Specialist Name | Role | Phone | [...] [address] | | | | | [place], [place] | [place] [address] | | | | | [address] | [phone] | | | | | [phone] | | | +--------+ + + + [...] + + | Performing | Address | City/State/[facility] | Phone Number | | Organization | | | | + +---------+ + + | MISCELLANEOUS LAB | | | [phone] | + +---------+ + + | MISCELANIOUS LAB | | | [phone] | + +---------+ + + documented in this encounter Visit Diagnoses + + | Diagnosis | + + | Neck pain - Primary Cervicalgia | + + documented in this encounter"
--- OUTSIDE RECORDS SUMMARY | ~2019-03-03 | XMS | Encounter Summary ---
Demographics + + + | Address | [address] | | | [place] [address] | + + + | Home Phone | | + + + | Preferred Language | Unknown | + + + | Marital Status | | + + + | Mosque Affiliation | NON | + + + [...] Team Providers + +------+ + | Care Hand Coper Name | Role | Phone | + +------+ + | Jaqcueline Nuñez | PCP | | + +------+ [...] | | | Reconstructive | [address] [place], | acquired (Primary | | | | Services at [facility] | [place] [address] | Dx) | | | | [address] | [phone] | | | | | Mailcode: CH5E | | | | | | [facility] | | | | | | and Healing, | | | | | | Building [address], 5th | | | | | | Floor [place], [place] | | | | | | [address] | | | | | | [phone] | | | +--------+---------+ + + + [...] Surgery Dept. of Otolaryngology/Head and Neck Surgery [facility] tel fax email [email or web address] in this encounter Plan of Treatment Not on filedocumented as of this encounter Visit Diagnoses + + | Diagnosis | + + | Velopharyngeal insufficiency, acquired - Primary Other and unspecified diseases of | | the oral soft tissues | + + documented in this encounter"
--- OUTSIDE RECORDS SUMMARY | ~2019-03-03 | XMS | Encounter Summary ---
Demographics + + + | Address | [address] | | | [place] [address] | + + + | Home Phone | | + + + | Preferred Language | Unknown | + + + | Marital Status | | + + + | Mu-Ism Affiliation | NON | + + + [...] Providers + +------+ + | Care Senior Embedded Software Engineer Name | Role | Phone | [...] | | | | | | | [facility] | | | | | | | for Health | | | | | | | and Healing, | | | | | | | Building [address], | | | | | | | 5th Floor | | | | | | | [place], [place] | | | | | | | [address] | | | | | | | Phone: | | | | | | | [phone] | | | | | | | Fax: | | | | | | | [phone] | + +--------+ + + + + Encounter Details +--------+---------+ + + + | Date | Type | Department | Care Team | Description | +--------+---------+ + + + | 01/30/ | Office | Otolaryngology | Qasim Casanova MD | Congenital | | 2019 | Visit | Facial Plastics & | [address] | velopharyngeal | | | | Reconstructive | [address] [place], | insufficiency | | | | Services at [facility] | [place] [address] | (Primary Dx); Nasal | | | | [address] | [phone] | septal perforation | | | | Mailcode: CH5E | | | | | | [facility] | | | | | | and [place], | | | | | | [facility] [address] | | | | | | [place], [place] | | | | | | [address] | | | | | | [phone] | | | +--------+---------+ + + + [...] encounter Progress Notes Qasim Casanova MD - 01/30/2019 3:45 PM PDTClinic: Facial Plastic and Reconstructive Surgery Cl daryl Cathy Holm is a 58 y.o. female who returns for 6 month followup from superiorly base d pharyngeal flap, done on 08/05/2018. She endorses sensation of "stuffiness" in the back of her throat, and will wake up choking occasionally. This occurs standing upright or laying down, she is unable to clear the sensat ion, and symptoms started after the surgery. Denies difficulty with speech, difficulty eatin g, breathes well out of nose and mouth, notes an odd gurgling sound when drinking liquids. She wears a nightguard for TMJ, but will have to remove this while sleeping due to the chok ing sensation. She has no issues breathing from the nose, and feels that her speech is greatly improved af ter surgery, better than at any other time in her life. My examination confirms satisfactory healing process. Posterior pharyngeal flap is intact and positioning soft palate into closer relationship with posterior pharyngeal wall, allowin g contact and closure as needed. Indirect mirror exam shows bilateral widely patent lateral pharyngeal ports with central flap intact. Intranasal exam shows persistent enlarging septal perforation measuring approximately 1 cm (was 0.5 cm), minimal crusting. Airways otherwise patent. We discussed that her flap has healed as expected, and that her pharyngeal flap creates rosa maria ropriate closure of the palate and that is the likely cause of her "stuffiness" she is exper iencing. Advised continued saline irrigations as her septal perforation has enlarged, and she may co nsider having a magnetic septal button inserted with Dr. Mccoy. All questions were answered t travis. Photos were taken and followup arranged for PRN. Signed: Ken Torres (scribe for Dr. Casanova) I have reviewed and verified the above scribed note of my visit with this patient as record ed by Ken Torres. Qasim Casanova MD FACS Professor Facial Plastic and Reconstructive Surgery Dept. of Otolaryngology/Head and Neck Surgery [facility] tel fax email [email or web address] in this encounter [...]
--- OUTSIDE RECORDS SUMMARY | ~2019-03-03 | XMS | Encounter Summary ---
Demographics + + + | Address | [address] | | | [place] [address] | + + + | Home Phone | | + + + | Preferred Language | Unknown | + + + | Marital Status | | + + + | Pentecostal Affiliation | 1001 | + + + | Race | Unknown | + + + | Ethnic Group | Unknown | + + + Author + + + | Author | [facility] | | | and [place] | + + + | Organization | [facility] | | | and [...] [place] | | | | | [address] | | + + + + + | Angelika Holm | ECON | Unknown | | + + + + + Care Team Providers + +------+ + | Care Carpet Technician Name | Role | Phone | + +------+ + | Alec Tao MD | PCP | | + +------+ + Encounter Details +--------+ + + + + | Date | Type | Department | Care Team | Description | +--------+ + + + + | 08/25/ | Hospital | [facility] | EstephaniaKris unger, | Neck pain | | 2019 | Encounter | MED CTR XRAY [address] | PA-C [address] | | | | | [place] | [address] [place] | | | | | [place] [address] | [place] [address] | | | | | [phone] | [phone] | | | | | | | [...] + + + +---------+ + + | [place] 3-6-9 Fatty | Take 2 tablets by [...] through C7. Osseous fusion is observed from [id number] | | C6. Incomplete fusion is noted [...]
--- OUTSIDE RECORDS SUMMARY | ~2019-03-03 | XMS | Clinical Summary ---
Demographics + + + | Address | [address] | | | [place] [address] | + + + | Home Phone | | + + + | Preferred Language | Unknown | + + + | Marital Status | | + + + | Restorationist Affiliation | NON | + + + | Race | White | + + + | Ethnic Group | Not or | + + + Author + + + | Author | NON REVENUE LOCATIONS | + + + | Organization | NON REVENUE LOCATIONS | + + + | Address | Unknown | + + + | Phone | Unavailable | + + + Support + + +---------+ + | Name | Relationship | Address | Phone | + + +---------+ + | Fidel Holm | ECON | Unknown | | + + +---------+ + Care Team Providers + +------+ + | Care Commutator Inspector Name | Role | Phone | + +------+ + | Jacqueline Nuñez | PCP | | + +------+ + Source Comments ROGE is fully live on both [facility] and [facility] InPatient.[facility] Allergies + + + + + + | Active Allergy | Reactions | Severity | Noted | Comments | | | | | Date | | + + + + + + | Morphine | Nausea and Vomiting | Medium | 04/17/19 | | | | | | 15 | | + + + + + + | Opioids - Morphine | Nausea | | 08/05/19 | | | Analogues | | | 19 | | + + + + + [...] | | + + + +---------+------+------+-------+ | methocarbamol 500 | Take 250 mg by mouth | | 0 | | | Activ | | mg oral tablet | once daily in | | | | | e | | | evening as needed. | | | | | | + + + +---------+------+------+-------+ | progesterone 200 | Take 200 mg by mouth | | 0 | | | Activ | | mg oral capsule | once daily in the | | | | | e | | | evening. | | | | | | + + + +---------+------+------+-------+ | estradiol 0.0375 | Apply 1 patch to | | 0 | | | Activ | | mg/24 hr transdermal | skin. | | | | | e | | patch semiweekly | | | | | | | + + + +---------+------+------+-------+ | thyroid (ARMOUR | Take 60 mg by mouth | | 0 | | | Activ | | THYROID) 60 mg oral | once daily. | | | | | e | | tablet tablet | | | | | | | + + + +---------+------+------+-------+ | polyethylene | Mix 1 packet and | | 0 | | | Activ | | glycol 17 gram oral | take orally once | | | | | e | | powder in packet | daily at bedtime. | | | | | | + + + +---------+------+------+-------+ | Ranitidine HCl 150 | Take 150 mg by mouth | | 0 | | | Activ | | mg oral capsule | two times daily. | | | | | e | + + + +---------+------+------+-------+ Active Problems + + + | Problem | Noted Date | + + + | S/P cervical spinal fusion | 01/19/2019 | + + + | Cervical dystonia | 01/19/2019 | + + + | Bilateral occipital neuralgia, possible | 01/19/2019 | + + + | Velopharyngeal insufficiency, acquired | 08/11/2018 | + + + | Acid reflux | 08/02/2018 | + + + | Female stress incontinence | 08/02/2018 | + + + | Hypothyroidism | 08/02/2018 | + + + | Nasal obstruction | 12/09/2017 | + + + | Injury of nose | 12/09/2017 | + + + | Nasal septal deviation | 12/09/2017 | + + + | Nasal deformity, acquired | 12/09/2017 | + + + | Nasal valve collapse | 12/09/2017 | + + + | Congenital velopharyngeal insufficiency | 12/09/2017 | + + + | Nasal septal perforation | 12/09/2017 | + + + | Cervical radiculopathy | 06/20/2014 | + + + Encounters +--------+ + + + + | Date | Type | Specialty | Care Team | Description | +--------+ + + + + | 02/14/ | Document-Sc | Non [facility] EP[facility] | Unknown | | | 2019 | anned | Department | | | +--------+ + + + + | 01/30/ | Office | Facial Plastic | Qasim Casanova MD | Congenital | | 2018 | Visit | Surgery | | velopharyngeal | | | | | | insufficiency | | | | | | (Primary Dx); Nasal | | | | | | septal perforation | +--------+ + + + + | 01/30/ | Travel | | | | | 2018 | | | | | +--------+ + + + + | 01/25/ | Document-Sc | Non [facility] EP[facility] | Unknown | | | 2019 | anned | Department | | | +--------+ + + + + | 01/19/ | Office | Neurological Surgery | Donald Reich MD | Cervical dystonia | | 2018 | Visit | | | (Primary Dx); S/P | | | | | | cervical spinal | | | | | | fusion; Bilateral | | | | | | occipital neuralgia, | | | | | | possible | +--------+ + + + + | 01/19/ | Travel | | | | | 2019 | | | | | +--------+ + + + + from Last 3 Months Family History + + +------+ + | Medical History | Relation | Name | Comments | + + +------+ + | Heart Disease | Father | | | + + +------+ + | Other | Father | | Bleeding Tendency | + + +------+ + | Stroke | Father | | | + + +------+ + | Seizures | Mother | | | + + +------+ + + +------+--------+ + | Relation | Name | Status | Comments | + +------+--------+ + | Father | | | | + +------+--------+ + | Mother | | | | + +------+--------+ + Social History + + + +--------+ [...] | + + + + + | Influenza (Flu) | | | | | vaccination (#1) | 9 | | | + + + + + | Pneumococcal | Aged Out | | No longer eligible | | vaccination | | | based on patient's | | | | | age to complete this | | | | | topic | + + + + + Results Not on filefrom Last 3 Months Insurance + +--------+ +--------+ + +------+ | Payer | Benefi | Subscriber | Effect | Phone | Address | Type | | | t Plan | ID | dale | | | | | | / | | Dates | | | | | | Group | | | | | | + +--------+ +--------+ + +------+ | BLUE CROSS BLUE | REGENC | [phone] | Effect | [phone] | [address] | PPO | | SHIELD | E BCBS | x | dale | 8 | [phone] | | | | | | for | | [place], | | | | | | all | | [place] | | | | | | dates | | [address] | | + +--------+ +--------+ + +------+ | BLUE CROSS BLUE | REGENC | [phone] | 04/05/19 | [phone] | [address] | PPO | | SHIELD | E BCBS | x | 18-Pre | 8 | [phone] | | | | | | sent | | [place], | | | | | | | | [place] | | | | | | | | [address] | | + +--------+ +--------+ + +------+ + +--------+ +--------+ + + | Guarantor [...] | | al/Fam | | 1959 | [phone] | [place] [address] | | | laney | | | 2 (Home) | | | | | | | [phone] | | | | | | | 4 (Work) | | + +--------+ +--------+ + + | Cathy Holm | Person | Self | [birth year] | [address] | | | al/Fam | | 8 | [phone] | [place] [address] | | | laney | | | 2 (Home) | | | | | | | [phone] | | | | | | | 4 (Work) | | + +--------+ +--------+ + + Advance Directives + + + + + | Code Status | Date | Date | Comments | | | Activated | Inactivated | | + + + + + | Full Code | 08/05/2018 | 08/05/2018 | | | | 10:34 AM | 5:49 PM | | + + + + + + + + +---+ | | | | | + + + +---+ | Full Code | 08/05/2018 | 08/05/2018 | | | | 6:49 AM | 10:34 AM | | + + + +---+
--- OUTSIDE RECORDS SUMMARY | ~2019-03-03 | XMS | Encounter Summary ---
Demographics + + + | Address | [address] | | | [place] [address] | + + + | Home Phone | | + + + | Preferred Language | Unknown | + + + | Marital Status | | + + + | Confucianist Affiliation | NON | + + + | Race | White | + + + | Ethnic Group | Not or | + + + Author + + + | Author | [facility] | + + + | Organization | [facility] | + + + | Address | Unknown | + + + | Phone | Unavailable | + + + Support + + +---------+ + | Name | Relationship | Address | Phone | + + +---------+ + | Fidel Holm | ECON | Unknown | | + + +---------+ + Care Team Providers + +------+ + | Care Drum Filler Name | Role | Phone | + [...] BILATERAL CORRECTION | | 2019 | | [facility] | [address] | OF VELOPHAYRNGEAL | | | | and Healing Surgery | [place], | INSUFFICIENCY WITH | | | | Center Admitting | [place] [address] | PHARYNGEAL FLAP, | | | | Desk Located on the | [phone] | POSSIBLE ALLODERM | | | | 4th floor [address] | | | | | | [place], | | | | | | [place] [address] | | | +--------+---------+ + + + [...] Otolaryngology Facial Plastics & Reconstructive Services at [facility] Activity Restrictions: No heavy lifting (above 15 lbs) or strenuous activity for 2 weeks a fter procedure Diet:soft diet for 2 weeks or as directed Wound care: rinse mouth out with salt water after eating for 2 weeks During business hours please call the Facial Plastics Clinic, at [phone] with any ques tions or concerns. Otherwise, you may call the Otolaryngology resident at [phone] for c oncerns, such as difficulty breathing or unusual shortness of breath, excessive bleeding, dr ramon at the operative site, fevers, chills, increased pain that is not relieved by pain me dications, persistent nausea or vomiting. Signed by: Ken Astorga MD ([id number]) Otolaryngology - Head and Neck Surgery [facility] and [facility] Pager: [phone] Additional Instructions Fredy Escobar RN - 08/05/2018 [...] oral pain medication was given at: 5mg [place] at 11:00am. Please follow your Doctor's instructions [...] Attending | | Surgeon: Qasim Casanova MD Stretcher Leveler Operator Helper(s): None. | | Preoperative Diagnosis: Velopharyngeal insufficiency, [...] with closer approximation, but not | | mcgd-bs-lqso closure due to tension. At the completion of all maneuvers, the procedure | | was terminated. The patient was awakened, and extubated, and taken to recovery room in | | satisfactory condition, having tolerated procedure well without complications.Qasim Casanova, | | RENETTA/ALONSOD: 08/05/2018 09:58:07DT: 08/05/2018 10:14:38Job #: [id number] | |and the entire posterior mucosal flaps and the anterior mucosal flaps of the soft palate we re repaired with 4-0 Vicryl simple interrupted sutures. | | | |The pharyngeal flap donor site was next repaired with 4-0 Vicryl simple interrupted sutures with closer approximation, but not thaq-zq-zmyl closure due to tension. | | | |At the completion of all maneuvers, the procedure was terminated. The patient was awakened , and extubated, and taken to recovery room in satisfactory condition, having tolerated proc edure well without complications. | | | | | | | |Qasim Casanova MD | |NIXON/SOFI | | | | | | /[id number] | + + INTRAPROCEDURE IMAGING (08/05/2018 6:49 [...]
--- OUTSIDE RECORDS SUMMARY | ~2019-03-03 | XMS | Encounter Summary ---
Demographics + + + | Address | [address] | | | [place] [address] | + + + | Home Phone | | + + + | Preferred Language | Unknown | + + + | Marital Status | | + + + | Judaism Affiliation | 1001 | + + + | Race | Unknown | + + + | Ethnic Group | Unknown | + + + Author + + + | Author | [facility] | | | and [place] | + + + | Organization | [facility] | | | and [...] [place] | | | | | [address] | | + + + + + | Angelika Holm | ECON | Unknown | | + + + + + Care Team Providers + +------+ + | Care Veneer Clipper Name | Role | Phone | + +------+ + | Alec Tao MD | PCP | | + +------+ + Encounter Details +--------+ + + + + | Date | Type | Department | Care Team | Description | +--------+ + + + + | 05/11/ | Hospital | [facility] | Matthew Box, | | | 2015 | Encounter | MED CTR SPEECH | Speech Pathologist | | | | | THERAPY [address] | | | | | | [place], | | | | | | [place] [address] | | | | | | [phone] | | | +--------+ + + + [...] + + + +---------+ + + | [place] 3-6-9 Fatty | Take 2 tablets by [...]
--- OUTSIDE RECORDS SUMMARY | ~2019-03-03 | XMS | Encounter Summary ---
Demographics + + + | Address | [address] | | | [place] [address] | + + + | Home Phone | | + + + | Preferred Language | Unknown | + + + | Marital Status | | + + + | Muslim Affiliation | 1001 | + + + | Race | Unknown | + + + | Ethnic Group | Unknown | + + + Author + + + | Author | [facility] | | | and [place] | + + + | Organization | [facility] | | | and [place] [...] [place] | | | | | [address] | | + + + + + | Angelika Holm | ECON | Unknown | | + + + + + Care Team Providers + +------+ + | Care Leaf Tinner Name | Role | Phone | + [...] | | | [address] | [place] | | | | | intervertebr | [place] | [address] Phone: | | | | | al disc | [address] | [phone] | | | | | Spinal | Phone: | Fax: | | | | | stenosis in | [phone] | [phone] | | | | | cervical | Fax: | | | | | | region | [phone] | | | | | | Cervical [...] | | | | | | | [facility] | | | | | | intervertebr | [place] | | | | | | al disc | [address] | | | | | | Spinal | Phone: | | | | | | stenosis in | [phone] | | | | | | cervical | Fax: | | | | | | region | [phone] | | | | | | Cervical [...] Closed | | Neurosurgery | Diagnoses | [place], | [place], | | | | | | Holden Storey MD | Abdul[place]iz | | | | | Degeneration | [address] | [place] | | | | | of cervical | ([address] | [address] | | | | | | [address]) | AV [place], | | | | | intervertebr | [place], | [place] [address] | | | | | al disc | [place] [address] | Phone: | | | | | Cervical | Phone: | [phone] | | | | | spondylosis | [phone] | Fax: | | | | | without | Fax: | [phone] | | | | | myelopathy | [phone] | | | | | | Procedures | | | | | | | [place] OFFICE | | | | | | [...] + + | 05/01/ | Office | [facility] | Abdulaziz Wagner | 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 Please continue to follow up with your primary care provider. If her sy mptoms progress please let our office knowElectronically signed by JOSHUA Guevara 05/01/2014 3:41 PM PST documented in this encounter Progress Notes Maryuri Oates - 05/01/2014 2:45 PM PSTFormatting of this note might be different from christie beard. JOSHUA [place] [address] [place], [place] [address] FAX: NEUROSURGERY HISTORY AND PHYSICAL EXAMINATION CHIEF [...] PO) Take 1 tablet by mouth Daily. [place] 3-6-9 Fatty Acids (TRIPLE OMEGA COMPLEX PO) [...] shows there is no tenderness over the C2-Y5myrfoq. Range of motion is mildly limited. Rotation [...] has no apparent deficits with short or lobsterman memory. CRANIAL NERVES: Fundoscopic Exam: The optic [...] Intrinsics 5 5 Ulnar Intrinsics 5 5 Campus Monitor Strength 5 5 Hip Flexion 5 5 [...]
--- OUTSIDE RECORDS SUMMARY | ~2019-03-03 | XMS | Encounter Summary ---
Demographics + + + | Address | [address] | | | [place] [address] | + + + | Home Phone | | + + + | Preferred Language | Unknown | + + + | Marital Status | | + + + | Sikhism Affiliation | 1001 | + + + | Race | Unknown | + + + | Ethnic Group | Unknown | + + + Author + + + | Author | [facility] | | | and [place] | + + + | Organization | [facility] | | | and [place] [...] [place] | | | | | [address] | | + + + + + | Angelika Holm | ECON | Unknown | | + + + + + Care Team Providers + +------+ + | Care Box Office Attendant Name | Role | Phone | + +------+ + | Alec Tao MD | PCP | | + +------+ + Encounter Details +--------+ + + + + | Date | Type | Department | Care Team | Description | +--------+ + + + + | // | Hospital | [facility] | [place] | Cervical | | 2016 | Encounter | MED CTR XRAY [address] | [address] | radiculopathy; S/P | | | | [place] | [address] | cervical spinal | | | | [place] [address] | [place] [address] | fusion | | | | [phone] | [phone] | | | | | | | [...] + + + +---------+ + + | [place] 3-6-9 Fatty | Take 2 tablets by [...] + + | Performing | Address | City/State[facility] | Phone Number | | Organization | | | | + + + + + | [facility] | [address] | [place] | [phone] | | [facility] | | [address] | | | - IMAGING | | | | + + + + + documented in this encounter Visit Diagnoses + + | Diagnosis | + + | Cervical radiculopathy Brachial neuritis or radiculitis nos | + + | S/P cervical spinal fusion Arthrodesis status | + + documented in this encounter"
--- OUTSIDE RECORDS SUMMARY | ~2019-03-03 | XMS | Encounter Summary ---
Demographics + + + | Address | [address] | | | [place] [address] | + + + | Home Phone | | + + + | Preferred Language | Unknown | + + + | Marital Status | | + + + | Latter Day Affiliation | 1001 | + + + | Race | Unknown | + + + | Ethnic Group | Unknown | + + + Author + + + | Author | [facility] | | | and [place] | + + + | Organization | [facility] | | | and [...] [place] | | | | | [address] | | + + + + + | Angelika Holm | ECON | Unknown | | + + + + + Care Team Providers + +------+ + | Care Store Worker Name | Role | Phone | + +------+ + | Alec Tao MD | PCP | | + +------+ + Encounter Details +--------+ + + + + | Date | Type | Department | Care Team | Description | +--------+ + + + + | 03/27/ | Preadmit | [facility] | Donald Reich MD | Cervical | | 2015 | Visit | MED CTR [facility] | [address] | radiculopathy; | | | | CLINIC [address] | [place] [address] | Cervical spondylosis | | | | [place] | [phone] | with myelopathy; | | | | [address] | | Cervical spinal cord | | [...] | + +--------+ + + + | ECG 12 LEAD | Routin | 03/27/2015 | Cervical | Results for this | | | e | 4:01 PM | radiculopathy | procedure are in [...] | + +--------+ + + + | CULTURE, MRSA | Routin | 03/27/2015 | | Results for this | | | e | 3:06 PM | | procedure are in the | | | | PST | | results section. | + +--------+ + + + | CBC WITH | Routin | 03/27/2015 | Cervical | Results for this | | DIFFERENTIAL | e | 3:06 PM | radiculopathy | procedure are in [...] | + +--------+ + + + | BASIC METABOLIC | Routin | 03/27/2015 | Cervical | Results for this | | PANEL | e | 3:06 PM | radiculopathy | procedure are in [...] + + documented in this encounter Results ECG 12 lead (03/27/2015 [...] | | | | ERIN PRAJAPATI MD ([id number]) | | | | | | on [...] | | | + +---------+ + + CBC with Differential (03/27/2015 3:06 [...] | Neutrophils | | K/uL | [facility] | | | | | | [facility] | | | | | | C[facility] - | | | | | | LABORATORY | | + + + + + + | Absolute | 2.10 | 0.60 - 3.20 | [facility] | | | Lymphocytes | | K/uL | [facility] | [...] | Eosinophils | | K/uL | [facility] | | | | | | [facility]ICAL | | | | | | CENTER - | | | | | | LABORATORY | | + + + + + + | Absolute | 0.10 | 0.00 - 0.10 | [facility] | | | Basophils | | K/uL | [facility] | [...] [address] | [place] | [phone] | | [facility] | | [address] | | | - LABORATORY | | [...] | | | | | mmol/L | [facility] | | | | | | MEDICAL | | | | | | CENTER - | | | | | | LABORATORY | | + + + + + + | K | 4.1 | 3.5 - 5.1 | [facility] | | | | | mmol/L | [facility] | | | | [...] [facility] | | | | [facility] | | | | | [facility] | | | | | | [facility] - | | | | | | LABORATORY | | + + + + + + | Glucose | 92 | 70 - 109 mg/dL | [facility] | | | | | | [facility] | | | | | | [facility] | | | | | | C[facility] - | | | | | | LABORATORY | | + + + + + + | BUN | 12 | 7 - 18 mg/dL | [facility] | | | | | | [facility] | | | | | | [facility] | | | | | | C[facility] - | | | | | | LABORATORY | | + + + + + + | Creatinine | 0.57 (L) | 0.60 - 1.30 | [facility] | | | | | mg/dL | [facility] | | | | | | [facility] | | | | | | [facility] - | | | | | | LABORATORY | | + + + + + + | eGFR if not | >60 | >=60 | [facility] | | | | | mL/min/1.73m2 | [facility] | | | [facility] | | | MEDICAL | | | | | | CENTER - | | | | | | LABORATORY | | + + + + + + | Calcium | 9.3 | 8.3 - 10.5 | [facility] | | | | | mg/dL | [facility] | | | | | | MEDICAL | | | | | | CENTER - | | | | | | LABORATORY | | + + + + + + | BUN/Creatin | 21.1 | | [facility] | | | ine Ratio | | | [facility] | | | | [...] | + + + + + | [facility] | [address] | [place] | [phone] | | [facility] | | [address] | | | - LABORATORY | | | | + + + + + Culture, MRSA (03/27/2015 3:06 PM PST) + + + + + + | Component | Value | Ref Range | Performed | Pathologist | | | | | At | Signature | + + + + + + | Culture | Negative for MRSA by | | [facility] | | | | chromogenic agar method | | [facility] | | | | | | [facility] | | | | | | CENTER - | | | | | | LABORATORY | | + + + + + + + + | Specimen | + + | Respiratory - Both | | anterior nares (body | | structure) | + + + + + + + | Performing | Address | City/State/Zipcode | Phone Number | | Organization | | | | + + + + + | [facility] | [address] | [place] | [phone] | | [facility] | | [address] | | | - LABORATORY | | [...]
--- OUTSIDE RECORDS SUMMARY | ~2019-03-03 | XMS | Encounter Summary ---
Demographics + + + | Address | [address] | | | [place] [address] | + + + | Home Phone [...] Providers + +------+ + | Care Senior Copywriter Name | Role | Phone | + +------+ + | Jacqueline Nuñez | PCP | | + +------+ + Encounter Details +--------+--------+ + + + | Date | Type | Department | Care Team | Description | +--------+--------+ + + + | 01/19/ | Travel [...]
--- OUTSIDE RECORDS SUMMARY | ~2019-03-03 | XMS | Clinical Summary ---
Demographics + + + | Address | [address] | | | [place] [address] | + + + | Home Phone | | + + + | Preferred Language | Unknown | + + + | Marital Status | | + + + | Sabianist Affiliation | NON | + + + [...] Team Providers + +------+ + | Care Help Desk Internship Name | Role | Phone | + +------+ + | Jacqueline Nuñez | PCP | | + +------+ + Source Comments ROGE is fully live on both [facility] and [facility] InPatient.[facility] Allergies + + + + + + [...] | x | dale | [address] | [address] | | | | | | for | | [place], | | | | | | all | | [place] | | | | | | dates | | [address] | | + +--------+ +--------+ + +------+ | BLUE CROSS BLUE | REGENC | [phone] | 04/05/19 | [phone] | [address] | PPO | | SHIELD | E BCBS | x | 18-Pre | 8 | [phone] [address] | | | | | | sent | | [place], | | | | | | | | [place] | | | | | | | | [address] | | + +--------+ +--------+ + +------+ [...] | 1959 | [phone] | [place] [address] | | | laney | | | 2 (Home) | | | | | | | [phone] | | | | | | | 4 (Work) | | + +--------+ +--------+ + + | Cathy Holm | Person | Self | [birth year] | [address] | | | al/Fam | | 8 | [phone] | [place] [address] | | | laney | | | [...]
--- OUTSIDE RECORDS SUMMARY | ~2019-03-03 | XMS | Encounter Summary ---
Demographics + + + | Address | [address] | | | [place] [address] | + + + | Home Phone | | + + + | Preferred Language | Unknown | + + + | Marital Status | | + + + | Episcopalian Affiliation | 1001 | + + + | Race | Unknown | + + + | Ethnic Group | Unknown | + + + Author + + + | Author | [facility] | | | and [place] | + + + | Organization | [facility] | | | and [place] [...] [place] | | | | | [address] | | + + + + + | Angelika Holm | ECON | Unknown | | + + + + + Care Team Providers + +------+ + | Care Director Field Services Name | Role | Phone | [...] | | fusion | [place], | [address] Phone: | | | | | | [place] [address] | [phone] | | | | | | Phone: | Fax: | | | | | | [phone] | [phone] | | | | | | Fax: | | | | | | | [phone] | | +--------+ + + + + [...] + + | 07/28/ | Telephone | [facility] | Donald Reich MD | Follow-up, Office | | 2017 | | NEUROSURGERY [address] | [address] | Visit; Follow-up | | | | [address] | [place] [address] | (Injections) | | | | [place] | [phone] | | | | | [address] | | | | | | [phone] | | | +--------+ + + + [...]
--- OUTSIDE RECORDS SUMMARY | ~2019-03-03 | XMS | Encounter Summary ---
Demographics + + + | Address | [address] | | | [place] [address] | + + + | Home Phone | | + + + | Preferred Language | Unknown | + + + | Marital Status | | + + + | Mormonism Affiliation | 1001 | + + + | Race | Unknown | + + + | Ethnic Group | Unknown | + + + Author + + + | Author | [facility] | | | and [place] | + + + | Organization | [facility] | | | and [place] [...] [place] | | | | | [address] | | + + + + + | Angelika Holm | ECON | Unknown | | + + + + + Care Team Providers + +------+ + | Care Lumber Straightener Name | Role | Phone | + [...] + + | 08/25/ | Office | [facility] | Donald Reich MD | S/P cervical spinal | | 2019 | Visit | NEUROSURGERY [address] | [address] | fusion (Primary Dx); | | | | [address] | [place] [address] | Cervicalgia; | | | | [place] | [phone] | Osteoarthritis of | | | | [address] | | spine with | | | | [phone] | | radiculopathy, | | | | [...] [facility], [address] [place] [address] PHONE: FAX: NEUROSURGERY FOLLOW-UP CHIEF COMPLAINT: Chief [...] Procedure Laterality Date Bladder Sling Release 08/26/2013 [facility] CERVICAL SPINE SURGERY N/A 05/10/2015 Procedure: C4-5, C5-6, C6-7 Anterior Cervical Discectomy Fusion; Surgeon: Donald Reich MD ; Location: [facility] MAIN OR CYSTOCELE REPAIR 1998 [place] [...] tablet TK 1 T PO QD 2 [place] 3-6-9 Fatty Acids (TRIPLE OMEGA COMPLEX PO) [...] has no apparent deficits with short or superintendent container terminal memory. CRANIAL NERVES: II: Acuity is intact. [...] Intrinsics 5 5 Ulnar Intrinsics 5 5 Search Marketing Coordinator Strength 5 5 Hip Flexion 5 5 [...] patient is aware of my transition to [facility]. She will hopefully be able to get [...]
--- OUTSIDE RECORDS SUMMARY | ~2019-03-03 | XMS | Encounter Summary ---
Demographics + + + | Address | [address] | | | [place] [address] | + + + | Home Phone | | + + + | Preferred Language | Unknown | + + + | Marital Status | | + + + | Zoroastrianism Affiliation | 1001 | + + + | Race | Unknown | + + + | Ethnic Group | Unknown | + + + Author + + + | Author | [facility] | | | and [place] | + + + | Organization | [facility] | | | and [place] [...] [place] | | | | | [address] | | + + + + + | Angelika Holm | ECON | Unknown | | + + + + + Care Team Providers + +------+ + | Care Photovoltaic Fabrication Technician Name | Role | Phone | [...] | | | Cervical | | MD Cornel [address] | | | | | arthritis | [address] | | | | | with | | [facility] | | | | | myelopathy | | [phone] | | | | | Cervical | | Phone: | | | | | arthritis | | [phone] | | | | | with | | Fax: | | | | | myelopathy | | [phone] | | | | | [M47.12] | | | | | | | Procedures | | | | | | | DC | | | | | | | [...] + + | 05/10/ | Hospital | [facility] | Donald Reich MD | Cervical | | 2016 | Encounter | MED CTR XRAY [address] | [address] | radiculopathy | | | | [address] [place] | [place] [address] | | | | | [place] [address] | [phone] | | | | | [phone] | | | +--------+ + + + [...] + + + +---------+ + + | Divide 3-6-9 Fatty | Take 2 tablets by [...] | + +--------+ + + + | LOI FAUSTINO STATS NO | Routin | 05/10/2015 | Cervical | Results for this | | CHARGE | e | 2:22 PM | radiculopathy | procedure are in the | | | | PST | | results section. | + +--------+ + + + documented in this encounter Results LOI C-Arm Stats No Charge (05/10/2015 2:22 PM PST) + + | Specimen | + + | | + + + + + | Narrative | Performed At | + + + | No Radiologist interpretation, please see Chart Review. | [facility] | | | [facility] | | | [facility] | | | - IMAGING | + + + + + + + + | Performing | Address | City/State/Zipcode | Phone Number | | Organization | | | | + + + + + | [facility] | [address] | [place], [place] | [phone] | | [facility] | | [address] | | | - IMAGING | | | | + + + + + documented in this encounter Visit Diagnoses + + | Diagnosis | + + | Cervical radiculopathy Brachial neuritis or radiculitis nos | + + documented in this encounter"
--- OUTSIDE RECORDS SUMMARY | ~2019-03-03 | XMS | Encounter Summary ---
Demographics + + + | Address | [address] | | | [place] [address] | + + + | Home Phone | | + + + | Preferred Language | Unknown | + + + | Marital Status | | + + + | Voodoo Affiliation | 1001 | + + + | Race | Unknown | + + + | Ethnic Group | Unknown | + + + Author + + + | Author | [facility] | | | and [place] | + + + | Organization | [facility] | | | and [...] [place] | | | | | [address] | | + + + + + | Angelika Holm | ECON | Unknown | | + + + + + Care Team Providers + +------+ + | Care Squad Boss Name | Role | Phone | + [...] | | | | with | [facility] | | | | | myelopathy | | [address] | | | | | Cervical | | Phone: | | | | | arthritis | | [phone] | | | | | with | | Fax: | | | | | myelopathy | | [phone] | | | | | [M47.12] | | | | | | | Procedures | | | | | | | [place] | | | | | | | [...] + + + + | 05/10/ | Anesthesia | [facility] | Indra Mejia | | | 2016 | Event | MED CTR OR INTRA OP | MD Ronald [address] | | | | | [address] | [address] [place], [place] | | | | | [place], [place] | [address] | | | | | [address] | | | | | | [phone] | | | +--------+ + + + + Anesthesia Record + + + + + | Procedure Name | Responsible | Anesthesia Start | Anesthesia Stop Time | | | Anesthesiologist | Time | | + + + + + | C4-5, C5-6, C6-7 | Indra Mejia, | 05/10/15 1220 | 05/10/15 1425 | | Anterior Cervical | MD | | | | Discectomy Fusion | | | | | (N/A Neck) | | | | + + + + + +----+---+ + + | Da | T | Event | Comment | | te | i | | | | | m | | | | | e | | | +----+---+ + + | 02 | 1 | | | | /0 | 0 | | | | 5/ | 4 | | | | 20 | 4 | | | | 16 | | | | +----+---+ + + | | 1 | An Checkout | Pre-use anesthesia machine/equipment checkout. | | | 1 | | | | | 5 | | | | | 7 | | | +----+---+ + + | | 1 | An Start | Versed 2 mg IV in SDS 9, then to OR 2 with sedated patient | | | 2 | | Reassessment prior to anesthesia induction/procedure. | | | 2 | | | | | 0 | | | +----+---+ + + | | 1 | an crescencio now | In room 2 | | | 2 | | | | | 2 | | | | | 2 | | | +----+---+ + + | | 1 | Antibiotic | | | | 2 | Given | | | | 2 | | | | | 2 | | | +----+---+ + + | | 1 | Preoxygenat | | | | 2 | ed | | | | 2 | | | | | 7 | | | +----+---+ + + | | 1 | An | | | | 2 | Induction | | | | 2 | | | | | 9 | | | +----+---+ + + | | 1 | An | | | | 2 | Intubation | | | | 3 | | | | | 0 | | | +----+---+ + + | | 1 | AN Bite | | | | 2 | Block | | | | 3 | | | | | 3 | | | +----+---+ + + | | 1 | Augusta | | | | 2 | 43-degrees | | | | 3 | | | | | 3 | | | +----+---+ + + | | 1 | First | | | | 2 | Inc/Proc St | | | | 4 | | | | | 2 | | | +----+---+ + + | | 1 | [place] off | | | | 4 | | | | | 1 | | | | | 9 | | | +----+---+ + + | | 1 | AN No | TOF 4/4 with sustained tetanus. | | | 4 | Residual | | | | 1 | NMB | | | | 9 | | | +----+---+ + + | | 1 | Breathing | | | | 4 | Spontaneous | | | | 1 | ly | | | | 9 | | | +----+---+ + + | | 1 | Oropharynx | | | | 4 | Suctioned | | | | 1 | | | | | 9 | | | +----+---+ + + | | 1 | An Stop | Patient handed off to recovery nurse. | | | 2 | | | | | 5 | | | +----+---+ + + +------+ | Meds | +------+ + +--------+ | Name | Total | + +--------+ | midazolam | 2 mg | + +--------+ | lidocaine 2% (PF) | 60 mg | + +--------+ | propofol | 150 mg | + +--------+ | vecuronium | 5 mg | + +--------+ | dexamethasone | 10 mg | + +--------+ | ondansetron | 4 mg | + +--------+ | HYDROmorphone | 2 mg | + +--------+ | vancomycin 1 g in sodium chloride | 1 g | | 0.9% 250 mL IVPB | | + +--------+ | ciprofloxacin in dextrose (CIPRO) | 400 mg | | IVPB 400 mg | | + +--------+ | ketamine | 75 mg | + +--------+ | lactated ringers (LR) infusion | 950 mL | + +--------+ + + | Name | + + | N2O Flow Rate (L/Min) | + + | O2 Flow Rate (L/Min) | + + | Insp O2 | + + | Exp SEV | + + | Exp JESUS | + + | Air Flow Rate (L/Min) | + + + + | No blood administrations on file. | + + +--------+ + + + | Type | Details | Placement | Removal | +--------+ + + + | Periph | 05/10/15; 1031; [id number] | 05/10/15 1031 by | 05/11/15 1145 by | | eral | catheter system; 18 gauge, 1 04/08 | Sona Rios RN | Ciara E | | IV | in length; distraction, | | FLAVIO Bunch | | | intradermal injection; short term | | | | | use; 05/11/15; 1145 | | | +--------+ + + + | Airway | Placement Date: 05/10/15; | 05/10/15 1230 by | 05/10/15 1428 by | | | Placement Time: 1230; Mask | Indra Mejia, | Sona Rios RN | | | Ventilation: EZ; Airway Grade: | MD | | | | II; With: CP; Successful | | | | | Technique: FO-rigid (Andersen); | | | | | Laryngoscope Blade Size: 3; | | | | | Attempts: 1; Airway Type: | | | | | endotracheal, oral, cuffed, | | | | | fenestrated, disposable; Size: | | | | | 6.5; Position: Right; Airway Tube | | | | | Secured At: 22; Tube Reference | | | | | Point: teeth, secure and patent; | | | | | Trauma: none; Other Equipment: | | | | | tooth guard; Placement Check: | | | | | breath sounds equal bilaterally, | | | | | exhaled CO2 detection device; | | | | | Removal: removed by RN; Removal | | | | | Date: 05/10/15; Removal Time: | | | | | 1428 | | | +--------+ + + + | Read | 05/10/15; 1358; Right; neck; | 05/10/15 1358 by | 05/11/15 1146 by | | only - | healing within expectations; | Vicente Herron RN | Ciara E | | | 05/11/15; 1146 | | FLAVIO Bunch | | Incisi | | | | | on | | | | +--------+ + + + | Drain/ | 05/10/15; 1412; #1; Right; | 05/10/15 1412 by | 05/11/15 1146 by | | Device | anterior; neck; collapsible | Vicente Herron RN | Ciara E | | Site | closed device; 10fr round nathalie; | | FLAVIO Bunch | | | tip intact; short term use; | | | | | 05/11/15; 1146 | | | +--------+ + + + [...] | | | + +--------+ +--------+------+------+ | ciprofloxacin in dextrose | Given | 05/10/19 | 400 mg | | | | (CIPRO) IVPB 400 mg 400 mg, | | 16 12:22 | | | | | Intravenous, Administer over 1 | | PM PST | | | | | Hours, EVERY 12 HOURS (2 times | | | | | | | per day), First dose on Wed | | | | | | | 05/10/15 at 1015, Pre-op | | | | | | + +--------+ +--------+------+------+ +---+---+ | | | +---+---+ + +-------+ +-------+---+---+ | dexamethasone (DECADRON) 10 | Given | 05/10/19 | 10 mg | | | | mg/mL injection Intravenous, | | 16 12:29 | | | | | PRN, Starting Wed05/10/15 at 1229, | | PM PST | | | | | Anesthesia Intra-op | | | | | | + +-------+ +-------+---+---+ +---+---+ | | | +---+---+ + +-------+ +------+---+---+ | HYDROmorphone (DILAUDID) 2 | Given | 05/10/19 | 1 mg | | | | mg/mL injection PRN, Pain, | | 16 12:46 | | | | | Starting Wed05/10/15 at 1228, | | PM PST | | | | | Anesthesia Intra-op | | | | | | + +-------+ +------+---+---+ +-------+ +------+---+---+ | Given | 05/10/19 | 1 mg | | | | | 16 12:28 | | | | | | PM PST | | | | +-------+ +------+---+---+ +---+---+ | | | +---+---+ + +-------+ +-------+---+---+ | ketamine 50 mg/mL injection | Given | 05/10/19 | 75 mg | | | | PRN, Starting Wed05/10/15 at 1249, | | 16 12:49 | | | | | Anesthesia Intra-op | | PM PST | | | | + +-------+ +-------+---+---+ +---+---+ | | | +---+---+ + +---------+ +---+---+---+ | lactated ringers (LR) infusion | New Bag | 05/10/19 | | | | | at 10-100 mL/hr, Intravenous, | | 16 11:01 | | | | | CONTINUOUS, Starting Wed05/10/15 | | AM PST | | | | | at 1015, TKO., Pre-op | | | | | | + +---------+ +---+---+---+ +---+---+ | | | +---+---+ + +-------+ +-------+---+---+ | lidocaine (PF) 2% injection | Given | 05/10/19 | 60 mg | | | | PRN, Starting Wed05/10/15 at 1229, | | 16 12:29 | | | | | Anesthesia Intra-op | | PM PST | | | | + +-------+ +-------+---+---+ +---+---+ | | | +---+---+ + +-------+ +------+---+---+ | midazolam (VERSED) 1 mg/mL | Given | 05/10/19 | 2 mg | | | | injection Intravenous, PRN, | | 16 12:20 | | | | | Anxiety, Starting Wed05/10/15 at | | PM PST | | | | | 1220, Anesthesia Intra-op | | | | | | + +-------+ +------+---+---+ +---+---+ | | | +---+---+ + +-------+ +------+---+---+ | ondansetron (ZOFRAN) injection | Given | 02/05/20 | 4 mg | | | | PRN, Nausea, Vomiting, Starting | | 16 12:29 | | | | | 05/10/15 at 1229, Anesthesia | | PM PST | | | | | Intra-op | | | | | | + +-------+ +------+---+---+ +---+---+ | | | +---+---+ + +-------+ +--------+---+---+ | propofol (DIPRIVAN) injection | Given | 05/10/19 | 150 mg | | | | PRN, Starting 05/10/15 at 1229, | | 16 12:29 | | | | | Anesthesia Intra-op | | PM PST | | | | + +-------+ +--------+---+---+ [...] | | | | | | Starting Wed05/10/15 at 0958, For | | | | [...] +-----+-------+---+ +---+---+ | | | +---+---+ + +-------+ +------+---+---+ | vecuronium (NORCURON) injection | Given | 05/10/19 | 5 mg | | | | Intravenous, PRN, Ventilator | | 16 12:28 | | | | | Dyssynchrony, Starting Wed05/10/15 | | PM PST | | | | | at 1228, Anesthesia Intra-op | | | | | | + +-------+ +------+---+---+ +---+---+ | | | +---+---+ documented in this encounter"
--- OUTSIDE RECORDS SUMMARY | ~2019-03-03 | XMS | Encounter Summary ---
Demographics + + + | Address | [address] | | | [place] [address] | + + + | Home Phone [...] + + + | Author | [facility] | + + + | Organization | [facility] | + + + | Address | Unknown | + + + | Phone | Unavailable | + + + Support + + +---------+ + | Name | Relationship | Address | Phone | + + +---------+ + | Fidel Holm | ECON | Unknown | | + + +---------+ + Care Team Providers + +------+ + | Care Social Work Program Coordinator Name | Role | Phone | + +------+ + | Jacqueline Nuñez | PCP | | + +------+ + Encounter Details +--------+ + + + + | Date | Type | Department | Care Team | Description | +--------+ + + + + | 01/25/ | Document-Sc | NON-[facility] EP[facility] | Unknown . | | | 2019 | anned | [...]
--- OUTSIDE RECORDS SUMMARY | ~2019-03-03 | XMS | Encounter Summary ---
Demographics + + + | Address | [address] | | | [place] [address] | + + + | Home Phone | | + + + | Preferred Language | Unknown | + + + | Marital Status | | + + + | Jehovah'S Witness Affiliation | NON | + + + [...] Team Providers + +------+ + | Care Software Verification Engineer Name | Role | Phone | [...]
--- OUTSIDE RECORDS SUMMARY | ~2019-03-03 | XMS | Encounter Summary ---
Demographics + + + | Address | [address] | | | [place] [address] | + + + | Home Phone | | + + + | Preferred Language | Unknown | + + + | Marital Status | | + + + | Scientology Affiliation | NON | + + + | Race | White | + + + | Ethnic Group | Not or | + + + Author + + + | Author | [facility] | + + + | Organization | [facility] | + + + | Address | Unknown | + + + | Phone | Unavailable | + + + Support + + +---------+ + | Name | Relationship | Address | Phone | + + +---------+ + | Fidel Holm | ECON | Unknown | | + + +---------+ + Care Team Providers + +------+ + | Care Dredge Operator Name | Role | Phone | [...] | | | | | | | [facility] | | | | | | | for Health | | | | | | | and Healing, | | | | | | | Building [address], | | | | | | | 5th Floor | | | | | | | [place], [place] | | | | | | | [address] | | | | | | | Phone: | | | | | | | [phone] | | | | | | | Fax: | | | | | | | [phone] | + +--------+ + + + + [...] | | | Reconstructive | Taylor Cummings [place], | insufficiency | | | | Services at [facility] | [place] [address] | (Primary Dx); Nasal | | | | [address]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 of Otolaryngology/Head and Neck Surgery [facility] [place] tel fax email [email or web address] rafat in this encounter [...]
--- OUTSIDE RECORDS SUMMARY | ~2019-03-03 | XMS | Encounter Summary ---
Demographics + + + | Address | [address] | | | [place] [address] | + + + | Home Phone [...] | Author | [facility] | | | and [place] | + + + | Organization | [facility] | [...] [place] | | | | | [address] | | + + + + + | Angelika Holm | ECON | Unknown | | + + + + + Care Team Providers + +------+ + | Care Coal Miner Name | Role | Phone | + [...] | Specialty | Neurosurgery | Diagnoses | | [facility] | | | Services | | Cervical | [place], | Neurosurgery | | | Required | | radiculopath | Andrea Scott MD | [address] | | | | | y Cervical | [address] | [address] | | | | | spondylosis | [address] [place] | [place], | | | | | without | [place], [place] | [place] [address] | | | | | myelopathy | [address] | Phone: | | | | | Degeneration | Phone: | [phone] | | | | | of cervical | [phone] | Fax: | | | | | | Fax: | [phone] | | | | | intervertebr | [phone] | | | | | | al disc S/P | | | | | | | | | | | | | | decompressio | | | | | | | n of ulnar | | | | | | | nerve at | | | | | | | elbow | | | | | | | Spinal | | | | | | | stenosis in | | | | | | | cervical | | | | | | | region | | | +--------+ + + + + + Reason for Visit + + + | Reason | Comments | + + + | Neck Pain | Neck pain that radiates into the shoulders and both arms | + + + | Numbness | both hands | + + + Encounter Details +--------+---------+ + + + | Date | Type | Department | Care Team | Description | +--------+---------+ + + + | 07/18/ | Office | [facility] | Andrea Arndt | Cervical | | 2014 | Visit | PHYSIATRY [address] | radiculopathy | | | | [place], | [place], [place] | (Primary Dx); | | | | [place] [address] | [address] | Cervical spondylosis | | | | [phone] | | without myelopathy; | | | | | | Degeneration of | | | | | | cervical | | | | | | intervertebral disc; | | | | | | Cubital tunnel | | | | | | syndrome, right; S/P | | | [...] + + + | Blood Pressure | 122/64 | 07/18/2014 7:45 AM | | | | | PDT | | + + + + + | Pulse | 66 | 07/18/2014 7:45 AM | | | | | PDT [...] Weight | 57.6 kg (127 lb) | 07/18/2014 7:45 AM | | | | | PDT | | + + + + + | Height | 167.6 cm (5' 6") | 07/18/2014 7:45 AM | | | | | PDT | | + + + + + | Body Mass Index | 20.5 | 07/18/2014 7:45 AM | | | | | PDT | | + + + + + documented in this encounter Progress Notes Andrea Arndt MD - 07/18/2014 7:51 AM PDT CHIEF COMPLAINT: Chief Complaint Patient presents with Neck Pain Neck pain that radiates into the shoulders and both arms Numbness both hands HISTORY OF PRESENT ILLNESS: The patient is a 54 y.o. female being seen today in follow up f or complaints of neck pain that radiates primarily down the right arm and both shoulders. S he has been seen for this complaint before and was found to have fairly significant DDD. It was recommended the patient have a trial of a C7-T1 ILESI which was performed by me on 015. The patient notes 50% improvement with the numbness in her hands but no improvement in her neck, arm or shoulder symptoms. The patient states that the symptoms began many years ago. Her case has been somewhat comp licated by shoulder issues and an ulnar neuropathy. In August of last year she had right shoul jamshid rotator cuff surgery but this did not improve all her pain. She was having right elbow b urning sensation during her physical therapy and then had a NCS/EMG performed which indicate d ulnar nerve entrapment. Then March of 2014 she had a right ulnar nerve release. She sti ll continues to have right arm pain. Her doctor then performed a cervical MRI and found she has cervical DDD with spinal stenosis. Since the symptoms began, she has noticed that symptoms have been chronic and worsening. Nigel mihcele describes the pain as a burning feeling to the shoulder area and aching, with sharp quick pain down the right arm. She rates the pain as 5 on scale of 1-10. Her symptoms worsen [...] anesthesia. Treatments for these complaints have included the injection as above, medications, chiropra ctic therapy, physical therapy for the neck, right shoulder and elbow. This did include tra ction which reportedly made her arms go completely [...] 08/17/2013 Hold[facility] Pearson Elbow surgery 03/15/2014 [facility] Incontinence surgery 2004 Bladder sling release 08/26/2013 [...] Daily. gabapentin (NEURONTIN) 300 mg capsule Take one tablet at night only for the first 5 day s then gradually increase up to 3 times daily as tolerated 90 capsule 2 ibuprofen (ADVIL, MOTRIN) 200 mg tablet Take 200 mg by mouth every 6 hours as needed fo r Pain. Multiple Vitamins-Minerals (QC MULTI-HERMANN 50 & OVER PO) Take 1 tablet by mouth Daily. Bogard 3-6-9 Fatty Acids (TRIPLE OMEGA COMPLEX PO) [...] no rheumatoid arthritis PHYSICAL EXAMINATION: Blood pressure 122/64, pulse 66, height 1.676 m (5' 6"), weight 57.607 [...] has no apparent deficits with short or chcf memory. She has appropriate fund of knowledge [...] negative. Empty can test was negative. Strength testing in bilateral upper extremities showed 5/5 strength with the exception of elbow extension and pronation weakness on the right. RADIOGRAPHIC REVIEW: The patient's imaging was reviewed in detail with the patient today during the visit. The images show multilevel DDD. There is a reversal of the normal cervical lordosis. There herrera s appear to be fairly severe foraminal narrowing bilaterally at the C5-C6 level and to a les ser extent at other levels. ASSESSMENT: Encounter Diagnoses Name Primary? 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 The patient has so far failed conservative measures including PT, chiropractic, medica tions and most recently had a cervical epidural steroid injection without improvement. The p atient is likely a surgical candidate. A referral was placed to the neurosurgeons today. 2. The patient was given also a prescription for gabapentin today. She was advised to cont act our office if she has any adverse effects. 3. If she is not felt to be a candidate for surgery I would be happy to see her again to [facility] conservative care. ELECTRONICALLY EDITED AND SIGNED BY: Andrea Arndt MD, 07/18/2014 Scribed by: Marybel Dick MA for Dr. Andrea Arndt on 07/18/2014 documented in this encounter Plan of Treatment + + +--------+ + + | Name | Type | Priori | Associated Diagnoses | Order Schedule | | | | ty | | | + + +--------+ + + | * [facility] [place] | Outpatient | Routin | Cervical | Ordered: 07/18/2014 | | Neurosurgery - AMB | Referral | e | radiculopathy | | | Referral | | | Cervical spondylosis | | | | | | without myelopathy | | | | | | Degeneration of | | | | | | cervical | | | | | | intervertebral disc | | | | | | S/P decompression | | | | | | of ulnar nerve at | | | | | | elbow Spinal | | | | | | stenosis in cervical | | | | | | region | | + + +--------+ + + [...]
--- OUTSIDE RECORDS SUMMARY | ~2019-03-03 | XMS | Encounter Summary ---
Demographics + + + | Address | [address] | | | [place] [address] | + + + | Home Phone | | + + + | Preferred Language | Unknown | + + + | Marital Status | | + + + | Methodist Affiliation | 1001 | + + + | Race | Unknown | + + + | Ethnic Group | Unknown | + + + Author + + + | Author | [facility] | | | and [place] | + + + | Organization | [facility] | | | and [...] [place] | | | | | [address] | | + + + + + | Angelika Holm | ECON | Unknown | | + + + + + Care Team Providers + +------+ + | Care Tipple Operator Name | Role | Phone | [...] Closed | | MRI | Diagnoses | Андрей, | [address] ST | | | | | Cervicalgia | Luis Storey, | [place] | | | | | DDD | PA-C [address] | HOSPITAL | | | | | (degenerativ | [address] | [address] | | | | | e disc | [address] | [address] | | | | | disease), | [place], | [place] | | | | | cervical | [place] [address] | [address] | | | | | Cervical | Phone: | Phone: | | | | | radiculopath | [phone] | [phone] | | | | | y | Fax: | Fax: | | | | | Procedures | [phone] | [phone] | | | | | MRI Cervical | | | | | | | Spine wo | | | | | | | Contrast | | | | | | | 0407 | | | | | | | Pending-AIM | | | | | | | response | | | +--------+--------+ + + + + Diagnostic/Screening (Routine) +--------+--------+ + + + + | Status | Reason | Specialty | Diagnoses / | Referred By | Referred To | | | | | Procedures | Contact | Contact | +--------+--------+ + + + + | Closed | | Radiology | Diagnoses | Андрей, | [address] ST | | | | | Cervicalgia | Luis Storey, | [place] | | | | | DDD | PA-C [address] | HOSPITAL | | | | | (degenerativ | [address] | [address] | | | | | e disc | [address] | [address] | | | | | disease), | [place], | [place], [place] | | | | | cervical | [place] [address] | [address] | | | | | Cervical | Phone: | Phone: | | | | | radiculopath | [phone] | [phone] | | | | | y | Fax: | Fax: | | | | | Procedures | [phone] | [phone] | | | | | CT Cervical | | | | | | | Spine wo | | | | | | | Contrast | | | | | | | 04/05 | | | | | | | Pending-AIM | | | | | | | response | | | +--------+--------+ + + + + Reason for Visit + + + | Reason | Comments | + + + | Follow-up | Discuss neck pain that radiates in to bilateral shoulders. | + + + Encounter Details +--------+---------+ + + + | Date | Type | Department | Care Team | Description | +--------+---------+ + + + | 07/07/ | Office | [facility] | Luis Chiang | Cervicalgia (Primary | | 2017 | Visit | NEUROSURGERY [address] | D, PAKatharine [address] | Dx); DDD | | | | [address] | [address] | (degenerative disc | | | | [place], [place] | [place], [place] | disease), cervical; | | | | [address] | [address] | Cervical | | | | [phone] | | radiculopathy | +--------+---------+ + + [...] + + + | Blood Pressure | 120/76 | 07/07/2016 9:10 AM | | | | | PDT | | + + + + + | Pulse | 68 | 07/07/2016 9:10 AM | | | | | PDT [...] + + + + | Weight | 57.7 kg (127 lb 1.6 | 07/07/2016 9:10 AM | | | | oz) | PDT | | + + + + + | Height | 167.6 cm (5' 6") | 07/07/2016 9:10 AM | | | | | PDT | | + + + + + | Body Mass Index | 20.51 | 07/07/2016 9:10 AM | | | | | PDT | | + + + + + documented in this encounter Patient Instructions Patient Instructions Luis Chiang PA-C - 07/07/2016 9:56 AM PDTWe will have you get a MRI and CT scan of your neck Follow up in office to discuss resultsElectronically signed by KIT Oliveira 07/07/2016 9:57 AM PDT documented in this encounter Progress Notes Luis Chiang PA-C - 07/07/2016 10:53 AM PDTFormatting of this note might be diffe rent from the original. Luis Chiang PA-C [address], [address] [place] [address] FAX: NEUROSURGERY HISTORY AND PHYSICAL EXAMINATION CHIEF COMPLAINT: Chief Complaint Patient presents with Follow-up Discuss neck pain that radiates in to bilateral shoulders. HISTORY OF PRESENT ILLNESS: The patient is a 56 y.o. female with the complaint of neck and arm pain symptoms that began around Dec 2015. She is 14 months out from her cervical fusio n.. The patient states that her pain has been getting worse since that time. The pain is in the back of her neck and into her shoulders. She notes some pains in her upper arms. No sign ificant radiating pain in her arms. She complains of mild numbness in her hands. The symptoms have been gradually worsening. She rates the pain as moderate. The symptoms are daily. She describes the pain as sharp and muscle aches. She has been doing conservativ e management for her symptoms. No changes in bowel or bladder habits. PAST MEDICAL HISTORY: Past Medical History Diagnosis Date Torn rotator cuff Migraine Thyroid disease Neck and shoulder pain Acid reflux Bladder problem Incontinence Hypothyroidism Numbness and tingling in right hand Cervical radiculopathy 06/20/2014 PAST SURGICAL HISTORY: Past Surgical History Procedure Laterality Date Shoulder surgery 08/17/2013 Holden Christopher Michel Elbow surgery 03/15/2014 Holden Christopher Michel Incontinence surgery 2003 Bladder sling release 08/26/2013 Jacqui Frankie [place] Cystocele repair 1998 Partial hysterectomy 1998 Efren and bso 2004 Rectocele repair 1998 Cervical spine surgery N/A 05/10/2015 Procedure: C4-5, C5-6, C6-7 Anterior Cervical Discectomy Fusion; Surgeon: Bekah Jones; Location: [facility] MAIN OR CURRENT MEDICATIONS: Current Outpatient Prescriptions Medication Sig [...] tablet TK 1 T PO QD 2 [place] 3-6-9 Fatty Acids (TRIPLE OMEGA COMPLEX PO) [...] she does not use i llicit drugs. FAMILY HISTORY: Family History Problem Relation Age of Onset Other (see comment) Father Blood clots Gout Father Heart disease Father Mental illness Mother Seizures Mother Stroke Father Hypertension Mother Dementia Mother Diabetes Paternal Grandmother REVIEW OF SYSTEMS GENERALLY: No fever, + night sweats, no anemia, no fatigue, no recent profound weight vergara es. EYES: No eye problems, no use of corrective lenses, no eye injury, no double vision, no bli ndness. EARS, NOSE, AND THROAT: No changes in taste or smell, no hearing difficulty, no ringing in the ears, no ear drainage, no dizziness, no voice changes, no difficulty swallowing, no sign ificant snoring, no sleep apnea, no sinus problems, no major dental work. NEUROLOGICALLY: Please see the review of systems discussed above in the history of present illness. In addition, the patient has numbness/pain of arms, weakness, muscle aching and hea daches. PSYCHIATRIC: No depression, no sleep disorders, no anxiety, no bipolar disorder, no psychot ic episodes. CARDIOVASCULAR: No heart attacks, no heart murmur, no heart fluttering, no chest pain, no a nkle swelling. LUNG DISEASE: No shortness of breath, no cough, no tuberculosis, no bloody cough, no asthma , no emphysema/COPD. GASTROINTESTINAL: No bowel disease, no nausea or vomiting, no rectal bleeding, no constipat ion, no stool incontinence, no liver disease, no gallbladder disease, no abdominal pain, no ulcers. KIDNEY DISEASE: No urinary frequency, no painful or difficult urination, no incontinence. ENDOCRINE: No diabetes, no thyroid disease, no osteopenia or osteoporosis, no breast draina ge. SKIN: No breast lumps, no skin changes, no rashes, no itches. HEMATOLOGIC/LYMPHATIC: No enlarged lymph nodes, no easy or unusual bleeding, no personal hi story of cancer. RHEUMATOLOGIC: No joint arthritis, no rheumatoid arthritis. PHYSICAL EXAMINATION: Blood pressure 120/76, pulse 68, height 1.676 m (5' 6"), weight 57.652 kg (127 lb 1.6 oz), not currently . Body mass index is 20.52 kg/(m^2). GENERAL: Cathy Holm is in no [...] of motion of the neck is limited. Rotation and/or extension does not cause symptoms to radiate into either arm. Flexion and extension of the neck does not cause severe discomf ort. There is no tenderness of there thoracic or lumbar spine. There is no major deformity noted. EXTREMITIES: No cyanosis, clubbing, or edema. Distal pulses are palpable. NEUROLOGICAL EXAM: MENTAL STATUS: The patient is awake, alert, and oriented. She follows simple and complex commands. Her speech is fluent, she comprehends speech well, and she repeats well. She has no apparent deficits with short or superintendent terminal memory. CRANIAL NERVES: II: Acuity is [...] Intrinsics 5 5 Ulnar Intrinsics 5 5 Collection Systems Technician Strength 5 5 Hip Flexion 5 5 Hip Extension 5 5 Knee Flexion 5 5 Knee Extension 5 5 Dorsiflexion 5 5 Extensor Hallicus Longus 5 5 Plantarflexion 5 5 SENSORY EXAM: Sensory exam shows no diminished sensation to light touch or pain throughout the upper and lower extremities. REFLEXES: (2 OR 2+ IS NORMAL) REFLEX: RIGHT LEFT BICEPS 2 3 BRACHIORADIALIS 2 2 TRICEPS 2 2 PATELLAR 2 2 ACHILLES 2 2 MAYS'S ABSENT ABSENT PLANTAR DOWNGOING DOWNGOING GAIT: Gait is steady. TEST AND RADIOGRAPHIC REVIEW: The patient's imaging was reviewed in detail with the patient today during the visit. The xray shows stable hardware without signs of failure. The C6-7 bone implant is fractured. This is similar to previous xray. ASSESSMENT: NEUROSURGICAL DIAGNOSES: Encounter Diagnoses Name Primary? Cervicalgia Yes DDD (degenerative disc disease), cervical Cervical radiculopathy GENERAL DIAGNOSES: Past Medical History Diagnosis Date Torn rotator cuff Migraine Thyroid disease Neck and shoulder pain Acid reflux Bladder problem Incontinence Hypothyroidism Numbness and tingling in right hand Cervical radiculopathy 06/20/2014 PLAN: Cathy Holm presented today, and it was a pleasure seeing this patient and assessing her neurologic problems. The patient was doing well until this pain started up again. She is concerned that there ma y be more degeneration in her neck. I would like to get a CT and MRI of her neck to address her new symptoms since her previous surgery. She will follow up in office to discuss results of imaging. ELECTRONICALLY SIGNED BY: Luis Chiang PA-C, 07/07/2016 10:53 Anabel Villagran Audio Visual Aids Director - 07/2016 9:20 AM PDTREVIEW OF SYSTEMS GENERALLY: No fever, + night [...] present illness. In addition, the patient has numbness/pain of arms, weakness, muscle aching and h eadaches. PSYCHIATRIC: No depression, no sleep disorders, no [...] RHEUMATOLOGIC: No joint arthritis, no rheumatoid arthritis. Jimy douglass in this encounter Plan of Treatment + +---------+--------+ + + | Name | Type | Priori | Associated Diagnoses | Order Schedule | | | | ty | | | + +---------+--------+ + + | CT Cervical Spine wo | Imaging | Routin | Cervicalgia DDD | Expected: | | Contrast | | e | (degenerative disc | 07/07/2016, Expires: | | | | | disease), cervical | 07/07/2017 | | | | | Cervical | | | | | | radiculopathy | | + +---------+--------+ + + | MRI Cervical Spine | Imaging | Routin | Cervicalgia DDD | Expected: | | wo Contrast | | e | (degenerative disc | 07/07/2016, Expires: | | | | | disease), cervical | 07/07/2017 | | | | | Cervical | | | | | | radiculopathy | | + +---------+--------+ + + documented as of this encounter Visit Diagnoses + + | Diagnosis | + + | Cervicalgia - Primary | + + | DDD (degenerative disc disease), cervical Degeneration of cervical intervertebral | | disc | + + | Cervical radiculopathy Brachial neuritis or radiculitis nos | + + documented in this encounter
--- OUTSIDE RECORDS SUMMARY | ~2019-03-03 | XMS | Encounter Summary ---
Demographics + + + | Address | [address] | | | [place] [address] | + + + | Home Phone | | + + + | Preferred Language | Unknown | + + + | Marital Status | | + + + | Presybeterian Affiliation | NON | + + + [...] Team Providers + +------+ + | Care Asbestos Brake Lining Finisher Name | Role | Phone | + [...] | | Cervicalgia | [address] | [place], [place] | | | | | Arthrodesis | [place] | [address] | | | | | status | [place], [place] | Phone: | | | | | | [address] | [phone] | | | | | | Phone: | Fax: | | | | | | [phone] | [phone] | | | | | | Fax: | | | | | | | [phone] | | +--------+--------+ + + + + [...] | | [address] | [place] [address] | fusion; Bilateral | | | | [place], [place] | [phone] | occipital neuralgia, | | | | [address] | | possible | | | | [phone] | | | +--------+---------+ + + + [...] from t he original. Donald Reich MD [facility] [address] [address] NEUROSURGERY HISTORY AND PHYSICAL EXAMINATION CHIEF COMPLAINT: [...] she be evaluated by Dr. Conti in [place] for her neck symptoms and headac hes. [...]
--- OUTSIDE RECORDS SUMMARY | ~2019-03-03 | XMS | Encounter Summary ---
Demographics + + + | Address | [address] | | | [place] [address] | + + + | Home Phone [...] + + + | Author | [facility] | + + + | Organization | [facility] | + + + | Address | Unknown | + + + | Phone | Unavailable | + + + Support + + +---------+ + | Name | Relationship | Address | Phone | + + +---------+ + | Fidel Holm | ECON | Unknown | | + + +---------+ + Care Team Providers + +------+ + | Care Weighter Name | Role | Phone | + [...]
--- OUTSIDE RECORDS SUMMARY | ~2019-03-03 | XMS | Encounter Summary ---
Demographics + + + | Address | [address] | | | [place] [address] | + + + | Home Phone | | + + + | Preferred Language | Unknown | + + + | Marital Status | | + + + | Druze Affiliation | 1001 | + + + | Race | Unknown | + + + | Ethnic Group | Unknown | + + + Author + + + | Author | [facility] | | | and [place] | + + + | Organization | [facility] | | | and [place] [...] [place] | | | | | [address] | | + + + + + | Angelika Holm | ECON | Unknown | | + + + + + Care Team Providers + +------+ + | Care Hook And Eye Sewing Machine Operator Name | Role | Phone | + +------+ + | Alec Tao MD | PCP | | + +------+ + Reason for Visit + + + | Reason | Comments | + + + | Follow-up | MRI F/U | + + + Encounter Details +--------+---------+ + + + | Date | Type | Department | Care Team | Description | +--------+---------+ + + + | 03/12/ | Office | [facility] | Donald Reich MD | Cervical spondylosis | | 2014 | Visit | NEUROSURGERY [address] | [address] | with myelopathy | | | | [address] | [place] [address] | (Primary Dx); | | | | [place] | [phone] | Cervical | | | | [address] | | radiculopathy; | | | | [phone] | | Degeneration of | | | | | | cervical | | | | | | intervertebral disc; | | | | | | Spinal stenosis in | | | | | | cervical region; | | | | | | Cervical spinal cord | | | | | | compression (HCC) | +--------+---------+ + + + Social History [...] + + + | Blood Pressure | 142/87 | 03/12/2015 8:49 AM | | | | | PST | | + + + + + | Pulse | 90 | 03/12/2015 8:49 AM | | | | | PST | | + + + + + | Temperature | - | - | | + + + + + | Respiratory Rate | 16 | 03/12/2015 8:49 AM | | | | | PST | | + + + + + | Oxygen Saturation | - | - | | + + + + + | Inhaled Oxygen | - | - | | | Concentration | | | | + + + + + | Weight | 57.6 kg (127 lb) | 03/12/2015 8:49 AM | | | | | PST | | + + + + + | Height | 167.6 cm (5' 6") | 03/12/2015 8:49 AM | | | | | PST | | + + + + + | Body Mass Index | 20.5 | 03/12/2015 8:49 AM | | | | | PST | | + + + + + documented in this encounter Patient Instructions Patient Instructions Donald Reich MD - 03/12/2015 9:24 AM PSTWe discussed and will attemp t to arrange an Anterior Cervical Diskectomy and Fusion (ACDF) as we make a final decision a bout surgery. Your insurance provider may or may not approve the procedure, but I feel it i s medically necessary and appropriate. We discussed a number of important issues including risks, benefits, and alternatives. A spine class is usually available sometime before your surgery. These classes are very us eful in preparing for spinal surgery. I would encourage you to attend one. After surgery, it is critical that you do not start or resume smoking and also that you gabriela id taking any and all anti-inflammatory medications like ibuprofen, Motrin, naproxen, Aleve, Celebrex, diclofenac, Mobic, meloxicam, and many others. The bone is much less likely to h eal if you do not avoid these. It is usually best not to take these or smoke for 6 months . You can research this procedure more by going to: [email or web address] Click the Treatment Options link on the left column. Then, look for Anterior Cervical Discectomy and Fusion (ACDF). documented in this encounter Progress Notes Donald Reich MD - 03/12/2015 9:25 AM PSTFormatting of this note might be different from t he original. Donald Reich MD [address] [place] [address], [address] [place], [place] [address] FAX: NEUROSURGERY FOLLOW-UP CHIEF COMPLAINT: Chief Complaint Patient presents with Follow-up MRI F/U HISTORY OF PRESENT ILLNESS: The patient is a 55 y.o. female that has been seeing Kevyn Wagner PA-C and myself for neck and arm symptoms. She has tried now extensive conservative care and returns with unfortunately continued symptoms. She had C7-T1 interlaminar epidural ster oid injections she had some improvement of her neck discomfort for a short period of time. She does not recall how long she had improvement. The patient however states that her arm a nd hand symptoms of tingling and numbness did not improve. She has tingling of her hands in volving the first and second finger but also third fourth and fifth fingers. The patient di d have ulnar nerve surgery in March 2014 on her right arm. That has not improved her nagy d tingling. She does notice her symptoms are worse at night and when driving. She also not ices increased symptoms of hand tingling and numbness with repetitive activities of her hand s. She has worsened since last seen and she is now having some lower extremity numbness not pr eviously present. PAST MEDICAL HISTORY: Past Medical History Diagnosis [...] PO) Take 1 tablet by mouth Daily. [place] 3-6-9 Fatty Acids (TRIPLE OMEGA COMPLEX PO) [...] Paternal Grandmother INTERIM PHYSICAL EXAMINATION: Blood pressure 142/87, pulse 90, resp. rate 16, height 1.676 m (5' 6"), weight 57.607 kg (1 27 lb). Body mass index is 20.51 kg/(m^2). GENERAL: Cathy Holm is in no [...] no apparent deficits with short or exterminator helper memory. MOTOR EXAM: (5 IS NORMAL) * Indicates pain limited MUSCLE/ MOVEMENT: RIGHT LEFT Deltoids 5 5 Biceps 5 5 Triceps 5 5 Wrist Flexion 5 5 Wrist Extension 5 5 Median Intrinsics 5 5 Ulnar Intrinsics 5 5 Narcotics Detective Strength 4 5 Hip Flexion 5 5 [...] today during the visit. The p izabel's x-rays and MRI from 2014 shows loss of normal cervical lordosis. The patient has ne ural foraminal narrowing worse on the right side at C5-6 and C6-7. She has cord compression and stenosis at C4-5 that has slightly worsened. ASSESSMENT: Encounter Diagnoses Name Primary? Cervical spondylosis with myelopathy Yes Cervical radiculopathy Degeneration of cervical intervertebral disc Spinal stenosis in cervical region Cervical spinal cord compression (HCC) Past Medical History Diagnosis Date Torn rotator cuff Migraine Thyroid disease Neck and shoulder pain Acid reflux Bladder problem Incontinence Hypothyroidism Numbness and tingling in right hand Cervical radiculopathy 06/20/2014 PLAN: It was a pleasure visiting with this patient again today. She has progressed and has new f indings. Her MRI of her neck looks worse. I discussed a C4-7 ACDF. We discussed the risks, alternatives, and benefits to surgical intervention with Ms. Óscar kern in clinic. These risks included but were not limited to , stroke, heart attack, numb ness, weakness, paralysis, failure of fusion, failure of hardware, subsidence, adjacent segm ent degeneration, cerebrospinal fluid leak, bleeding, infection, injury to surrounding tissu es and organs, injury from positioning, injury to the nerves, difficulty with breathing, dif ficulty with swallowing, difficulty with voice change, and need for additional surgery. Surgical options were discussed and the technique to be employed was described in detail to her. All her questions were answered. We discussed that the goal of the surgery is to prevent progression of her disease, but it is not considered a cure. We also discussed that although some patients may obtain 100% sym ptom relief, it is realistic to anticipate that some symptoms will continue postoperatively despite a successful surgery. We also discussed that there is no guarantee that surgery will provide improvement in her c ondition, and indeed may even worsen the symptoms. We also discussed that in the course of the procedure the operative plan may be altered to include more, less, or different levels d epending upon findings in order to provide her with the best possible outcome. For multiple (more than 1 level fusions), I recommend the use of a bone growth stimulator p ostoperatively. This is to improve the probability and rate of fusion. She would like to seek authorization and clearance for this. ELECTRONICALLY SIGNED BY: Donald Reich MD, 03/12/2015 9:27 documented in this encou nter Plan of Treatment Not on filedocumented as of this encounter Visit Diagnoses + + | Diagnosis | + + | Cervical spondylosis with myelopathy - Primary | + + | Cervical radiculopathy Brachial neuritis or radiculitis nos | + + | Degeneration of cervical intervertebral disc | + + | Spinal stenosis in cervical region | + + | Cervical spinal cord compression (HCC) Unspecified disease of spinal cord | + + documented in this encounter
--- OUTSIDE RECORDS SUMMARY | ~2019-03-03 | XMS | Encounter Summary ---
Demographics + + + | Address | [address] | | | [place] [address] | + + + | Home Phone [...] Author | [facility] | | | and [place] | + + + | Organization | [facility] | | | and [...] [place] | | | | | [address] | | + + + + + | Angelika Holm | ECON | Unknown | | + + + + + Care Team Providers + +------+ + | Care Aircraft Life Support Fitter Name | Role | Phone | + [...] [place] | | | | | [phone] | [place] [address] | | +--------+ + + + + [...]
--- OUTSIDE RECORDS SUMMARY | ~2019-03-03 | XMS | Encounter Summary ---
Demographics + + + | Address | [address] | | | [place] [address] | + + + | Home Phone | | + + + | Preferred Language | Unknown | + + + | Marital Status | | + + + | Muslim Affiliation | NON | + + + | Race | White | + + + | Ethnic Group | Not or | + + + Author + + + | Author | [facility] | + + + | Organization | [facility] | + + + | Address | Unknown | + + + | Phone | Unavailable | + + + Support + + +---------+ + | Name | Relationship | Address | Phone | + + +---------+ + | Fidel Holm | ECON | Unknown | | + + +---------+ + Care Team Providers + +------+ + | Care Back Wedger Name | Role | Phone | + [...] | | | | | insufficienc | [place], [place] | [facility] | | | | | y Nasal | [address] | for Health | | | | | septal | Phone: | and Healing, | | | | | perforation | [phone] | [address], | | | | | Nasal | Fax: | 3rd Floor | | | | | obstruction | [phone] | [place], [place] | | | | | Procedures | | [address] | | | | | CT SINUS WO | | Phone: | | | | | CONTRAST | | [phone] | | | | | ROUTINE [place] | | Fax: | | | | | CT | | [phone] | | | | | SCAN,MAXILLO | [...] | | | Reconstructive | [facility] [place], | | | | | Services at [facility] | [place] [address] | | | | | [address] | [phone] | | | | | Mailcode: CH5E | | | | | | [facility] | | | | | | and Healing, | | | | | | [address], [address]th | | | | | | Floor [place], [place] | | | | | | [address] | | | | | | [phone] | | | +--------+ + + + [...] SINUS WO CONTRAST ROUTINE (02/17/2018 10:37 AM [facility]) + + | Specimen | + + [...]
--- OUTSIDE RECORDS SUMMARY | ~2019-03-03 | XMS | Encounter Summary ---
Demographics + + + | Address | [address] | | | [place] [address] | + + + | Home Phone | | + + + | Preferred Language | Unknown | + + + | Marital Status | | + + + | Gnosticism Affiliation | 1001 | + + + | Race | Unknown | + + + | Ethnic Group | Unknown | + + + Author + + + | Author | [facility] | | | and [place] | + + + | Organization | [facility] | | | and [place] [...] [place] | | | | | [address] | | + + + + + | Angelika Holm | ECON | Unknown | | + + + + + Care Team Providers + +------+ + | Care Reverser Name | Role | Phone | + +------+ + | Alec Tao MD | PCP | | + +------+ + Reason for Visit + + + | Reason | Comments | + + + | Follow-up | Neck pain | + + + Encounter Details +--------+---------+ + + + | Date | Type | Department | Care Team | Description | +--------+---------+ + + + | 10/12/ | Office | [facility] | Kevyn Wagnerlas | Cervical spondylosis | | 2015 | Visit | NEUR[address]URGERY [address] | [address] | without myelopathy | | | | [address] | [address] | (Primary Dx); | | | | [place], [place] | [place] [address] | Cervical | | | | [address] | [phone] | radiculopathy; Neck | | | | [phone] | | and shoulder pain; | | | | | | Spinal stenosis in | | | | | | cervical region; | | | | | | Cubital tunnel | | | | | | syndrome, | | | | | | unspecified | | | | | | laterality | +--------+---------+ + + [...] + + + | Blood Pressure | 144/87 | 10/12/2014 7:55 AM | | | | | PDT | | + + + + + | Pulse | 91 | 10/12/2014 7:55 AM | | | | | PDT | | + + + + + | Temperature | - | - | | + + + + + | Respiratory Rate | 15 | 10/12/2014 7:55 AM | | | | | PDT | | + + + + + | Oxygen Saturation | - | - | | + + + + + | Inhaled Oxygen | - | - | | | Concentration | | | | + + + + + | Weight | 57.6 kg (127 lb) | 10/12/2014 7:55 AM | | | | | PDT | | + + + + + | Height | 167.6 cm (5' 6") | 10/12/2014 7:55 AM | | | | | PDT | | + + + + + | Body Mass Index | 20.5 | 10/12/2014 7:55 AM | | | | | PDT | | + + + + + documented in this encounter Patient Instructions Patient Instructions Abdulaziz Wagner PA - 10/12/2014 8:25 AM PDTToday we requested t he nerve conduction studies of your upper extremities that were performed approximately one year ago. We will review the results. I would like you to follow-up with Dr. esqueda to discus s possible surgery. We can review the nerve studies with you at that time and make further recommendations documented in this encounter Progress Notes Abdulaziz Wagner PA - 10/12/2014 8:26 AM PDTFormatting of this note might be differen t from the original. JOSHUA Castle [address] [facility], [address] [place], [place] [address] FAX: NEUROSURGERY FOLLOW-UP CHIEF COMPLAINT: Chief Complaint Patient presents with Follow-up Neck pain HISTORY OF PRESENT ILLNESS: The patient is a 54 y.o. female that I saw in April for neck and arm symptoms. She was sent to physiatry for further conservative therapy. She had C7- T1 interlaminar epidural steroid injections she had some improvement of her neck discomfort for a short period of time. She does not recall how long she had improvement. The patient however states that her arm and hand symptoms of tingling and numbness did not improve. In teenage to have pain radiating into her shoulders bilaterally and into her arms and hands. She has tingling of her hands involving the first and second finger but also third fourth an d fifth fingers. The patient did have ulnar nerve surgery in March on her right arm. Th at has not improved her hand tingling. She does notice her symptoms are worse at night and when driving. She also notices increased symptoms of hand tingling and numbness with repeti tive activities of her hands. PAST MEDICAL HISTORY: Past Medical History Diagnosis Date Torn rotator cuff Migraine Thyroid disease Neck and shoulder pain Acid reflux Bladder problem Incontinence Hypothyroidism Numbness and tingling in right hand Cervical radiculopathy 06/20/2014 PAST SURGICAL HISTORY: Past Surgical History Procedure Laterality Date Shoulder surgery 08/17/2013 Hold[facility] Pearson Elbow surgery 03/15/2014 Holden Pearson Incontinence surgery 2003 Bladder sling release 08/26/2013 Jacquicornel Escoto Anthony Cystocele repair 1998 Partial hysterectomy 1998 Efren [...] PO) Take 1 tablet by mouth Daily. [place] 3-6-9 Fatty Acids (TRIPLE OMEGA COMPLEX PO) [...] Paternal Grandmother INTERIM PHYSICAL EXAMINATION: Blood pressure 144/87, pulse 91, resp. rate 15, height 1.676 m (5' 6"), weight 57.607 kg (1 27 lb). Body mass index is 20.51 kg/(m^2). GENERAL: Cathy Cristiane Mihai is in no acute distress with unlabored respirations. HEENT: HEAD/FACE: Normocephalic and atraumatic. There are no areas of recent trauma. CHEST: Clear to ausculation without crackles or wheeze. HEART: Regular rate and rhythm without murmurs. SPINE: nontender to palpation EXTREMITIES: No lower extremity edema. NEUROLOGICAL EXAMINATION: MENTAL STATUS: The patient is awake, alert, and oriented. She follows simple and complex commands. She speech is fluent, her comprehends speech well, and her repeats well. She has no apparent deficits with short or meterman memory. CRANIAL NERVES: Fundoscopic Exam: The optic [...] Intrinsics 5 5 Ulnar Intrinsics 5 5 Tug Hand Strength 5 5 Hip Flexion 5 5 [...] test of the hips is negative bilaterally. RADIOGRAPHIC REVIEW: The patient's imaging was reviewed in detail with the patient today during the visit. The p atient's MRI shows loss of normal cervical lordosis. The patient has neural foraminal narrow ing worse on the right side at C5-6 and to a lesser degree at C6-7. This is generally though t to be moderate. The patient does have some mild cervical stenosis with no cord signal barraza ges apparent. Patient had x-rays of her cervical spine which show no sign of instability ASSESSMENT: Encounter Diagnoses Name Primary? Cervical spondylosis without myelopathy Yes Cervical radiculopathy Neck and shoulder pain Spinal stenosis in cervical region Cubital tunnel syndrome, unspecified laterality Past Medical History Diagnosis Date Torn rotator cuff Migraine Thyroid disease Neck and shoulder pain Acid reflux Bladder problem Incontinence Hypothyroidism Numbness and tingling in right hand Cervical radiculopathy 06/20/2014 PLAN: It was a pleasure visiting with this patient again today, and as always I greatly appreciat e the consideration and referral. The patient had some improvement of her neck symptoms wit h her injection but unfortunately has not had any improvement of her arm symptoms. We will obtain copies of her nerve testing of her upper extremities for review. I would like her al so to follow-up with Dr. esqueda to further discuss the possibility of surgery she will continue to follow-up with her primary care provider as well ELECTRONICALLY SIGNED BY: JOSHUA Castle, 10/12/2014 8:27 documented in th is encounter Plan of Treatment Not on filedocumented as of this encounter Procedures + +--------+ + + + | Procedure Name | Priori | Date/Time | Associated Diagnosis | Comments | | | ty | | | | + +--------+ + + + | DIAGNOSTIC REPORT - | | 01/02/2014 | | | | EXTERNAL SCAN | | 12:00 AM | | | | | | PDT | | | + +--------+ + + + documented in this encounter Visit Diagnoses + + | Diagnosis | + + | Cervical spondylosis without myelopathy - Primary | + + | Cervical radiculopathy Brachial neuritis or radiculitis nos | + + | Neck and shoulder pain | + + | Spinal stenosis in cervical region | + + | Cubital tunnel syndrome, unspecified laterality | + + documented in this encounter
--- OUTSIDE RECORDS SUMMARY | ~2019-03-03 | XMS | Encounter Summary ---
Demographics + + + | Address | [address] | | | [place] [address] | + + + | Home Phone | | + + + | Preferred Language | Unknown | + + + | Marital Status | | + + + | Confucianism Affiliation | 1001 | + + + | Race | Unknown | + + + | Ethnic Group | Unknown | + + + Author + + + | Author | [facility] | | | and [place] | + + + | Organization | [facility] | | | and [...] [place] | | | | | [address] | | + + + + + | Angelika Holm | ECON | Unknown | | + + + + + Care Team Providers + +------+ + | Care Banking Consultant Name | Role | Phone | [...] | | [address] | [place] [address] | | | | | [place] | [phone] | | | | | [address] | | | | | | [phone] | | | +--------+ + + + [...]
--- OUTSIDE RECORDS SUMMARY | ~2019-03-03 | XMS | Encounter Summary ---
Demographics + + + | Address | [address] | | | [place] [address] | + + + | Home Phone [...] | Author | [facility] | | | and [place] | + + + | Organization | [facility] | | | and [...] [place] | | | | | [address] | | + + + + + | Angelika Holm | ECON | Unknown | | + + + + + Care Team Providers + +------+ + | Care Quality Assurance Assessor Name | Role | Phone | + [...] | MRI | Diagnoses | DamirDonald | [facility] | | | | | Acute | [address] | RADIOLOGY | | | | | bilateral | [address] | [address] | | | | | low back | [place], | [address] | | | | | pain with | [place] [address] | [place] | | | | | bilateral | Phone: | [place] | | | | | sciatica | [phone] | [address] | | | | | Procedures | Fax: | Phone: | | | | | MRI Lumbar | [phone] | [phone] | | | | | Spine wo | | Fax: | | | | | Contrast | | [phone] | | | | | Imaging | [...] MRI | Diagnoses | Donald Reich | [facility] | | | | | Chronic | [address] | RADIOLOGY | | | | | bilateral | [address] | [address] | | | | | thoracic | [facility], | [address] | | | | | back pain | [place] [address] | [place] | | | | | Procedures | Phone: | [place], [place] | | | | | MRI Thoracic | [phone] | [address] | | | | | Spine wo | Fax: | Phone: | | | | | Contrast | [phone] | [phone] | | | | | Imaging | | Fax: | | | | | Requested | | [phone] | | | | | 06/07/17 | | | +--------+--------+ + + + + Diagnostic/Screening (Routine) +--------+--------+ + + + + | Status | Reason | Specialty | Diagnoses / | Referred By | Referred To | | | | | Procedures | Contact | Contact | +--------+--------+ + + + + | Closed | | MRI | Diagnoses | Donald Reich | [facility] | | | | | Cervical | [address] | RADIOLOGY | | | | | radiculopath | [address] | [address] | | | | | y S/P | [place], | [address] | | | | | cervical | [place] [address] | [place] | | | | | spinal | Phone: | [place] | | | | | fusion | [phone] | [address] | | | | | Procedures | Fax: | Phone: | | | | | MRI Cervical | [phone] | [phone] | | | | | Spine wo | | Fax: | | | | | Contrast | | [phone] | +--------+--------+ + + + + Reason [...] | | [address] | [place] [address] | bilateral sciatica | | | | [place], [place] | [phone] | (Primary Dx); | | | | [address] | | Chronic bilateral | | | | [phone] | | thoracic back pain; | | [...] from t gavin beard. Donald Reich MD [address] [place] [address], [address] [place], [place] [id number] FAX: NEUROSURGERY FOLLOW-UP CHIEF COMPLAINT: Chief Complaint [...] Laterality Date Bladder Sling Release 08/26/2013 [facility]. Anthony CERVICAL SPINE SURGERY N/A 05/10/2015 Procedure: C4-5, C5-6, C6-7 Anterior Cervical Discectomy Fusion; Surgeon: Donald Reich MD ; Location: [facility] MAIN OR CYSTOCELE REPAIR 1998 ELBOW SURGERY 03/15/2014 Holden Pearson INCONTINENCE SURGERY 2003 PARTIAL HYSTERECTOMY 1998 [...] tablet TK 1 T PO QD 2 [place] 3-6-9 Fatty Acids (TRIPLE OMEGA COMPLEX PO) [...] apparent deficits with short or ferry terminal agent memory. MOTOR EXAM: (5 IS NORMAL) * Indicates pain limited MUSCLE/ MOVEMENT: RIGHT LEFT Deltoids 5 5 Biceps 4+ 5 Triceps 4+ 5 Wrist Flexion 5 5 Wrist Extension 5 5 Median Intrinsics 5 5 Ulnar Intrinsics 5 5 Bar Roller Strength 5 5 Hip Flexion 5 5 [...]
--- OUTSIDE RECORDS SUMMARY | ~2019-03-03 | XMS | Encounter Summary ---
Demographics + + + | Address | [address] | | | [place] [address] | + + + | Home Phone | | + + + | Preferred Language | Unknown | + + + | Marital Status | | + + + | Voodoo Affiliation | 1001 | + + + | Race | Unknown | + + + | Ethnic Group | Unknown | + + + Author + + + | Author | [facility] | | | and [place] | + + + | Organization | [facility] | | | and [...] [place] | | | | | [address] | | + + + + + | Angelika Holm | ECON | Unknown | | + + + + + Care Team Providers + +------+ + | Care Scientific Writer Name | Role | Phone | + +------+ + | Alec Tao MD | PCP | | + +------+ + Encounter Details +--------+ + + + + | Date | Type | Department | Care Team | Description | +--------+ + + + + | 06/08/ | Imaging | [facility] | Provider, | | | 2018 | Exam | [facility] | [address] | | | | | IMAGING | [place] | | | | | [phone] | [place] [address] | | +--------+ + + + + [...]
--- OUTSIDE RECORDS SUMMARY | ~2019-03-03 | XMS | Encounter Summary ---
Demographics + + + | Address | [address] | | | [place] [address] | + + + | Home Phone [...] Author | [facility] | | | and [place] | + + + | Organization | [facility] | | | and [place] | [...] [place] | | | | | [address] | | + + + + + | Angelika Holm | ECON | Unknown | | + + + + + Care Team Providers + +------+ + | Care Cylinder Grinder Name | Role | Phone | + +------+ + | Alec Tao MD | PCP | | + +------+ + Reason for Visit + + + | Reason | Comments | + + + | Follow-up | Discuss Imaging | + + + Encounter Details +--------+---------+ + + + | Date | Type | Department | Care Team | Description | +--------+---------+ + + + | 07/24/ | Office | [facility] | Luis Chiang | DDD (degenerative | | 2017 | Visit | NEUR[address]UR[address]ERY [address] | [address] | disc disease), | | | | [address] | [address] | cervical (Primary | | | | [place], [place] | [place], [place] | Dx); Cervicalgia | | | | [address] | [address] | | | | | [phone] | | | +--------+---------+ + + + [...] + + + | Blood Pressure | 117/81 | 07/24/2016 11:20 AM | | | | | PDT | | + + + + + | Pulse | 78 | 07/24/2016 11:20 AM | | | | | PDT | | + + + + + | Temperature | - | - | | + + + + + | Respiratory Rate | 16 | 07/24/2016 11:20 AM | | | | | PDT | | + + + + + | Oxygen Saturation | - | - | | + + + + + | Inhaled Oxygen | - | - | | | Concentration | | | | + + + + + | Weight | 56.2 kg (124 lb) | 07/24/2016 11:20 AM | | | | | PDT | | + + + + + | Height | 167.6 cm (5' 6") | 07/24/2016 11:20 AM | | | | | PDT | | + + + + + | Body Mass Index | 20.01 | 07/24/2016 11:20 AM | | | | | PDT | | + + + + + documented in this encounter Patient Instructions Patient Instructions Luis Chiang PA-C - 07/24/2016 11:54 AM PDTI will review you r imaging with Dr. Reich Surgery may or may not help your symptoms. Next step for conservative management would be steroid injections. documented in this encounter Progress Notes Luis Chiang PA-C - 07/24/2016 11:55 AM PDTFormatting of this note might be diffe rent from the original. Luis Chiang PA-C [address], [address] [place], [place] [address] FAX: NEUROSURGERY FOLLOW-UP CHIEF COMPLAINT: Chief Complaint Patient presents with Follow-up Discuss Imaging HISTORY OF PRESENT ILLNESS: The patient is a 56 y.o. female that had a cervical fusion 14 months ago. She returns in office today to discuss her new imaging. She states her symptoms have been getting worse sine our last visit. The pain in the shoulder and neck are bothersom e at all times and she can't get comfortable to sleep. Recently, she has hand some tingling and numbness in her arms and hands that was not present prior. She describes the pain as bur shannan and nerve type pain. PAST MEDICAL HISTORY: Past Medical History Diagnosis Date Torn rotator cuff Migraine Thyroid disease Neck and shoulder pain Acid reflux Bladder problem Incontinence Hypothyroidism Numbness and tingling in right hand Cervical radiculopathy 06/20/2014 PAST SURGICAL HISTORY: Past Surgical History Procedure Laterality Date Shoulder surgery 08/17/2013 [facility] Christopher Michel Elbow surgery 03/15/2014 Holden Pearson Incontinence surgery 2004 Bladder sling release 08/26/2013 [facility] Cystocele repair 1998 Partial hysterectomy 1998 Efren and bso 2004 Rectocele repair 1998 Cervical spine surgery N/A 05/10/2015 Procedure: C4-5, C5-6, C6-7 Anterior Cervical Discectomy Fusion; Surgeon: Bekah Jones; Location: [facility] MAIN OR CURRENT MEDICATIONS: Current Outpatient [...] tablet TK 1 T PO QD 2 [place] 3-6-9 Fatty Acids (TRIPLE OMEGA COMPLEX PO) [...] Paternal Grandmother INTERIM PHYSICAL EXAMINATION: Blood pressure 117/81, pulse 78, resp. rate 16, height 1.676 m (5' 6"), weight 56.246 kg (1 24 lb), not currently . Body mass index is 20.02 kg/(m^2). GENERAL: Cathy Holm is in no acute distress with unlabored respirations. The pat iejude does appear uncomfortable throughout the exam today. [...] of the neck does not cause severe disco mfort. There is no tenderness of there thoracic or lumbar spine. There is no major deformity noted. EXTREMITIES: No cyanosis, clubbing, or edema. Distal pulses are palpable. NEUROLOGICAL EXAM: MENTAL STATUS: The patient is awake, alert, and oriented. She follows simple and complex commands. Her speech is fluent, she comprehends speech well, and she repeats well. She has no apparent deficits with short or long term care administrator memory. CRANIAL NERVES: II: Acuity is intact. Ojeda are full to confrontation. III, IV, : The pupils are reactive. Extraocular movements are intact. No ptosis is noted. V: Facial sensation is intact and symmetric. [...] Intrinsics 5 5 Ulnar Intrinsics 5 5 Health Spa Manager Strength 5 5 Hip Flexion 5 5 [...] with the patient today. The MRI from 2017 shows small disc bulges at C3-4 and C4-5 without causing significant spin al stenosis. Mild to moderately severe bilateral neural foraminal stenosis at C5-6. The CT from 2017 shows disc bulges at C3-4 and C4-5. Mild to moderately severe bilateral fo raminal stenosis at C5-6. There does not seem to be a significant amount of bone growing in the C6-7 disc space. ASSESSMENT: Encounter Diagnoses Name Primary? DDD (degenerative disc disease), cervical Yes Cervicalgia Past Medical History Diagnosis Date Torn rotator cuff Migraine Thyroid disease Neck and shoulder pain Acid reflux Bladder problem Incontinence Hypothyroidism Numbness and tingling in right hand Cervical radiculopathy 06/20/2014 PLAN: Overall, the patient is doing poorly.The patient complains that her pain is getting worse a s time goes on. We discussed that her imaging shows degenerative changes without obvious signs of spinal ca nal stenosis. There does not seems to be a significant amount of bone forming at the C6-7 le peng. In discussing the surgical options, we discussed a revision on her cervical fusion. We talked about how this may not help her neck and shoulder symptoms overall. We talked about t he risk of more scar tissue and pain after a revision surgery. In discussing non-surgical options, we talked about steroid injections and PT. This would b e a conservative measure to treat her symptoms. I would like to discuss this case with Dr. Reich to determine the next step. The next conserv ative step would be cervical steroid injections. ELECTRONICALLY SIGNED BY: Luis Chiang PA-C, 07/24/2016 11:56 documented in this encounter Plan of Treatment Not on filedocumented as of this encounter Procedures + +--------+ + + + | Procedure Name | Priori | Date/Time | Associated Diagnosis | Comments | | | ty | | | | + +--------+ + + + | IMAGING REPORT - | | 07/22/2016 | | Results for this | | EXTERNAL SCAN | | 12:00 AM | | procedure are in the | | | | PDT | | results section. | + +--------+ + + + | IMAGING REPORT - | | 07/22/2016 | | Results for this | | EXTERNAL SCAN | | 12:00 AM | | procedure are in the | | | | PDT | | results section. | + +--------+ + + + documented in this encounter Results IMAGING REPORT - EXTERNAL SCAN (07/22/2016 12:00 AM PDT) + + + | Narrative | Performed At | + + + | Ordered by an | | | unspecified provider. | | + + + IMAGING REPORT - EXTERNAL SCAN (07/22/2016 12:00 AM PDT) + + + | Narrative | Performed At | + + + | Ordered by an | | | unspecified provider. | | + + + documented in this encounter Visit Diagnoses + + | Diagnosis | + + | DDD (degenerative disc disease), cervical - Primary Degeneration of cervical | | intervertebral disc | + + | Cervicalgia | + + documented in this encounter
--- OUTSIDE RECORDS SUMMARY | ~2019-03-03 | XMS | Encounter Summary ---
Demographics + + + | Address | [address] | | | [place] [address] | + + + | Home Phone | | + + + | Preferred Language | Unknown | + + + | Marital Status | | + + + | Religion Affiliation | NON | + + + [...] Team Providers + +------+ + | Care Polisher And Buffer Name | Role | Phone | + +------+ + | Jacqueline Nuñez | PCP | | + +------+ + Encounter Details +--------+---------+ + + + | Date | Type | Department | Care Team | Description | +--------+---------+ + + + | 08/04/ | Office | Preoperative | Val De Paz, | Preop examination | | 2019 | Visit | Medicine Clinic at | DNP [address] | (Primary Dx) | | | | [facility] | Ave [place], [place] | | | | | [address] | [address] | | | | | Mail Code: [facility] | [phone] | | | | | [facility] | | | | | | and Healing, | | | | | | Building 2 | | | | | | [facility] [place] | | | | | | [address] | | | | | | [phone] | | | +--------+---------+ + + + [...] medications with a sip of water: Ranitidine [place] thyroid On the morning of surgery DO [...] sit, stand or walk. Surgery check-in location: [address] and [facility] 2, 1st Floor [facility] Surgery Check in Time: The Preoperative Medicine [...] it is after office hours, call the [facility] surfacer operator at [phone] and ask them to page him or [...] POSSIBLE ALLODERM on 08/05/18 Proposed Procedure Location: [facility] HISTORY OF PRESENT ILLNESS: Cathy Holm is [...] The patient is also currently scheduled at [facility] [place] and is meeting inclusion cr iteria [...] this patient's care. Val De Paz DNP [facility] PREOPERATIVE MEDICINE CLINIC AT [facility] [address] [facility] [address] I spent time counseling the pt [...] + +--------+ + + | COMMUNICATION TO [facility] | Procedures | Routin | Preop examination | Ordered: 08/04/2018 | | LAB DRAW | | e | | | + + +--------+ + + documented as of this encounter Procedures + +--------+ + + + | Procedure Name | Priori | Date/Time | Associated Diagnosis | Comments | | | ty | | | | + +--------+ + + + | [place] COLLECTION VENOUS | Routin | 08/04/2018 | [...] + + documented in this encounter Results [facility] - CBC ONLY (08/04/2018 2:55 PM PDT) [...] [facility] | [address] | [place] [address] | | | SERVICES, CENTER FOR | [...] | | | LABORATORY | | | [place] | | | SERVICES, | | | [...] [facility] | [address] | [place] [address] | | | [facility] | | | | | HEALTH + HEALING | | | | + + + + + documented in this encounter Visit Diagnoses + + | Diagnosis | + + | Preop examination - Primary Preoperative examination, unspecified | + + documented in this encounter
--- OUTSIDE RECORDS SUMMARY | ~2019-03-03 | XMS | Encounter Summary ---
Demographics + + + | Address | [address] | | | [place] [address] | + + + | Home Phone | | + + + | Preferred Language | Unknown | + + + | Marital Status | | + + + | Zoroastrianism Affiliation | 1001 | + + + | Race | Unknown | + + + | Ethnic Group | Unknown | + + + Author + + + | Author | [facility] | | | and [place] | + + + | Organization | [facility] | | | and [place] [...] [place] | | | | | [address] | | + + + + + | Angelika Holm | ECON | Unknown | | + + + + + Care Team Providers + +------+ + | Care Computer Trainer Name | Role | Phone | + [...] AV | Hypothyroidism; | | | | [place], [place] | [place] [address] | Degeneration of | | | | [address] | [phone] | cervical | | | | [phone] | | intervertebral disc; | | | [...]
--- OUTSIDE RECORDS SUMMARY | ~2019-03-03 | XMS | Encounter Summary ---
Demographics + + + | Address | [address] | | | [place] [address] | + + + | Home Phone | | + + + | Preferred Language | Unknown | + + + | Marital Status | | + + + | Scientology Affiliation | 1001 | + + + | Race | Unknown | + + + | Ethnic Group | Unknown | + + + Author + + + | Author | [facility] | | | and [place] | + + + | Organization | [facility] | | | and [place] [...] [place] | | | | | [address] | | + + + + + | Angelika Holm | ECON | Unknown | | + + + + + Care Team Providers + +------+ + | Care Corporate Analyst Name | Role | Phone | [...] | | | | cervical | [place] [address] | [address] | | | | | Cervical | Phone: | Phone: | | | | | radiculopath | [phone] | [phone] | | | | | y | Fax: | Fax: | | | | | Procedures | [phone] | [phone] | | | | | MRI Cervical [...] | | | | cervical | [place] [address] | [address] | | | | | Cervical | Phone: | Phone: | | | | | radiculopath | [phone] | [phone] | | | | | y | Fax: | Fax: | | | | | Procedures | [phone] | [phone] | | | | | CT Cervical [...] + + | 07/07/ | Office | [facility] | Luis Chiang | Cervicalgia (Primary | | 2017 | Visit | NEUROSURGERY [address] | D, PAKatharine [address] | Dx); DDD | | | | [address] | [address] | (degenerative disc | | | | [place], [place] | [place], [place] | disease), cervical; | | | | [address] | [address] | Cervical | | | | [phone] | | radiculopathy | +--------+---------+ + + [...] from the original. Luis Chiang PA-C [address] [facility], [address] [place] [address] FAX: NEUROSURGERY HISTORY AND PHYSICAL EXAMINATION CHIEF [...] 2003 Bladder sling release 08/26/2013 Jacqui Frankie Brusly Cystocele repair 1998 Partial hysterectomy 1998 Efren and bso 2004 Rectocele repair 1998 Cervical spine surgery N/A 05/10/2015 Procedure: C4-5, C5-6, C6-7 Anterior Cervical Discectomy Fusion; Surgeon: Bekah Jones; Location: [facility] MAIN OR CURRENT MEDICATIONS: Current Outpatient Prescriptions [...] tablet TK 1 T PO QD 2 [place] 3-6-9 Fatty Acids (TRIPLE OMEGA COMPLEX PO) [...] has no apparent deficits with short or secondary teacher memory. CRANIAL NERVES: II: Acuity is intact. [...] Intrinsics 5 5 Ulnar Intrinsics 5 5 Wharfmaster Strength 5 5 Hip Flexion 5 5 [...] Luis Chiang PA-C, 07/07/2016 10:53 Anabel Villagran Hotel Assistant General Manager - 07/2016 9:20 AM PDTREVIEW OF SYSTEMS [...]
--- OUTSIDE RECORDS SUMMARY | ~2019-03-03 | XMS | Encounter Summary ---
Demographics + + + | Address | [address] | | | [place] [address] | + + + | Home Phone | | + + + | Preferred Language | Unknown | + + + | Marital Status | | + + + | Sikhism Affiliation | 1001 | + + + | Race | Unknown | + + + | Ethnic Group | Unknown | + + + Author + + + | Author | [facility] | | | and [place] | + + + | Organization | [facility] | | | and [...] [place] | | | | | [address] | | + + + + + | Angelika Holm | ECON | Unknown | | + + + + + Care Team Providers + +------+ + | Care Roast Master Name | Role | Phone | + [...] + + | 12/09/ | Office | [facility] | Luis Chiang | Cervical spinal | | 2016 | Visit | NEUROSURGERY [address] | D, PA-C [address] | stenosis (Primary | | | | [address] | [address] | Dx); Cervical | | | | [place], [place] | [place], [place] | radiculopathy; | | | | [address] | [address] | Cervicalgia; | | | | [phone] | | Foraminal stenosis | | | | | | of cervical region; | | | | | | Cervical disc | | | | | | herniation; S/P | | | | | | [...] + + + | Blood Pressure | 159/87 | 12/09/2016 12:38 PM | | | | | PDT | | + + + + + | Pulse | 86 | 12/09/2016 12:38 PM | | | | | PDT | | + + + + + | Temperature | - | - | | + + + + + | Respiratory Rate | 18 | 12/09/2016 12:38 PM | | | | | PDT | | + + + + + | Oxygen Saturation | - | - | | + + + + + | Inhaled Oxygen | - | - | | | Concentration | | | | + + + + + | Weight | 55.3 kg (122 lb) | 12/09/2016 12:38 PM | | | | | PDT | | + + + + + | Height | 167.6 cm (5' 6") | 12/09/2016 12:38 PM | | | | | PDT | | + + + + + | Body Mass Index | 19.69 | 12/09/2016 12:38 PM | | | | | PDT | | + + + + + documented in this encounter Patient Instructions Patient Instructions Luis Chiang PA-C - 12/09/2016 12:30 PM PDTWe will schedule a follow-up with Dr. Reich so you can discuss surgical options Please continue with conservative measures that have helped you so far. Electronically sign ed by Luis Chiang PA-C at 12/09/2016 1:13 PM PDT documented in this encounter Progress Notes Luis Chiang PA-C - 12/09/2016 12:30 PM PDTFormatting of this note might be diffe rent from the original. Luis Chiang PA-C [address] [facility], [address] [place], [place] [id number] FAX: NEUROSURGERY FOLLOW-UP CHIEF COMPLAINT: Chief Complaint Patient presents with Follow-up Discuss neck pain HISTORY OF PRESENT ILLNESS: The patient is a 56 y.o. female that had a cervical fusion 19 months ago. She returns in office today to discuss her symptoms. She states that her neck a nd shoulder pain has worsened since her previous visit. Her neck pain on the right side is constant and worsens with activity. It radiates down her right shoulder and under her shoul jamshid blade. She has tingling and numbness in her right arm and hands that is new after her s urgery. She tried a cervical epidural steroid injection, but had no relief. She is here to discuss other options. PAST MEDICAL HISTORY: Past Medical History: Diagnosis Date Acid reflux Bladder problem Cervical radiculopathy 06/20/2014 Hypothyroidism Incontinence Migraine Neck and shoulder pain Numbness and tingling in right hand Thyroid disease Torn rotator cuff PAST SURGICAL HISTORY: Past Surgical History: Procedure Laterality Date Bladder Sling Release 08/26/2013 [facility] CERVICAL SPINE SURGERY N/A 05/10/2015 Procedure: C4-5, C5-6, C6-7 Anterior Cervical Discectomy Fusion; Surgeon: Donald Reich MD ; Location: [facility] MAIN OR CYSTOCELE REPAIR 1998 ELBOW SURGERY 03/15/2014 [facility] INCONTINENCE SURGERY 2004 PARTIAL HYSTERECTOMY 1998 RECTOCELE REPAIR 1998 SHOULDER SURGERY 08/17/2013 [facility] 2004 CURRENT MEDICATIONS: Current Outpatient [...] tablet TK 1 T PO QD 2 [place] 3-6-9 Fatty Acids (TRIPLE OMEGA COMPLEX PO) [...] Grandmother REVIEW OF SYSTEMS GENERALLY: No fever, no night sweats, no anemia, no fatigue, no recent profound weight ch anges. EYES: No eye problems, no use of [...] In addition, the patient has numbness/pain of arms and legs, awake with numbness/ pain, pain in neck. PSYCHIATRIC: No depression, no sleep disorders, no [...] rheumatoid arthritis. INTERIM PHYSICAL EXAMINATION: Blood pressure 159/87, pulse 86, resp. rate 18, height 1.676 m (5' 6"), weight 55.3 kg (122 lb), not currently . Body mass index is 19.69 kg/m. GENERAL: Cathy Holm is in no [...] has no apparent deficits with short or supervisor intermediates memory. CRANIAL NERVES: II: Acuity is intact. [...] Intrinsics 5 5 Ulnar Intrinsics 5 5 Auto Transport Driver Strength 5 5 Hip Flexion 5 5 [...] bone growing in the C6-7 disc space. Bone growing posterior to C6 body which may be causing some cord compr ession. ASSESSMENT: Encounter Diagnoses Name Primary? Cervical spinal stenosis Yes Cervical radiculopathy Cervicalgia Foraminal stenosis of cervical region Cervical disc herniation S/P cervical spinal fusion Past Medical History: Diagnosis Date Acid reflux Bladder problem Cervical radiculopathy 06/20/2014 Hypothyroidism Incontinence Migraine Neck and shoulder pain Numbness and tingling in right hand Thyroid disease Torn rotator cuff PLAN: Overall, the patient is doing poorly.The [...] or may not be contributing to her symptoms.. In discussing the surgical options, we discussed a revision on her cervical fusion. We martin ked about how this may not help her neck and shoulder symptoms overall. We talked about the risk of more scar tissue and pain after a revision surgery. In discussing non-surgical options, we talked about physical therapy. She is already tried steroid injections without any benefit. She is not interested in physical therapy at this time. She would like to follow-up with Dr. Reich to discuss her surgical options. ELECTRONICALLY SIGNED BY: Luis Chiang PA-C, 12/09/2016 16:22 documented in this encounter Plan of Treatment Not on filedocumented as of this encounter Visit Diagnoses + + | Diagnosis | + + | Cervical spinal stenosis - Primary Spinal stenosis in cervical region | + + | Cervical radiculopathy Brachial neuritis or radiculitis nos | + + | Cervicalgia | + + | Foraminal stenosis of cervical region Spinal stenosis in cervical region | + + | Cervical disc herniation Displacement of cervical intervertebral disc without | | myelopathy | + + | S/P cervical spinal fusion Arthrodesis status | + + documented in this encounter
--- OUTSIDE RECORDS SUMMARY | ~2019-03-03 | XMS | Encounter Summary ---
Demographics + + + | Address | [address] | | | [place] [address] | + + + | Home Phone | | + + + | Preferred Language | Unknown | + + + | Marital Status | | + + + | Jehovah'S Witness Affiliation | 1001 | + + + | Race | Unknown | + + + | Ethnic Group | Unknown | + + + Author + + + | Author | [facility] | | | and [place] | + + + | Organization | [facility] | | | and [...] [place] | | | | | [address] | | + + + + + | Angelika Holm | ECON | Unknown | | + + + + + Care Team Providers + +------+ + | Care Adoption Services Manager Name | Role | Phone | + [...] | | [address] | [place] [address] | | | | | [place] | [phone] | | | | | [address] | | | | | | [phone] | | | +--------+ + + + [...]
--- OUTSIDE RECORDS SUMMARY | ~2019-03-03 | XMS | Encounter Summary ---
Demographics + + + | Address | [address] | | | [place] [address] | + + + | Home Phone | | + + + | Preferred Language | Unknown | + + + | Marital Status | | + + + | Adventist Affiliation | 1001 | + + + | Race | Unknown | + + + | Ethnic Group | Unknown | + + + Author + + + | Author | [facility] | | | and [place] | + + + | Organization | [facility] [...] [place] | | | | | [address] | | + + + + + | Angelika Holm | ECON | Unknown | | + + + + + Care Team Providers + +------+ + | Care Agricultural Produce Commission Agent Name | Role | Phone | + [...] Ashley HANSON | | | | | [phone] | [place] [address] | | +--------+ + + + + [...]
--- OUTSIDE RECORDS SUMMARY | ~2019-03-03 | XMS | Encounter Summary ---
Demographics + + + | Address | [address] | | | [place] [address] | + + + | Home Phone [...] Author | [facility] | | | and [place] | + + + | Organization | [facility] | [...] [place] | | | | | [address] | | + + + + + | Angelika Holm | ECON | Unknown | | + + + + + Care Team Providers + +------+ + | Care Visual Arts Teacher Name | Role | Phone | [...] + + | 07/24/ | Office | [facility] | Luis Chiang | DDD (degenerative | | 2017 | Visit | NEUROSURGERY [address] | D, KIT [address] | disc disease), | | | | [address] | [address] | cervical (Primary | | | | [place], [place] | [place], [place] | Dx); Cervicalgia | | | | [address] | [address] | | | | | [phone] | | | +--------+---------+ + + + [...] from the original. Luis Chiang PA-C [address] [facility], [address] [place], [place] [address] FAX: NEUROSURGERY FOLLOW-UP CHIEF COMPLAINT: Chief Complaint [...] Incontinence surgery 2004 Bladder sling release 08/26/2013 [facility] Cystocele repair 1998 Partial hysterectomy 1998 Efren and bso 2004 Rectocele repair 1998 Cervical spine surgery N/A 05/10/2015 Procedure: C4-5, C5-6, C6-7 Anterior Cervical Discectomy Fusion; Surgeon: Bekah Jones; Location: [facility] MAIN OR CURRENT MEDICATIONS: Current Outpatient [...] tablet TK 1 T PO QD 2 [place] 3-6-9 Fatty Acids (TRIPLE OMEGA COMPLEX PO) [...] no apparent deficits with short or termite control representative memory. CRANIAL NERVES: II: Acuity is intact. [...] Intrinsics 5 5 Ulnar Intrinsics 5 5 Credit Collections Specialist Strength 5 5 Hip Flexion 5 5 [...]
--- OUTSIDE RECORDS SUMMARY | ~2019-03-03 | XMS | Encounter Summary ---
Demographics + + + | Address | [address] | | | [place] [address] | + + + | Home Phone | | + + + | Preferred Language | Unknown | + + + | Marital Status | | + + + | Mandaeism Affiliation | 1001 | + + + | Race | Unknown | + + + | Ethnic Group | Unknown | + + + Author + + + | Author | [facility] | | | and [place] | + + + | Organization | [facility] | | | and [...] [place] | | | | | [address] | | + + + + + | Angelika Holm | ECON | Unknown | | + + + + + Care Team Providers + +------+ + | Care Chief Reservoir Engineering Name | Role | Phone | + [...] [address]VE | | | | | [address] | [place] [address] | | | | | [place] | [phone] | | | | | [address] | | | | | | [phone] | | | +--------+ + + + [...]
--- OUTSIDE RECORDS SUMMARY | ~2019-03-03 | XMS | Encounter Summary ---
Demographics + + + | Address | [address] | | | [place] [address] | + + + | Home Phone [...] + | Author | [facility] | | | and [place] | + + + | Organization | [facility] | | | and [place] [...] [place] | | | | | [address] | | + + + + + | Angelika Holm | ECON | Unknown | | + + + + + Care Team Providers + +------+ + | Care Quality Improvement Engineer Name | Role | Phone | [...] + | 01/15/ | Telephone | [facility] | Donald Reich MD | Records Request | | 2014 | | NEUROSURGERY [address] | [address] | | | | | [address] [facility] [address] | [place] [address] | | | | | [place] | [phone] | | | | | [address] | | | | | | [phone] | | | +--------+ + + + [...]
--- OUTSIDE RECORDS SUMMARY | ~2019-03-03 | XMS | Encounter Summary ---
Demographics + + + | Address | [address] | | | [place] [address] | + + + | Home Phone | | + + + | Preferred Language | Unknown | + + + | Marital Status | | + + + | Orthodox Affiliation | 1001 | + + + | Race | Unknown | + + + | Ethnic Group | Unknown | + + + Author + + + | Author | [facility] | | | and [place] | + + + | Organization | [facility] [...] [place] | | | | | [address] | | + + + + + | Angelika Holm | ECON | Unknown | | + + + + + Care Team Providers + +------+ + | Care Event Planner Name | Role | Phone | + +------+ + | Alec Tao MD | PCP | | + +------+ + Encounter Details +--------+ + + + + | Date | Type | Department | Care Team | Description | +--------+ + + + + | 05/11/ | Hospital | [facility] | Matthew Box, | | | 2015 | Encounter | MED CTR SPEECH | Speech Pathologist | | | | | THERAPY [address] | | | | | | [place], | | | | | | [place] [address] | | | | | | [phone] | | | +--------+ + + + [...] + + + +---------+ + + | Timbo 3-6-9 Fatty | Take 2 tablets by [...]
--- OUTSIDE RECORDS SUMMARY | ~2019-03-03 | XMS | Encounter Summary ---
Demographics + + + | Address | [address] | | | [place] [address] | + + + | Home Phone [...] | [facility] | | | and [place] | + + + | Organization | [facility] | | | and [place] [...] [place] | | | | | [address] | | + + + + + | Angelika Holm | ECON | Unknown | | + + + + + Care Team Providers + +------+ + | Care Caramel Cutter Hand Name | Role | Phone | [...] | | [address] | [place] [address] | | | | | [place] | [phone] | | | | | [address] | | | | | | [phone] | | | +--------+ + + + [...]
--- OUTSIDE RECORDS SUMMARY | ~2019-03-03 | XMS | Encounter Summary ---
Demographics + + + | Address | [address] | | | [place] [address] | + + + | Home Phone | | + + + | Preferred Language | Unknown | + + + | Marital Status | | + + + | Orthodoxy Affiliation | NON | + + + | Race | White | + + + | Ethnic Group | Not or | + + + Author + + + | Author | [facility] | + + + | Organization | [facility] | + + + | Address | Unknown | + + + | Phone | Unavailable | + + + Support + + +---------+ + | Name | Relationship | Address | Phone | + + +---------+ + | Fidel Holm | ECON | Unknown | | + + +---------+ + Care Team Providers + +------+ + | Care Automatic Silk Screen Printer Name | Role | Phone | + +------+ + | Jacqueline Nuñez | PCP | | + +------+ + Encounter Details +--------+ + + + + | Date | Type | Department | Care Team | Description | +--------+ + + + + | 08/05/ | Procedure | [facility] | | | | 2019 | Pass | [facility] | | | | | [facility] | | | | | | Center Admitting | | | | | | Desk Located on the | | | | | | 4th floor [address] | | | | | | [place], | | | | | | [place] [address] | | | +--------+ + + + [...]
--- OUTSIDE RECORDS SUMMARY | ~2019-03-03 | XMS | Encounter Summary ---
Demographics + + + | Address | [address] | | | [place] [address] | + + + | Home Phone [...] | [facility] | | | and [place] | + + + | Organization | [facility] | | [...] [place] | | | | | [address] | | + + + + + | Angelika Holm | ECON | Unknown | | + + + + + Care Team Providers + +------+ + | Care Hedge Trimmer Name | Role | Phone | + [...] | Cervical | Yris, | [address] | | | | | radiculopath | Andrea Scott MD | [place], | | | | | y | [address] | [place] | | | | | Procedures | [place] | [address] | | | | | [place] | [place] | Phone: | | | | | DX/THER SBST | [address] | [phone] | | | | | | Phone: | Fax: | | | | | EPIDURAL/SUB | [phone] | [phone] | | | | | LOLITA | Fax: | | | | | | CERV/THORACI | [phone] | | | | | | C NM | | | | | | | TRIAMCINOLON | | | | | | | E ACET INJ | | | | | | | NOS, 10 MG | | | | | | | NM FLUORO | | | | | | [...] + + | 07/04/ | Hospital | [facility] | Andrea Arndt | Cervical | | 2015 | Encounter | MED CTR XRAY [address] | T, [address] | radiculopathy | | | | [address] [place] | [place], [place] | | | | | [place] [address] | [address] | | | | | [phone] | | | | | | | Veterinary Assistant, [facility] | | +--------+ + + + [...] | + + + +---------+--------+ + | [place] 3-6-9 Fatty | Take 2 tablets by [...] + + | Performing | Address | City/State[facility] | Phone Number | | Organization | | | | + + + + + | [address] | [address] | [place] | [phone] | | [facility] | | [address] | | | - IMAGING | | [...]
--- OUTSIDE RECORDS SUMMARY | ~2019-03-03 | XMS | Encounter Summary ---
Demographics + + + | Address | [address] | | | [place] [address] | + + + | Home Phone [...] | Author | [facility] | | | and [place]arro[place] | + + + | Organization | [facility] | | | [...] [place] | | | | | [address] | | + + + + + | Angelika Holm | ECON | Unknown | | + + + + + Care Team Providers + +------+ + | Care Securities Attorney Name | Role | Phone | + [...] | | | with | | [facility] | | | | | myelopathy | | [address] | | | | | Cervical | | Phone: | | | | | arthritis | | [phone] | | | | | with | | Fax: | | | | | myelopathy | | [phone] | | | | | [M47.12] | [...] | | | | | [address] [place], [place] | | | | | [place], [place] | [address] | | | | | [address] | | | | | | [phone] | | | +--------+ + + + [...] +----+---+ + + | | 1 | Mifflin | | | | 2 | 43-degrees | | | | 3 | | | | | 3 | | | +----+---+ + + | | 1 | First | | | | 2 | Inc/Proc St | | | | 4 | | | | | 2 | | | +----+---+ + + | | 1 | Mifflin off | | | | 4 | [...] + + | Periph | 05/10/15; 1031; [id number] | 05/10/15 1031 by | 05/11/15 1145 [...] closed device; 10fr round nathalie; | | FLAIVO Bunch | | | tip intact; short [...]
--- OUTSIDE RECORDS SUMMARY | ~2019-03-03 | XMS | Encounter Summary ---
Demographics + + + | Address | [address] | | | [place] [address] | + + + | Home Phone | | + + + | Preferred Language | Unknown | + + + | Marital Status | | + + + | Restorationism Affiliation | NON | + + + [...] Team Providers + +------+ + | Care Plastics Production Machine Operator Name | Role | Phone [...] Cassie | | | | Services at [facility] | [place] [address] | | | | | [address] | [phone] | | | | | Mailcode: CH5E | | | | | | [facility] | | | | | | and Healing, | | | | | | Building , | | | | | | Floor [place], [place] | | | | | | [address] | | | | | | [phone] | | | +--------+ + + + [...]
--- OUTSIDE RECORDS SUMMARY | ~2019-03-03 | XMS | Encounter Summary ---
Demographics + + + | Address | [address] | | | [place] [address] | + + + | Home Phone | | + + + | Preferred Language | Unknown | + + + | Marital Status | | + + + | Episcopalian Affiliation | 1001 | + + + | Race | Unknown | + + + | Ethnic Group | Unknown | + + + Author + + + | Author | [facility] | | | and [place]arro[place] | + + + | Organization | [facility] | | | [...] [place] | | | | | [address] | | + + + + + | Angelika Holm | ECON | Unknown | | + + + + + Care Team Providers + +------+ + | Care Training And Development Head Name | Role | Phone | + [...] y Neck pain | [address] | [address] | | | | | History of | [address] | [address] | | | | | fusion of | [place], | [place], [place] | | | | | cervical | [place] [address] | [address] | | | | | spine | Phone: | Phone: | | | | | Procedures | [phone] | [phone] | | | | | 11/30>APPT | Fax: | Fax: | | | | | INFO | [phone] | [phone] | | | | | REQUESTED | [...] | | | | cervical | [place] [address] | [address] | | | | | spine | Phone: | Phone: | | | | | | [phone] | [phone] | | | | | | Fax: | Fax: | | | | | | [phone] | [phone] | + + + + + + [...] (Primary Dx); Neck | | | | [place], [place] | [place] [address] | pain; History of | | | | [address] | [phone] | fusion of cervical | | | | [phone] | | spine | +--------+ + + [...]
--- OUTSIDE RECORDS SUMMARY | ~2019-03-03 | XMS | Encounter Summary ---
Demographics + + + | Address | [address] | | | [place] [address] | + + + | Home Phone | | + + + | Preferred Language | Unknown | + + + | Marital Status | | + + + | Restorationist Affiliation | 1001 | + + + | Race | Unknown | + + + | Ethnic Group | Unknown | + + + Author + + + | Author | [facility] | | | and [place]arro[place] | + + + | Organization | [facility] | | | and [...] [place] | | | | | [address] | | + + + + + | Angelika Holm | ECON | Unknown | | + + + + + Care Team Providers + +------+ + | Care Agriculture Intern Name | Role | Phone | + [...] | 03/12/ | Office | [facility] | Donald Reich MD | Cervical spondylosis | | 2014 | Visit | NEUROSURGERY [address] | [address] | with myelopathy | | | | [address] | [place] [address] | (Primary Dx); | | | | [place] | [phone] | Cervical | | | | [address] | | radiculopathy; | | | | [phone] | | Degeneration of | | | [...] research this procedure more by going to: [email or web address] Click the Treatment Options link on the left column. Then, look for Anterior Cervical Discectomy and Fusion (ACDF). documented in this encounter Progress Notes Donald Reich MD - 03/12/2015 9:25 AM PSTFormatting of this note might be different from t he original. Donald Reich MD [address] [place] [address], [address] [place], [place] [address] FAX: NEUROSURGERY FOLLOW-UP CHIEF COMPLAINT: Chief Complaint [...] PO) Take 1 tablet by mouth Daily. [place] 3-6-9 Fatty Acids (TRIPLE OMEGA COMPLEX PO) [...] has no apparent deficits with short or regional intermodal truck driver memory. MOTOR EXAM: (5 IS NORMAL) * Indicates pain limited MUSCLE/ MOVEMENT: RIGHT LEFT Deltoids 5 5 Biceps 5 5 Triceps 5 5 Wrist Flexion 5 5 Wrist Extension 5 5 Median Intrinsics 5 5 Ulnar Intrinsics 5 5 Telephone Interviewer Strength 4 5 Hip Flexion 5 5 [...]
--- OUTSIDE RECORDS SUMMARY | ~2019-03-03 | XMS | Encounter Summary ---
Demographics + + + | Address | [address] | | | [place] [address] | + + + | Home Phone | | + + + | Preferred Language | Unknown | + + + | Marital Status | | + + + | Episcopal Affiliation | 1001 | + + + | Race | Unknown | + + + | Ethnic Group | Unknown | + + + Author + + + | Author | [facility] | | | and [place]arro[place] | + + + | Organization | [facility] | | | and [...] [place] | | | | | [address] | | + + + + + | Angelika Holm | ECON | Unknown | | + + + + + Care Team Providers + +------+ + | Care Commissary Worker Name | Role | Phone | + +------+ + | Alec Tao MD | PCP | | + +------+ + Encounter Details +--------+ + + + + | Date | Type | Department | Care Team | Description | +--------+ + + + + | 03/27/ | Hospital | [facility] | Donald Reich MD | | | 2015 | Encounter | MED CTR LAB[facility] | [address] | | | | | [address] [place] | [place] [address] | | | | | [place] | [phone] | | | | | [address] | | | | | | [phone] | | | +--------+ + + + [...] + + + +---------+ + + | [place] 3-6-9 Fatty | Take 2 tablets by [...]
--- OUTSIDE RECORDS SUMMARY | ~2019-03-03 | XMS | Encounter Summary ---
Demographics + + + | Address | [address] | | | [place] [address] | + + + | Home Phone | | + + + | Preferred Language | Unknown | + + + | Marital Status | | + + + | Adventism Affiliation | 1001 | + + + | Race | Unknown | + + + | Ethnic Group | Unknown | + + + Author + + + | Author | [facility] | | | and [place] | + + + | Organization | [facility] | | | and [place] [...] [place] | | | | | [address] | | + + + + + | Angelika Holm | ECON | Unknown | | + + + + + Care Team Providers + +------+ + | Care Occupational Therapy Instructor Name | Role | Phone | [...] | | | | with | | [facility] | | | | myelopathy | | [address] | | | | | Cervical | | Phone: | | | | | arthritis | | [phone] | | | | | with | | Fax: | | | | | myelopathy | | [phone] | | | | | [M47.12] | | | | | | | Procedures | | | | | | | [place] | | | | | | | [...] Cervical | | | | [address] | [place] [address] | Discectomy Fusion | | | | [place] | [phone] | | | | | [address] | | | | | | [phone] | | | +--------+---------+ + + + [...] might be different from t gavin original. [facility] DISCHARGE SUMMARY Patient Name: Cathy Holm Patient [...] tablet Take 1 tablet by mouth Daily. [place] 3-6-9 Fatty Acids (TRIPLE OMEGA COMPLEX PO) [...] Care Everywhere.CERVICAL FUSION , DISCHARGE INSTRUCTIONS FOR (DANISH)documented in this encounter Medications at Time of [...] + + + +---------+ + + | [place] 3-6-9 Fatty | Take 2 tablets by [...]
--- OUTSIDE RECORDS SUMMARY | ~2019-03-03 | XMS | Encounter Summary ---
Demographics + + + | Address | [address] | | | [place] [address] | + + + | Home Phone | | + + + | Preferred Language | Unknown | + + + | Marital Status | | + + + | Yazidism Affiliation | 1001 | + + + | Race | Unknown | + + + | Ethnic Group | Unknown | + + + Author + + + | Author | [facility] | | | and [place]arro[place] | + + + | Organization | [facility] | | | and [place] [...] [place] | | | | | [address] | | + + + + + | Angelika Holm | ECON | Unknown | | + + + + + Care Team Providers + +------+ + | Care Actuarial Director Name | Role | Phone | + [...] + + | 10/12/ | Office | [facility] | Kevyn Wagnerlas | Cervical spondylosis | | 2015 | Visit | NEUROSURGERY [address] | [address] | without myelopathy | | | | [address] | [address] | (Primary Dx); | | | | [place], [place] | [place] [address] | Cervical | | | | [address] | [phone] | radiculopathy; Neck | | | | [phone] | | and shoulder pain; | | [...] t from the original. JOSHUA [place] [address] [place], [place] [address] FAX: NEUROSURGERY FOLLOW-UP CHIEF COMPLAINT: Chief Complaint [...] PO) Take 1 tablet by mouth Daily. [place] 3-6-9 Fatty Acids (TRIPLE OMEGA COMPLEX PO) [...] has no apparent deficits with short or terminal system operator memory. CRANIAL NERVES: Fundoscopic Exam: The optic [...] Intrinsics 5 5 Ulnar Intrinsics 5 5 Milled Rubber Tender Strength 5 5 Hip Flexion 5 5 [...]
--- OUTSIDE RECORDS SUMMARY | ~2019-03-03 | XMS | Encounter Summary ---
Demographics + + + | Address | [address] | | | [place] [address] | + + + | Home Phone | | + + + | Preferred Language | Unknown | + + + | Marital Status | | + + + | Baptism Affiliation | 1001 | + + + | Race | Unknown | + + + | Ethnic Group | Unknown | + + + Author + + + | Author | [facility] | | | and [place] | + + + | Organization | [facility] | [...] [place] | | | | | [address] | | + + + + + | Angelika Holm | ECON | Unknown | | + + + + + Care Team Providers + +------+ + | Care Fish Trapper Name | Role | Phone | + [...] | | spondylosis | [address] [place] | [place], | | | | | without | [place], [place] | [place] [address] | | | | | myelopathy | [address] | Phone: | | | | | Degeneration | Phone: | [phone] | | | | | of cervical | [phone] | Fax: | | | | | | Fax: | [phone] | | | | | intervertebr | [phone] | | | | | | al [...] [address] | radiculopathy | | | | [place], | [place] | (Primary Dx); | | | | [place] [address] | [address] | Cervical spondylosis | | | | [phone] | | without myelopathy; | | | [...] symptoms have been chronic and worsening. Nigel michele describes the pain as a burning feeling [...] [facility] Elbow surgery 03/15/2014 [facility] Incontinence surgery 2004 Bladder sling release 08/26/2013 [...] PO) Take 1 tablet by mouth Daily. [place] 3-6-9 Fatty Acids (TRIPLE OMEGA COMPLEX PO) [...] has no apparent deficits with short or jail memory. She has appropriate fund of knowledge [...]
--- OUTSIDE RECORDS SUMMARY | ~2019-03-03 | XMS | Encounter Summary ---
Demographics + + + | Address | [address] | | | [place] [address] | + + + | Home Phone | | + + + | Preferred Language | Unknown | + + + | Marital Status | | + + + | Anglican Affiliation | 1001 | + + + | Race | Unknown | + + + | Ethnic Group | Unknown | + + + Author + + + | Author | [facility] | | | and [place] | + + + | Organization | [facility] | | | and [...] [place] | | | | | [address] | | + + + + + | Angelika Holm | ECON | Unknown | | + + + + + Care Team Providers + +------+ + | Care Capacity Analyst Name | Role | Phone | [...] + | 12/09/ | Office | [facility] | Luis Chiang | Cervical spinal | | 2016 | Visit | NEUROSURGERY [address] | D, PA-C [address] | stenosis (Primary | | | | [address] | [address] | Dx); Cervical | | | | [place], [place] | [place], [place] | radiculopathy; | | | | [address] | [address] | Cervicalgia; | | | | [phone] | | Foraminal stenosis | | | [...] from the original. Luis Chiang PA-C [address] [place], [place] [id number] FAX: NEUROSURGERY FOLLOW-UP CHIEF COMPLAINT: Chief Complaint [...] Procedure Laterality Date Bladder Sling Release 08/26/2013 [facility] CERVICAL SPINE SURGERY N/A 05/10/2015 Procedure: C4-5, C5-6, C6-7 Anterior Cervical Discectomy Fusion; Surgeon: Donald Reich MD ; Location[facility] MAIN OR CYSTOCELE REPAIR 1998 ELBOW SURGERY 03/15/2014 Holden Pearson INCONTINENCE SURGERY 2004 PARTIAL HYSTERECTOMY 1998 RECTOCELE REPAIR 1998 SHOULDER SURGERY 08/17/2013 [facility] 2004 CURRENT MEDICATIONS: Current Outpatient [...] tablet TK 1 T PO QD 2 [place] 3-6-9 Fatty Acids (TRIPLE OMEGA COMPLEX PO) [...] has no apparent deficits with short or manager terminal memory. CRANIAL NERVES: II: Acuity is [...] 5 5 Ulnar Intrinsics 5 5 Telephone Plant Power Operator Strength 5 5 Hip Flexion 5 5 [...]
--- OUTSIDE RECORDS SUMMARY | ~2019-03-03 | XMS | Encounter Summary ---
Demographics + + + | Address | [address] | | | [place] [address] | + + + | Home Phone | | + + + | Preferred Language | Unknown | + + + | Marital Status | | + + + | Uatsdin Affiliation | NON | + + + | Race | White | + + + | Ethnic Group | Not or | + + + Author + + + | Author | [facility] | + + + | Organization | [facility] | + + + | Address | Unknown | + + + | Phone | Unavailable | + + + Support + + +---------+ + | Name | Relationship | Address | Phone | + + +---------+ + | Fidel Holm | ECON | Unknown | | + + +---------+ + Care Team Providers + +------+ + | Care Fiction And Nonfiction Author Name | Role | Phone | + +------+ + | Jacqueline Nuñez | PCP | | + +------+ + Encounter Details +--------+ + + + + | Date | Type | Department | Care Team | Description | +--------+ + + + + | 02/14/ | Document-Sc | NON-[facility] | Unknown [...]
--- OUTSIDE RECORDS SUMMARY | ~2019-03-03 | XMS | Encounter Summary ---
Demographics + + + | Address | [address] | | | [place] [address] | + + + | Home Phone [...] + + | Author | [facility] | + + + | Organization | [facility] | + + + | Address | Unknown | + + + | Phone | Unavailable | + + + Support + + +---------+ + | Name | Relationship | Address | Phone | + + +---------+ + | Fidel Holm | ECON | Unknown | | + + +---------+ + Care Team Providers + +------+ + | Care Gyroscope Repairer Name | Role | Phone | + [...] | | | Reconstructive | [address] [place], | insufficiency | | | | Services at [facility] | [place] [address] | (Primary Dx) | | | | [address] | [phone] | | | | | Mailcode: CH5E | | | | | | [facility] | | | | | | and [place], | | | | | | [facility] | | | | | | Floor [place], [place] | | | | | | [address] | | | | | | [phone] | | | +--------+---------+ + + + [...] PM PDTClinic: Facial Plastic and Reconstructive Surgery [facility] Cathy Holm is a 58 y.o. female [...] Surgery Dept. 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
--- OUTSIDE RECORDS SUMMARY | ~2019-03-03 | XMS | Encounter Summary ---
Demographics + + + | Address | [address] | | | [place] [address] | + + + | Home Phone [...] [facility] | | | and [place] | + + + | Organization | [facility] | | | and [...] [place] | | | | | [address] | | + + + + + | Angelika Holm | ECON | Unknown | | + + + + + Care Team Providers + +------+ + | Care Glassware Maker Demonstrator Name | Role | Phone | + [...] check) | | | | [address] [facility] [address] | [place] [address] | | | | | [place] | [phone] | | | | | [address] | | | | | | [phone] | | | +--------+ + + + [...]
--- OUTSIDE RECORDS SUMMARY | ~2019-03-03 | XMS | Encounter Summary ---
Demographics + + + | Address | [address] | | | [place] [address] | + + + | Home Phone | | + + + | Preferred Language | Unknown | + + + | Marital Status | | + + + | Buddhism Affiliation | NON | + + + [...] Team Providers + +------+ + | Care Editor City Name | Role | Phone | + [...]
--- OUTSIDE RECORDS SUMMARY | ~2019-03-03 | XMS | Encounter Summary ---
Demographics + + + | Address | [address] | | | [place] [address] | + + + | Home Phone | | + + + | Preferred Language | Unknown | + + + | Marital Status | | + + + | Yarsani Affiliation | 1001 | + + + | Race | Unknown | + + + | Ethnic Group | Unknown | + + + Author + + + | Author | [facility] | | | and [place] | + + + | Organization | [facility] [...] [place] | | | | | [address] | | + + + + + | Angelika Holm | ECON | Unknown | | + + + + + Care Team Providers + +------+ + | Care Alarm Installation Technician Name | Role | Phone | + +------+ + | Alec Tao MD | PCP | | + +------+ + Encounter Details +--------+ + + + + | Date | Type | Department | Care Team | Description | +--------+ + + + + | 05/01/ | Hospital | [facility] | Abdulaziz Wagner | Neck pain | | 2015 | Encounter | MED CTR XRAY [address] | | | | | [place] | [address] | | | | | [place] [address] | [place] [address] | | | | | [phone] | [phone] | | | | | | | [...] | + + + +---------+--------+ + | [place] 3-6-9 Fatty | Take 2 tablets by [...] + + | Performing | Address | City/State[facility] | Phone Number | | Organization | | | | + +---------+ + + | MISCELLANEOUS LAB | | | [phone] | + +---------+ + + | MISCELANIOUS LAB | | | [phone] | + +---------+ + + documented in this encounter Visit Diagnoses + + | Diagnosis | + + | Neck pain Cervicalgia | + + documented in this encounter"
--- OUTSIDE RECORDS SUMMARY | ~2019-03-03 | XMS | Encounter Summary ---
Demographics + + + | Address | [address] | | | [place] [address] | + + + | Home Phone [...] + | Author | [facility] | | | and [place] | + + + | Organization | [facility] | | | and [place] [...] [place] | | | | | [address] | | + + + + + | Angelika Holm | ECON | Unknown | | + + + + + Care Team Providers + +------+ + | Care Volumetric Weigher Name | Role | Phone | + +------+ + | Alec Tao MD | PCP | | + +------+ + Encounter Details +--------+ + + + + | Date | Type | Department | Care Team | Description | +--------+ + + + + | 08/01/ | Orders Only | [facility] [place] | [place] | Cervical | | 2016 | | NEUROSURGERY [address] | [address] | radiculopathy | | | | [address] | [address] | (Primary Dx); S/P | | | | [place], [place] | [place] [address] | cervical spinal | | | | [address] | [phone] | fusion | | | | [phone] | | | +--------+ + + + [...] 3 VIEWS. 08/07/2015 7:28 AM HISTORY: | PROVID[facility] | | Postop . COMPARISON: 06/07/2015 FINDINGS: Anterior spinal | [facility] | | fusion hardware seen at the levels of C4-C7, with graft material at [facility] | | the intervening disc spaces there [...] of C6-7. Dictated and Signed by: Cosmo Hrenandez MD | | | Electronically signed: 08/07/2015 [...] [address] | [address] | [place] | [phone] | | [facility] | | [address] | | | - IMAGING | | | | + + + + + documented in this encounter Visit Diagnoses + + | Diagnosis | + + | Cervical radiculopathy - Primary Brachial neuritis or radiculitis nos | + + | S/P cervical spinal fusion Arthrodesis status | + + documented in this encounter"
--- OUTSIDE RECORDS SUMMARY | ~2019-03-03 | XMS | Encounter Summary ---
Demographics + + + | Address | [address] | | | [place] [address] | + + + | Home Phone | | + + + | Preferred Language | Unknown | + + + | Marital Status | | + + + | Amish Affiliation | 1001 | + + + | Race | Unknown | + + + | Ethnic Group | Unknown | + + + Author + + + | Author | [facility] | | | and [place] | + + + | Organization | [facility] | | | [...] [place] | | | | | [address] | | + + + + + | Angelika Holm | ECON | Unknown | | + + + + + Care Team Providers + +------+ + | Care Assembly Machine Offbearer Name | Role | Phone | + [...] NEUROSURGERY [address] | [address] | Appointment | | | | [facility] [address] | [place] [address] | | | | | [place] | [phone] | | | | | [address] | | | | | | [phone] | | | +--------+ + + + [...]
--- OUTSIDE RECORDS SUMMARY | ~2019-03-03 | XMS | Encounter Summary ---
Demographics + + + | Address | [address] | | | [place] [address] | + + + | Home Phone | | + + + | Preferred Language | Unknown | + + + | Marital Status | | + + + | Catholic Affiliation | NON | + + + | Race | White | + + + | Ethnic Group | Not or | + + + Author + + + | Author | [facility] | + + + | Organization | [facility] | + + + | Address | Unknown | + + + | Phone | Unavailable | + + + Support + + +---------+ + | Name | Relationship | Address | Phone | + + +---------+ + | Fidel Holm | ECON | Unknown | | + + +---------+ + Care Team Providers + +------+ + | Care Machine Clipper Name | Role | Phone | [...] | | | | | | | [facility] | | | | | | | for Health | | | | | | | and Healing, | | | | | | | Building 1, | | | | | | | 5th Floor | | | | | | | [place], [place] | | | | | | | [address] | | | | | | | Phone: | | | | | | | [phone] | | | | | | | Fax: | | | | | | | [phone] | + +--------+ + + + + [...] | | | Reconstructive | Taylor Cummings [place], | insufficiency | | | | Services at [facility] [place] | [place] [address] | (Primary Dx); Nasal | | | | [address] | [phone] | obstruction; Injury | | | | Mailcode: 5E | | of nose, sequela; | | | | [place] for [facility] | | Nasal septal | | | | and Healing, | | deviation; Nasal | | | | Building | | deformity, acquired; | | | | Floor [place], [place] | | Nasal valve | | | | [address] | | collapse; Nasal | | | | [phone] | | septal perforation | +--------+---------+ + [...] is referred by Nicko Mccoy MD [address] [place] [address] Notes [address] Mccoy were carefully reviewed [...] She came in with her daughter from [place]. Nasal Obstruction Symptom Evaluation (NOSE Scale) Time [...] the left and right nasal sidewall(s). Modified Heard maneuver is (-) left side and (+) [...] Surgery Dept. of Otolaryngology/Head and Neck Surgery [facility] [place] tel fax email [email or web address] in this encounter Plan of [...]
--- OUTSIDE RECORDS SUMMARY | ~2019-03-03 | XMS | Encounter Summary ---
Demographics + + + | Address | [address] | | | [place] [address] | + + + | Home Phone [...] + | Author | [facility] | | | and [place] | + + + | Organization | [facility] | [...] [place] | | | | | [address] | | + + + + + | Angelika Holm | ECON | Unknown | | + + + + + Care Team Providers + +------+ + | Care Tafe Teacher Name | Role | Phone | [...] (Primary Dx); S/P | | | | [place], [place] | [place] [address] | cervical spinal | | | | [address] | [phone] | fusion | | | | [phone] | | | +--------+ + + + [...] . COMPARISON: 06/07/2015 FINDINGS: Anterior spinal | [facility] | | fusion hardware seen at the levels of C4-C7, with graft material at [facility] | | the intervening disc spaces [...] ST. | [address] | [place] | [phone] | | [facility] | | [address] | | | - IMAGING | | | | + + + + + documented in this encounter Visit Diagnoses + + | Diagnosis | + + | Cervical radiculopathy - Primary Brachial neuritis or radiculitis nos | + + | S/P cervical spinal fusion Arthrodesis status | + + documented in this encounter"
--- OUTSIDE RECORDS SUMMARY | ~2019-03-03 | XMS | Encounter Summary ---
Demographics + + + | Address | [address] | | | [place] [address] | + + + | Home Phone | | + + + | Preferred Language | Unknown | + + + | Marital Status | | + + + | Restoration Affiliation | 1001 | + + + | Race | Unknown | + + + | Ethnic Group | Unknown | + + + Author + + + | Author | [facility] | | | and [place] | + + + | Organization | [facility] | | | and [...] [place] | | | | | [address] | | + + + + + | Angelika Holm | ECON | Unknown | | + + + + + Care Team Providers + +------+ + | Care Shuffle Board Operator Name | Role | Phone | + +------+ + | Alec Tao MD | PCP | | + +------+ + Encounter Details +--------+ + + + + | Date | Type | Department | Care Team | Description | +--------+ + + + + | 08/06/ | Hospital | [facility] | [place] | Cervical | | 2016 | Encounter | MED CTR XRAY [address] | radiculopathy; S/P | | | | [place] | [address] | cervical spinal | | | | [place] [address] | [place] [address] | fusion | | | | [phone] | [phone] | | | | | | | [...] + + + +---------+ + + | [place] 3-6-9 Fatty | Take 2 tablets by [...] . COMPARISON: 06/07/2015 FINDINGS: Anterior spinal | [facility] | | fusion hardware seen at the levels of C4-C7, with graft material at [facility] | | the intervening disc spaces [...] + + | Performing | Address | City/State/[facility] | Phone Number | | Organization | | | | + + + + + | [facility] | [address] | [place] | [phone] | | [facility] | | [address] | | | - IMAGING | | | | + + + + + documented in this encounter Visit Diagnoses + + | Diagnosis | + + | Cervical radiculopathy Brachial neuritis or radiculitis nos | + + | S/P cervical spinal fusion Arthrodesis status | + + documented in this encounter
--- OUTSIDE RECORDS SUMMARY | ~2019-03-03 | XMS | Encounter Summary ---
Demographics + + + | Address | [address] | | | [place] [address] | + + + | Home Phone | | + + + | Preferred Language | Unknown | + + + | Marital Status | | + + + | Mu-Ism Affiliation | 1001 | + + + | Race | Unknown | + + + | Ethnic Group | Unknown | + + + Author + + + | Author | [facility] | | | and [place] | + + + | Organization | [facility] | [...] [place] | | | | | [address] | | + + + + + | Angelika Holm | ECON | Unknown | | + + + + + Care Team Providers + +------+ + | Care Endless Track Vehicle Supervisor Name | Role | Phone | [...] | | | | CLINIC [address] | [place] [address] | Cervical spondylosis | | | | [place] | [phone] | with myelopathy; | | | | [address] | | Cervical spinal cord | | [...] | | | | ERIN PRAJAPATI MD ([id number]) | | | | | | on [...] [address] | [place] | [phone] | | [facility] | | [address] | | | - LABORATORY | | [...] mL/min/1.73m2 | [facility] | | | [place] | | | MEDICAL | | | [...] + | [facility] | [address] | [place] | [phone] | | [facility] | | [address] | | | - LABORATORY | | [...] [address] | [place] | [phone] | | [facility] | | [address] | | | - LABORATORY | | [...]
--- OUTSIDE RECORDS SUMMARY | ~2019-03-03 | XMS | Encounter Summary ---
Demographics + + + | Address | [address] | | | [place] [address] | + + + | Home Phone | | + + + | Preferred Language | Unknown | + + + | Marital Status | | + + + | Temple Affiliation | 1001 | + + + | Race | Unknown | + + + | Ethnic Group | Unknown | + + + Author + + + | Author | [facility] | | | and [place] | + + + | Organization | [facility] | | | and [place] [...] [place] | | | | | [address] | | + + + + + | Angelika Holm | ECON | Unknown | | + + + + + Care Team Providers + +------+ + | Care Compliance Examiner Name | Role | Phone | [...] | | | | with | | [facility] | | | | | myelopathy | | [address] | | | | | Cervical | | Phone: | | | | | arthritis | | [phone] | | | | | with | | Fax: | | | | | myelopathy | | [phone] | | | | | [M47.12] | | | | | | | Procedures | | | | | | | [place] | | | | | | | [...] + + | 05/10/ | Hospital | [facility] | Donald Reich MD | Cervical | | 2016 | Encounter | MED CTR XRAY [address] | [address] | radiculopathy | | | | [place] | [place] [address] | | | | | [place] [address] | [phone] | | | | | [phone] | | | +--------+ + + + [...] + + + +---------+ + + | Rosamond 3-6-9 Fatty | Take 2 tablets by [...] | | [facility] | | | [facility] | | | - IMAGING | + + + + + + + + | Performing | Address | City/State/Zipcode | Phone Number | | Organization | | | | + + + + + | [facility] | [address] | [place], [place] | [phone] | | [facility] | | [address] | | | - IMAGING | | | | + + + + + documented in this encounter Visit Diagnoses + + | Diagnosis | + + | Cervical radiculopathy Brachial neuritis or radiculitis nos | + + documented in this encounter"
[~2019-03-03 10:18] MED LIST changes: +BIOTIN10000 MCG PO; +GINGER500 MG PO; +METHYLPREDNISOLO4 M1 PO; +MINIVELLE1 EACH TD; +MYRBETRIQ50 MG PO; +PROPRANOLOL HCL20 MG PO; +TURMERIC 500 M1 EACH PO; +VITAMIN B COMP1 EAC1 PO; +VITAMIN D-32000 UNI1 PO; +ZITHROMAX250 MG PO
[2019-03-03] MEDS ORDERED: METHOCARBAMOL500 MG PO (10:29)
== END 2019-03-03 11:19 | disposition home or self-care (01) ==
LOC: ED 10:18
DX: S61.211A Laceration without foreign body of left index finger without damage to nail, initial encounter (principal); E03.9 Hypothyroidism, unspecified; Z88.0 Allergy status to penicillin; Z88.5 Allergy status to narcotic agent; Z79.899 Other long term (current) drug therapy; W26.0XXA Contact with knife, initial encounter
CPT/HCPCS: 99282

== ENCOUNTER 2020-05-30 07:30 | Day surgery (SDC) | payer BC ==
--- NOTE | 2020-05-29 16:07 | NUR ---
PT DENIES ITCHING, SOB AND TENDERNESS AT IV SITE. VSS, SL D/C'D WITH CATH TIP INTACT AND PRESSURE APPLIED TO SITE. AMBULATES OFF OF UNIT. RESP EVEN AND UNLABORED. NO PHYSICAL S/S OF DISTRESS AT THIS TIME
[~2020-05-30] VITALS: Ht 167.6 cm; Wt 55.0 kg
[~2020-05-30 07:30] MED LIST changes: +ALEVE220 M1 PO; +CLARITIN10 M2 PO; +DOTTI1 EAC2 TD; +METHOCARBAMOL500 MG PO; +MIGRANOW KIT50 MG MC; +MINIVELLE1 EAC1 TD; +PRILOSEC OTC20 MG PO; +ROBAXIN-750750 MG
--- NOTE | 2020-05-30 09:24 | NUR ---
05/30/20 0924 Mary Alice Patel 0920 PATIENT ARRIVES TO PACU SLEEPING, AWAKENS WITH VERBAL STIMULI, THEN BACK TO SLEEP. RESP EVEN AND UNLABORED, ROOM AIR SATS >95%.
--- NOTE | 2020-05-31 09:00 | OR ---
[facility] [address] [place], [place] [address] Signed DATE OF OPERATION: 05/30/2020 SURGEON: Shai Grant MD PREOPERATIVE DIAGNOSES: 1. Unremarkable colonoscopy at age 48. 2. Maternal aunt with colon cancer in her 70s. 3. Sister with colon polyps in her late 50s. 4. Chronic constipation. POSTOPERATIVE DIAGNOSES: 1. Minimal sigmoid diverticulosis. 2. 4 mm polyp at 7 cm. 3. 4 mm polyp at 15 cm (sigmoid colon). PROCEDURE: Colonoscopy with hot biopsy. ESTIMATED BLOOD LOSS: None. INDICATIONS: Cathy is a 60-year-old female, asked to see me for a followup colonoscopy. She mentioned a negative colonoscopy at age 48 while living in [place], [place]. She recalls that her maternal aunt had colon cancer in her 70s. A sister had colonic polyps removed in the late 50s. Cathy has chronic constipation. In the office, I gave her a pamphlet on colonoscopy. We discussed the nature of the test along with the risks including, but not limited to gas bloating, crampy abdominal pain, bleeding, perforation requiring surgery, and missed diagnosis. We also discussed the need for IV conscious sedation. She had expressed understanding and wished to proceed. PROCEDURE NOTE: Cathy was taken into our endoscopy suite and placed in the left lateral decubitus position. She was given a total of 9 mg of Versed and 150 mcg of fentanyl to cover the case. She has had previous hysterectomy, cystocele and rectocele repairs. Her rectum and sigmoid colon are a bit fixed. It took some extra sedation in order to advance the scope up through this area and up in the left colon. After that, the scope traveled pretty well. However, if she has recall of the procedure, she will need a monitored anesthesia care. We could easily see her appendiceal orifice. The ileocecal valve was readily evident. Her prep was quite excellent. The scope was slowly withdrawn. We Electronically Signed By: SHAI GRANT MD 05/31/20 0900 PATIENT NAME: CATHY RAMIREZ OPERATIVE REPORT DATE OF : 56 REPORT #: [id number] PHYSICIAN: SHAI GRANT MD PCP: JACQUELINE GUILLEN REPORT IS CONFIDENTIAL AND NOT TO BE RELEASED WITHOUT AUTHORIZATION [facility] [address] [place] [address] Signed took pictures throughout for photodocumentation. The two polyps mentioned above were easily removed with the help of hot biopsy forceps. She has just a few diverticula in the sigmoid colon. They were small in size. Once in the rectum, the scope was retroflexed and she has tiny internal anal skin tags. After this, the gas was suctioned out and the colonoscope removed. Overall, Cathy tolerated the procedure well. RECOMMENDATIONS: I will see Cathy back in my office in 7 to 14 days to review her results. She will stay on the 5-year rotation. If she has recall of the test, she should use monitored anesthesia care in the future. Shai Grant MD ALB/GRACEL /[id number] cc: MD Jacqueline Cade PA Copies: SHAI GRANT MD, LINDA PA ~ Electronically Signed By: SHAI GRANT MD 05/31/20 0900 PATIENT NAME: CATHY RAMIREZ OPERATIVE REPORT DATE OF : 56 REPORT #: [id number] PHYSICIAN: SHAI GRANT MD PCP: JACQUELINE GUILLEN REPORT IS CONFIDENTIAL AND NOT TO BE RELEASED WITHOUT AUTHORIZATION
--- NOTE | 2020-06-03 18:20 | PATH ---
[facility] [address] [place], [place] [address] Signed SPECIMEN(S): A RECTAL POLYP AT 7CM SPECIMEN(S): B SIGMOID POLYP AT 15 CM SPECIMEN SOURCE: A. RECTAL POLYP AT 7CM B. SIGMOID POLYP AT 15 CM CLINICAL HISTORY: Family history of colon CA and polyps. MICROSCOPIC DESCRIPTION: Histologic sections of all submitted blocks are examined by light microscopy. These findings, together with the gross examination, support the pathologic diagnosis. FINAL PATHOLOGIC DIAGNOSIS: A. Rectum, polyp at 7 cm, polypectomy: - Well-differentiated neuroendocrine (carcinoid) tumor. - Size: 1.8 mm. - Tumor Extension: Tumor invades lamina propria and muscularis mucosa. - Lymphovascular Invasion: Not identified. - See Comment. B. Colon, sigmoid, polyp at 15 cm, polypectomy: - Cauterized tubular adenoma. - Negative for high-grade dysplasia or malignancy. COMMENT: Regarding specimen A: Sections demonstrate nests and cords of small tumor cells with round nuclei and salt and pepper chromatin pattern within the lamina propria and muscularis mucosa. The overlying colonic mucosa and glands are negative for dysplasia. Immunohistochemical stains (with appropriately staining controls) were performed. The tumor cells are positive for pancytokeratin (dot-like), synaptophysin, and CD56, but negative for chromogranin. Ki-67 labels 1% of tumor cells (out of 500 cells counted). Significant mitotic activity is not seen (<1 mitoses per mm2). Of note, the biopsy is small and 10 mm2 of tumor is not available for mitotic count. The combined morphologic and immunophenotypic profile is compatible with a well-differentiated neuroendocrine tumor and the histologic grade G1 is favored given the tumor present. A diagnostic alert was initiated by Dr. Betancourt (Dr. Henson to be called) on PATIENT NAME: ROSALVA RAMIREZ PATHOLOGY DATE OF : 56 REPORT #: [id number] PHYSICIAN: ANNE MARIE PATHOLOGY PCP: STEVEN GUILLEN REPORT IS CONFIDENTIAL AND NOT TO BE RELEASED WITHOUT AUTHORIZATION [facility] [address] [place], [place] [address] Signed 06/03/20. As part of [facility]' Quality Improvement Program, this case was reviewed by another member of our pathology staff. NAL:cml:C2NR GROSS DESCRIPTION: Two specimens are received in two containers, labeled "CP." A. The specimen, labeled "CP, rectal polyp at 7 cm," is received in formalin and consists of two orta soft tissue fragments that measure 0.1 to 0.2 cm in greatest dimension. The specimen is entirely submitted in cassette (A1). B. The specimen, labeled "CP, sigmoid colon polyp at 15 cm," is received in formalin and consists of one orta soft tissue fragment that measures 0.2 cm in greatest dimension. The specimen is entirely submitted in cassette (B1). JS (under the direct supervision of a pathologist) The Gross Description was prepared using a voice recognition system. The report was reviewed for accuracy; however, sound-alike word errors, addition and/or deletions may occur. If there is any question about this report, please contact Client Services. ADDITIONAL NOTES: Immunohistochemical and/or in situ hybridization studies were performed on this case with the appropriate positive controls that react as expected. This test was developed and its performance characteristics determined by [facility]. It has not been cleared or approved by the U.S. Food and Drug Administration. The FDA has determined that such clearance or approval is not necessary. This test is used for clinical purposes. It should not be regarded as investigational or for research. [facility] is certified under the Clinical Laboratory Improvement Amendments of 1988 (CLIA) as qualified to perform high complexity clinical laboratory testing. PERFORMING LABORATORY: The technical component was performed by [facility], [address] [place] [id number] (Casing Trimmer: Torie Garner MD; CLIA# [id number]). Professional interpretation [facility] performed by [facility], [address] [place], [place] [address] (CLIA# [id number]). PATIENT NAME: ROSALVA RAMIREZ PATHOLOGY DATE OF : 56 REPORT #: [id number] PHYSICIAN: ANNE MARIE DOWELL PCP: STEVEN GUILLEN REPORT IS CONFIDENTIAL AND NOT TO BE RELEASED WITHOUT AUTHORIZATION [facility] [address] [facility] [place], [place] [address] Signed Diagnostician: Bianka Betancourt MD Pathologist Electronically Signed 06/03/2020 Copies: ~ PATIENT NAME: ROSALVA RAMIREZ PATHOLOGY DATE OF : 56 REPORT #: [id number] PHYSICIAN: ANNE MARIE PATHOLOGY PCP: STEVEN GUILLEN REPORT IS CONFIDENTIAL AND NOT TO BE RELEASED WITHOUT AUTHORIZATION
== END 2020-05-30 09:55 ==
LOC: OPS 07:30 → DS 07:30 → OPS 09:00 → DS 09:00 → OPS 09:55
PROVIDERS: ATTEND Colon & Rectal Surgery
PROC: 0DBE8ZZ Excision of Large Intestine, Via Natural or Artificial Opening Endoscopic (ICD-10-PCS; principal; 2020-05-30 09:00)
DX: D3A.026 Benign carcinoid tumor of the rectum (principal); D12.5 Benign neoplasm of sigmoid colon; K57.30 Diverticulosis of large intestine without perforation or abscess without bleeding; K59.09 Other constipation; K64.4 Residual hemorrhoidal skin tags; E78.5 Hyperlipidemia, unspecified; E03.9 Hypothyroidism, unspecified; I10 Essential (primary) hypertension; K21.9 Gastro-esophageal reflux disease without esophagitis; Z80.0 Family history of malignant neoplasm of digestive organs; Z83.71 Family history of colonic polyps
CPT/HCPCS: 99153; G0500; J2250; J3010; J7121

== ENCOUNTER 2020-06-27 06:25 | Day surgery (SDC) | payer BC ==
[~2020-06-27] VITALS: Ht 167.6 cm; Wt 57.2 kg
--- NOTE | ~2020-06-27 | OR ---
[facility] [address] [place], [place] [address] Draft DATE OF OPERATION: 06/27/2020 SURGEON: Shai Grant MD PREOPERATIVE DIAGNOSES: 1. 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 2. Personal history of colonic polyps. 3. Diverticulosis. 4. Sister with colonic polyps in her 50s. 5. Maternal aunt with colon cancer in her 70s. POSTOPERATIVE DIAGNOSIS: Carcinoid scar at 7 cm. PROCEDURES: 1. Flexible sigmoidoscopy with multiple hot biopsies. 2. Injection of tattoo at 7 cm. ESTIMATED BLOOD LOSS: None. INDICATIONS: Cathy is a 60-year-old female, who just came to us on May 30, 2020, for a colonoscopy. We know that her sister has colonic polyps in her 50s and her maternal aunt had colon cancer in her 70s. For Cathy, we found diverticulosis along with some polyps. We also removed a small 1.8 mm carcinoid tumor in the rectum, 7 cm in from the anal verge. She returns today to have that area re-biopsied and marked with tattoo. She is well aware that this is a very small carcinoid tumor. She understands endoscopy quite well. She knows there is risk including, but not limited to gas bloating, crampy abdominal pain, bleeding, perforation requiring surgery, and missed diagnosis. In addition, she decided to take her bowel prep throughout the entire day on this occasion. She said that proved to be a much better technique. She had expressed understanding and wished to proceed. She is well aware of the need for IV conscious sedation. PROCEDURE IN DETAIL: Cathy was taken into our endoscopy suite and placed in the left lateral decubitus position. She was given 8 mg of Versed and 125 mcg of fentanyl to cover the case. The adult colonoscope was introduced after her digital rectal exam. The rectal exam was unremarkable. We could easily see the scar at 7 cm from the anal verge. It was healing very nicely. We went ahead and took a hot biopsy circumferentially around that area for PATIENT NAME: CATHY RAMIREZ OPERATIVE REPORT DATE OF : 56 REPORT #: [id number] PHYSICIAN: SHAI GRANT MD PCP: JACQUELINE GUILLEN REPORT IS CONFIDENTIAL AND NOT TO BE RELEASED WITHOUT AUTHORIZATION [facility] [address] [place] [address] Draft pathologic review. We then injected a tattoo on either side of the lesion. After this, the gas was suctioned out. The colonoscope removed. Cathy tolerated the procedure quite well. RECOMMENDATIONS: I will see Cathy back in my office in 7 to 14 days to review her results. She might consider repeat endoscopy in 12-18 months to re-examine this area. In addition, she likes to take her bowel prep over the entire day. Shai Grant MD ALB/MODL /[id number] cc: MD Jacqueline Cade PA Copies: SHAI GRANT MD, LINDA PA ~ PATIENT NAME: CATHY RAMIREZ OPERATIVE REPORT DATE OF : 56 REPORT #: [id number] PHYSICIAN: SHAI GRANT MD PCP: JACQUELINE GUILLEN REPORT IS CONFIDENTIAL AND NOT TO BE RELEASED WITHOUT AUTHORIZATION
[2020-06-27] MEDS ORDERED: ACETAMINOPHEN500 M1 PO (06:39)
--- NOTE | 2020-06-27 07:55 | NUR ---
06/27/20 0755 Mary Alice Patel 0751 PATIENT ARRIVES TO PACU ASLEEPING. RESP EVEN AND UNLABORED, NC OFF, ROOM AIR SATS 100%.
--- NOTE | 2020-07-01 16:54 | PATH ---
[facility] [address] [facility] [place] [place] [address] Signed SPECIMEN(S): A RECTUM SPECIMEN SOURCE: A. RECTUM CLINICAL HISTORY: History of rectal carcinoid. Rule out re-excision rectal carcinoid. MICROSCOPIC DESCRIPTION: Histologic sections of all submitted blocks are examined by light microscopy. These findings, together with the gross examination, support the pathologic diagnosis. Immunohistochemical stains (with appropriately staining controls) were performed. Pancytokeratin (AE1/AE3) highlights the benign epithelial elements. Synaptophysin and chromogranin confirm the absence of residual carcinoid tumor. FINAL PATHOLOGIC DIAGNOSIS: Rectum, biopsy: - Rectal mucosa with no histopathologic abnormality. - Negative for residual carcinoid tumor. - Negative for dysplasia or malignancy. COMMENT: The history of well-differentiated neuroendocrine (carcinoid) tumor of the rectum diagnosed May, is noted. There is no residual carcinoid tumor identified within the biopsy specimen. NAL:cml:C1NR GROSS DESCRIPTION: The specimen, labeled "Cathy Ramirez," and designated on the requisition "rectum biopsy," is received in formalin and consists of six orta soft tissue fragments that measure 0.1 to 0.5 cm in greatest dimension. The specimen is entirely submitted in cassette (A1). FB (under the direct supervision of a pathologist) The Gross Description was prepared using a voice recognition system. The report was reviewed for accuracy; however, sound-alike word errors, addition and/or deletions may occur. If there is any question about this report, please contact Client Services. ADDITIONAL NOTES: Immunohistochemical and/or in situ hybridization studies were performed on this PATIENT NAME: CATHY RAMIREZ PATHOLOGY DATE OF : 56 REPORT #: [id number] PHYSICIAN: ANNE MARIE PATHOLOGY PCP: STEVEN GUILLEN REPORT IS CONFIDENTIAL AND NOT TO BE RELEASED WITHOUT AUTHORIZATION [facility] [address] [place] [id number] Signed case with the appropriate positive controls that react as expected. This test was developed and its performance characteristics determined by [facility]. It has not been cleared or approved by the U.S. Food and Drug Administration. The FDA has determined that such clearance or approval is not necessary. This test is used for clinical purposes. It should not be regarded as investigational or for research. [facility] is certified under the Clinical Laboratory Improvement Amendments of 1988 (CLIA) as qualified to perform high complexity clinical laboratory testing. This assay has not been validated for specimens that have been decalcified. PERFORMING LABORATORY: The technical component was performed by [facility], [address] [place] [address] (Spray Ii Painter: Torie Garner MD; CLIA# [id number]). Professional interpretation was performed by [facility], [address] [address] (CLIA# [id number]). Diagnostician: Bianka Betancourt MD Pathologist Electronically Signed 07/01/2020 Copies: ~ PATIENT NAME: CATHY RAMIREZ PATHOLOGY DATE OF : 56 REPORT #: [id number] PHYSICIAN: ANNE MARIE ODWELL PCP: STEVEN GUILLEN REPORT IS CONFIDENTIAL AND NOT TO BE RELEASED WITHOUT AUTHORIZATION
== END 2020-06-27 08:30 | disposition home or self-care (01) ==
LOC: DS 06:25 → OPS 06:25 → DS 06:45 → OPS 06:45
PROVIDERS: ATTEND Colon & Rectal Surgery
PROC: 0DBP8ZX Excision of Rectum, Via Natural or Artificial Opening Endoscopic, Diagnostic (ICD-10-PCS; 2020-06-27)
PROC: 3E0H8GC Introduction of Other Therapeutic Substance into Lower GI, Via Natural or Artificial Opening Endoscopic (ICD-10-PCS; principal; 2020-06-27 06:45)
DX: D3A.026 Benign carcinoid tumor of the rectum (principal); K57.30 Diverticulosis of large intestine without perforation or abscess without bleeding; N60.12 Diffuse cystic mastopathy of left breast; N60.11 Diffuse cystic mastopathy of right breast; I70.0 Atherosclerosis of aorta; E78.5 Hyperlipidemia, unspecified; E03.9 Hypothyroidism, unspecified; I10 Essential (primary) hypertension; G47.63 Sleep related bruxism; Z80.0 Family history of malignant neoplasm of digestive organs; Z83.71 Family history of colonic polyps; Z86.010 Personal history of colon polyps
CPT/HCPCS: 99153; G0500; J2250; J3010; J7121

== ENCOUNTER 2023-08-04 06:07 | Day surgery (SDC) | payer BC, MEDICARE ==
[2023-08-02 10:32] VITALS: BP 147/83
[~2023-08-04] VITALS: Ht 167.6 cm; Wt 59.0 kg
[~2023-08-04 06:07] MED LIST changes: +ACETAMINOPHEN500 M1 PO; +IMITREX25 MG PO; +LEVOTHYROXINE88 MC1 PO
[2023-08-04 06:17] VITALS: BP 141/68
[2023-08-04] MEDS ORDERED: IBLOOD GLUCOSE TEST STRIP 1 EA TEST VI PRN (07:00)
[2023-08-04] MEDS ORDERED: LIDOCAINE HCL 1% 5 ML SDV INJ ONE (07:00)
[2023-08-04] MEDS ORDERED: LACTATED RINGER'S 1,000 ML IV SCH (07:00)
[2023-08-04] MEDS ORDERED: propofoL 200 MG/20 ML VIAL ONE (07:22)
[2023-08-04] MEDS ORDERED: LIDOCAINE HCL 2% 5 ML SDV ONE (07:22)
--- NOTE | 2023-08-04 08:18 | NUR ---
08/04/23 0818 Stephanie Longo PATIENT ARRIVES IN PACU UNRESPONSIVE TO MY VOICE. BEDSIDE REPORT TAKEN FROM DARWIN PICKETT.
[2023-08-04 08:39] VITALS: BP 136/74
--- NOTE | 2023-08-04 09:58 | OR ---
[facility] [address] [place], [place] [address] Signed DATE OF OPERATION: 08/04/2023 SURGEON: Shai Grant MD PREOPERATIVE DIAGNOSES: 1. History of H pylori treated x3. 2. Gastroesophageal reflux disease. 3. Esophageal dysphagia solid foods after anterior cervical plating. 4. A maternal aunt with colon cancer in her 70s. 5. Sister with colon polyps in her 50s. 6. Chronic constipation. 7. Tortuous sigmoid colon. 8. Diverticulosis. 9. Personal history of colonic polyps. 10. 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 POSTOPERATIVE DIAGNOSES: 1. Minimal distal gastritis. 2. Tortuous sigmoid colon. 3. Multiple small internal anal skin tags. 4. Tattoo at 7 cm. PROCEDURES: 1. EGD with CLOtest and biopsies of the antrum and midesophagus. 2. Colonoscopy without biopsy. ESTIMATED BLOOD LOSS: None. INDICATIONS: Cathy is a 63-year-old female, who comes to us with the above complaints. Her history is quite extensive and it is detailed in the history and physical. She is returning now to repeat the upper and lower endoscopy. She has had many of these in the past. We actually sent her for a barium swallow as she was complaining of some esophageal dysphagia. Of course, she has a fusion plate anteriorly on her cervical spine. The 13 mm barium tablet did transiently arrest at the level of this plate. It went through when she swallowed some water. The rest of the barium swallow was unremarkable. I had reviewed this with Cathy and this is quite common. I have never seen a neurosurgeon remove the plate. That would destabilize her spine. In the office, I had given her pamphlets on both upper and lower endoscopy. At this point in time, she is quite Electronically Signed By: SHAI GRANT MD 08/04/23 0958 PATIENT NAME: CATHY RAMIREZ OPERATIVE REPORT DATE OF : 56 REPORT #: [id number] PHYSICIAN: SHAI GRANT MD PCP: JACQUELINE GUILLEN REPORT IS CONFIDENTIAL AND NOT TO BE RELEASED WITHOUT AUTHORIZATION [facility] [address] [place], [place] [address] Signed familiar with these two procedures. She understands there is risk including, but not limited to gas bloating, crampy abdominal pain, bleeding, perforation requiring surgery, and missed diagnosis. We also reviewed the written instructions for bowel prep line by line. She wanted to take the bowel prep much earlier in the day to give her time to avoid any nausea and vomiting. Also, we knew we were going to need monitored anesthesia care based on her previous endoscopies and her very tortuous sigmoid colon. She had expressed understanding and wished to proceed. PROCEDURE IN DETAIL: Cathy was taken into our endoscopy suite and placed in the supine semi-recumbent position. She was given monitored anesthesia care with propofol infusion per our nurse poultry buyer. A bite block was utilized for the case. The adult gastroscope was introduced and advanced under direct visualization of the camera. She has had a pharyngeal flap in the past for reasons that I am not aware of. We could see that scar tissue and it is well healed. The vocal cords and arytenoids are quite unremarkable. The scope went down the esophagus and all the way out into the duodenum without difficulty. The duodenum and pyloric channel were unremarkable. She has very minimal if any inflammation in the stomach. We went ahead and took a biopsy of the antrum for CLOtest as well as pathologic review. Upon retroflexion of the scope, there was very little concern up around the cardia. A little bit of her stomach is being pulled in on the lesser curve side. It would be difficult to call that significant hiatal hernia. The scope was withdrawn up through the area of the GE junction, which was compliant without stricture. Very little if any disruption to the Z-line. There was no distal esophagitis. We took a random biopsy out of her midesophagus because of the history of dysphagia. After this, the gas was suctioned out and the gastroscope removed. Cathy tolerated the upper endoscopy quite well. Cathy was then rotated into the left lateral decubitus position. She was maintained on IV propofol per our nurse poultry buyer. A digital rectal exam was performed and this was unremarkable. She had no external hemorrhoids. The sphincter tone was decreased as it is with the propofol infusion. There were no masses. The adult colonoscope was introduced and advanced under direct visualization of the camera. Once again, it took a few minutes and some abdominal compression to get the scope up through the tortuous sigmoid colon down in her pelvis. It was far better on this occasion with the propofol infusion rather than Versed and fentanyl. Once we got above the sigmoid colon, the scope passed nicely up into the cecum itself. Her prep was quite excellent. We could easily see the appendiceal orifice and the ileocecal valve. The scope was then slowly withdrawn. On this occasion, we did not specifically see any diverticulosis. There were no polyps. We could easily see the tattoo at 7 cm in the rectum. In between the two tattoos was the polypectomy scar, which is well healed without any evidence of recurrence. We retroflexed the scope and she does have several small internal anal skin tags. After this, the gas was suctioned out and the colonoscope removed. Cathy Electronically Signed By: SHAI GRANT MD 08/04/23 0958 PATIENT NAME: CATHY RAMIREZ OPERATIVE REPORT DATE OF : 56 REPORT #: [id number] PHYSICIAN: SHAI GRANT MD PCP: JACQUELINE GUILLEN REPORT IS CONFIDENTIAL AND NOT TO BE RELEASED WITHOUT AUTHORIZATION [facility] [address] [place] [id number] Signed tolerated the lower endoscopy quite well. RECOMMENDATIONS: I will see Cathy back in my office in 7 to 14 days to review her results. She will likely stay on the five year rotation for her colonoscopies based on her previous history. MD BRAYAN Cade/GRACEL /[id number] cc: MD Jacqueline Cade PA Copies: SHAI GRANT MD, LINDA PA ~ Electronically Signed By: SHAI GRANT MD 08/04/23 0958 PATIENT NAME: CATHY RAMIREZ OPERATIVE REPORT DATE OF : 56 REPORT #: [id number] PHYSICIAN: SHAI GRANT MD PCP: JACQUELINE GUILLEN REPORT IS CONFIDENTIAL AND NOT TO BE RELEASED WITHOUT AUTHORIZATION
--- NOTE | 2023-08-10 11:08 | PATH ---
[facility] [address] [place], [place] [address] Signed SPECIMEN(S): A ANTRUM BIOPSY SPECIMEN(S): B MIDDLE ESOPHAGEAL BIOPSY SPECIMEN SOURCE: A. ANTRUM BIOPSY B. MIDDLE ESOPHAGEAL BIOPSY CLINICAL HISTORY: Esophageal dysphagia; personal and family history of colon polyps colon diverticulosis, mild gastritis. FINAL PATHOLOGIC DIAGNOSIS: A. Antrum, biopsy: - Benign antral mucosa with vascular congestion, negative for active inflammation. - No H. pylori bacteria are detected by HE stain. B. Middle esophagus, biopsy: - Benign squamous esophageal mucosa with focal vascular congestion, negative for increased eosinophils or Ryan's metaplasia. AMB MICROSCOPIC EXAMINATION: Histologic sections of all submitted blocks are examined by light microscopy. These findings, together with the gross examination, support the pathologic diagnosis. GROSS DESCRIPTION: A. The specimen, labeled and designated "Mihai, C, 1." and designated on the requisition "antrum biopsy," is received in formalin and consists of one orta soft tissue fragment that is 0.6 cm in greatest dimension. The specimen is entirely submitted in (A1). B. The specimen, labeled and designated "Mihai, C, 2." and designated on the requisition "middle esophagus biopsy," is received in formalin and consists of one white-orta soft tissue fragment that measures 0.5 cm in greatest dimension. The specimen is entirely submitted in (B1). FB (under the direct supervision of a pathologist) The Gross Description was prepared using a voice recognition system. The report was reviewed for accuracy; however, sound-alike word errors, addition and/or deletions may occur. If there is any question about this report, please contact Client Services. PATIENT NAME: ROSALVA RAMIREZ PATHOLOGY DATE OF : 56 REPORT #: [id number] PHYSICIAN: ANNE MARIE DOWELL PCP: STEVEN GUILLEN REPORT IS CONFIDENTIAL AND NOT TO BE RELEASED WITHOUT AUTHORIZATION [facility] [address] [place], [place] [address] Signed ADDITIONAL NOTES: Immunohistochemical and/or in situ hybridization studies if performed in this case included appropriate positive controls that reacted as expected. This test was developed and its performance characteristics determined by [facility]. It has not been cleared or approved by the U.S. Food and Drug Administration. The FDA has determined that such clearance or approval is not necessary. This test is used for clinical purposes. It should not be regarded as investigational or for research. [facility] is certified under the Clinical Laboratory Improvement Amendments of 1988 (CLIA) as qualified to perform high complexity clinical laboratory testing. PERFORMING LABORATORY: Technical component was performed by [facility], [address] [place] [address] (CLIA# [id number]). Professional interpretation was performed by [facility] [address] [facility] [phone] [id number] Diagnostician: Torie Garner MD Pathologist Electronically Signed 08/10/2023 Copies: ~ PATIENT NAME: ROSALVA RAMIREZ PATHOLOGY DATE OF : 56 REPORT #: [id number] PHYSICIAN: ANNE MARIE DOWELL PCP: STEVEN GUILLEN REPORT IS CONFIDENTIAL AND NOT TO BE RELEASED WITHOUT AUTHORIZATION
== END 2023-08-04 08:42 | disposition home or self-care (01) ==
LOC: DS 06:07
PROVIDERS: ATTEND Colon & Rectal Surgery
PROC: 0DJD8ZZ Inspection of Lower Intestinal Tract, Via Natural or Artificial Opening Endoscopic (ICD-10-PCS; 2023-08-04)
PROC: 0DB28ZX Excision of Middle Esophagus, Via Natural or Artificial Opening Endoscopic, Diagnostic (ICD-10-PCS; principal; 2023-08-04 07:30)
PROC: 0DB78ZX Excision of Stomach, Pylorus, Via Natural or Artificial Opening Endoscopic, Diagnostic (ICD-10-PCS; 2023-08-04 07:30)
DX: K29.70 Gastritis, unspecified, without bleeding (principal); K63.89 Other specified diseases of intestine; K64.8 Other hemorrhoids; K21.9 Gastro-esophageal reflux disease without esophagitis; K59.09 Other constipation; K57.30 Diverticulosis of large intestine without perforation or abscess without bleeding; E78.5 Hyperlipidemia, unspecified; E03.9 Hypothyroidism, unspecified; G47.30 Sleep apnea, unspecified; G43.909 Migraine, unspecified, not intractable, without status migrainosus; Z86.010 Personal history of colon polyps; Z80.0 Family history of malignant neoplasm of digestive organs; Z83.711 Family history of hyperplastic colon polyps
CPT/HCPCS: 00813; 36415; 87077; J2001; J2704; J7121